=== PATIENT | male | born 1985 | race Caucasian/White ===

== ENCOUNTER 2021-12-02 07:12 | Emergency (ER) | payer OTHER, SELFPAY ==
[2021-12-02 07:13] VITALS: BP 140/97; PULSE 79; RESP 16; TEMP 37.1; O2SAT 98; BMI 28.8
[2021-12-02 07:33] LABS: MANUAL DIFF FLAG NO
[2021-12-02 07:36] LABS: Basophils Absolute Auto 0.1 X10*3/uL (0.0-0.2); Basophils Percent Auto 0.5 % (0-2); Eosinophils Absolute Auto 0.2 X10*3/uL (0.0-0.4); Eosinophils Percent Auto 1.5 % (0-4); Hematocrit 53.8 % (42.0-52.0); Hemoglobin 18.4 g/dl (14.0-18.0); Imm Gran Abs Auto 0.05 X10*3/uL (0.00-0.03); Imm Gran Pct Auto 0.4 % (0.0-0.4); Lymphocytes Absolute Auto 1.4 X10*3/uL (1.2-4.9); Lymphocytes Percent Auto 11.2 % (20-40); Mean Corpuscular HGB Conc 34.2 g/dl (31.0-36.0); Mean Corpuscular Hemoglobin 31.5 pg (27.0-33.0); Mean Corpuscular Volume 92.1 fL (80.0-98.0); Mean Platelet Volume 8.4 fL (9.4-12.4); Monocytes Absolute Auto 0.9 X10*3/uL (0.1-1.2); Monocytes Percent Auto 7.1 % (2-11); Neutrophils Absolute Auto 9.7 x10*3/uL (2.0-8.3); Neutrophils Percent Auto 79.3 % (45-73); Platelet Count 359 X10*3/uL (160-400); Red Blood Count 5.84 X10*6/uL (4.60-5.80); Red Cell Distribution Width 12.5 % (11.0-16.0); White Blood Count 12.3 X10*3/uL (4.8-10.8)
[2021-12-02 07:50] LABS: Appearance Urine CLOUDY; Color Urine DK YELLOW; Glucose Urine UA NEG (NEG); Leukocyte Esterase Urine NEG (NEG); Nitrite Urine NEG (NEG); PH 7.5 (5.0-8.0); Specific Gravity - Urine 1.015 (1.005-1.025); Urine Blood NEG (NEG); Urine Ketones NEG (NEG); Urine Protein TRACE MG/DL (NEG-TRACE)
[2021-12-02 08:02] LABS: Anion Gap 15 (12-20); Blood Urea Nitrogen 7 mg/dL (9-16); Carbon Dioxide 26 mmol/L (22-29); Chloride 99 mmol/L (96-108); Creatinine Clr Calc Pharmacy 170.1; Estimated Glomerular Filt Rate > 60; Glucose Random 115 mg/dL (60-115); Potassium 3.9 mmol/L (3.3-5.1); Sodium 136 mmol/L (135-145)
--- NOTE | 2021-12-02 08:37 | ED.NAVMDI ---
HPI - Nausea/Vomiting/Diarrhea General Chief complaint: Nausea/Vomiting/Diarrhea Stated complaint: abd pain Time Seen by Provider: 12/02/21 08:37 Source: patient Mode of arrival: ambulatory Limitations: no limitations History of Present Illness HPI Narrative: patient had abdominal pain starting yesterday, he had been drinking. Patient with right upper quadrant and epigastric pain. patient with N/V/D. patient states that he had hiatal hernia surgery with jonel procedure. MD elicited complaint: nausea, vomiting, diarrhea and abdominal pain Pertinent past history: pacreatitis Onset (ago): day(s) Associated nausea: Yes Associated abdominal pain: Yes Location of pain: epigastric and RUQ Pain consistency: intermittent Severity: moderate Quality: stabbing Exacerbating factors: alcohol intake Relieving factors: none Related Data Previous Rx's Medication Instructions Recorded naproxen 500 mg tablet (Naprosyn) 500 mg PO BID #20 tab 12/02/21 ondansetron 4 mg disintegrating 4 mg PO Q8H 4 Days #12 tab 12/02/21 tablet pantoprazole 40 mg tablet,delayed 40 mg PO DAILY #20 tab 12/02/21 release (Protonix) Allergies Allergy/AdvReac Type Severity Reaction Status Date / Time No Known Allergies Allergy Unverified 03/20/20 19:21 [No Known Allergies*] Review of Systems Constitutional: Constitutional: Reports no additional constitutional complaints Eyes: Eyes: Reports no additional eye complaints ENT: Denies dizziness Cardiovascular: Cardiovascular: Reports no additional cardiovascular complaints Respiratory: Respiratory: Reports as per HPI Gastrointestinal: Gastrointestinal: Reports nausea Musculoskeletal: Musculoskeletal: Reports no additional musculoskeletal complaints Integumentary/Breasts: Skin/Breast: Denies rash Neurologic: Reports system reviewed and no additional complaints, except as documented, Denies dizziness and Denies Sensory deficit (Neuro) Psychiatric: Psychiatric: Denies anxiety PMFSH Social History Social History Alcohol intake: current Alcohol intake frequency: 0-2 drinks per day Patient Tobacco Use Status: Current everyday Tobacco user Smoked in Last 30 Days: Yes Use of substances other than those prescribed or required for medical reasons: Yes Substance Use Type: Marijuana Advance Directives: No Advance Directives Information Provided: No Physical Exam Vital Signs: Vital Signs: Last Vital Signs Temp 97.8 F 12/02/21 08:53 Pulse 73 12/02/21 08:53 Resp 16 12/02/21 08:53 BP 139/98 H 12/02/21 08:53 Pulse Ox 99 12/02/21 08:53 BMI result Body Mass Index 28.8 Const: Other: in some discomfort General: healthy appearing Nutritional Appearance: average body habitus Orientation/consciousness: oriented to person and patient oriented x3 Limitations: no limitations HEENT: Head: Yes normal to inspection Ears: external ears normal General nose exam: Normal external nose present Mouth: Normal oral and palatal mucosa present and oropharynx normal Throat: Yes posterior oropharynx normal Eyes: General: appearance normal, both eyes and all related structures Neck: Other: supple Neck: Yes normal visual inspection Chest: Chest palpation & inspection: normal inspection of the chest Resp: Auscultation: clear to auscultation bilaterally Cardio: Jugular venous distension: no JVD Rate: regular rate Rhythm: regular rhythm Heart sounds: S1 normal heart sound present and S2 normal heart sound present GI: Other: mild epigastric and right upper quadrant pain Inspection: Yes normal to inspection Palpation (GI): Soft to palpation and No hepatosplenomegaly present Auscultation: normal bowel sounds : General: Yes no CVA tenderness Back/Spine/Pelvis: Back: no CVA tenderness Skin: General skin exam: no rashes or lesions noted Neuro: General: oriented to person and patient oriented x3 Cranial nerves: Yes CN's II-XII intact bilaterally Motor exam (neuro): 5/5 motor strength present throughout Sensory Exam: No Sensory deficit (Neuro) Extrem: General: Yes normal to inspection Psych: Appearance: grossly normal Course Reevaluation(s) Reevaluation #1: patient with mild pancreatitis, very dry will hydrate and dc home Time: 10:08 MDM - Nausea/Vomiting/Diarrhea Lab Data Result diagrams: 12/02/21 07:25 12/02/21 07:25 Labs: Lab Results 12/02/21 12/02/21 12/02/21 Range/Units 07:25 07:25 07:27 WBC 12.3 H (4.8-10.8) X10*3/uL RBC 5.84 H (4.60-5.80) X10*6/uL Hgb 18.4 H (14.0-18.0) g/dl Hct 53.8 H (42.0-52.0) % MCV 92.1 (80.0-98.0) fL MCH 31.5 (27.0-33.0) pg MCHC 34.2 (31.0-36.0) g/dl RDW 12.5 (11.0-16.0) % Plt Count 359 (160-400) X10*3/uL MPV 8.4 L (9.4-12.4) fL Immature Gran % (Auto) 0.4 (0.0-0.4) % Neut % (Auto) 79.3 H (45-73) % Lymph % (Auto) 11.2 L (20-40) % [place] % (Auto) 7.1 (2-11) % Eos % (Auto) 1.5 (0-4) % Baso % (Auto) 0.5 (0-2) % Lymph # (Auto) 1.4 (1.2-4.9) X10*3/uL [place] # (Auto) 0.9 (0.1-1.2) X10*3/uL Eos # (Auto) 0.2 (0.0-0.4) X10*3/uL Baso # (Auto) 0.1 (0.0-0.2) X10*3/uL Abs Immat Gran (auto) 0.05 H (0.00-0.03) X10*3/uL Absolute Neuts (auto) 9.7 H (2.0-8.3) x10*3/uL Absolute Nucleated RBC 0.000 (0.0-0.012) X10*3/uL Nucleated RBC % (auto) 0.0 (0.0-0.2) /100WBC Sodium 136 (135-145) mmol/L Potassium 3.9 (3.3-5.1) mmol/L Chloride 99 (96-108) mmol/L Carbon Dioxide 26 (22-29) mmol/L Anion Gap 15 (12-20) BUN 7 L (9-16) mg/dL Creatinine 0.78 (0.5-1.4) mg/dL Estim Creat Clear Calc 170.1 Estimated GFR > 60 Random Glucose 115 (60-115) mg/dL Calcium 11.0 H (8.4-10.2) mg/dL Total Bilirubin 1.5 H (0.0-1.0) mg/dL Direct Bilirubin 0.6 H (0.0-0.5) mg/dL AST 36 (5-37) U/L ALT 30 (0-40) U/L Alkaline Phosphatase 98 (39-117) U/L Total Protein 7.5 (6.5-8.0) g/dL Albumin 4.2 (3.5-5.0) g/dL Lipase 417 H (8-78) U/L Urine Color DK YELLOW Urine Appearance CLOUDY Urine pH 7.5 (5.0-8.0) Ur Specific [place] 1.015 (1.005-1.025) Urine Protein TRACE (NEG-TRACE) MG/DL Urine Glucose (UA) NEG (NEG) MG/DL Urine Ketones NEG (NEG) MG/DL Urine Blood NEG (NEG) Urine Nitrite NEG (NEG) Ur Leukocyte Esterase NEG (NEG) Discharge Plan Discharge Clinical Impression: Pancreatitis Patient Disposition: Home, Self-Care Instructions: Pancreatitis (ED) Prescriptions: New pantoprazole [Protonix] 40 mg tablet,delayed release (DR/EC) 40 mg PO DAILY Qty: 20 0RF ondansetron 4 mg tablet,disintegrating 4 mg PO Q8H 4 Days Qty: 12 0RF naproxen [Naprosyn] 500 mg tablet 500 mg PO BID Qty: 20 0RF Referrals: Physician,Unknown J [Primary Care Provider] - 1 week
[2021-12-02 08:53] VITALS: BP 139/98; PULSE 73; RESP 16; TEMP 36.6; O2SAT 99
[2021-12-02] MEDS: 0.9 % Sodium Chloride 1,000 ML 999 ML IVCONT ×2 (09:02→09:04)
[2021-12-02] MEDS: ondansetron HCL 4 MG/2 ML VIAL IVPUSH (09:03)
[2021-12-02] MEDS: Pantoprazole Sodium 40 MG/10 ML VIAL IVPUSH (09:03)
[2021-12-02 09:23] LABS: Alanine Aminotransferase 30 U/L (0-40); Albumin Level 4.2 g/dL (3.5-5.0); Alkaline Phosphatase 98 U/L (39-117); Aspartate Amino Transferase 36 U/L (5-37); Bilirubin Direct 0.6 mg/dL (0.0-0.5); Bilirubin Total 1.5 mg/dL (0.0-1.0); Lipase 417 U/L (8-78); Total Protein 7.5 g/dL (6.5-8.0)
[2021-12-02] MEDS: Ketorolac Tromethamine 30 MG/ML VIAL IVPUSH (10:10)
[2021-12-02] MEDS: 0.9 % Sodium Chloride 3,061.74 ML 3061.74 ML IV (10:29)
[2021-12-02 12:38] VITALS: BP 126/80; PULSE 68; RESP 17; TEMP 37.1; O2SAT 98
== END 2021-12-02 12:46 | disposition home or self-care (01) ==
PROVIDERS: Emergency Provider Emergency Medicine
DX: K85.90 Acute pancreatitis without necrosis or infection, unspecified (principal)
CPT/HCPCS: 36415; 80048; 80076; 81003; 83690; 85025; 96361; 96374; 96375; 99284; J1885; J2405

== ENCOUNTER 2022-04-28 00:15 | Emergency (ER) | payer OTHER, SELFPAY ==
[2022-04-28 00:49] VITALS: BP 136/98; PULSE 81; RESP 20; TEMP 36.8; O2SAT 97; BMI 28.8
[2022-04-28 01:06] LABS: MANUAL DIFF FLAG NO
[2022-04-28 01:07] LABS: Appearance Urine Turbid; Color Urine Dark Yellow; Glucose Urine UA Negative (Negative); Leukocyte Esterase Urine Trace (Negative); Nitrite Urine Negative (Negative); PH >= 9.0 (5.0-9.0); UMIC TRIGGER UACC YES; Urine Blood Negative (Negative); Urine Ketones Trace mg/dL (Negative); Urine Protein 100 (2+) mg/dL (Neg-Trace)
[2022-04-28 01:07] LABS: Basophils Absolute Auto 0.1 X10*3/uL (0.0-0.2); Basophils Percent Auto 0.6 % (0-2); Eosinophils Absolute Auto 0.1 X10*3/uL (0.0-0.4); Eosinophils Percent Auto 1.2 % (0-4); Hematocrit 54.7 % (42.0-52.0); Hemoglobin 19.6 g/dl (14.0-18.0); Imm Gran Abs Auto 0.03 X10*3/uL (0.00-0.03); Imm Gran Pct Auto 0.3 % (0.0-0.4); Lymphocytes Absolute Auto 1.8 X10*3/uL (1.2-4.9); Lymphocytes Percent Auto 18.8 % (20-40); Mean Corpuscular HGB Conc 35.8 g/dl (31.0-36.0); Mean Corpuscular Hemoglobin 33.2 pg (27.0-33.0); Mean Corpuscular Volume 92.7 fL (80.0-98.0); Mean Platelet Volume 8.7 fL (9.4-12.4); Monocytes Absolute Auto 0.9 X10*3/uL (0.1-1.2); Monocytes Percent Auto 9.4 % (2-11); Neutrophils Absolute Auto 6.5 x10*3/uL (2.0-8.3); Neutrophils Percent Auto 69.7 % (45-73); Platelet Count 363 X10*3/uL (160-400); Red Cell Distribution Width 11.6 % (11.0-16.0); White Blood Count 9.4 X10*3/uL (4.8-10.8)
[2022-04-28 01:10] LABS: Bacteria Urine None Seen (None Seen); Hyaline Casts Urine 0-2 /LPF (0-2); RBC Urine 0-2 /HPF (0-2); Squamous Epithelial Cell Urine 0-2 /HPF (0-2); WBC Urine 0-5 /HPF (0-5)
[2022-04-28 01:31] LABS: Alanine Aminotransferase 42 U/L (0-40); Albumin Level 4.5 g/dL (3.5-5.0); Alkaline Phosphatase 119 U/L (39-117); Anion Gap 19 (12-20); Aspartate Amino Transferase 38 U/L (5-37); Bilirubin Direct 0.7 mg/dL (0.0-0.5); Blood Urea Nitrogen 5 mg/dL (9-16); Calcium 11.8 mg/dL (8.4-10.2); Carbon Dioxide 29 mmol/L (22-29); Chloride 95 mmol/L (96-108); Creatinine Clr Calc Pharmacy 161.8; Estimated Glomerular Filt Rate > 60; Ethanol < 10 mg/dL; Glucose Random 131 mg/dL (60-115); Lipase 64 U/L (8-78); Potassium 3.1 mmol/L (3.3-5.1); Sodium 140 mmol/L (135-145); Total Protein 8.3 g/dL (6.5-8.0)
[2022-04-28 01:42] LABS: Influenza A PCR NEGATIVE (Negative); Influenza B PCR NEGATIVE (Negative); Resp Syncy Virus RNA Qual PCR NEGATIVE (Negative); SARS COV2 PCR INHOUSE NEGATIVE (Negative)
--- NOTE | 2022-04-28 01:58 | ED_ITS ---
HPI - Abdominal Pain General Chief Complaint: Abdominal Pain Stated Complaint: Vomiting Time Seen by Provider: 04/28/22 01:49 Source: patient Mode of arrival: ambulatory Limitations: no limitations History of Present Illness HPI narrative: Patient came here for vomiting for last 2 days but unable to hold anything down worse today also noticed diffuse abdominal pain no fever no chills no diarrhea Related Data Previous Rx's Medication Instructions Recorded naproxen 500 mg tablet (Naprosyn) 500 mg PO BID #20 tabs 12/02/21 ondansetron 4 mg disintegrating 4 mg PO Q8H 4 days #12 tabs 12/02/21 tablet pantoprazole 40 mg tablet,delayed 40 mg PO DAILY #20 tabs 12/02/21 release (Protonix) ondansetron 4 mg disintegrating 4 mg PO Q6-8H PRN nausea and 04/28/22 tablet vomiting #14 tabs pantoprazole 40 mg tablet,delayed 40 mg PO DAILY #20 tabs 04/28/22 release (Protonix) Allergies Allergy/AdvReac Type Severity Reaction Status Date / Time No Known Allergies Allergy Unverified 03/20/20 19:21 [No Known Allergies*] Review of Systems Review of Systems Yes all other systems are reviewed and are negative PMFSH Social History Social History Alcohol intake: current Alcohol intake frequency: 0-2 drinks per day Patient Tobacco Use Status: Current everyday Tobacco user Substance Use Type: Marijuana Advance Directives: No Advance Directives Information Provided: No Physical Exam ED Vital Signs: Vital Signs - 24 hr 04/28/22 00:49 04/28/22 04:00 Temperature 98.2 F 98.4 F Pulse Rate 81 56 Respiratory Rate 20 19 Blood Pressure 136/98 H 127/89 Pulse Oximetry 97 96 Oxygen Delivery Method Room Air Room Air BMI result Body Mass Index 28.8 Appearance: Alert. Oriented X3. No acute distress. Eyes: PERRLA, No Nystagmus ENT: Pharynx normal. Oral Mucosa moist Neck: Normal inspection. Neck supple. CVS: Normal heart rate and rhythm. Pulses normal. Respiratory: No respiratory distress. Equal air entry bilateral, no wheezing/ rales/rhonchi Abdomen: Soft mild upper abdominal tenderness no rebound/ guarding. Bowel sounds are present, no mass palpable, no CVA tenderness Skin: Skin warm and dry. Normal skin color. Normal skin turgor. Extremities: No lower extremity edema. No calf tenderness Neuro: Oriented X 3. No motor deficit. MDM - Abdominal Pain MDM Narrative Medical decision making narrative: Patient with acute gastritis with vomiting labs are stable normal lipase discharge patient home on Zofran patient had slight low potassium and magnesium which was replaced patient also smokes marijuana could be cannabis induced vomiting Differential Diagnosis Differential diagnosis: Likely abdominal pain, gastroenteritis and gastritis Lab Data Attestation: I reviewed the patient's lab results. Result diagrams: 04/28/22 01:01 04/28/22 01:01 Labs: Lab Results 04/28/22 04/28/22 04/28/22 Range/Units 00:58 00:59 01:01 WBC 9.4 (4.8-10.8) X10*3/uL RBC 5.90 H (4.60-5.80) X10*6/uL Hgb 19.6 H (14.0-18.0) g/dl Hct 54.7 H (42.0-52.0) % MCV 92.7 (80.0-98.0) fL MCH 33.2 H (27.0-33.0) pg MCHC 35.8 (31.0-36.0) g/dl RDW 11.6 (11.0-16.0) % Plt Count 363 (160-400) X10*3/uL MPV 8.7 L (9.4-12.4) fL Immature Gran % (Auto) 0.3 (0.0-0.4) % Neut % (Auto) 69.7 (45-73) % Lymph % (Auto) 18.8 L (20-40) % [place] % (Auto) 9.4 (2-11) % Eos % (Auto) 1.2 (0-4) % Baso % (Auto) 0.6 (0-2) % Lymph # (Auto) 1.8 (1.2-4.9) X10*3/uL [place] # (Auto) 0.9 (0.1-1.2) X10*3/uL Eos # (Auto) 0.1 (0.0-0.4) X10*3/uL Baso # (Auto) 0.1 (0.0-0.2) X10*3/uL Abs Immat Gran (auto) 0.03 (0.00-0.03) X10*3/uL Absolute Neuts (auto) 6.5 (2.0-8.3) x10*3/uL Absolute Nucleated RBC 0.000 (0.0-0.012) X10*3/uL Nucleated RBC % (auto) 0.0 (0.0-0.2) /100WBC Sodium (135-145) mmol/L Potassium (3.3-5.1) mmol/L Chloride (96-108) mmol/L Carbon Dioxide (22-29) mmol/L Anion Gap (12-20) BUN (9-16) mg/dL Creatinine (0.5-1.4) mg/dL Estim Creat Clear Calc Estimated GFR Random Glucose (60-115) mg/dL Calcium (8.4-10.2) mg/dL Magnesium (1.6-2.6) mg/dL Total Bilirubin (0.0-1.0) mg/dL Direct Bilirubin (0.0-0.5) mg/dL AST (5-37) U/L ALT (0-40) U/L Alkaline Phosphatase (39-117) U/L Total Protein (6.5-8.0) g/dL Albumin (3.5-5.0) g/dL Lipase (8-78) U/L Urine Color Dark Yellow Urine Appearance Turbid Urine pH >= 9.0 (5.0-9.0) Ur Specific [place] 1.020 (1.005-1.025) Urine Protein 100 (2+) H (Neg-Trace) mg/dL Urine Glucose (UA) Negative (Negative) mg/dL Urine Ketones Trace (Negative) mg/dL Urine Blood Negative (Negative) Urine Nitrite Negative (Negative) Ur Leukocyte Esterase Trace H (Negative) Urine RBC 0-2 (0-2) /HPF Urine WBC 0-5 (0-5) /HPF Ur Squamous Epith Cells 0-2 (0-2) /HPF Urine Bacteria None Seen (None Seen) Hyaline Casts 0-2 (0-2) /LPF Ethyl Alcohol mg/dL Influenza Type A (PCR) NEGATIVE (Negative) Influenza Type B (PCR) NEGATIVE (Negative) RSV RNA Qual (PCR) NEGATIVE (Negative) SARS-CoV-2 RNA (RT-PCR) NEGATIVE (Negative) 04/28/22 Range/Units 01:01 WBC (4.8-10.8) X10*3/uL RBC (4.60-5.80) X10*6/uL Hgb (14.0-18.0) g/dl Hct (42.0-52.0) % MCV (80.0-98.0) fL MCH (27.0-33.0) pg MCHC (31.0-36.0) g/dl RDW (11.0-16.0) % Plt Count (160-400) X10*3/uL MPV (9.4-12.4) fL Immature Gran % (Auto) (0.0-0.4) % Neut % (Auto) (45-73) % Lymph % (Auto) (20-40) % [place] % (Auto) (2-11) % Eos % (Auto) (0-4) % Baso % (Auto) (0-2) % Lymph # (Auto) (1.2-4.9) X10*3/uL [place] # (Auto) (0.1-1.2) X10*3/uL Eos # (Auto) (0.0-0.4) X10*3/uL Baso # (Auto) (0.0-0.2) X10*3/uL Abs Immat Gran (auto) (0.00-0.03) X10*3/uL Absolute Neuts (auto) (2.0-8.3) x10*3/uL Absolute Nucleated RBC (0.0-0.012) X10*3/uL Nucleated RBC % (auto) (0.0-0.2) /100WBC Sodium 140 (135-145) mmol/L Potassium 3.1 L D (3.3-5.1) mmol/L Chloride 95 L (96-108) mmol/L Carbon Dioxide 29 (22-29) mmol/L Anion Gap 19 (12-20) BUN 5 L (9-16) mg/dL Creatinine 0.82 (0.5-1.4) mg/dL Estim Creat Clear Calc 161.8 Estimated GFR > 60 Random Glucose 131 H (60-115) mg/dL Calcium 11.8 H D (8.4-10.2) mg/dL Magnesium 1.2 L* (1.6-2.6) mg/dL Total Bilirubin 2.0 H (0.0-1.0) mg/dL Direct Bilirubin 0.7 H (0.0-0.5) mg/dL AST 38 H (5-37) U/L ALT 42 H (0-40) U/L Alkaline Phosphatase 119 H D (39-117) U/L Total Protein 8.3 H (6.5-8.0) g/dL Albumin 4.5 (3.5-5.0) g/dL Lipase 64 (8-78) U/L Urine Color Urine Appearance Urine pH (5.0-9.0) Ur Specific [place] (1.005-1.025) Urine Protein (Neg-Trace) mg/dL Urine Glucose (UA) (Negative) mg/dL Urine Ketones (Negative) mg/dL Urine Blood (Negative) Urine Nitrite (Negative) Ur Leukocyte Esterase (Negative) Urine RBC (0-2) /HPF Urine WBC (0-5) /HPF Ur Squamous Epith Cells (0-2) /HPF Urine Bacteria (None Seen) Hyaline Casts (0-2) /LPF Ethyl Alcohol < 10 mg/dL Influenza Type A (PCR) (Negative) Influenza Type B (PCR) (Negative) RSV RNA Qual (PCR) (Negative) SARS-CoV-2 RNA (RT-PCR) (Negative) Discharge Plan Discharge Clinical Impression: Gastroenteritis Patient Disposition: Home, Self-Care Instructions: Acute Nausea and Vomiting (ED) Additional Instructions: Drink plenty of fluids Meds for nausea as advised take medication for acid Prescriptions: New pantoprazole [Protonix] 40 mg tablet,delayed release (DR/EC) 40 mg PO DAILY Qty: 20 0RF ondansetron 4 mg tablet,disintegrating 4 mg PO Q6-8H PRN (Reason: nausea and vomiting) Qty: 14 0RF No Action pantoprazole [Protonix] 40 mg tablet,delayed release (DR/EC) 40 mg PO DAILY Qty: 20 0RF ondansetron 4 mg tablet,disintegrating 4 mg PO Q8H 4 Days Qty: 12 0RF naproxen [Naprosyn] 500 mg tablet 500 mg PO BID Qty: 20 0RF Interventions: ED Discharge Assessment Last Done: 04/28/22 06:13 Discharge Date/Time: 04/28/22 06:14
[2022-04-28] MEDS: 0.9 % Sodium Chloride 1,000 ML 999 ML IV ×2 (02:26→05:19)
[2022-04-28] MEDS: Potassium Chloride/H20 10 MEQ/100 ML PIGGYBACK 100 MEQ IV (02:27)
[2022-04-28] MEDS: ondansetron HCL 4 MG/2 ML VIAL IVPUSH (02:27)
[2022-04-28] MEDS: Morphine Sulfate 4 MG/ML CARTRIDGE IVPUSH (02:27)
[2022-04-28 02:30] LABS: Magnesium 1.2 mg/dL (1.6-2.6)
[2022-04-28] MEDS: Magnesium Sulfate/H2O 2 GM/50 ML PIGGYBACK IV (03:43)
[2022-04-28 04:00] VITALS: BP 127/89; PULSE 56; RESP 19; TEMP 36.9; O2SAT 96
[2022-04-28] MEDS: Famotidine/PF 20 MG/2 ML VIAL IVPUSH (05:18)
[2022-04-28] MEDS: Ketorolac Tromethamine 30 MG/ML VIAL IVPUSH (05:18)
== END 2022-04-28 06:14 | disposition home or self-care (01) ==
PROVIDERS: Emergency Provider Internal Medicine
DX: K52.9 Noninfective gastroenteritis and colitis, unspecified (principal); R10.9 Unspecified abdominal pain; Z20.822 Contact with and (suspected) exposure to COVID-19; Z79.899 Other long term (current) drug therapy
CPT/HCPCS: 0241U; 80053; 81001; 82077; 82248; 83690; 83735; 85025; 96361; 96365; 96375; 99284; J1885; J2270; J2405; J3475

== ENCOUNTER 2022-06-22 16:56 | Inpatient (IN) | payer OTHER, SELFPAY ==
--- NOTE | ~2022-06-22 | CT_ITS ---
EXAMINATION: CT ABDOMEN AND PELVIS WITH CONTRAST CLINICAL INFORMATION: Epigastric abdominal pain. History of hiatal hernia COMPARISON: None TECHNIQUE: Multidetector volumetric images were obtained from the superior aspect of the liver through the pubic symphysis following administration 85 mL of Omnipaque 350 intravenous contrast. Sagittal and coronal reformatted images were obtained on the technologist's workstation. Oral contrast: No This CT examination was performed using dose optimization techniques as appropriate, variously including the following: *Automated exposure control *Adjustment of mA and/or kV according to patient size (this includes techniques or standardized protocols for targeted exams where dose is matched to indication/reason for exam; i.e. extremities or head) *Use of iterative reconstruction technique DLP: 809 mGy-cm FINDINGS: LUNG BASES: The visualized lung bases are unremarkable. LIVER, GALLBLADDER, AND BILIARY TREE: The liver is normal in size, shape, and attenuation. No focal hepatic lesion or biliary ductal dilatation is present. Status post cholecystectomy. No biliary ductal dilatation seen PANCREAS: Multilobulated/septated cystic lesion is seen within the head/uncinate process of the pancreas measuring 2.9 x 2.4 x 2.5 cm. Simple fluid density cyst seen within the cyst with thin septations. No enhancing masses seen. No acute inflammatory changes is seen surrounding the pancreas. SPLEEN: Unremarkable. ADRENAL GLANDS: Unremarkable. KIDNEYS AND URETERS: The kidneys are normal in size, shape, and attenuation. No hydronephrosis, hydroureter, or calculi seen. No perinephric stranding. Multiple hypodensities are seen scattered throughout the bilateral kidneys. Largest lesion is seen in the upper pole the right kidney measuring about 1.8 x 1.4 cm measuring simple fluid density without septations or abnormal enhancement consistent with a Bosniak 1 cyst. Largest lesion in the left kidney is seen in the posterior upper pole measuring a 1.3 x 1.2 cm which also measures simple fluid density without abnormal enhancement or septations consistent with a Bosniak 1 cyst. Follow-up is not recommended. Other lesions are subcentimeter in size and too small to reliably characterize but also likely represent simple cysts. BLADDER: Unremarkable. GASTROINTESTINAL TRACT: Large hiatal hernia is seen within nearly the entire stomach extending into the chest The small and large bowel are unremarkable. The appendix is unremarkable. ABDOMINAL WALL: No significant hernia is appreciated. LYMPH NODES: Numerous small lymph nodes are seen in the hepatic hilum and peripancreatic region which are not significantly enlarged by numerous and could be reactive in nature. VASCULAR: Unremarkable. PELVIC VISCERA: Unremarkable. OSSEOUS STRUCTURES: Unremarkable. CT/CT abdomen pelvis w IV con IMPRESSION: 1. Multilobulated/septated cystic lesion within the head/uncinate process of the pancreas measuring 2.9 cm. No acute inflammatory changes are seen surrounding the pancreas. Recommend follow-up with MRI/MRCP 2. Multiple bilateral renal cysts. Largest lesions are consistent with Bosniak 1 cysts. 3. Large hiatal hernia. 4. Numerous small lymph nodes in the hepatic hilum and peripancreatic region which are not significantly enlarged by size criteria and could be reactive in nature.
[2022-06-22 17:19] VITALS: BP 159/92; PULSE 120; RESP 20; TEMP 36.5; O2SAT 96; BMI 29.5
--- NOTE | 2022-06-22 17:20 | ED.ABDPAIN ---
HPI - Abdominal Pain General Chief Complaint: Abdominal Pain <Amada Hunter CNP - Last Filed: 06/22/22 17:25> Stated Complaint: pancreatitis <Amada Hunter CNP - Last Filed: 06/22/22 17:25> Time Seen by Provider: 06/22/22 17:42 <Amada Hunter CNP - Last Filed: 06/22/22 17:25> Source: patient <NAHOMY Fernandez - Last Filed: 06/22/22 20:34> Mode of arrival: ambulatory <NAHOMY Fernandez - Last Filed: 06/22/22 20:34> Limitations: no limitations <NAHOMY Fernandez - Last Filed: 06/22/22 20:34> History of Present Illness HPI narrative: 36-year-old male history of alcohol abuse, pancreatitis presents to the emergency department with nausea, vomiting, epigastric pain, tremors, fatigue, malaise times a few days worsening. Patient reports that he is a current daily drinker drinks 10-12 nips of whiskey a day. Last drink was 2 days ago. Patient tells me he feels awful and he feels like the time at pancreatitis. Decreased p.o. intake since pain began. Pain is nonradiating, constant, severe. Patient denies chest pain, shortness of breath, fevers, chills, visual, tactile hallucinations, SI, HI, headache, vision changes, dizziness. Denies other drug use. No history of alcohol withdrawal seizures. CIWA 24 <NAHOMY Fernandez - Last Filed: 06/22/22 20:34> Related Data Home Medications: Home Medications Medication Instructions Recorded Confirmed acetaminophen 325 mg tablet 650 mg PO Q6H PRN Pain 06/22/22 06/22/22 (Tylenol) <Amada Hunter CNP - Last Filed: 06/22/22 17:25> Allergies/Adverse Reactions: Allergies Allergy/AdvReac Type Severity Reaction Status Date / Time No Known Allergies Allergy Unverified 03/20/20 19:21 [No Known Allergies*] <Amada Hunter CNP - Last Filed: 06/22/22 17:25> Review of Systems Review of Systems Constitutional : No Weight loss, No Fever, No Chills, No Fatigue, No Malaise ENT/Mouth : No sore throat, No Rhinorrhea Eyes: No Eye Pain, No Swelling, No Redness Cardiovascular : No Chest Pain, No SOB, No Dyspnea on Exertion, No Orthopnea, No Edema, No Palpitations Respiratory : No Cough, No Sputum, No Wheezing Gastrointestinal : + Nausea, + Vomiting, No Diarrhea, No Constipation, + abdominal Pain, No Hematochezia, No Melena Genitourinary : No Dysuria, No Urinary Frequency, No Hematuria, Musculoskeletal : No joint pain, No Myalgias, No Joint Swelling Skin : No Skin Lesions, No rash Neuro : No Weakness, No Numbness, No Dizziness, No Headache Psych : No Anxiety/Panic, No Depression All other systems reviewed and are negative <NAHOMY Fernandez - Last Filed: 06/22/22 20:34> Yes all other systems are reviewed and are negative <NAHOMY Fernandez - Last Filed: 06/22/22 20:34> [facility] Past Medical History Attestation statement: The following information was validated with the patient. <NAHOMY Fernandez - Last Filed: 06/22/22 20:34> Source: old records reviewed and nursing notes reviewed <NAHOMY Fernandez - Last Filed: 06/22/22 20:34> Social History Social History: Social History Alcohol intake: current Alcohol intake frequency: 3 or more drinks per day Alcohol type: hard liquor Patient Tobacco Use Status: Current everyday Tobacco user Use of substances other than those prescribed or required for medical reasons: Yes Substance Use Type: Marijuana Advance Directives: No Advance Directives Information Provided: No <Amada Hunter CNP - Last Filed: 06/22/22 17:25> Physical Exam ED Vital Signs: Vital Signs - 24 hr 06/22/22 17:19 06/22/22 19:49 06/22/22 19:49 Temperature 97.7 F 98.5 F Pulse Rate 120 H 101 H Pulse Rate [Monitor] 97 Respiratory Rate 20 15 Blood Pressure 159/92 H 135/94 H Pulse Oximetry 96 96 Oxygen Delivery Method Room Air Room Air BMI result Body Mass Index 29.5 <Amadaedward AnthonyKI allen - Last Filed: 06/22/22 17:25> Vital Signs - 24 hr 06/22/22 17:19 06/22/22 19:49 06/22/22 19:49 Temperature 97.7 F 98.5 F Pulse Rate 120 H 101 H Pulse Rate [Monitor] 97 Respiratory Rate 20 15 Blood Pressure 159/92 H 135/94 H Pulse Oximetry 96 96 Oxygen Delivery Method Room Air Room Air BMI result Body Mass Index 29.5 Patient noted to be tachycardic <NAHOMY Fernandez - Last Filed: 06/22/22 20:34> Appearance: Alert.? Oriented X3.? No acute distress.? Patient appears diaphoretic and uncomfortable. Head: Normocephalic, atraumatic, no step-offs or deformities Eyes: Pupils equal, round and reactive to light.? ENT: Pharynx normal.? Neck: Normal inspection.? Neck supple.? CVS: Normal heart rate and rhythm.? Pulses normal.? Respiratory: No respiratory distress.? Breath sounds normal.? Abdomen: Soft and epigastric tenderness on palpation.? Skin: Skin warm and dry.? Normal skin color.? Normal skin turgor.? Extremities: No lower extremity edema.? No calf ttp. 5/5 strength to bilateral upper and lower extremities Back: No midline tenderness, no C-spine tenderness, full range of motion, no CVA tenderness bilaterally Neuro: Oriented X 3.? No motor deficit.? No sensory deficit. CN 2-12 intact <NAHOMY Fernandez - Last Filed: 06/22/22 20:34> Course Course Course Narrative: RME: Patient presents emergency department for evaluation of upper abdominal pain with nausea, vomiting. Reports a history of pancreatitis, last episode was a few months ago.. He does consume alcohol regularly, 10-12 nips of whiskey daily, last drink was 2 days ago. Reports tactile fevers and chills. Denies dysuria, urinary frequency, diarrhea. Denies history of alcohol withdrawal seizures. Tachycardic 120's, afebrile, diffuse upper abdominal tenderness upon examination. CIWA 24. Plan: CBC, CMP, lipase, urinalysis, EKG. Spoke with insulation cupola charger, made aware of patient <Amada Hunter CNP - Last Filed: 06/22/22 17:25> Reevaluation(s) Reevaluation #1: CBC with slight leukocytosis, hemoglobin and hematocrit elevated likely secondary to poor p.o. intake/dehydration/nausea/vomiting. Patient's chemistry with a critically low magnesium, will replete with IV Mag. BUN also noted to be elevated likley secondary to dehydration. Lipase wnl. Ethanol less than 10. COVID/influenza negative. <NAHOMY Fernandez - Last Filed: 06/22/22 20:34> Time: 18:51 <NAHOMY Fernandez - Last Filed: 06/22/22 20:34> Reevaluation #2: Patient's influenza, COVID negative. Still experiencing pain. Will give morphine. Plan is to admit patient for nausea, vomiting, abdominal pain and alcohol withdrawal. Patient agreeable to plan. Discussed case with hospitals. <NAHOMY Fernandez - Last Filed: 06/22/22 20:34> Time: 20:33 <NAHOMY Fernandez - Last Filed: 06/22/22 20:34> Medical Decision Making Medical Decision Making [facility] Narrative: 1744 36-year-old presents nausea vomiting, epigastric pain times a few days worsening. Current daily drinker last drink Tuesday. Physical examination epigastric tenderness to palpation. Noted to be tachycardic on exam with a rate in the 120s. Patient appears uncomfortable and diaphoretic. Concerns for possible pancreatitis and/or alcohol withdrawal based off patient's presentation. Unlikely to abdomen. Unlikely small bowel, large bowel obstruction, appendicitis, cholecystitis, diverticulitis. Plan at this time labs, imaging, patient's see what 24 upon arrival, concerns for acute alcohol withdrawal will start on phenobarbital. <NAHOMY Fernandez Last Filed: 06/22/22 20:34> Differential Diagnosis Differential Diagnoses: The differential diagnosis associated with the presentation includes <NAHOMY Fernandez - Last Filed: 06/22/22 20:34> Admission/Observation Consideration of admission/observation: Escalation of care including admission/observation considered <NAHOMY Fernandez Last Filed: 06/22/22 20:34> Lab Data Result Diagrams: : 06/22/22 18:10 06/22/22 18:10 <Amada Hunter, [employer] - Last Filed: 06/22/22 17:25> Labs: Lab Results 06/22/22 06/22/22 06/22/22 Range/Units 18:10 18:10 18:10 WBC 11.9 H (4.8-10.8) X10*3/uL RBC 6.22 H (4.60-5.80) X10*6/uL Hgb 19.4 H (14.0-18.0) g/dl Hct 56.8 H (42.0-52.0) % MCV 91.3 (80.0-98.0) fL MCH 31.2 (27.0-33.0) pg MCHC 34.2 (31.0-36.0) g/dl RDW 13.4 (11.0-16.0) % Plt Count 315 (160-400) X10*3/uL MPV 8.9 L (9.4-12.4) fL Immature Gran % (Auto) 0.3 (0.0-0.4) % Neut % (Auto) 79.1 H (45-73) % Lymph % (Auto) 11.3 L (20-40) % Duval % (Auto) 8.4 (2-11) % Eos % (Auto) 0.2 (0-4) % Baso % (Auto) 0.7 (0-2) % Lymph # (Auto) 1.3 (1.2-4.9) X10*3/uL Duval # (Auto) 1.0 (0.1-1.2) X10*3/uL Eos # (Auto) 0.0 (0.0-0.4) X10*3/uL Baso # (Auto) 0.1 (0.0-0.2) X10*3/uL Abs Immat Gran (auto) 0.03 (0.00-0.03) X10*3/uL Absolute Neuts (auto) 9.4 H (2.0-8.3) x10*3/uL Absolute Nucleated RBC 0.000 (0.0-0.012) X10*3/uL Nucleated RBC % (auto) 0.0 (0.0-0.2) /100WBC Sodium 143 (135-145) mmol/L Potassium 3.3 (3.3-5.1) mmol/L Chloride 100 (96-108) mmol/L Carbon Dioxide 30 H (22-29) mmol/L Anion Gap 16 (12-20) BUN 10 (9-16) mg/dL Creatinine 0.81 (0.5-1.4) mg/dL Estim Creat Clear Calc 165.4 Estimated GFR > 60 Random Glucose 141 H (60-115) mg/dL Calcium 10.8 H D (8.4-10.2) mg/dL Magnesium 1.4 L* (1.6-2.6) mg/dL Total Bilirubin 1.9 H (0.0-1.0) mg/dL AST 39 H (5-37) U/L ALT 35 (0-40) U/L Alkaline Phosphatase 108 (39-117) U/L Troponin I High Sens < 3.5 (<3.5-35.0) ng/L Total Protein 7.9 (6.5-8.0) g/dL Albumin 4.5 (3.5-5.0) g/dL Lipase 36 (8-78) U/L Ethyl Alcohol mg/dL COVID-19 (CELESTINE) (Negative) COVID-19 Clin Com Influenza Type A (BRADY) (Negative) Influenza Type B (BRADY) (Negative) Influenza A & B Note 06/22/22 06/22/22 06/22/22 Range/Units 18:10 18:10 18:10 WBC (4.8-10.8) X10*3/uL RBC (4.60-5.80) X10*6/uL Hgb (14.0-18.0) g/dl Hct (42.0-52.0) % MCV (80.0-98.0) fL MCH (27.0-33.0) pg MCHC (31.0-36.0) g/dl RDW (11.0-16.0) % Plt Count (160-400) X10*3/uL MPV (9.4-12.4) fL Immature Gran % (Auto) (0.0-0.4) % Neut % (Auto) (45-73) % Lymph % (Auto) (20-40) % Duval % (Auto) (2-11) % Eos % (Auto) (0-4) % Baso % (Auto) (0-2) % Lymph # (Auto) (1.2-4.9) X10*3/uL Duval # (Auto) (0.1-1.2) X10*3/uL Eos # (Auto) (0.0-0.4) X10*3/uL Baso # (Auto) (0.0-0.2) X10*3/uL Abs Immat Gran (auto) (0.00-0.03) X10*3/uL Absolute Neuts (auto) (2.0-8.3) x10*3/uL Absolute Nucleated RBC (0.0-0.012) X10*3/uL Nucleated RBC % (auto) (0.0-0.2) /100WBC Sodium (135-145) mmol/L Potassium (3.3-5.1) mmol/L Chloride (96-108) mmol/L Carbon Dioxide (22-29) mmol/L Anion Gap (12-20) BUN (9-16) mg/dL Creatinine (0.5-1.4) mg/dL Estim Creat Clear Calc Estimated GFR Random Glucose (60-115) mg/dL Calcium (8.4-10.2) mg/dL Magnesium (1.6-2.6) mg/dL Total Bilirubin (0.0-1.0) mg/dL AST (5-37) U/L ALT (0-40) U/L Alkaline Phosphatase (39-117) U/L Troponin I High Sens (<3.5-35.0) ng/L Total Protein (6.5-8.0) g/dL Albumin (3.5-5.0) g/dL Lipase (8-78) U/L Ethyl Alcohol < 10 mg/dL COVID-19 (CELESTINE) Negative (Negative) COVID-19 Clin Com See Note Influenza Type A (BRADY) Negative (Negative) Influenza Type B (BRADY) Negative (Negative) Influenza A & B Note See Note <Amada Hunter CNP - Last Filed: 06/22/22 17:25> Lab Results 06/22/22 06/22/22 06/22/22 Range/Units 18:10 18:10 18:10 WBC 11.9 H (4.8-10.8) X10*3/uL RBC 6.22 H (4.60-5.80) X10*6/uL Hgb 19.4 H (14.0-18.0) g/dl Hct 56.8 H (42.0-52.0) % MCV 91.3 (80.0-98.0) fL MCH 31.2 (27.0-33.0) pg MCHC 34.2 (31.0-36.0) g/dl RDW 13.4 (11.0-16.0) % Plt Count 315 (160-400) X10*3/uL MPV 8.9 L (9.4-12.4) fL Immature Gran % (Auto) 0.3 (0.0-0.4) % Neut % (Auto) 79.1 H (45-73) % Lymph % (Auto) 11.3 L (20-40) % Duval % (Auto) 8.4 (2-11) % Eos % (Auto) 0.2 (0-4) % Baso % (Auto) 0.7 (0-2) % Lymph # (Auto) 1.3 (1.2-4.9) X10*3/uL Duval # (Auto) 1.0 (0.1-1.2) X10*3/uL Eos # (Auto) 0.0 (0.0-0.4) X10*3/uL Baso # (Auto) 0.1 (0.0-0.2) X10*3/uL Abs Immat Gran (auto) 0.03 (0.00-0.03) X10*3/uL Absolute Neuts (auto) 9.4 H (2.0-8.3) x10*3/uL Absolute Nucleated RBC 0.000 (0.0-0.012) X10*3/uL Nucleated RBC % (auto) 0.0 (0.0-0.2) /100WBC Sodium 143 (135-145) mmol/L Potassium 3.3 (3.3-5.1) mmol/L Chloride 100 (96-108) mmol/L Carbon Dioxide 30 H (22-29) mmol/L Anion Gap 16 (12-20) BUN 10 (9-16) mg/dL Creatinine 0.81 (0.5-1.4) mg/dL Estim Creat Clear Calc 165.4 Estimated GFR > 60 Random Glucose 141 H (60-115) mg/dL Calcium 10.8 H D (8.4-10.2) mg/dL Magnesium 1.4 L* (1.6-2.6) mg/dL Total Bilirubin 1.9 H (0.0-1.0) mg/dL AST 39 H (5-37) U/L ALT 35 (0-40) U/L Alkaline Phosphatase 108 (39-117) U/L Troponin I High Sens < 3.5 (<3.5-35.0) ng/L Total Protein 7.9 (6.5-8.0) g/dL Albumin 4.5 (3.5-5.0) g/dL Lipase 36 (8-78) U/L Ethyl Alcohol mg/dL COVID-19 (CELESTINE) (Negative) COVID-19 Clin Com Influenza Type A (BRADY) (Negative) Influenza Type B (BRADY) (Negative) Influenza A & B Note 06/22/22 06/22/22 06/22/22 Range/Units 18:10 18:10 18:10 WBC (4.8-10.8) X10*3/uL RBC (4.60-5.80) X10*6/uL Hgb (14.0-18.0) g/dl Hct (42.0-52.0) % MCV (80.0-98.0) fL MCH (27.0-33.0) pg MCHC (31.0-36.0) g/dl RDW (11.0-16.0) % Plt Count (160-400) X10*3/uL MPV (9.4-12.4) fL Immature Gran % (Auto) (0.0-0.4) % Neut % (Auto) (45-73) % Lymph % (Auto) (20-40) % Duval % (Auto) (2-11) % Eos % (Auto) (0-4) % Baso % (Auto) (0-2) % Lymph # (Auto) (1.2-4.9) X10*3/uL Duval # (Auto) (0.1-1.2) X10*3/uL Eos # (Auto) (0.0-0.4) X10*3/uL Baso # (Auto) (0.0-0.2) X10*3/uL Abs Immat Gran (auto) (0.00-0.03) X10*3/uL Absolute Neuts (auto) (2.0-8.3) x10*3/uL Absolute Nucleated RBC (0.0-0.012) X10*3/uL Nucleated RBC % (auto) (0.0-0.2) /100WBC Sodium (135-145) mmol/L Potassium (3.3-5.1) mmol/L Chloride (96-108) mmol/L Carbon Dioxide (22-29) mmol/L Anion Gap (12-20) BUN (9-16) mg/dL Creatinine (0.5-1.4) mg/dL Estim Creat Clear Calc Estimated GFR Random Glucose (60-115) mg/dL Calcium (8.4-10.2) mg/dL Magnesium (1.6-2.6) mg/dL Total Bilirubin (0.0-1.0) mg/dL AST (5-37) U/L ALT (0-40) U/L Alkaline Phosphatase (39-117) U/L Troponin I High Sens (<3.5-35.0) ng/L Total Protein (6.5-8.0) g/dL Albumin (3.5-5.0) g/dL Lipase (8-78) U/L Ethyl Alcohol < 10 mg/dL COVID-19 (CELESTINE) Negative (Negative) COVID-19 Clin Com See Note Influenza Type A (BRADY) Negative (Negative) Influenza Type B (BRADY) Negative (Negative) Influenza A & B Note See Note <NAHOMY Fernandez - Last Filed: 06/22/22 20:34> Medications Administered Generic Name Dose Route Start Last Admin Trade Name Freq PRN Reason Stop Dose Admin Magnesium Sulfate 2 gm in 50 mls @ 25 mls/hr 06/22/22 18:52 06/22/22 19:48 Magnesium Sulfate/H2o IV 06/22/22 20:51 25 mls/hr ONCE ONE Administration Discontinued Medications Generic Name Dose Route Start Last Admin Trade Name Freq PRN Reason Stop Dose Admin Al Hydroxide/Mg Hydroxide 30 ml 06/22/22 18:18 06/22/22 19:48 Magnesium Hydrox/Alum Hydrox 30 Ml Oral.Susp PO 06/22/22 18:19 30 ml ONCE ONE Administration Belladonna Alkaloids/Phenobarbital 10 ml 06/22/22 18:18 06/22/22 19:48 Phenobarb/Hyoscy/Atropine/Scop 10 Ml Elixir PO 06/22/22 18:19 10 ml ONCE ONE Administration Sodium Chloride 1,000 mls @ 999 mls/hr 06/22/22 18:30 06/22/22 18:22 Ns IV 06/22/22 19:30 999 mls/hr .Q1H1M GRIFFIN Administration Iohexol 100 ml 06/22/22 19:25 06/22/22 19:26 Iohexol 350 Mg/Ml 100 Ml Infus..Btl IV 06/22/22 19:26 85 ml ONCE ONE Administration Lorazepam 2 mg 06/22/22 17:50 06/22/22 18:10 Lorazepam 1 Mg Tablet PO 06/22/22 17:51 2 mg ONCE ONE Administration Ondansetron HCl 4 mg 06/22/22 18:18 06/22/22 18:22 Ondansetron Hcl 4 Mg/2 Ml Vial IVPUSH 06/22/22 18:19 4 mg ONCE ONE Administration Phenobarbital Sodium 390 mg 06/22/22 18:00 06/22/22 18:11 Phenobarbital Sodium 130 Mg/Ml Im Once IM 06/22/22 18:01 390 mg ONCE ONE Administration Protocol <Amada Hunter, KI - Last Filed: 06/22/22 17:25> Medications Administered Generic Name Dose Route Start Last Admin Trade Name Freq PRN Reason Stop Dose Admin Magnesium Sulfate 2 gm in 50 mls @ 25 mls/hr 06/22/22 18:52 06/22/22 19:48 Magnesium Sulfate/H2o IV 06/22/22 20:51 25 mls/hr ONCE ONE Administration Discontinued Medications Generic Name Dose Route Start Last Admin Trade Name Freq PRN Reason Stop Dose Admin Al Hydroxide/Mg Hydroxide 30 ml 06/22/22 18:18 06/22/22 19:48 Magnesium Hydrox/Alum Hydrox 30 Ml Oral.Susp PO 06/22/22 18:19 30 ml ONCE ONE Administration Belladonna Alkaloids/Phenobarbital 10 ml 06/22/22 18:18 06/22/22 19:48 Phenobarb/Hyoscy/Atropine/Scop 10 Ml Elixir PO 06/22/22 18:19 10 ml ONCE ONE Administration Sodium Chloride 1,000 mls @ 999 mls/hr 06/22/22 18:30 06/22/22 18:22 Ns IV 06/22/22 19:30 999 mls/hr .Q1H1M GRIFFIN Administration Iohexol 100 ml 06/22/22 19:25 06/22/22 19:26 Iohexol 350 Mg/Ml 100 Ml Infus..Btl IV 06/22/22 19:26 85 ml ONCE ONE Administration Lorazepam 2 mg 06/22/22 17:50 06/22/22 18:10 Lorazepam 1 Mg Tablet PO 06/22/22 17:51 2 mg ONCE ONE Administration Ondansetron HCl 4 mg 06/22/22 18:18 06/22/22 18:22 Ondansetron Hcl 4 Mg/2 Ml Vial IVPUSH 06/22/22 18:19 4 mg ONCE ONE Administration Phenobarbital Sodium 390 mg 06/22/22 18:00 06/22/22 18:11 Phenobarbital Sodium 130 Mg/Ml Im Once IM 06/22/22 18:01 390 mg ONCE ONE Administration Protocol <NAHOMY Fernandez - Last Filed: 06/22/22 20:34> Critical Care Time Critical Care Time Critical Care Time: Yes <NAHOMY Fernandez - Last Filed: 06/22/22 20:34> Total Critical Care Time: 35 <NAHOMY Fernandez - Last Filed: 06/22/22 20:34> Attestation: I attest to this time spent taking care of the patient, obtaining history, physical, reviewing labs, imaging, speaking to my attending, <NAHOMY Fernandez - Last Filed: 06/22/22 20:34> Discharge Plan Discharge Clinical Impression: Alcohol dependence with withdrawal, Abdominal pain, epigastric, Nausea & vomiting <Amada Hunter CNP - Last Filed: 06/22/22 17:25> Patient Disposition: Admitted As Inpatient <Amada Hunter CNP - Last Filed: 06/22/22 17:25> Prescriptions: No Action acetaminophen [Tylenol] 325 mg Tablet 650 mg PO Q6H PRN (Reason: Pain) <Amada Hunter CNP - Last Filed: 06/22/22 17:25>
--- NOTE | 2022-06-22 17:25 | ECG_ITS ---
Test Reason : ABDOMINAL PAIN Blood Pressure : / mmHG Vent. Rate : 083 BPM Atrial Rate : 083 BPM P-R Int : 164 ms QRS Dur : 080 ms QT Int : 350 ms P-R-T Axes : 026 021 005 degrees QTc Int : 411 ms Normal sinus rhythm Possible Left atrial enlargement Septal infarct , age undetermined Abnormal ECG No previous ECGs available Referred By: Amada Hunter Electronically Signed By:Axel Cerda
[2022-06-22] MEDS: LORazepam 1 MG TABLET 2 MG PO (18:10)
[2022-06-22] MEDS: PHENobarbitaL sodium 130 MG/ML IM ONCE 390 MG IM (18:11)
[2022-06-22 18:18] LABS: MANUAL DIFF FLAG NO
[2022-06-22 18:22] LABS: Basophils Absolute Auto 0.1 X10*3/uL (0.0-0.2); Basophils Percent Auto 0.7 % (0-2); Eosinophils Percent Auto 0.2 % (0-4); Hemoglobin 19.4 g/dl (14.0-18.0); Imm Gran Abs Auto 0.03 X10*3/uL (0.00-0.03); Imm Gran Pct Auto 0.3 % (0.0-0.4); Lymphocytes Absolute Auto 1.3 X10*3/uL (1.2-4.9); Lymphocytes Percent Auto 11.3 % (20-40); Mean Corpuscular HGB Conc 34.2 g/dl (31.0-36.0); Mean Corpuscular Hemoglobin 31.2 pg (27.0-33.0); Mean Corpuscular Volume 91.3 fL (80.0-98.0); Mean Platelet Volume 8.9 fL (9.4-12.4); Monocytes Percent Auto 8.4 % (2-11); Neutrophils Absolute Auto 9.4 x10*3/uL (2.0-8.3); Neutrophils Percent Auto 79.1 % (45-73); Platelet Count 315 X10*3/uL (160-400); Red Blood Count 6.22 X10*6/uL (4.60-5.80); Red Cell Distribution Width 13.4 % (11.0-16.0); White Blood Count 11.9 X10*3/uL (4.8-10.8)
[2022-06-22] MEDS: ondansetron HCL 4 MG/2 ML VIAL IVPUSH (18:22)
[2022-06-22] MEDS: 0.9 % Sodium Chloride 1,000 ML 999 ML IV ×2 (18:22→21:41)
[2022-06-22 18:40] LABS: COVID-19 Test Negative (Negative); IDNOW Serial# 16C4AD1C
[2022-06-22 18:41] LABS: Ethanol < 10 mg/dL
[2022-06-22 18:43] LABS: IDNOW Serial# BCCEAD1C; Influenza A Negative (Negative); Influenza B2 Negative (Negative)
[2022-06-22 18:45] LABS: Hematocrit 56.8 % (42.0-52.0)
[2022-06-22 18:50] LABS: Troponin-I High Sensitivity < 3.5 ng/L (<3.5-35.0)
[2022-06-22 18:53] LABS: Alanine Aminotransferase 35 U/L (0-40); Albumin Level 4.5 g/dL (3.5-5.0); Alkaline Phosphatase 108 U/L (39-117); Anion Gap 16 (12-20); Aspartate Amino Transferase 39 U/L (5-37); Bilirubin Total 1.9 mg/dL (0.0-1.0); Blood Urea Nitrogen 10 mg/dL (9-16); Calcium 10.8 mg/dL (8.4-10.2); Carbon Dioxide 30 mmol/L (22-29); Chloride 100 mmol/L (96-108); Creatinine Clr Calc Pharmacy 165.4; Estimated Glomerular Filt Rate > 60; Glucose Random 141 mg/dL (60-115); Lipase 36 U/L (8-78); Magnesium 1.4 mg/dL (1.6-2.6); Potassium 3.3 mmol/L (3.3-5.1); Sodium 143 mmol/L (135-145); Total Protein 7.9 g/dL (6.5-8.0)
--- NOTE | 2022-06-22 19:14 | PHA.MEDREC ---
Pharmacy Consult ? Medication Reconciliation Pharmacy has completed the medication reconciliation.
[2022-06-22] MEDS: iohexoL 350 MG/ML 100 ML INFUS..BTL IV (19:26)
[2022-06-22] MEDS: Magnesium Sulfate/H2O 2 GM/50 ML PIGGYBACK IV (19:48)
[2022-06-22] MEDS: Magnesium Hydrox/Alum Hydrox 30 ML ORAL.SUSP PO (19:48)
[2022-06-22] MEDS: PHENobarb/Hyoscy/Atropine/Scop 10 ML ELIXIR PO (19:48)
[2022-06-22 19:49] VITALS: BP 135/94; PULSE 101; PULSE 97; RESP 15; TEMP 36.9; O2SAT 96
--- NOTE | 2022-06-22 20:00 | PC.NURSE ---
Taking over pt: Pt's BP is stable, pt is on the monitor and it shows sin us tachy, pt meds has been given. IVF are running and Mag.
--- NOTE | 2022-06-22 21:07 | PC.NURSE ---
Pt's V/S are stable, Pt's IVF are running.
--- NOTE | 2022-06-22 21:38 | P.HPHOSP_ITS ---
History of Present Illness Date of Service: 06/22/22 Chief Complaint: abd pain, withdrawal 36M pmh etoh dependence, hiatal hernia s/p jonel, presented with abd pain and withdrawal symptoms. patient drinks several nips per day. states he was trying to cut back and has not had a drink in 2 days. started to have epigastric abdominal pain 8/10, non radiating, similar to previous episodes. also complaining of shaking, unable to tolerate po and feeling dehydrated. in ED cT significant for cystic lesion on pancreas, mri recommended, labs significant for hypomagnesemia. Review of Systems Review of Systems: Constitutional: Denies fever, denies Chills Eyes: denies blurry vision ENT: denies sore throat CVS: denies chest pain Respiratory: Denies dyspnea GI: abdominal pain : denies dysuria MSK: denies neck pain Skin: denies rash Neuro: denies specific motor weakness Psych: denies suicidal ideation Endocrine: denies heat/cold intolerance Hematologic: denies easy bleeding Allergy: denies hives [facility] Social History Alcohol intake: current Alcohol intake frequency: 3 or more drinks per day Alcohol type: hard liquor Patient Tobacco Use Status: Current everyday Tobacco user Use of substances other than those prescribed or required for medical reasons: Yes Substance Use Type: Marijuana Advance Directives: No Advance Directives Information Provided: No Meds Allergies Allergy/AdvReac Type Severity Reaction Status Date / Time No Known Allergies Allergy Unverified 03/20/20 19:21 [No Known Allergies*] Active Medications: Current Medications Sodium Chloride (Ns) 1,000 mls @ 100 mls/hr IVCONT .Q10H [facility] Pharmacy Consult (Consult Rx Etoh Phenob Im/Po) 1 each MISCELLANE ONCE PRN; Protocol PRN Reason: Consult order Pharmacy Consult (Consult Rx Perform Med Rec) 1 each MISCELLANE ONCE PRN PRN Reason: Consult order Phenobarbital (Phenobarbital 30 Mg Tablet) 60 mg PO BID [facility]; Protocol Stop: 06/24/22 21:01 Phenobarbital (Phenobarbital 30 Mg Tablet) 30 mg PO BID [facility]; Protocol Stop: 06/26/22 21:01 Phenobarbital (Phenobarbital 30 Mg Tablet) 30 mg PO DAILY [facility]; Protocol Stop: 06/28/22 09:01 Phenobarbital Sodium (Phenobarbital Sodium 130 Mg/Ml Vial Im Q3hx2) 295 mg IM Q3H [facility]; Protocol Stop: 06/23/22 00:01 Potassium Chloride (Potassium Chloride Er 20 Meq Tab.Er.Prt) 40 meq PO ONCE ONE Stop: 06/22/22 21:36 Home Medications Medication Instructions Recorded Confirmed Last Taken Type acetaminophen 325 mg tablet 650 mg PO Q6H PRN Pain 06/22/22 06/22/22 2 Days Ago History (Tylenol) ~06/20/22 Physical Exam Vital Signs and Narrative: Vital Signs: Last Vital Signs Temp 98.5 F 06/22/22 19:49 Pulse 97 06/22/22 19:49 Resp 15 06/22/22 19:49 BP 135/94 H 06/22/22 19:49 Pulse Ox 96 06/22/22 19:49 O2 Del Method 06/22/22 19:49 BMI result Body Mass Index 29.5 Results Labs CBC and Chem 7: 06/22/22 18:10 06/22/22 18:10 Labs: Laboratory Results - last 24 hr 06/22/22 06/22/22 06/22/22 18:10 18:10 18:10 MCV 91.3 MCH 31.2 MCHC 34.2 RDW 13.4 Plt Count 315 MPV 8.9 L Immature Gran % (Auto) 0.3 Neut % (Auto) 79.1 H Lymph % (Auto) 11.3 L [place] % (Auto) 8.4 Eos % (Auto) 0.2 Baso % (Auto) 0.7 Lymph # (Auto) 1.3 [place] # (Auto) 1.0 Eos # (Auto) 0.0 Baso # (Auto) 0.1 Abs Immat Gran (auto) 0.03 Absolute Neuts (auto) 9.4 H Absolute Nucleated RBC 0.000 Nucleated RBC % (auto) 0.0 Anion Gap 16 Estim Creat Clear Calc 165.4 Estimated GFR > 60 Random Glucose 141 H Calcium 10.8 H D Magnesium 1.4 L* Total Bilirubin 1.9 H AST 39 H ALT 35 Alkaline Phosphatase 108 Troponin I High Sens < 3.5 Total Protein 7.9 Albumin 4.5 Lipase 36 Ethyl Alcohol COVID-19 ([facility]INE) COVID-19 Clin Com Influenza Type A (BRADY) Influenza Type B ([facility]ADY) Influenza A & B Note 06/22/22 06/22/22 06/22/22 18:10 18:10 18:10 MCV MCH MCHC RDW Plt Count MPV Immature Gran % (Auto) Neut % (Auto) Lymph % (Auto) [place] % (Auto) Eos % (Auto) Baso % (Auto) Lymph # (Auto) [place] # (Auto) Eos # (Auto) Baso # (Auto) Abs Immat Gran (auto) Absolute Neuts (auto) Absolute Nucleated RBC Nucleated RBC % (auto) Anion Gap Estim Creat Clear Calc Estimated GFR Random Glucose Calcium Magnesium Total Bilirubin AST ALT Alkaline Phosphatase Troponin I High Sens Total Protein Albumin Lipase Ethyl Alcohol < 10 COVID-19 (CELE[facility]INE) Negative COVID-19 Clin Com See Note Influenza Type A (BRADY) Negative Influenza Type B (BRADY) Negative Influenza A & B Note See Note Imaging Radiologist's Impressions: Impressions Abdomen/Pelvis CT 06/22/22 19:41 IMPRESSION: 1. Multilobulated/septated cystic lesion within the head/uncinate process of the pancreas measuring 2.9 cm. No acute inflammatory changes are seen surrounding the pancreas. Recommend follow-up with MRI/MRCP 2. Multiple bilateral renal cysts. Largest lesions are consistent with Bosniak 1 cysts. 3. Large hiatal hernia. 4. Numerous small lymph nodes in the hepatic hilum and peripancreatic region which are not significantly enlarged by size criteria and could be reactive in nature. Assessment and Plan (1) Alcohol dependence with withdrawal: Status: Acute Plan 36M pmh etoh dependence, hiatal hernia s/p jonel, presented with abd pain and withdrawal symptoms etoh dependence with withdrawal phenobarb, ciwa abd pain possible gastritis ppi dehydration ivf, monitor cycstic lesion on pancreas outpatient MRI hypomagnesemia, hypokalemia replace and monitor dvt prophylaxis - lovenox full code patient with etoh withdrwal and singificant dehydration likely to require atleast 2 midnights inpatient for ivf and phenobarbital to prevent DTs. Time Spent With Patient Time: Total time managing care of this patient today ____ minutes. Quality Stroke Does the patient have a stroke diagnosis?: No VTE Prior VTE?: No VTE Risk Level:: Medical - moderate - high VTE Device Contraindication: Treatment Not Indicated VTE Drug Contraindication: N/A - Med Ordered
[2022-06-22 21:40] VITALS: BP 120/82; PULSE 81; RESP 17
[2022-06-22 21:42] VITALS: RESP 17
[2022-06-22] MEDS: Morphine Sulfate 2 MG/ML CARTRIDGE IVPUSH (21:42)
[2022-06-22 22:35] VITALS: BP 116/72; PULSE 65; RESP 15; O2SAT 98
[2022-06-22 22:49] LABS: Appearance Urine Clear; Color Urine Yellow; Glucose Urine UA Negative (Negative); Leukocyte Esterase Urine Negative (Negative); Nitrite Urine Negative (Negative); PH >= 9.0 (5.0-9.0); Specific Gravity - Urine >= 1.030 (1.005-1.025); UMIC TRIGGER UACC YES; Urine Blood Negative (Negative); Urine Ketones Trace mg/dL (Negative); Urine Protein 100 (2+) mg/dL (Neg-Trace)
[2022-06-22 22:54] LABS: Bacteria Urine None Seen (None Seen); Hyaline Casts Urine 0-2 /LPF (0-2); RBC Urine 0-2 /HPF (0-2); Squamous Epithelial Cell Urine 0-2 /HPF (0-2); WBC Urine 0-5 /HPF (0-5)
[2022-06-22 23:13] LABS: Amphetamine Screen Urine Not Detected (Not Detect); Barbiturates, Urine POSITIVE (Not Detect); Benzodiazepines Screen Urine Not Detected (Not Detect); Cannabinoid Screen Urine POSITIVE (Not Detect); Cocaine Screen Urine Not Detected (Not Detect); Fentanyl, urine Not Detected (Not Detect); Opiate Screen Urine POSITIVE (Not Detect); Phencyclidine Screen Urine Not Detected (Not Detect)
[2022-06-22] MEDS: Potassium Chloride ER 20 MEQ TAB.ER.PRT 40 MEQ PO (23:22)
[2022-06-22] MEDS: Omeprazole 40 MG CAPSULE.DR PO (23:26)
[2022-06-22] MEDS: 0.9 % Sodium Chloride 1,000 ML 100 ML IVCONT (23:27)
[2022-06-22] MEDS: PHENobarbitaL sodium 130 MG/ML VIAL IM Q3Hx2 295 MG IM (23:58)
[2022-06-23 04:53] LABS: Hematocrit 51.6 % (42.0-52.0); Mean Corpuscular HGB Conc 32.9 g/dl (31.0-36.0); Mean Corpuscular Hemoglobin 31.3 pg (27.0-33.0); Mean Platelet Volume 9.1 fL (9.4-12.4); Platelet Count 242 X10*3/uL (160-400); Red Blood Count 5.43 X10*6/uL (4.60-5.80); Red Cell Distribution Width 13.4 % (11.0-16.0); White Blood Count 9.1 X10*3/uL (4.8-10.8)
[2022-06-23 05:01] LABS: INTERNATIONAL NORM RATIO 1.2 (0.9-1.1); Prothrombin Time 14.1 SEC (10.0-13.1)
[2022-06-23 05:25] LABS: Alanine Aminotransferase 28 U/L (0-40); Albumin Level 3.6 g/dL (3.5-5.0); Alkaline Phosphatase 87 U/L (39-117); Anion Gap 14 (12-20); Aspartate Amino Transferase 41 U/L (5-37); Bilirubin Direct 0.5 mg/dL (0.0-0.5); Bilirubin Total 1.6 mg/dL (0.0-1.0); Blood Urea Nitrogen 8 mg/dL (9-16); Calcium 9.3 mg/dL (8.4-10.2); Carbon Dioxide 26 mmol/L (22-29); Chloride 103 mmol/L (96-108); Creatinine Clr Calc Pharmacy 183.6; Estimated Glomerular Filt Rate > 60; Glucose Fasting 90 mg/dL (60-99); Potassium 3.3 mmol/L (3.3-5.1); Sodium 140 mmol/L (135-145); Total Protein 6.3 g/dL (6.5-8.0)
[2022-06-23 05:33] VITALS: BP 122/74; PULSE 72; RESP 16; TEMP 37.1; O2SAT 98
[2022-06-23] MEDS: Omeprazole 40 MG CAPSULE.DR PO (06:08)
[2022-06-23 06:37] VITALS: RESP 17
[2022-06-23] MEDS: Morphine Sulfate 2 MG/ML CARTRIDGE IVPUSH (06:37)
[2022-06-23] MEDS: Enoxaparin Sodium 40 MG/0.4 ML SYRINGE SUBCUT (09:07)
[2022-06-23] MEDS: 0.9 % Sodium Chloride Flush 3 ML SYRINGE IVFLUSH (09:08)
[2022-06-23] MEDS: PHENobarbitaL 30 MG TABLET 60 MG PO (09:08)
[2022-06-23] MEDS: Multivitamin TABLET 1 TAB PO (09:09)
[2022-06-23] MEDS: Folic Acid 1 MG TABLET PO (09:09)
[2022-06-23] MEDS: Magnesium Oxide 400 MG TABLET PO (09:09)
[2022-06-23] MEDS: Thiamine HCL 100 MG TABLET PO (09:09)
[2022-06-23] MEDS: 0.9 % Sodium Chloride 1,000 ML 100 ML IVCONT (09:09)
--- NOTE | 2022-06-23 11:14 | MHC.CM.PN ---
Patient left AMA before being seen by gail zapata.
--- NOTE | 2022-10-11 13:06 | PM.DS ---
DS: Providers Provider Date of Service: 06/23/22 Date of admission: 06/22/22 21:36 Date of discharge: 06/23/22 Primary care physician: Nonstaff Physician Attending physician on admission: Delfino Rincon Discharging clinician: Hannah Light DS: Diagnosis Discharge Diagnosis (1) Alcohol dependence with withdrawal: Status: Acute DS: Summary Hospital Course Hospital Course: HPI on admission by Dr. Rincon: Chief Complaint: abd pain, withdrawal 36M pmh etoh dependence, hiatal hernia s/p jonel, presented with abd pain and withdrawal symptoms. patient drinks several nips per day. states he was trying to cut back and has not had a drink in 2 days. started to have epigastric abdominal pain 8/10, non radiating, similar to previous episodes. also complaining of shaking, unable to tolerate po and feeling dehydrated. in ED cT significant for cystic lesion on pancreas, mri recommended, labs significant for hypomagnesemia. Hospital course: Hospital course uneventful. Pt admitted for acute alcohol withdrawal on phenobarbitol per protocol. Magnesium repleted in ED, improved to 2.0. Initially with hemoconcentration due to dehydration, resolved with IVF. Unfortunately, this patient desired to leave against medical advice to complete treatment for acute alcohol withdrawal. Declined addiction medicine consult. He was counseled on the risks of acute alcohol withdrawal including seizures and . He was advised to return the hospital for any persistent or worsening symptoms. [facility] is [facility]. He was alert and oriented x 3 at time of discharge and expressed understanding. Status at Discharge Functional status at discharge: independent ambulation Time Spent with Patient Time attestation: Total time managing care of this patient today ____ minutes. Discharge coordination time: Greater than 30 minutes Quality: Safe Use of Opioids Does Pt have an Active Cancer Diagnosis on the Problem List?: No Quality: Stroke Does the patient have a stroke diagnosis?: No Physical Exam Vital Signs: Vital Signs: Last Vital Signs Temp 98.7 F 06/23/22 05:33 Pulse 72 06/23/22 05:33 Resp 17 06/23/22 06:37 BP 122/74 06/23/22 05:33 Pulse Ox 98 06/23/22 05:33 O2 Del Method Room Air 06/23/22 05:33 BMI result Body Mass Index 29.5 DS: Data Data Completed and Pending Completed studies during hospitalization [Text1]: Procedures Detoxification Services for Substance Abuse Treatment (06/22/22) Inspection of Upper Intestinal Tract, Via Natural or Artificial Opening Endoscopic (08/09/22) Discharge Plan Discharge Anticipated Discharge Date/Time: 06/23/22 10:24 Patient Disposition: Left Against Medical Advice Discharge Diagnosis: alcohol dependence in acute alcohol withdrawal Referrals: Physician,Nonstaff [Primary Care Provider] - 1 Week Discharge Medications: No Action sertraline 100 mg Tablet 100 mg PO DAILY quetiapine 50 mg Tablet 150 mg PO BEDTIME PRN (Reason: insomnia/mood) Discharge Orders: Discharge Order (Routine); Ordered 06/23/22 Ordered By: Hannah Light Diet: Regular diet Activity on Discharge: As tolerated Care Plan Goals: Stop drinking alcohol Return for worsening withdrawal symptoms Treat alcohol induced gastritis (epigastric pain, nausea, vomiting) [facility] Health Concerns: Alcohol dependence with acute alcohol withdrawal Alcohol induced gastritis Plan of Treatment: Alcohol dependence with acute alcohol withdrawal -You are leaving against medical advice. I recommend staying for observation of withdrawal symptoms for another 24-48 hours. You declined consult with Addiction Medicine Staff -Alcohol withdrawal can result in seizures or even up to 5 days after alcool cessation -Return for any worsening withdrawal symptoms- intractable vomiting/dry heaves, severe anxiety/tremors, confusion, seizures -[facility] Alcohol induced gastritis -The lining of the stomach is inflamed causing pain, nausea, vomiting -Take omeprazole 40mg daily x 3-4 week on an empty stomach -Can use ondansetron as needed for nausea and vomiting Follow up soon with pcp Assessment: See above Patient Instructions: Gastritis (DC), Alcohol Withdrawal (DC) Discharge Date/Time: 06/23/22 11:26
== END 2022-06-23 11:26 | disposition left against medical advice (07) | DRG 641 ==
LOC: HO.ED 20:34 → HO.EDOVER 21:49
PROVIDERS: Nurse Practitioner Family; Physician Assistant; Admitting Provider Internal Medicine; Emergency Provider Emergency Medicine; Visit Provider Physician Assistant
DX: E87.6 Hypokalemia (principal); F10.239 Alcohol dependence with withdrawal, unspecified; K86.2 Cyst of pancreas; F17.210 Nicotine dependence, cigarettes, uncomplicated; Z71.6 Tobacco abuse counseling; E86.0 Dehydration; E83.42 Hypomagnesemia; Z20.822 Contact with and (suspected) exposure to COVID-19; Z79.899 Other long term (current) drug therapy
CPT/HCPCS: 36415; 74177; 80048; 80053; 80076; 80307; 81001; 82077; 83690; 83735; 84484; 85025; 85027; 85610; 87502; 87635; 93005; 96361; 96365; 96372; 96375; 99285; J1650; J2270; J2405; J2560; J3475; Q9967

== ENCOUNTER 2022-08-05 19:02 | Inpatient (IN) | payer OTHER, SELFPAY ==
--- NOTE | ~2022-08-05 | CT_ITS ---
EXAMINATION: CT ABDOMEN AND PELVIS WITH CONTRAST CLINICAL INFORMATION: Epigastric pain COMPARISON: 06/22/2022 TECHNIQUE: Multidetector volumetric images were obtained from the superior aspect of the liver through the pubic symphysis following administration 85 mL of Omnipaque 350 intravenous contrast. Sagittal and coronal reformatted images were obtained on the technologist's workstation. Oral contrast: No This CT examination was performed using dose optimization techniques as appropriate, variously including the following: *Automated exposure control *Adjustment of mA and/or kV according to patient size (this includes techniques or standardized protocols for targeted exams where dose is matched to indication/reason for exam; i.e. extremities or head) *Use of iterative reconstruction technique DLP: 699 mGy-cm FINDINGS: LUNG BASES: The visualized lung bases are unremarkable. LIVER, GALLBLADDER, AND BILIARY TREE: The liver is normal in size, shape, and attenuation. No focal hepatic lesion or biliary ductal dilatation is present. Status post cholecystectomy. PANCREAS: Redemonstration of abnormal multilobulated septated the head/uncinate process of the pancreas measuring 1.9 x 1.5 cm (3:7). Mild increased soft tissue stranding and thickening within the pancreatic groove adjacent to the second part of the duodenum (3:27). A second hypoattenuating pancreatic head measuring 0.7 cm is noted (3: 27) was not as conspicuous from prior study SPLEEN: Unremarkable. ADRENAL GLANDS: Unremarkable. KIDNEYS AND URETERS: The kidneys are normal in size, shape, and attenuation. No hydronephrosis, hydroureter, or calculi seen. No perinephric stranding. Bilateral benign-appearing renal cysts. Followup imaging is not routinely recommended for benign appearing cysts. BLADDER: Unremarkable. GASTROINTESTINAL TRACT: Demonstration of large hiatal hernia with a large portion of the stomach extending into the chest. Stranding adjacent ot the second part of the duodenum. ABDOMINAL WALL: No significant hernia is appreciated. LYMPH NODES: Normal. VASCULAR: Unremarkable. PELVIC VISCERA: Unremarkable. OSSEOUS STRUCTURES: Unremarkable. CT/CT abdomen pelvis w IV con IMPRESSION: 1. Mild increased soft tissue stranding and thickening within the pancreatic groove adjacent to the second part of the duodenum. Differential considerations include pancreatitis (including groove pancreatitis), duodenitis, or duodenal ulcer. 2. Redemonstration of abnormal multilobulated septated cystic lesion in the head/uncinate process of the pancreas measuring up to 1.9 cm. Further evaluation with MRI/MRCP is recommended. 3. A second hypoattenuating pancreatic head measuring 0.7 cm was not as conspicuous from prior study. Attention on follow-up imaging is recommended. 4. Large hiatal hernia with a large portion of the stomach extending into the chest.
--- NOTE | ~2022-08-05 | MR_ITS ---
EXAMINATION: MR ABDOMEN WITHOUT AND WITH CONTRAST CLINICAL INFORMATION: Pancreatic cyst COMPARISON: CT abdomen pelvis 08/06/2022 and 06/22/2022 TECHNIQUE: MRI of the abdomen before and after the IV administration of 10 mL of Gadavist was obtained using routine sequences. FINDINGS: LUNG BASES: The visualized lung bases are unremarkable. KIDNEYS AND URETERS: Bosniak 1 bilateral and Bosniak 2 right renal cysts, no follow-up imaging recommended. GALLBLADDER: Status post cholecystectomy. LIVER AND BILIARY TREE: The liver is normal in signal and morphology. No suspicious liver lesion. No intra or extrahepatic biliary duct dilatation. Common bile duct measures 6 mm which is within normal limits. No intraluminal filling defect to suggest choledocholithiasis. PANCREAS: A 2.2 cm mildly complex fluid collection in the pancreatic head, decreased from 06/22/2022 where it measured 3.1 cm and a 1.2 cm more simple appearing cyst in the pancreatic head more superiorly Again seen is peripancreatic inflammatory fat stranding involving the pancreatic head abutting the duodenum. No variant pancreatic ductal anatomy.] SPLEEN: Unremarkable ADRENAL GLANDS: Unremarkable GASTROINTESTINAL TRACT: Large hiatal hernia. LYMPH NODES: No lymphadenopathy. VASCULAR: Unremarkable ABDOMINAL WALL: Unremarkable. OSSEOUS STRUCTURES: Unremarkable. MR/MR abdomen wo/w con IMPRESSION: A 2.2 cm mildly complex fluid collection in the pancreatic head which appears decreased from more remote priors. A 1.2 cm simple appearing cyst in the pancreatic head, new from remote priors. Given the background of inflammatory changes surrounding the pancreatic head, techniques could potentially reflect pseudocysts in the setting of pancreatitis however given size and degree of complexity, recommend GI referral for management considerations and continued imaging surveillance as cystic pancreatic neoplasm such as IMPN would be difficult to exclude. No intra or extrahepatic biliary duct dilatation or intraluminal filling defect suggest choledocholithiasis. Large hiatal hernia.
[2022-08-05 19:19] VITALS: BP 127/92; PULSE 101; RESP 16; TEMP 36.3; O2SAT 97; BMI 28.2
[2022-08-05 20:25] LABS: MANUAL DIFF FLAG NO
[2022-08-05 20:26] LABS: Basophils Absolute Auto 0.1 X10*3/uL (0.0-0.2); Basophils Percent Auto 0.6 % (0-2); Eosinophils Absolute Auto 0.2 X10*3/uL (0.0-0.4); Eosinophils Percent Auto 2.1 % (0-4); Hematocrit 53.9 % (42.0-52.0); Hemoglobin 18.5 g/dl (14.0-18.0); Imm Gran Abs Auto 0.03 X10*3/uL (0.00-0.03); Imm Gran Pct Auto 0.3 % (0.0-0.4); Lymphocytes Absolute Auto 2.2 X10*3/uL (1.2-4.9); Lymphocytes Percent Auto 20.9 % (20-40); Mean Corpuscular HGB Conc 34.3 g/dl (31.0-36.0); Mean Corpuscular Hemoglobin 30.7 pg (27.0-33.0); Mean Corpuscular Volume 89.4 fL (80.0-98.0); Mean Platelet Volume 8.8 fL (9.4-12.4); Monocytes Absolute Auto 0.9 X10*3/uL (0.1-1.2); Monocytes Percent Auto 8.9 % (2-11); Neutrophils Percent Auto 67.2 % (45-73); Platelet Count 302 X10*3/uL (160-400); Red Blood Count 6.03 X10*6/uL (4.60-5.80); White Blood Count 10.5 X10*3/uL (4.8-10.8)
[2022-08-05 20:59] LABS: Alanine Aminotransferase 28 U/L (0-40); Albumin Level 4.8 g/dL (3.5-5.0); Alkaline Phosphatase 83 U/L (39-117); Anion Gap 15 (12-20); Aspartate Amino Transferase 27 U/L (5-37); Bilirubin Direct 0.4 mg/dL (0.0-0.5); Bilirubin Total 1.5 mg/dL (0.0-1.0); Blood Urea Nitrogen 7 mg/dL (9-16); Calcium 10.5 mg/dL (8.4-10.2); Carbon Dioxide 30 mmol/L (22-29); Chloride 99 mmol/L (96-108); Cholesterol 239 mg/dL; Creatinine Clr Calc Pharmacy 156.3; Estimated Glomerular Filt Rate > 60; Glucose Random 105 mg/dL (60-115); HDL Cholesterol 33 mg/dL; LDL Cholesterol Calculated 173 mg/dl; Potassium 3.8 mmol/L (3.3-5.1); Sodium 140 mmol/L (135-145); Triglycerides 165 mg/dL
[2022-08-05 22:22] VITALS: BP 133/94; PULSE 79; RESP 18; TEMP 36.6; O2SAT 96
--- NOTE | 2022-08-05 22:28 | ED.ABDPAIN ---
HPI - Abdominal Pain General Chief Complaint: Abdominal Pain Stated Complaint: pancreatitis Time Seen by Provider: 08/05/22 22:13 Source: patient Mode of arrival: ambulatory Limitations: no limitations History of Present Illness HPI narrative: Patient come to the emergency room complaining of epigastric pain. Patient states that he stop drinking towards the end of June. Patient has not had any alcohol. Patient has had episodes of pancreatitis in the past and it feels about the same. Patient states that he has had ongoing pain in the epigastric area for 3 weeks, nausea and vomiting, the pain is gradually getting worse. Related Data Home Medications Medication Instructions Recorded Confirmed acetaminophen 325 mg tablet 650 mg PO Q6H PRN Pain 06/22/22 06/22/22 (Tylenol) Previous Rx's Medication Instructions Recorded folic acid 1 mg tablet 1 mg PO DAILY #30 tabs 06/23/22 omeprazole 40 mg capsule,delayed 40 mg PO BID@0630,1630 #30 caps 06/23/22 release ondansetron 4 mg disintegrating 4 mg PO Q8H PRN nausea and 06/23/22 tablet vomiting #14 tabs thiamine mononitrate (vit B1) 100 100 mg PO DAILY #30 tabs 06/23/22 mg tablet Allergies Allergy/AdvReac Type Severity Reaction Status Date / Time No Known Allergies Allergy Verified 08/05/22 19:22 [No Known Allergies*] Review of Systems Review of Systems Constitutional : No Weight loss, No Fever, No Chills, No Night Sweats, No Fatigue, No Malaise ENT/Mouth : No Hearing loss, No Ear Pain, No Nasal Congestion, No Sinus Pain, No Hoarseness, No sore throat, No Rhinorrhea, No Swallowing Difficulty Eyes: No Eye Pain, No Swelling, No Redness, No Foreign Body, No Discharge, No Vision Changes Cardiovascular : No Chest Pain, No SOB, No Dyspnea on Exertion, No Orthopnea, No Edema, No Palpitations Respiratory : No Cough, No Sputum, No Wheezing, No Smoke Exposure, No Dyspnea Gastrointestinal complaining of nausea and vomiting, no diarrhea constipation, complaining of epigastric pain radiating towards the back Genitourinary : no irregular bleeding, No Dysuria, No Urinary Frequency, No Hematuria, No Urinary Incontinence, No Urgency, No Flank Pain, No Urinary Flow Changes, No Hesitancy Musculoskeletal : No joint pain, No Myalgias, No Joint Swelling Skin : No Skin Lesions, No rash Neuro : No Weakness, No Numbness, No Paresthesias, No Loss of Consciousness, No Dizziness, No Headache Psych : No Anxiety/Panic, No Depression, No SI/HI/AH/VH, No Social Issues, Heme/Lymph: No Bruising, No Bleeding,No Lymphadenopathy Endocrine : No Polyuria, No Polydipsia, No Temperature Intolerance [facility] Past Medical History Medical History (Updated 08/06/22 @ 01:02 by Rosalinda Martinez MD) Alcohol dependence with withdrawal Pancreatitis Social History Social History Alcohol intake: current Alcohol intake frequency: 3 or more drinks per day Alcohol type: hard liquor Patient Tobacco Use Status: Current everyday Tobacco user Substance Use Type: Marijuana Advance Directives: No Advance Directives Information Provided: No Physical Exam ED Vital Signs: Vital Signs - 24 hr 08/05/22 19:19 08/05/22 22:22 Temperature 97.4 F 97.9 F Pulse Rate 101 H 79 Respiratory Rate 16 18 Blood Pressure 127/92 H 133/94 H Pulse Oximetry 97 96 Oxygen Delivery Method Room Air Room Air BMI result Body Mass Index 28.2 Const Other: Appearance: Alert. Oriented X3. No acute distress. Eyes: Pupils equal, round and reactive to light. ENT: Pharynx normal. Neck: Normal inspection. Neck supple. No lymph nodes noted. No crepitus CVS: Normal heart rate and rhythm. Pulses normal. Normal S1 and S2 Respiratory: No respiratory distress. Breath sounds normal. No Wheezing. No rales Abdomen: Soft , tenderness to palpation in epigastric area Skin: Skin warm and dry. Normal skin color. Normal skin turgor. Extremities: No lower extremity edema. No Lacerations. No Rash Neuro: Oriented X 3. No motor deficit. No sensory deficit. Moving all extremities. No slurred speech. CN 2 through 12 grossly intact Psych: calm, cooperative, normal affect Course Course Course Narrative: -patient has history of pancreatitis. -white blood cell count within normal limits. CT scan shows multiple cysts in the head the pancreas. No acute inflammatory changes. Patient will likely need an MRI or MRCP. Medical Decision Making Medical Decision Making MDM Narrative: -patient being admitted. Patient will likely need an MRCP or MRI. -patient is unable to tolerate p.o., has still significant abdominal pain. -I discussed the patient with Dr. Guillaume, patient being admitted Differential Diagnosis Differential Diagnoses: The differential diagnosis associated with the presentation includes (Alcoholic gastritis, peptic ulcer disease, pancreatitis) Admission/Observation Consideration of admission/observation: Escalation of care including admission/observation considered Consult Healthcare Provider Management of the patient was discussed with: Hospitalist Lab Data MDM Lab Attestation statement: I reviewed the patient's lab results. 08/05/22 20:21 08/05/22 20:21 Labs: Lab Results 08/05/22 08/05/22 Range/Units 20:21 20:21 WBC 10.5 (4.8-10.8) X10*3/uL RBC 6.03 H (4.60-5.80) X10*6/uL Hgb 18.5 H (14.0-18.0) g/dl Hct 53.9 H (42.0-52.0) % MCV 89.4 (80.0-98.0) fL MCH 30.7 (27.0-33.0) pg MCHC 34.3 (31.0-36.0) g/dl RDW 13.0 (11.0-16.0) % Plt Count 302 (160-400) X10*3/uL MPV 8.8 L (9.4-12.4) fL Immature Gran % (Auto) 0.3 (0.0-0.4) % Neut % (Auto) 67.2 (45-73) % Lymph % (Auto) 20.9 (20-40) % [place] % (Auto) 8.9 (2-11) % Eos % (Auto) 2.1 (0-4) % Baso % (Auto) 0.6 (0-2) % Lymph # (Auto) 2.2 (1.2-4.9) X10*3/uL [place] # (Auto) 0.9 (0.1-1.2) X10*3/uL Eos # (Auto) 0.2 (0.0-0.4) X10*3/uL Baso # (Auto) 0.1 (0.0-0.2) X10*3/uL Abs Immat Gran (auto) 0.03 (0.00-0.03) X10*3/uL Absolute Neuts (auto) 7.0 (2.0-8.3) x10*3/uL Absolute Nucleated RBC 0.000 (0.0-0.012) X10*3/uL Nucleated RBC % (auto) 0.0 (0.0-0.2) /100WBC Sodium 140 (135-145) mmol/L Potassium 3.8 (3.3-5.1) mmol/L Chloride 99 (96-108) mmol/L Carbon Dioxide 30 H (22-29) mmol/L Anion Gap 15 (12-20) BUN 7 L (9-16) mg/dL Creatinine 0.84 (0.5-1.4) mg/dL Estim Creat Clear Calc 156.3 Estimated GFR > 60 Random Glucose 105 (60-115) mg/dL Calcium 10.5 H D (8.4-10.2) mg/dL Total Bilirubin 1.5 H (0.0-1.0) mg/dL Direct Bilirubin 0.4 (0.0-0.5) mg/dL AST 27 (5-37) U/L ALT 28 (0-40) U/L Alkaline Phosphatase 83 (39-117) U/L Total Protein 8.0 (6.5-8.0) g/dL Albumin 4.8 (3.5-5.0) g/dL Triglycerides 165 mg/dL Cholesterol 239 mg/dL LDL Cholesterol, Calc 173 mg/dl HDL Cholesterol 33 mg/dL Lipase 38 (8-78) U/L Radiology Impression Discussion of test interpretation with radiology: I have reviewed the radiologist's reading. Radiologist Impression: IMPRESSION: 1.? Multilobulated/septated cystic lesion within the head/uncinate process of the pancreas measuring 2.9 cm. No acute inflammatory changes are seen surrounding the pancreas. Recommend follow-up with MRI/MRCP 2.? Multiple bilateral renal cysts. Largest lesions are consistent with Bosniak 1 cysts. 3.? Large hiatal hernia. 4.? Numerous small lymph nodes in the hepatic hilum and peripancreatic region which are not significantly enlarged by size criteria and could be reactive in nature. Medications Administered Discontinued Medications Generic Name Dose Route Start Last Admin Trade Name Freq PRN Reason Stop Dose Admin Sodium Chloride 1,000 mls @ 999 mls/hr 08/05/22 22:42 08/06/22 00:38 Ns IVCONT 08/05/22 23:42 Infused .Q1H1M ONE Infusion Iohexol 85 ml 08/06/22 00:28 08/06/22 00:28 Iohexol 350 Mg/Ml 100 Ml Infus..Btl IV 08/06/22 00:29 85 ml ONCE ONE Administration Morphine Sulfate 4 mg 08/05/22 22:42 08/05/22 23:28 Morphine Sulfate 4 Mg/Ml Cartridge IVPUSH 08/05/22 22:43 4 mg ONCE ONE Administration Protocol Ondansetron HCl 4 mg 08/05/22 22:42 08/05/22 23:28 Ondansetron Hcl 4 Mg/2 Ml Vial IVPUSH 08/05/22 22:43 4 mg ONCE ONE Administration Critical Care Time Critical Care Time Critical Care Time: Yes Total Critical Care Time: 45 Attestation: I have personally provided critical care time. Time includes review of lab data, radiology results, discussion with consultants, and monitoring for potential decompensation. Intervention performed as documented. Discharge Plan Discharge Clinical Impression: Pancreatitis, Nausea & vomiting Patient Disposition: Admitted As Inpatient
[2022-08-05 22:45] LABS: Lipase 38 U/L (8-78)
[2022-08-05] MEDS: ondansetron HCL 4 MG/2 ML VIAL IVPUSH (23:28)
[2022-08-05] MEDS: Morphine Sulfate 4 MG/ML CARTRIDGE IVPUSH (23:28)
[2022-08-05] MEDS: 0.9 % Sodium Chloride 1,000 ML 999 ML IVCONT (23:33)
[2022-08-06] MEDS: iohexoL 350 MG/ML 100 ML INFUS..BTL 85 ML IV (00:28)
--- NOTE | 2022-08-06 00:49 | PC.NURSE ---
pt resting on stretcher, continued pain at this time, md aware.
--- NOTE | 2022-08-06 00:53 | P.HPHOSP_ITS ---
History of Present Illness Date of Service: 08/06/22 Chief Complaint: Abdominal Pain This is a 36-year-old male with pertinent history of alcohol use disorder, mood disorder who presents to the emergency department for evaluation of epigastric pain. Patient states he has been having epigastric pain that 1st started 3 weeks ago. It has been progressive over the last 2 weeks. Initially it was intermittent and now the pain is constant, radiating to the back. Also has associated nausea and nonbloody emesis. Patient is unable to keep anything down. Denies fever and chills. States his last alcoholic drink was on 29 June. Feels dehydrated as he is unable to tolerate p.o. intake. He denies chest discomfort, palpitations, shortness of breath, changes in urinary or bowel habits In the emergency department, imaging with increased soft tissue stranding and thickening within the pancreatic groove and multilobulated septated cystic lesion in the head of pancreas. Review of Systems Constitutional: Constitutional: Reports chills Cardiovascular: Cardiovascular: Reports no additional cardiovascular complaints Respiratory: Respiratory: Reports no additional respiratory complaints Gastrointestinal: Gastrointestinal: Reports abdominal pain, Reports nausea and Reports vomiting Genitourinary: Genitourinary: Reports no additional male genitourinary complaints [facility] Medical History Alcohol dependence with withdrawal Pancreatitis Pertinent family history: Does not know of family history in first-degree relatives Social History Alcohol intake: current Alcohol intake frequency: 3 or more drinks per day Alcohol type: hard liquor Patient Tobacco Use Status: Current everyday Tobacco user Substance Use Type: Marijuana Advance Directives: No Advance Directives Information Provided: No Meds Allergies Allergy/AdvReac Type Severity Reaction Status Date / Time No Known Allergies Allergy Verified 08/05/22 19:22 [No Known Allergies*] Home Medications Medication Instructions Recorded Confirmed Last Taken Type acetaminophen 325 mg tablet 650 mg PO Q6H PRN Pain 06/22/22 06/22/22 2 Days Ago History (Tylenol) ~06/20/22 Physical Exam Vital Signs and Narrative: Vital Signs: Last Vital Signs Temp 97.9 F 08/05/22 22:22 Pulse 79 08/05/22 22:22 Resp 18 08/05/22 22:22 BP 133/94 H 08/05/22 22:22 Pulse Ox 96 08/05/22 22:22 O2 Del Method 08/05/22 22:22 BMI result Body Mass Index 28.2 Middle-aged male lying in bed in mild distress Neck supple, no JVD Regular rate and rhythm, S1-S2 heard Regular breath sounds bilaterally, no wheezing or crackles appreciated Abdomen with epigastric tenderness to mild palpation, no guarding, no rebound tenderness, no rigidity Patient is awake, alert and oriented to self, place, time and person ; no focal motor deficit Psych: Normal mood No pedal edema Results Labs 08/05/22 20:21 08/05/22 20:21 Labs: Laboratory Results - last 24 hr 08/05/22 08/05/22 20:21 20:21 MCV 89.4 MCH 30.7 MCHC 34.3 RDW 13.0 Plt Count 302 MPV 8.8 L Immature Gran % (Auto) 0.3 Neut % (Auto) 67.2 Lymph % (Auto) 20.9 [place] % (Auto) 8.9 Eos % (Auto) 2.1 Baso % (Auto) 0.6 Lymph # (Auto) 2.2 [place] # (Auto) 0.9 Eos # (Auto) 0.2 Baso # (Auto) 0.1 Abs Immat Gran (auto) 0.03 Absolute Neuts (auto) 7.0 Absolute Nucleated RBC 0.000 Nucleated RBC % (auto) 0.0 Anion Gap 15 Estim Creat Clear Calc 156.3 Estimated GFR > 60 Random Glucose 105 Calcium 10.5 H D Total Bilirubin 1.5 H Direct Bilirubin 0.4 AST 27 ALT 28 Alkaline Phosphatase 83 Total Protein 8.0 Albumin 4.8 Triglycerides 165 Cholesterol 239 LDL Cholesterol, Calc 173 HDL Cholesterol 33 Lipase 38 Imaging Radiologist's Impressions: Impressions Abdomen/Pelvis CT 08/06/22 00:22 IMPRESSION: 1. Mild increased soft tissue stranding and thickening within the pancreatic groove adjacent to the second part of the duodenum. Differential considerations include pancreatitis (including groove pancreatitis), duodenitis, or duodenal ulcer. 2. Redemonstration of abnormal multilobulated septated cystic lesion in the head/uncinate process of the pancreas measuring up to 1.9 cm. Further evaluation with MRI/MRCP is recommended. 3. A second hypoattenuating pancreatic head measuring 0.7 cm was not as conspicuous from prior study. Attention on follow-up imaging is recommended. 4. Large hiatal hernia with a large portion of the stomach extending into the chest. Assessment and Plan (1) Abdominal pain, epigastric: Status: Acute Plan This is a 36-year-old male with pertinent history of alcohol use disorder, mood disorder who presents to the emergency department for evaluation of epigastric pain. #. Epigastric abdominal pain, with concerns for pancreatitis. Although lipase is normal, patient does meet 2/3 criteria. Will obtain MRI to delineate m ultilobulated cystic lesion in the head/uncinate of pancreas. Resuscitating with IV crystalloids. Will keep NPO for bowel rest. IV opioids p.r.n. for pain control #. Relative polycythemia: Hydrating with crystalloids #. Mood disorder: On sertraline DVT prophylaxis: Lovenox 40 mg daily Full code NPO. Advance as tolerated Time Spent With Patient Time: Total time managing care of this patient today ____ minutes. Quality Stroke Does the patient have a stroke diagnosis?: No VTE Prior VTE?: No VTE Risk Level:: Medical - moderate - high VTE Device Contraindication: Treatment Not Indicated VTE Drug Contraindication: N/A - Med Ordered
[2022-08-06] MEDS: HYDROmorphone HCl 1 MG/ML SYRINGE IVPUSH ×6 (01:12→22:00)
[2022-08-06] MEDS: Enoxaparin Sodium 40 MG/0.4 ML SYRINGE SUBCUT (01:12)
[2022-08-06] MEDS: 0.9 % Sodium Chloride 1,000 ML 100 ML IVCONT ×4 (01:12→19:23)
[2022-08-06 01:39] LABS: COVID-19 Test Negative (Negative); IDNOW Serial# 6674DD1D
[2022-08-06] MEDS: Morphine Sulfate 4 MG/ML CARTRIDGE IVPUSH (03:10)
[2022-08-06 04:10] VITALS: PULSE 60; RESP 11; O2SAT 98
[2022-08-06 04:41] LABS: MANUAL DIFF FLAG NO
[2022-08-06 04:42] LABS: Basophils Absolute Auto 0.1 X10*3/uL (0.0-0.2); Basophils Percent Auto 0.7 % (0-2); Eosinophils Absolute Auto 0.2 X10*3/uL (0.0-0.4); Eosinophils Percent Auto 2.6 % (0-4); Hematocrit 47.7 % (42.0-52.0); Hemoglobin 16.1 g/dl (14.0-18.0); Imm Gran Abs Auto 0.02 X10*3/uL (0.00-0.03); Imm Gran Pct Auto 0.2 % (0.0-0.4); Lymphocytes Absolute Auto 1.9 X10*3/uL (1.2-4.9); Lymphocytes Percent Auto 21.1 % (20-40); Mean Corpuscular HGB Conc 33.8 g/dl (31.0-36.0); Mean Corpuscular Hemoglobin 30.6 pg (27.0-33.0); Mean Corpuscular Volume 90.5 fL (80.0-98.0); Mean Platelet Volume 8.9 fL (9.4-12.4); Monocytes Absolute Auto 0.9 X10*3/uL (0.1-1.2); Monocytes Percent Auto 9.9 % (2-11); Neutrophils Absolute Auto 5.9 x10*3/uL (2.0-8.3); Neutrophils Percent Auto 65.5 % (45-73); Platelet Count 249 X10*3/uL (160-400); Red Blood Count 5.27 X10*6/uL (4.60-5.80); Red Cell Distribution Width 13.2 % (11.0-16.0)
[2022-08-06 05:01] LABS: Anion Gap 16 (12-20); Blood Urea Nitrogen 7 mg/dL (9-16); Calcium 9.2 mg/dL (8.4-10.2); Carbon Dioxide 25 mmol/L (22-29); Chloride 103 mmol/L (96-108); Creatinine Clr Calc Pharmacy 177.5; Estimated Glomerular Filt Rate > 60; Glucose Random 102 mg/dL (60-115); Potassium 3.7 mmol/L (3.3-5.1); Sodium 140 mmol/L (135-145)
[2022-08-06] MEDS: Pantoprazole Sodium 40 MG/10 ML VIAL IVPUSH (05:44)
--- NOTE | 2022-08-06 08:18 | PC.NURSE ---
Pain primarily epigastric in nature patient sleeping easily aroused MRI screen complete will CTM
--- NOTE | 2022-08-06 09:48 | PHA.MEDREC ---
Pharmacy Consult ? Medication Reconciliation Pharmacy has completed the medication reconciliation. Spoke with patient in the ED who knew all home meds. [facility]. Pt reports last taking medications a few weeks ago because he has not been feeling well.
[2022-08-06] MEDS: Famotidine 20 MG TABLET PO ×2 (11:18→20:58)
[2022-08-06 11:30] VITALS: BP 118/71; PULSE 57; RESP 16; TEMP 36.2; O2SAT 95
--- NOTE | 2022-08-06 12:11 | PM.EVENT ---
Event Note Date of Service: 08/06/22 Event Note: Seen and examined, a/p per h and P Time Spent With Patient Time: Total time managing care of this patient today ____ minutes.
[2022-08-06 14:05] VITALS: BP 119/77; PULSE 65; RESP 16; TEMP 36.3; O2SAT 96
[2022-08-06 14:57] VITALS: BP 121/83; PULSE 70; RESP 18; O2SAT 95
--- NOTE | 2022-08-06 15:06 | PC.NURSE ---
pt arrived from ED in wheelchair. settled into hospital bed. VSS. started IVF per MAR. call gomez within reach
[2022-08-06 19:42] VITALS: BP 115/67; PULSE 63; RESP 17; TEMP 36.4; O2SAT 98
[2022-08-06] MEDS: QUEtiapine Fumarate 50 MG TABLET 150 MG PO (22:01)
[2022-08-07] MEDS: Enoxaparin Sodium 40 MG/0.4 ML SYRINGE SUBCUT (00:06)
[2022-08-07] MEDS: Melatonin 3 MG TABLET 6 MG PO (00:09)
[2022-08-07 01:51] VITALS: BP 109/62; PULSE 67; RESP 18; TEMP 36.4; O2SAT 95
[2022-08-07] MEDS: HYDROmorphone HCl 1 MG/ML SYRINGE IVPUSH ×6 (01:57→23:11)
[2022-08-07] MEDS: 0.9 % Sodium Chloride 1,000 ML 100 ML IVCONT ×3 (04:28→23:15)
[2022-08-07] MEDS: Pantoprazole Sodium 40 MG/10 ML VIAL IVPUSH ×2 (06:05→20:18)
[2022-08-07 08:00] VITALS: BP 101/55; PULSE 61; RESP 17; TEMP 36.5; O2SAT 96
--- NOTE | 2022-08-07 08:49 | P.PNIM_ITS ---
Subjective Subjective Date of Service: 08/07/22 Interval History: Follow-up on acute pancreatitis. Pain is better this morning. No nausea vomiting. MRI showed possible pseudocyst although better than prior imaging Physical Exam Vital Signs: Vital Signs: Last Vital Signs Temp 97.7 F 08/07/22 08:00 Pulse 61 08/07/22 08:00 Resp 17 08/07/22 08:00 BP 101/55 L 08/07/22 08:00 Pulse Ox 96 08/07/22 08:00 O2 Del Method 08/07/22 08:00 BMI result Body Mass Index 28.2 Const: Other: General: AO X 3, no acute distress Resp: CTA bilateral CVS: S1,S2,RRR GI: +BS, negligible epigastric tenderness. Skin: No rash Neuro: motor grossly intact Psych: appropriate affect Objective Data Active Medications Acetaminophen (Acetaminophen 325 Mg Tablet) 650 mg PO Q6H PRN PRN Reason: Pain, Mild (Pain Scale 1-3) Enoxaparin Sodium (Enoxaparin Sodium 40 Mg/0.4 Ml Syringe) 40 mg SUBCUT Q24H [facility] Last Admin: 08/07/22 00:06 Dose: 40 mg Documented By: SHEMAR Famotidine (Famotidine 20 Mg Tablet) 20 mg PO BID [facility] Last Admin: 08/06/22 20:58 Dose: 20 mg Documented By: SHEMAR Hydromorphone HCl (Hydromorphone Hcl 1 Mg/Ml Syringe) 1 mg IVPUSH Q4H PRN; Protocol PRN Reason: Pain, Severe (Pain Scale 7-10) Last Admin: 08/07/22 06:11 Dose: 1 mg Documented By: SHEMAR Hydroxyzine HCl (Hydroxyzine Hcl 50 Mg Tablet) 50 mg PO TID PRN PRN Reason: Anxiety Sodium Chloride (Ns) 1,000 mls @ 100 mls/hr IVCONT .Q10H [facility] Last Admin: 08/07/22 04:28 Dose: 100 mls/hr Documented By: SHEMAR Melatonin (Melatonin 3 Mg Tablet) 6 mg PO BEDTIME PRN PRN Reason: Insomnia Last Admin: 08/07/22 00:09 Dose: 6 mg Documented By: SHEMAR Naltrexone HCl (Naltrexone Hcl 50 Mg Tablet) 50 mg PO DAILY [facility] Nicotine Polacrilex (Nicotine Polacrilex 2 Mg Gum) 2 mg BUCCAL Q2H PRN PRN Reason: Nicotine Cravings Ondansetron HCl (Ondansetron Hcl 4 Mg/2 Ml Vial) 4 mg IVPUSH Q8H PRN PRN Reason: Nausea and Vomiting Pantoprazole Sodium (Pantoprazole Sodium 40 Mg/10 Ml Vial) 40 mg IVPUSH DAILY@0630 [facility] Last Admin: 08/07/22 06:05 Dose: 40 mg Documented By: SHEMAR Pharmacy Consult (Consult Rx Perform Med Rec) 1 each MISCELLANE ONCE PRN PRN Reason: Consult order Quetiapine Fumarate (Quetiapine Fumarate 50 Mg Tablet) 150 mg PO BEDTIME PRN PRN Reason: insomnia/mood Last Admin: 08/06/22 22:01 Dose: 150 mg Documented By: SHEMAR Sertraline HCl (Sertraline Hcl 100 Mg Tablet) 100 mg PO DAILY [facility] Sodium Chloride (0.9 % Sodium Chloride Flush 3 Ml Syringe) 3 ml IVFLUSH QSHIFT [facility] Last Admin: 08/07/22 07:32 Dose: Not Given Documented By: JEFF Non-Admin Reason: IV Running Labs 08/06/22 04:24 08/06/22 04:24 Assessment and Plan (1) Pancreatitis: Status: Acute (2) Alcohol dependence with withdrawal: Status: Acute (3) Abdominal pain, epigastric: Status: Acute (4) Nausea & vomiting: Status: Acute Plan This is a 36-year-old male with pertinent history of alcohol use disorder, mood disorder who presents to the emergency department for evaluation of epigastric pain. #. Epigastric abdominal pain due to acute on chronic pancreatitis, MRI show 2.2 cm mildly complex fluid collection in the pancreatic head which appears decreased from more remote priors. Since pain is much better now. Will slowly advance diet.. GI consultation in regard to the pseudocyst management. Alcohol cessation discussed. Pain management. #. Relative polycythemia: Hydrating with crystalloids #. Mood disorder: On sertraline DVT prophylaxis: Lovenox 40 mg daily Full code Need for inpatient: Acute pancreatitis needing IV hydration IV pain medication while NPO. Time Spent With Patient Time: Total time managing care of this patient today ____ minutes. Quality Stroke Does the patient have a stroke diagnosis?: No VTE Prior VTE?: No VTE Risk Level:: Medical - moderate - high VTE Device Contraindication: Treatment Not Indicated VTE Drug Contraindication: N/A - Med Ordered
[2022-08-07] MEDS: Sertraline HCL 100 MG TABLET PO (10:13)
[2022-08-07] MEDS: Naltrexone HCl 50 MG TABLET PO (10:14)
[2022-08-07] MEDS: Famotidine 20 MG TABLET PO (10:14)
[2022-08-07 16:00] VITALS: BP 127/70; PULSE 63; RESP 16; TEMP 36.4; O2SAT 95
--- NOTE | 2022-08-07 16:08 | MHC.CM.PN ---
P REPORTS HE LIVES ALONE AND IS INDEPENDENT WITH CARE PT HAS NO SERVICES AND NO DME HE IS NOT [facility], HAS NO HCP, AND NO PCP HE DECLINES TO COMPLETE HCP TODAY OBS NOTICE DELIVERED DCP: HOME NO SERVICES ?SH[facility]TLE
--- NOTE | 2022-08-07 19:42 | P.EN_ITS ---
Event Note Date of Service: 08/07/22 Event Note: GI Consult-Full note dictated Imp: Abdominal pain and GERD in patient with hx of EtOH(reports sobriety since 06/24/2022), EtOH-induced pancreatitis and associated pancreatic cysts, large hiatal hernia despite reported hiatal hernia surgery in approx. 2011, and in flammatory changes in area of duodenum. He does have pain but his abdomen is NT. His lipase and LFT's are WNL. Diff dx: PUD, esophagitis, and/or pancreatitis, as well as UGI complaints from the hiatal hernia Rec: IV PPI BID, F/U labs, and an upper endoscopy on Tuesday to make a more definitive assessment of the situation. Full consent obtained for the EGD, including risks of bleeding and perforation. D/W him in detail and he is comfortable with this plan. Thanks Time Spent With Patient Time: Total time managing care of this patient today ____ minutes.
[2022-08-07 20:00] VITALS: BP 121/76; PULSE 61; RESP 16; TEMP 36.3; O2SAT 93
[2022-08-07] MEDS: ondansetron HCL 4 MG/2 ML VIAL IVPUSH (20:18)
[2022-08-08] MEDS: Enoxaparin Sodium 40 MG/0.4 ML SYRINGE SUBCUT (01:16)
[2022-08-08 03:26] VITALS: BP 117/72; PULSE 61; RESP 20; TEMP 36.5; O2SAT 96
--- NOTE | 2022-08-08 04:27 | CONS_ITS ---
DATE OF SERVICE: 08/07/2022 REASON FOR CONSULTATION: Abdominal pain, pancreatic cyst, history of pancreatitis, and abnormal CT scan of GI tract. HISTORY OF PRESENT ILLNESS: This has been obtained from the patient and the medical record. Patient is a 36-year-old male with a history of chronic alcohol abuse, but with reported sobriety since the latter part of June of 2022. He does have a history of pancreatitis in the past with a severe episode in 2014 at a hospital in [place]. He describes a several weeks hospitalization, but did not require surgery. His other past history is notable for a hiatal hernia surgery done laparoscopically in 2011, while in the [employer]. He described refractory reflux at that time. He has had cholecystectomy in 2018. The patient has had a hospitalization here in June 2022, for abdominal pain, although his lipase was normal at that time. CT scan was consistent with pancreatitis as well as pancreatitis cyst. Since discharge, he described sobriety. He was at inpatient rehab at [place]. He has been using famotidine twice a day. He described since his hospitalization in June has been having intermittent abdominal pain, which has been more severe in the past few days with associated anorexia. He has had some vomiting, but no bleeding. He has jaundice. He did have ER visits before his hospitalization in June, at which time his pancreatic enzymes were normal as well, although he did have an elevated lipase back in December 2021. He denies any known history of ulcer disease. He denies having had an endoscopy since his hiatal hernia surgery back in 2011. He does describe increasing episodes of heartburn and reports that the hiatal hernia surgery really did not help him that much. He describes trouble belching. He denies any definitive dysphagia. He denies any signs of melena, nor hematochezia. MEDICATIONS: His medications at home include famotidine, acetaminophen, hydroxyzine, naltrexone, Seroquel, and sertraline. PAST MEDICAL and SURGICAL HISTORY: Hiatal hernia surgery and cholecystectomy as above. Alcohol-induced pancreatitis. Pancreatic cyst. He denies any history of heart disease, diabetes, stroke, or lung disease. 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 He is . Alcohol as above. FAMILY HISTORY: Noncontributory. REVIEW OF SYSTEMS: CONSTITUTIONAL: He has been feeling poorly at home in relation to his pain and anorexia. CARDIAC: No chest pain. PULMONARY: No cough or hemoptysis. GI: As above. PHYSICAL EXAMINATION: GENERAL: The patient is a pleasant, alert, cooperative male. SKIN: Warm and dry. Nonjaundiced. HEENT: Anicteric sclerae. NECK: Supple without lymphadenopathy. CARDIAC: Normal S1 and S2. ABDOMEN: Soft. Nondistended. Normal bowel sounds. Nontender. LABORATORY DATA: Abdominal CT scan from yesterday describes normal appearing liver and biliary tree, status post cholecystectomy. Pancreatic cyst in the head of the pancreas measuring about 2 cm with some mild soft tissue stranding and the reason of the pancreatic groove near the second part of the duodenum. There is demonstration of a large hiatal hernia with a large portion of the stomach extending into the chest. There is some stranding of fat in the second part of the duodenum. He had a MRI of the pancreas yesterday as well describing the complex fluid collection in the pancreatic head, although appearing to be decreased from June 2022. There is still some inflammatory changes in the region of the duodenum. The liver and biliary tree appeared normal without choledocholithiasis. There is no splenomegaly nor any intra-abdominal fluid. Labs from admission showed normal CBC, normal electrolytes, BUN and creatinine and normal liver profile and lipase is only 38. IMPRESSION: Given the patient's clinical history, the cause of his ongoing abdominal pain is unclear. He does have pain, but his abdominal exam is nontender and his lipase is normal, both of which would tend to go against pancreatitis. The CT and MRI do show some changes of inflammation in the region of pancreas and pancreatic cyst, but it is not clear if those are contributing to his symptoms either. He may very well have peptic ulcer disease contributing to his ongoing abdominal pain. The large hiatal hernia could be contributing to some discomfort as well. At this point, I would recommend an upper endoscopy for better assessment of the situation to try to make a definitive distinction between peptic ulcer disease and other acid related problems causing pain as opposed to pancreatitis. Full consent has been obtained for the upper endoscopy including risks of bleeding and perforation. In the meantime, I have ordered followup labs for tomorrow and would continue his IV PPI twice a day and stop the H2 prmiitivo. I did review with him that depending upon the upper endoscopy finding and his clinical course, we may need to have him meet with a surgeon to reevaluate the large hernia to see if that needs to be corrected surgically again to give him any further relief. At this point, the pancreatic cyst does not appear worrisome and I would recommend this simply be followed by followup imaging. I do not think they need an endoscopic ultrasound at this point. I did have a detailed discussion with him today regarding the need to remain abstainent from alcohol to hopefully prevent further damage to the pancreas and GI tract in general. The patient was comfortable with this plan. Thank you for the consultation. MD STONE Lopes/EDYTA / [id number] [email or web address]
[2022-08-08] MEDS: Pantoprazole Sodium 40 MG/10 ML VIAL IVPUSH ×2 (05:53→17:34)
[2022-08-08] MEDS: HYDROmorphone HCl 1 MG/ML SYRINGE IVPUSH ×3 (05:58→17:34)
[2022-08-08 07:28] LABS: MANUAL DIFF FLAG NO
[2022-08-08 07:44] LABS: Basophils Percent Auto 0.5 % (0-2); Eosinophils Absolute Auto 0.3 X10*3/uL (0.0-0.4); Eosinophils Percent Auto 4.7 % (0-4); Hematocrit 47.9 % (42.0-52.0); Hemoglobin 15.9 g/dl (14.0-18.0); Imm Gran Abs Auto 0.01 X10*3/uL (0.00-0.03); Imm Gran Pct Auto 0.2 % (0.0-0.4); Lymphocytes Absolute Auto 1.3 X10*3/uL (1.2-4.9); Lymphocytes Percent Auto 21.6 % (20-40); Mean Corpuscular HGB Conc 33.2 g/dl (31.0-36.0); Mean Corpuscular Hemoglobin 30.5 pg (27.0-33.0); Mean Corpuscular Volume 91.8 fL (80.0-98.0); Monocytes Absolute Auto 0.5 X10*3/uL (0.1-1.2); Monocytes Percent Auto 7.9 % (2-11); Neutrophils Percent Auto 65.1 % (45-73); Platelet Count 246 X10*3/uL (160-400); Red Blood Count 5.22 X10*6/uL (4.60-5.80); Red Cell Distribution Width 12.9 % (11.0-16.0); White Blood Count 6.2 X10*3/uL (4.8-10.8)
[2022-08-08 07:54] VITALS: BP 126/69; PULSE 68; RESP 18; TEMP 35.9; O2SAT 96
--- NOTE | 2022-08-08 08:13 | P.PNIM_ITS ---
Subjective Subjective Date of Service: 08/08/22 Interval History: f/u on abdominal pain still has some pain Physical Exam Vital Signs: Vital Signs: Last Vital Signs Temp 96.7 F L 08/08/22 07:54 Pulse 68 08/08/22 07:54 Resp 18 08/08/22 07:54 BP 126/69 08/08/22 07:54 Pulse Ox 96 08/08/22 07:54 O2 Del Method 08/08/22 07:54 BMI result Body Mass Index 28.2 Const: Other: General: AO X 3, no acute distress Resp: CTA bilateral CVS: S1,S2,RRR GI: +BS, negligible epigastric tenderness. Skin: No rash Neuro: motor grossly intact Psych: appropriate affect Objective Data Active Medications Acetaminophen (Acetaminophen 325 Mg Tablet) 650 mg PO Q6H PRN PRN Reason: Pain, Mild (Pain Scale 1-3) Enoxaparin Sodium (Enoxaparin Sodium 40 Mg/0.4 Ml Syringe) 40 mg SUBCUT Q24H [facility] Last Admin: 08/08/22 01:16 Dose: 40 mg Documented By: SHEMAR Hydromorphone HCl (Hydromorphone Hcl 1 Mg/Ml Syringe) 1 mg IVPUSH Q4H PRN; Protocol PRN Reason: Pain, Severe (Pain Scale 7-10) Last Admin: 08/08/22 05:58 Dose: 1 mg Documented By: SHEMAR Hydroxyzine HCl (Hydroxyzine Hcl 50 Mg Tablet) 50 mg PO TID PRN PRN Reason: Anxiety Melatonin (Melatonin 3 Mg Tablet) 6 mg PO BEDTIME PRN PRN Reason: Insomnia Last Admin: 08/07/22 00:09 Dose: 6 mg Documented By: SHEMAR Naltrexone HCl (Naltrexone Hcl 50 Mg Tablet) 50 mg PO DAILY [facility] Last Admin: 08/07/22 10:14 Dose: 50 mg Documented By: JEFF Nicotine Polacrilex (Nicotine Polacrilex 2 Mg Gum) 2 mg BUCCAL Q2H PRN PRN Reason: Nicotine Cravings Ondansetron HCl (Ondansetron Hcl 4 Mg/2 Ml Vial) 4 mg IVPUSH Q8H PRN PRN Reason: Nausea and Vomiting Last Admin: 08/07/22 20:18 Dose: 4 mg Documented By: SHEMAR Pantoprazole Sodium (Pantoprazole Sodium 40 Mg/10 Ml Vial) 40 mg IVPUSH BID@0630,1630 [facility] Last Admin: 08/08/22 05:53 Dose: 40 mg Documented By: SHEMAR Pharmacy Consult (Consult Rx Perform Med Rec) 1 each MISCELLANE ONCE PRN PRN Reason: Consult order Quetiapine Fumarate (Quetiapine Fumarate 50 Mg Tablet) 150 mg PO BEDTIME PRN PRN Reason: insomnia/mood Last Admin: 08/06/22 22:01 Dose: 150 mg Documented By: SHEMAR Sertraline HCl (Sertraline Hcl 100 Mg Tablet) 100 mg PO DAILY [facility] Last Admin: 08/07/22 10:13 Dose: 100 mg Documented By: JEFF Sodium Chloride (0.9 % Sodium Chloride Flush 3 Ml Syringe) 3 ml IVFLUSH QSHIFT [facility] Last Admin: 08/08/22 07:37 Dose: Not Given Documented By: JEFF Non-Admin Reason: IV Running Labs 08/08/22 05:53 08/06/22 04:24 Labs: Laboratory Results - last 24 hr 08/08/22 05:53 MCV 91.8 MCH 30.5 MCHC 33.2 RDW 12.9 Plt Count 246 MPV 10.0 Immature Gran % (Auto) 0.2 Neut % (Auto) 65.1 Lymph % (Auto) 21.6 [place] % (Auto) 7.9 Eos % (Auto) 4.7 H Baso % (Auto) 0.5 Lymph # (Auto) 1.3 [place] # (Auto) 0.5 Eos # (Auto) 0.3 Baso # (Auto) 0.0 Abs Immat Gran (auto) 0.01 Absolute Neuts (auto) 4.0 Absolute Nucleated RBC 0.000 Nucleated RBC % (auto) 0.0 Assessment and Plan (1) Pancreatitis: Status: Acute (2) Alcohol dependence with withdrawal: Status: Acute (3) Abdominal pain, epigastric: Status: Acute (4) Nausea & vomiting: Status: Acute Plan This is a 36-year-old male with pertinent history of alcohol use disorder, mood disorder who presents to the emergency department for evaluation of epigastric pain. #. Epigastric abdominal pain due to ? acute on chronic pancreatitis, MRI show 2.2 cm mildly complex fluid collection in the pancreatic head which appears decreased from more remote priors -continue pain contrtol, liquid diet -additional work up with EGD tomorrow #. Relative polycythemia d/t hemoconcentration, resolved withHydration #. Mood disorder: On sertraline DVT prophylaxis: Lovenox 40 mg daily Full code Need for inpatient: Acute pancreatitis needing IV hydration IV pain medication while NPO. Time Spent With Patient Time: Total time managing care of this patient today ____ minutes. Quality Stroke Does the patient have a stroke diagnosis?: No VTE Prior VTE?: No VTE Risk Level:: Medical - moderate - high VTE Device Contraindication: Treatment Not Indicated VTE Drug Contraindication: N/A - Med Ordered
[2022-08-08] MEDS: Sertraline HCL 100 MG TABLET PO (08:42)
[2022-08-08] MEDS: Naltrexone HCl 50 MG TABLET PO (08:42)
[2022-08-08 08:47] LABS: Anion Gap 15 (12-20); Blood Urea Nitrogen 4 mg/dL (9-16); Calcium 9.1 mg/dL (8.4-10.2); Carbon Dioxide 20 mmol/L (22-29); Chloride 110 mmol/L (96-108); Estimated Glomerular Filt Rate > 60; Glucose Fasting 82 mg/dL (60-99); Lipase 34 U/L (8-78); Potassium 3.9 mmol/L (3.3-5.1); Sodium 141 mmol/L (135-145)
[2022-08-08] MEDS: 0.9 % Sodium Chloride 1,000 ML 100 ML IVCONT ×2 (10:52→18:36)
[2022-08-08 15:59] VITALS: BP 126/75; PULSE 54; RESP 16; TEMP 36.7; O2SAT 96
[2022-08-08] MEDS: QUEtiapine Fumarate 50 MG TABLET 150 MG PO (19:18)
[2022-08-08 19:24] VITALS: BP 134/83; PULSE 52; RESP 16; TEMP 36.1; O2SAT 97
[2022-08-09] VITALS (8 sets, daily range): BP systolic 90–143; BP diastolic 49–96; PULSE 58–93; RESP 16–18; TEMP 36–36.9; O2SAT 93–98
[2022-08-09] MEDS: 0.9 % Sodium Chloride 1,000 ML 100 ML IVCONT (03:42)
[2022-08-09] MEDS: Pantoprazole Sodium 40 MG/10 ML VIAL IVPUSH (06:05)
--- NOTE | 2022-08-09 12:01 | HO.PM.IMPN ---
Subjective Subjective Date of Service: 08/09/22 Interval History: f/u on abdominal pain pain is still there, no n/'v Physical Exam Vital Signs: Vital Signs: Last Vital Signs Temp 96.8 F 08/09/22 06:49 Pulse 69 08/09/22 06:49 Resp 18 08/09/22 06:49 BP 106/60 08/09/22 06:49 Pulse Ox 96 08/09/22 06:49 O2 Del Method 08/09/22 06:49 BMI result Body Mass Index 28.2 Const: Other: General: AO X 3, no acute distress Resp: CTA bilateral CVS: S1,S2,RRR GI: +BS, negligible epigastric tenderness. Skin: No rash Neuro: motor grossly intact Psych: appropriate affect Objective Data Active Medications Acetaminophen (Acetaminophen 325 Mg Tablet) 650 mg PO Q6H PRN PRN Reason: Pain, Mild (Pain Scale 1-3) Enoxaparin Sodium (Enoxaparin Sodium 40 Mg/0.4 Ml Syringe) 40 mg SUBCUT Q24H [facility] Last Admin: 08/09/22 00:41 Dose: Not Given Documented By: SHEMAR Non-Admin Reason: preop Hydromorphone HCl (Hydromorphone Hcl 1 Mg/Ml Syringe) 1 mg IVPUSH Q4H PRN; Protocol PRN Reason: Pain, Severe (Pain Scale 7-10) Last Admin: 08/08/22 17:34 Dose: 1 mg Documented By: JEFF Hydroxyzine HCl (Hydroxyzine Hcl 50 Mg Tablet) 50 mg PO TID PRN PRN Reason: Anxiety Sodium Chloride (Ns) 1,000 mls @ 100 mls/hr IVCONT .Q10H [facility] Last Admin: 08/09/22 03:42 Dose: 100 mls/hr Documented By: SHEMAR Melatonin (Melatonin 3 Mg Tablet) 6 mg PO BEDTIME PRN PRN Reason: Insomnia Last Admin: 08/07/22 00:09 Dose: 6 mg Documented By: SHEMAR Naltrexone HCl (Naltrexone Hcl 50 Mg Tablet) 50 mg PO DAILY [facility] Last Admin: 08/09/22 08:51 Dose: Not Given Documented By: VALERI Non-Admin Reason: Patient Refused Nicotine Polacrilex (Nicotine Polacrilex 2 Mg Gum) 2 mg BUCCAL Q2H PRN PRN Reason: Nicotine Cravings Ondansetron HCl (Ondansetron Hcl 4 Mg/2 Ml Vial) 4 mg IVPUSH Q8H PRN PRN Reason: Nausea and Vomiting Last Admin: 08/07/22 20:18 Dose: 4 mg Documented By: SHEMAR Pantoprazole Sodium (Pantoprazole Sodium 40 Mg/10 Ml Vial) 40 mg IVPUSH BID@0630,1630 [facility] Last Admin: 08/09/22 06:05 Dose: 40 mg Documented By: SHEMAR Pharmacy Consult (Consult Rx Perform Med Rec) 1 each MISCELLANE ONCE PRN PRN Reason: Consult order Quetiapine Fumarate (Quetiapine Fumarate 50 Mg Tablet) 150 mg PO BEDTIME PRN PRN Reason: insomnia/mood Last Admin: 08/08/22 19:18 Dose: 150 mg Documented By: SHEMAR Sertraline HCl (Sertraline Hcl 100 Mg Tablet) 100 mg PO DAILY [facility] Last Admin: 08/09/22 08:51 Dose: Not Given Documented By: VALERI Non-Admin Reason: Patient Refused Sodium Chloride (0.9 % Sodium Chloride Flush 3 Ml Syringe) 3 ml IVFLUSH QSHIFT [facility] Last Admin: 08/09/22 08:51 Dose: Not Given Documented By: VALERI Non-Admin Reason: IV Running Labs 08/08/22 05:53 08/08/22 05:53 Assessment and Plan (1) Pancreatitis: Status: Acute (2) Alcohol dependence with withdrawal: Status: Acute (3) Abdominal pain, epigastric: Status: Acute (4) Nausea & vomiting: Status: Acute Plan This is a 36-year-old male with pertinent history of alcohol use disorder, mood disorder who presents to the emergency department for evaluation of epigastric pain. #. Epigastric abdominal pain due to ? acute on chronic pancreatitis, MRI show 2.2 cm mildly complex fluid collection in the pancreatic head which appears decreased from more remote priors -continue pain contrtol, liquid diet -additional work up with EGD today, IV PPI recommended by Gi #. Relative polycythemia d/t hemoconcentration, resolved after withHydration #. Mood disorder: On sertraline DVT prophylaxis: Lovenox 40 mg daily Full code Need for inpatient: abdominal pain ? pancreatitis, ongoing work for EGD today Time Spent With Patient Time: Total time managing care of this patient today ____ minutes. Quality Stroke Does the patient have a stroke diagnosis?: No VTE Prior VTE?: No VTE Risk Level:: Medical - moderate - high VTE Device Contraindication: Treatment Not Indicated VTE Drug Contraindication: N/A - Med Ordered
--- NOTE | 2022-08-09 13:25 | MHC.SHP ---
Pre-Procedural Eval Section A Date of Service: 08/09/22 The patient is an INPATIENT: Yes The History & Physical has been completed within 30 days and I have reviewed it.: Yes Section B Chief Complaint: Abdominal Pain Allergies: Allergies Allergy/AdvReac Type Severity Reaction Status Date / Time No Known Allergies Allergy Verified 08/05/22 19:22 [No Known Allergies*] Plan I have reviewed the history and physical and performed a pertinent physical examination on my patient. No changes have occurred unless specified. Time Spent With Patient Time: Total time managing care of this patient today ____ minutes.
--- NOTE | 2022-08-09 13:32 | P.CONAN_ITS ---
HPI - Anesthesia Eval Consult details Narrative: 36 M for EGD PMFSH Active Problems Active Problems: All Active Problems (Updated 08/06/22 @ 01:02 by Rosalinda Martinez MD) Pancreatitis (Acute) Alcohol dependence with withdrawal (Acute) Abdominal pain, epigastric (Acute) Nausea & vomiting (Acute) Past Medical History Medical History Alcohol dependence with withdrawal Pancreatitis Functional capacity: independent ambulation Family History Family history of problems with anesthesia: No Surgical History History of Problems with Anesthesia: No Social History Social History Household Members: None Housing: House Do you presently have visiting nurse or other home services: No Alcohol intake: former Patient Tobacco Use Status: Current everyday Tobacco user Tobacco use type: Cigarette Cigarette Packs Per Day: 1 Cigarettes Per Day: 20.0 Years Smoked: 20 Smoked in Last 30 Days: No Patient Interested in Nicotine Replacement: Yes (pt is asking for a nicotine gum) Use of substances other than those prescribed or required for medical reasons: No Substance Use Type: Marijuana Substance Use Frequency: Weekly Last Used Substance: Days (ago) Currently Displaying Signs/Symptoms of Drug Intoxication Withdrawal: No Any prior treatment program specific to substance use: No Have you been hit, kicked, punched, or otherwise hurt by someone within the past year? If so, by whom?: No Do you feel safe in your current relationship?: Yes Is there a partner from a previous relationship who is making you feel unsafe n ow?: No Are you made to feel afraid or neglected: No [employer] Healthcare Practices: no caodaism Are you DNR?: No Advance Directives: No Advance Directives Information Provided: No Advance Directives on File: No Do you have thoughts of harming others: None Do you have a plan to hurt others: No Plan Recently lost weight without trying: Yes How much weight loss: 2-13 pounds Eating poorly because of decreased appetite: Yes Nutrition screen score: 4 Nutrition Risks: Poor intake 0-25% >4 days Poor oral hygiene: No service: No Current occupational status: employed Meds Allergies Allergy/AdvReac Type Severity Reaction Status Date / Time No Known Allergies Allergy Verified 08/05/22 19:22 [No Known Allergies*] Active Medications: Current Medications Acetaminophen (Acetaminophen 325 Mg Tablet) 650 mg PO Q6H PRN PRN Reason: Pain, Mild (Pain Scale 1-3) Enoxaparin Sodium (Enoxaparin Sodium 40 Mg/0.4 Ml Syringe) 40 mg SUBCUT Q24H [facility] Last Admin: 08/09/22 00:41 Dose: Not Given Hydromorphone HCl (Hydromorphone Hcl 1 Mg/Ml Syringe) 1 mg IVPUSH Q4H PRN; Protocol PRN Reason: Pain, Severe (Pain Scale 7-10) Last Admin: 08/08/22 17:34 Dose: 1 mg Hydroxyzine HCl (Hydroxyzine Hcl 50 Mg Tablet) 50 mg PO TID PRN PRN Reason: Anxiety Sodium Chloride (Ns) 1,000 mls @ 100 mls/hr IVCONT .Q10H [facility] Last Admin: 08/09/22 03:42 Dose: 100 mls/hr Melatonin (Melatonin 3 Mg Tablet) 6 mg PO BEDTIME PRN PRN Reason: Insomnia Last Admin: 08/07/22 00:09 Dose: 6 mg Naltrexone HCl (Naltrexone Hcl 50 Mg Tablet) 50 mg PO DAILY [facility] Last Admin: 08/09/22 08:51 Dose: Not Given Nicotine Polacrilex (Nicotine Polacrilex 2 Mg Gum) 2 mg BUCCAL Q2H PRN PRN Reason: Nicotine Cravings Ondansetron HCl (Ondansetron Hcl 4 Mg/2 Ml Vial) 4 mg IVPUSH Q8H PRN PRN Reason: Nausea and Vomiting Last Admin: 08/07/22 20:18 Dose: 4 mg Pantoprazole Sodium (Pantoprazole Sodium 40 Mg/10 Ml Vial) 40 mg IVPUSH BID@0630,1630 [facility] Last Admin: 08/09/22 06:05 Dose: 40 mg Pharmacy Consult (Consult Rx Perform Med Rec) 1 each MISCELLANE ONCE PRN PRN Reason: Consult order Quetiapine Fumarate (Quetiapine Fumarate 50 Mg Tablet) 150 mg PO BEDTIME PRN PRN Reason: insomnia/mood Last Admin: 08/08/22 19:18 Dose: 150 mg Sertraline HCl (Sertraline Hcl 100 Mg Tablet) 100 mg PO DAILY [facility] Last Admin: 08/09/22 08:51 Dose: Not Given Sodium Chloride (0.9 % Sodium Chloride Flush 3 Ml Syringe) 3 ml IVFLUSH QSHIFT [facility] Last Admin: 08/09/22 08:51 Dose: Not Given Home Medications Medication Instructions Recorded Confirmed Last Taken Type acetaminophen 325 mg tablet 650 mg PO Q6H PRN Pain 06/22/22 08/06/22 07/23/22 History (Tylenol) famotidine 20 mg tablet 20 mg PO BID 08/06/22 08/06/22 07/23/22 History hydroxyzine pamoate 50 mg capsule 50 mg PO TID PRN Anxiety 08/06/22 08/06/22 07/23/22 History naltrexone 50 mg tablet 50 mg PO DAILY 08/06/22 08/06/22 07/23/22 History quetiapine 50 mg tablet 150 mg PO BEDTIME PRN insomnia/mood 08/06/22 08/06/22 07/23/22 History sertraline 100 mg tablet 100 mg PO DAILY 08/06/22 08/06/22 07/23/22 History Exam Exam Date and Time: August 09, 2022 1332 Height,Weight and Vital Signs: Height 6 ft 2 in Weight 99.79 kg Last Vital Signs Temp 97.8 F 08/09/22 12:35 Pulse 74 08/09/22 12:35 Resp 18 08/09/22 12:35 BP 143/96 H 08/09/22 12:35 Pulse Ox 96 08/09/22 12:35 O2 Del Method 08/09/22 12:35 Pertinent Lab Results Pertinent Lab Results: Laboratory Tests 08/05/22 08/05/22 08/06/22 20:21 20:21 01:24 WBC 10.5 RBC 6.03 H Hgb 18.5 H Hct 53.9 H MCV 89.4 MCH 30.7 MCHC 34.3 RDW 13.0 Plt Count 302 MPV 8.8 L Immature Gran % (Auto) 0.3 Neut % (Auto) 67.2 Lymph % (Auto) 20.9 Cooke % (Auto) 8.9 Eos % (Auto) 2.1 Baso % (Auto) 0.6 Lymph # (Auto) 2.2 Cooke # (Auto) 0.9 Eos # (Auto) 0.2 Baso # (Auto) 0.1 Abs Immat Gran (auto) 0.03 Absolute Neuts (auto) 7.0 Absolute Nucleated RBC 0.000 Nucleated RBC % (auto) 0.0 Sodium 140 Potassium 3.8 Chloride 99 Carbon Dioxide 30 H Anion Gap 15 BUN 7 L Creatinine 0.84 Estim Creat Clear Calc 156.3 Estimated GFR > 60 Random Glucose 105 Fasting Glucose Calcium 10.5 H D Total Bilirubin 1.5 H Direct Bilirubin 0.4 AST 27 ALT 28 Alkaline Phosphatase 83 Total Protein 8.0 Albumin 4.8 Triglycerides 165 Cholesterol 239 LDL Cholesterol, Calc 173 HDL Cholesterol 33 Lipase 38 COVID-19 ([facility]) Negative COVID-19 Clin Com See Note 08/06/22 08/06/22 08/08/22 04:24 04:24 05:53 WBC 9.0 6.2 RBC 5.27 5.22 Hgb 16.1 15.9 Hct 47.7 47.9 MCV 90.5 91.8 MCH 30.6 30.5 MCHC 33.8 33.2 RDW 13.2 12.9 Plt Count 249 246 MPV 8.9 L 10.0 Immature Gran % (Auto) 0.2 0.2 Neut % (Auto) 65.5 65.1 Lymph % (Auto) 21.1 21.6 Cooke % (Auto) 9.9 7.9 Eos % (Auto) 2.6 4.7 H Baso % (Auto) 0.7 0.5 Lymph # (Auto) 1.9 1.3 Cooke # (Auto) 0.9 0.5 Eos # (Auto) 0.2 0.3 Baso # (Auto) 0.1 0.0 Abs Immat Gran (auto) 0.02 0.01 Absolute Neuts (auto) 5.9 4.0 Absolute Nucleated RBC 0.000 0.000 Nucleated RBC % (auto) 0.0 0.0 Sodium 140 Potassium 3.7 Chloride 103 Carbon Dioxide 25 Anion Gap 16 BUN 7 L Creatinine 0.74 Estim Creat Clear Calc 177.5 Estimated GFR > 60 Random Glucose 102 Fasting Glucose Calcium 9.2 D Total Bilirubin Direct Bilirubin AST ALT Alkaline Phosphatase Total Protein Albumin Triglycerides Cholesterol LDL Cholesterol, Calc HDL Cholesterol Lipase COVID-19 ([facility]) COVID-19 Clin Com 08/08/22 05:53 WBC RBC Hgb Hct MCV MCH MCHC RDW Plt Count MPV Immature Gran % (Auto) Neut % (Auto) Lymph % (Auto) Cooke % (Auto) Eos % (Auto) Baso % (Auto) Lymph # (Auto) Cooke # (Auto) Eos # (Auto) Baso # (Auto) Abs Immat Gran (auto) Absolute Neuts (auto) Absolute Nucleated RBC Nucleated RBC % (auto) Sodium 141 Potassium 3.9 Chloride 110 H Carbon Dioxide 20 L Anion Gap 15 BUN 4 L Creatinine 0.66 Estim Creat Clear Calc 199.0 Estimated GFR > 60 Random Glucose Fasting Glucose 82 Calcium 9.1 Total Bilirubin Direct Bilirubin AST ALT Alkaline Phosphatase Total Protein Albumin Triglycerides Cholesterol LDL Cholesterol, Calc HDL Cholesterol Lipase 34 COVID-19 ([facility]) COVID-19 Clin Com Airway Mallampati Class: III TM Dist: >3cm Neck ROM: Full Loose/Missing/Broken Teeth: Yes (Poor dentition ) Heart: S1,S2 Lungs: diminished breath sounds b/l Assessment and Plan Assessment Anesthesia Assessment: Anesthesia Plan Discussed and Chart Reviewed Final Anesthetic Review Family History of Problems with Anesthesia: No History of Problems with Anesthesia: No NPO: Yes ASA Class: III Final Preanesthetic Review: Meds/Allgs Chart Reviewed, Consent Obtained/Reviewed and Anes Risks/Benef Reviewed Patient Risk: High Procedure Risk: Intermediate Anesthetic Plan Anesthetic Plan: MAC: Disposition: Inp. Admit - Standard Bed
--- NOTE | 2022-08-09 14:19 | PM.EVENT ---
Event Note Date of Service: 08/09/22 Event Note: GI-EGD-Full note dictated Findings: 1. Thoracic stomach with inability to reach the pylorus due to looping of the scope in the herniated portion of the stomach 2. Mild changes of reflux, but no esophagitis 3. Mucosa of stomach and esophagus appeared WNL--no ischemia. 4. I feel that I saw a puckering of folds in the stomach where it was presumably going past the diaphragm, but I could not get past it without looping of the scope and retroflexing. I suspect these findings would account for his ongoing pain and the CT findings of the thoracic stomach Rec: Thoracic surgery consult placed, Barium swallow/UGI for the AM, clear liquids for now, IV PPi. Thanks Time Spent With Patient Time: Total time managing care of this patient today ____ minutes.
--- NOTE | 2022-08-09 14:27 | PM.OP ---
Brief Operative Note Date of Service: 08/09/22 Pre-op diagnosis: Abdominal pain Post-op diagnosis: other (Thoracic stomach) Procedure: Upper endoscopy Surgeon: Washington Brito Anesthesia: MAC Was an Sales Representative [employer] used for this Procedure?: No Estimated blood loss (mL): 0 Pathology: none sent Condition: stable Disposition: PACU
[2022-08-09] MEDS: Acetaminophen 325 MG TABLET 650 MG PO (15:08)
--- NOTE | 2022-08-09 18:43 | PM.DS ---
DS: Providers Provider Date of Service: 08/09/22 Date of admission: 08/09/22 13:51 Primary care physician: Unknown Physician Consults: 08/07/22 07:47 Consult to Gastroenterology Routine Consulting Provider: Washington Brito Reason for consultation: Acute pancreatitis with cyst Has provider been notified: No 08/09/22 15:55 Consult to Thoracic Surgery Routine Consulting Provider: Bruno Terrell Reason for consultation: Thoracic stomach, Epigastric pain Has provider been notified: No 08/09/22 16:46 Consult to Thoracic Surgery Routine Consulting Provider: Thao Avilez Reason for consultation: Thoracic stomach Has provider been notified: Yes DS: Diagnosis Discharge Diagnosis (1) Pancreatitis: Status: Acute (2) Alcohol dependence with withdrawal: Status: Acute (3) Abdominal pain, epigastric: Status: Acute (4) Nausea & vomiting: Status: Acute DS: Summary Hospital Course Hospital Course: A 36-year-old male with a history of previous [place] fundoplication at a [facility] about ten years ago(no records available). He came in here with upper abdominal pain and vomiting. He has a history of EtOH but is sober x 2 months. He has small pancreatic cysts but normal lipase. His CT showed a large portion of the stomach in his chest. Dr. Brito did an EGD on 08/09 to confirm the thoracic stomach but was unable to advance the scope past the diaphragm with the thoracic stomach, but failed to advance past what was felt to be the diaphragm with some puckering of the mucosa. They could not get to the distal stomach....the scope kept looping up and just retroflection. There was no sign of ischemia or inflammation. A Barium swallow and UGI were recommended for the next day, along with a thoracic surgery consult. NPO and NGT recommended thoracic surgery; they would see the patient later. However, the patient was adamant that he wanted to leave against medical advice, understanding that he could jeopardize his health and face serious complications, including . He understood his risks and decided to leave AMA anyway and stated he was going to follow up with [facility]; I tried to convince him to stay to have further work up and could not; Dr. Brito also tried to persuade him unsuccessfully, as did the RN. Final diagnosis Abdominal pain pancreatitis thoracic history of alcohol use Time Spent with Patient Time attestation: Total time managing care of this patient today ____ minutes. Discharge coordination time: Greater than 30 minutes Quality: Safe Use of Opioids Does Pt have an Active Cancer Diagnosis on the Problem List?: No Quality: Stroke Does the patient have a stroke diagnosis?: No Physical Exam Vital Signs: Vital Signs: Last Vital Signs Temp 98.4 F 08/09/22 15:17 Pulse 58 08/09/22 15:17 Resp 18 08/09/22 15:17 BP 110/61 08/09/22 15:17 Pulse Ox 98 08/09/22 15:17 O2 Del Method 08/09/22 15:17 O2 Flow Rate 2 08/09/22 15:04 BMI result Body Mass Index 28.2 DS: Data Data Completed and Pending Completed studies during hospitalization [Text1]: Procedures Detoxification Services for Substance Abuse Treatment (06/22/22) Inspection of Upper Intestinal Tract, Via Natural or Artificial Opening Endoscopic (08/09/22) Discharge Plan Discharge Patient Disposition: Left Against Medical Advice Discharge Diagnosis: abdominal pain Referrals: Physician,Unknown J [Primary Care Provider] - 1 Week Discharge Medications: No Action acetaminophen [Tylenol] 325 mg Tablet 650 mg PO Q6H PRN (Reason: Pain) naltrexone 50 mg Tablet 50 mg PO DAILY sertraline 100 mg Tablet 100 mg PO DAILY hydroxyzine pamoate 50 mg Capsule 50 mg PO TID PRN (Reason: Anxiety) famotidine 20 mg Tablet 20 mg PO BID quetiapine 50 mg Tablet 150 mg PO BEDTIME PRN (Reason: insomnia/mood) Discharge Orders: Discharge Order (Routine); Ordered 08/13/22 Ordered By: Christiano Smith Diet: N/A Activity on Discharge: As tolerated Care Plan Goals: left AMA Health Concerns: left AMA Plan of Treatment: that tear Assessment: the left AMA advise to follow up with PCP BIJU to return to Emergency or call 911 with any difficulty swallowing, eating or breathing understood that he left againt medical advise and too full responsibility for his health Discharge Date/Time: 08/09/22 17:44
--- NOTE | 2022-08-10 03:48 | OP_ITS ---
SURGEON: Washington Brito MD INDICATIONS: The patient presents for evaluation of abdominal pain and abnormal CT scan of upper GI tract. Full consent has been obtained from him for this, including risks of bleeding and perforation. PREOPERATIVE DIAGNOSIS: POSTOPERATIVE DIAGNOSIS: PROCEDURE PERFORMED: Upper endoscopy. ESTIMATED BLOOD LOSS: COMPLICATIONS: ANESTHESIA: ASSISTANTS: SPECIMENS: PREOPERATIVE DIAGNOSES: Abdominal pain and abnormal CT scan of upper gastrointestinal tract. POSTOPERATIVE DIAGNOSES: Abdominal pain and abnormal CT scan of upper gastrointestinal tract, thoracic stomach with inability to reach the pylorus. DESCRIPTION OF PROCEDURE: The patient was placed in the left lateral decubitus position. The Olympus video gastroscope was passed in the posterior oropharynx and upper esophagus under direct vision. The scope was passed slowly to the distal esophagus. The gastroesophageal junction appeared at 35 cm. There was some slight irregularity consistent with reflux but no evidence of any esophagitis, varices, nor any mucosal abnormalities to suggest ischemia. The scope entered the stomach. The gastric mucosa appeared normal, without inflammation, ulceration, varices, mass, nor any signs of ischemia. As the stomach was inspected, it became evident that we were dealing with a large hernia, i.e., thoracic stomach. I was unable to advance to the pylorus, although I did feel I could see the puckering where the stomach would be passing through the diaphragm. The large portion of the stomach above the diaphragm was inspected both in the forward viewing and retroflexed positions and appeared normal otherwise. Each time, I tried advancing into the more distal stomach past the puckered folds I kept looping and the scope kept retroflexing. At that point, the scope was withdrawn back into the esophagus. Proximal to the EG junction, the esophageal mucosa appeared normal. The scope was withdrawn from the patient. He tolerated the procedure well and was returned to the recovery area in stable condition. IMPRESSION: Thoracic stomach with inability to reach the pylorus due to looping of the scope in the herniated portion of the stomach. Mild changes of reflux. PLAN: The patient will have a consultation with thoracic surgery. I have also ordered a barium swallow and upper GI for the morning to further assess the situation. I would keep him on clear liquids for now. He will be kept on his IV PPI for now as well. I do think it would be important to fully assess this before he is discharged and see what Dr. Tony from Thoracic Surgery recommends. He may very well need surgery before he is discharged. This has been discussed with the patient. MD STONE Lopes/EDYTA / [id number] MTDD
== END 2022-08-09 17:44 | disposition left against medical advice (07) | DRG 439 ==
LOC: HO.ED 08-06 01:02 → HO.EDOVER 08-06 01:12 → HO.S3 08-06 18:04
PROVIDERS: Internal Medicine; Admitting Provider Student in an Organized Health Care Education/Training Program; Emergency Provider Emergency Medicine; Visit Provider Internal Medicine
PROC: 0DJ08ZZ Inspection of Upper Intestinal Tract, Via Natural or Artificial Opening Endoscopic (ICD-10-PCS; CPT 43235; principal; 2022-08-09 15:30)
DX: K85.90 Acute pancreatitis without necrosis or infection, unspecified (principal); K45.0 Other specified abdominal hernia with obstruction, without gangrene; K86.2 Cyst of pancreas; F17.210 Nicotine dependence, cigarettes, uncomplicated; F39 Unspecified mood [affective] disorder; K21.9 Gastro-esophageal reflux disease without esophagitis; D75.1 Secondary polycythemia; F10.21 Alcohol dependence, in remission; Z20.822 Contact with and (suspected) exposure to COVID-19; Z71.6 Tobacco abuse counseling; Z79.899 Other long term (current) drug therapy
CPT/HCPCS: 36415; 74177; 74183; 80048; 80061; 80076; 83690; 85025; 87635; 99285; A9585; J1170; J1650; J2270; J2405; Q9967

== ENCOUNTER 2022-08-13 21:36 | Emergency (ER) | payer OTHER, SELFPAY ==
--- NOTE | ~2022-08-13 | CT_ITS ---
EXAMINATION: CT ABDOMEN AND PELVIS WITH CONTRAST CLINICAL INFORMATION: Epigastric pain COMPARISON: CT abdomen pelvis 08/06/2022 and 06/22/2022, MR abdomen 08/06/2022 TECHNIQUE: Multidetector volumetric images were obtained from the superior aspect of the liver through the pubic symphysis following administration 85 mL of Omnipaque 350 intravenous contrast. Sagittal and coronal reformatted images were obtained on the technologist's workstation. Oral contrast: No This CT examination was performed using dose optimization techniques as appropriate, variously including the following: *Automated exposure control *Adjustment of mA and/or kV according to patient size (this includes techniques or standardized protocols for targeted exams where dose is matched to indication/reason for exam; i.e. extremities or head) *Use of iterative reconstruction technique DLP: 750 mGy-cm FINDINGS: LUNG BASES: Unremarkable. ABDOMINAL AND PELVIC WALL: Tiny fat-containing umbilical hernia. LIVER AND BILIARY TREE: Unremarkable. GALLBLADDER: Unremarkable. PANCREAS: A 2.5 cm cystic lesion in the pancreatic head, similar to possibly minimally increased from recent prior previously 2.3 cm, however overall slightly decreased from more remote priors where it measured 3.2 cm, and a 1.2 cm cystic lesion in the pancreatic head, similar to recent prior, 1.1 cm, new from remote prior. There is some fullness of the pancreatic head with some improving surrounding inflammatory change. SPLEEN: Unremarkable. ADRENAL GLANDS: Unremarkable. KIDNEYS AND URETERS: Bosniak 1 benign-appearing right renal cyst and bilateral renal hypodensities too small to characterize. GASTROINTESTINAL TRACT: Large paraesophageal hernia. Inflammatory change involving the pancreaticoduodenal groove, improved from prior. Large and small bowel are nondilated. Normal appendix. VASCULAR: Unremarkable. LYMPH NODES/PERITONEUM: No lymphadenopathy. FREE FLUID: None. BLADDER: Unremarkable. PELVIC VISCERA: Unremarkable. OSSEOUS STRUCTURES: Unremarkable. CT/CT abdomen pelvis w IV con IMPRESSION: Some fullness of the pancreatic head with some improving surrounding inflammatory change involving the pancreatic head and pancreaticoduodenal groove, which may reflect improving acute interstitial pancreatitis, however recommend correlation with lipase. Differential considerations would include duodenitis. A 2.5 cm cystic lesion in the pancreatic head, possibly minimally increased from recent prior however decreased from remote priors and a 1.2 cm cystic lesion similar to recent prior. Differential considerations could include pseudocysts in the setting of pancreatitis with cystic neoplasm difficult to exclude. Given the size of the dominant cystic lesion, recommend GI referral for consideration of endoscopic ultrasound and fine-needle aspiration, and if deferred continued short interval follow-up imaging. Large paraesophageal hernia.
[2022-08-13 22:41] VITALS: BP 125/91; PULSE 92; RESP 18; TEMP 36.8; O2SAT 97; BMI 28.8
[2022-08-13 23:10] LABS: Basophils Absolute Auto 0.1 X10*3/uL (0.0-0.2); Basophils Percent Auto 0.7 % (0-2); Eosinophils Absolute Auto 0.1 X10*3/uL (0.0-0.4); Eosinophils Percent Auto 0.7 % (0-4); Hematocrit 54.6 % (42.0-52.0); Hemoglobin 18.8 g/dl (14.0-18.0); Imm Gran Abs Auto 0.03 X10*3/uL (0.00-0.03); Imm Gran Pct Auto 0.3 % (0.0-0.4); Lymphocytes Absolute Auto 1.9 X10*3/uL (1.2-4.9); Mean Corpuscular HGB Conc 34.4 g/dl (31.0-36.0); Mean Corpuscular Volume 90.1 fL (80.0-98.0); Mean Platelet Volume 8.7 fL (9.4-12.4); Monocytes Absolute Auto 0.9 X10*3/uL (0.1-1.2); Monocytes Percent Auto 8.1 % (2-11); Neutrophils Absolute Auto 7.6 x10*3/uL (2.0-8.3); Neutrophils Percent Auto 72.2 % (45-73); Platelet Count 354 X10*3/uL (160-400); Red Blood Count 6.06 X10*6/uL (4.60-5.80); Red Cell Distribution Width 13.8 % (11.0-16.0); White Blood Count 10.6 X10*3/uL (4.8-10.8)
[2022-08-13 23:11] LABS: MANUAL DIFF FLAG NO
[2022-08-13 23:58] LABS: Alanine Aminotransferase 40 U/L (0-40); Albumin Level 4.7 g/dL (3.5-5.0); Alkaline Phosphatase 95 U/L (39-117); Anion Gap 16 (12-20); Aspartate Amino Transferase 33 U/L (5-37); Bilirubin Total 1.6 mg/dL (0.0-1.0); Blood Urea Nitrogen 7 mg/dL (9-16); Carbon Dioxide 30 mmol/L (22-29); Chloride 100 mmol/L (96-108); Creatinine Clr Calc Pharmacy 149.1; Estimated Glomerular Filt Rate > 60; Glucose Random 109 mg/dL (60-115); Potassium 3.6 mmol/L (3.3-5.1); Sodium 142 mmol/L (135-145); Total Protein 7.8 g/dL (6.5-8.0)
[2022-08-14 06:05] VITALS: BP 129/88; PULSE 69; RESP 16; TEMP 36.7; O2SAT 98
--- NOTE | 2022-08-14 07:27 | ED_ITS ---
HPI - Abdominal Pain General Chief Complaint: Abdominal Pain Stated Complaint: abdominal pain Time Seen by Provider: 08/14/22 06:36 Source: patient Mode of arrival: ambulatory History of Present Illness HPI narrative: 36-year-old male with presentation for abdominal discomfort and multiple episodes of nausea and vomiting without fever or chills and he denies any recent use of alcohol for approximately 1 month. Related Data Home Medications Medication Instructions Recorded Confirmed acetaminophen 325 mg tablet 650 mg PO Q6H PRN Pain 06/22/22 08/06/22 (Tylenol) famotidine 20 mg tablet 20 mg PO BID 08/06/22 08/06/22 hydroxyzine pamoate 50 mg capsule 50 mg PO TID PRN Anxiety 08/06/22 08/06/22 naltrexone 50 mg tablet 50 mg PO DAILY 08/06/22 08/06/22 quetiapine 50 mg tablet 150 mg PO BEDTIME PRN insomnia/mood 08/06/22 08/06/22 sertraline 100 mg tablet 100 mg PO DAILY 08/06/22 08/06/22 Previous Rx's Medication Instructions Recorded ondansetron HCl 4 mg tablet 4 mg PO Q8H PRN nausea and 08/14/22 vomiting 4 days #14 tabs Allergies Allergy/AdvReac Type Severity Reaction Status Date / Time No Known Allergies Allergy Verified 08/05/22 19:22 [No Known Allergies*] Review of Systems Review of Systems Pertinent positives and negatives as stated in HPI PMFSH Past Medical History Source: nursing notes reviewed Medical History Alcohol dependence with withdrawal Pancreatitis Social History Social History Household Members: None Housing: House Do you presently have visiting nurse or other home services: No Alcohol intake: never Patient Tobacco Use Status: Current everyday Tobacco user Tobacco use type: Cigarette Cigarette Packs Per Day: 1 Cigarettes Per Day: 20.0 Years Smoked: 20 Smoked in Last 30 Days: Yes Use of substances other than those prescribed or required for medical reasons: Yes Substance Use Type: Marijuana Substance Use Frequency: Weekly Last Used Substance: Days (ago) Any prior treatment program specific to substance use: No Advance Directives: No Advance Directives Information Provided: Yes service: No Current occupational status: employed Physical Exam ED Vital Signs: Vital Signs - 24 hr 08/13/22:41 08/14/22 06:05 Temperature 98.2 F 98.0 F Pulse Rate 92 69 Respiratory Rate 18 16 Blood Pressure 125/91 H 129/88 Pulse Oximetry 97 98 Oxygen Delivery Method Room Air Room Air BMI result Body Mass Index 28.8 VITAL SIGNS: Reviewed. GENERAL: Well developed, well nourished, in no acute distress. HEAD: Normocephalic/atraumatic EYES: PERRLA, EOMI EARS: Ext canals without abnormality OROPHARYNX: no oral lesions noted, posterior pharynx clear LUNGS: Normal breath sounds. No adventitious sounds or accessory muscle use. SpO2<98> CARDIOVASCULAR: Regular rate and rhythm without noted murmurs ABDOMEN: Soft, mild epigastric tenderness, non-distended with bowel sounds. EXTREMITIES: No cyanosis, clubbing or edema. SKIN: Inspection of the skin reveals no rashes NEUROLOGIC: Alert and oriented x 4. Strength and sensation to light touch were grossly intact x 4. Medical Decision Making Medical Decision Making MDM Narrative: This is a 36-year-old male with known large hiatal hernia, I reviewed Dr. Briot is note which suggests that primarily the pain is coming from the stomach which is within the thoracic cavity. Will obtain a lactic acid at this time with the purpose assessing for any evidence vascular compromise of the stomach. Although, in Dr. Brito is note there is no mention of ischemic changes within the stomach but he did note a ?puckering? that he attributes to the stomach entering into the thoracic cavity and this feature prevented him from being able to fully visualize the pylorus. Patient will receive IV fluids, antiemetics. I reviewed all investigations and my interpretation is that patient had acute nausea and vomiting has been controlled, he also had dehydration and was rehydrated. There are no acute findings on CT scan with IV contrast to suggest vascular compromise of the stomach and he is currently tolerating oral intake. Will be discharged home with recommendations on the diet that he should follow as provided by thoracic surgery and will follow-up with them next week. Differential Diagnosis Differential Diagnoses: The differential diagnosis associated with the presentation includes Please see the discussion above Consult Healthcare Provider Management of the patient was discussed with: Assessment Services Manager Thoracic Surgery@[id number]: Tia Dandre will recommend imaging study to best evaluate thoracic hiatal hernia Lab Data 08/13/22 23:03 08/13/22 23:03 Labs: Lab Results 08/13/22 08/13/22 08/14/22 Range/Units 23:03 23:03 08:01 WBC 10.6 (4.8-10.8) X10*3/uL RBC 6.06 H (4.60-5.80) X10*6/uL Hgb 18.8 H (14.0-18.0) g/dl Hct 54.6 H (42.0-52.0) % MCV 90.1 (80.0-98.0) fL MCH 31.0 (27.0-33.0) pg MCHC 34.4 (31.0-36.0) g/dl RDW 13.8 (11.0-16.0) % Plt Count 354 D (160-400) X10*3/uL MPV 8.7 L (9.4-12.4) fL Immature Gran % (Auto) 0.3 (0.0-0.4) % Neut % (Auto) 72.2 (45-73) % Lymph % (Auto) 18.0 L (20-40) % [place] % (Auto) 8.1 (2-11) % Eos % (Auto) 0.7 (0-4) % Baso % (Auto) 0.7 (0-2) % Lymph # (Auto) 1.9 (1.2-4.9) X10*3/uL [place] # (Auto) 0.9 (0.1-1.2) X10*3/uL Eos # (Auto) 0.1 (0.0-0.4) X10*3/uL Baso # (Auto) 0.1 (0.0-0.2) X10*3/uL Abs Immat Gran (auto) 0.03 (0.00-0.03) X10*3/uL Absolute Neuts (auto) 7.6 (2.0-8.3) x10*3/uL Absolute Nucleated RBC 0.000 (0.0-0.012) X10*3/uL Nucleated RBC % (auto) 0.0 (0.0-0.2) /100WBC Sodium 142 (135-145) mmol/L Potassium 3.6 (3.3-5.1) mmol/L Chloride 100 (96-108) mmol/L Carbon Dioxide 30 H (22-29) mmol/L Anion Gap 16 (12-20) BUN 7 L (9-16) mg/dL Creatinine 0.89 (0.5-1.4) mg/dL Estim Creat Clear Calc 149.1 Estimated GFR > 60 Random Glucose 109 (60-115) mg/dL Lactic Acid 1.4 (0.5-2.0) mmol/L Calcium 11.0 H D (8.4-10.2) mg/dL Total Bilirubin 1.6 H (0.0-1.0) mg/dL AST 33 (5-37) U/L ALT 40 (0-40) U/L Alkaline Phosphatase 95 (39-117) U/L Total Protein 7.8 (6.5-8.0) g/dL Albumin 4.7 (3.5-5.0) g/dL Lipase 30 (8-78) U/L Medications Administered Discontinued Medications Generic Name Dose Route Start Last Admin Trade Name Freq PRN Reason Stop Dose Admin Sodium Chloride 1,000 mls @ 999 mls/hr 08/14/22 07:30 08/14/22 09:06 Ns IV 08/14/22 08:30 Infused .Q1H1M GRIFFIN Infusion Iohexol 85 ml 08/14/22 11:56 08/14/22 11:57 Iohexol 350 Mg/Ml 100 Ml Infus..Btl IV 08/14/22 11:57 85 ml ONCE ONE Administration Ondansetron HCl 4 mg 08/14/22 07:26 08/14/22 08:03 Ondansetron Hcl 4 Mg/2 Ml Vial IVPUSH 08/14/22 07:27 4 mg ONCE ONE Administration Discharge Plan Discharge Clinical Impression: Paraesophageal hiatal hernia Patient Disposition: Home, Self-Care Instructions: Hiatal Hernia (ED), Full Liquid Diet (DC) Additional Instructions: 1. Resume all home medications as prescribed. 2. Your being given the contact information below, you will need to call the office of Thoracic Surgery next week: [phone]. Thoracic surgery recommendations are as follows: Full liquid diet. No carbonated beverages, no straws. Return to the ER for any worsening symptoms. Prescriptions: New ondansetron HCl 4 mg tablet 4 mg PO Q8H PRN (Reason: nausea and vomiting) 4 Days Qty: 14 0RF No Action acetaminophen [Tylenol] 325 mg Tablet 650 mg PO Q6H PRN (Reason: Pain) naltrexone 50 mg Tablet 50 mg PO DAILY sertraline 100 mg Tablet 100 mg PO DAILY hydroxyzine pamoate 50 mg Capsule 50 mg PO TID PRN (Reason: Anxiety) famotidine 20 mg Tablet 20 mg PO BID quetiapine 50 mg Tablet 150 mg PO BEDTIME PRN (Reason: insomnia/mood) Referrals: Bruno Terrell MD [Physician] -
[2022-08-14 07:39] LABS: Lipase 30 U/L (8-78)
[2022-08-14] MEDS: ondansetron HCL 4 MG/2 ML VIAL IVPUSH (08:03)
[2022-08-14] MEDS: 0.9 % Sodium Chloride 1,000 ML 999 ML IV (08:03)
--- NOTE | 2022-08-14 08:11 | PC.NURSE ---
Patient resting comfortably patient complaint of pain MD aware tolerating IVF and anti emetic IV patent flushes with ease no s/s of infiltration noted. No complaint of SOB or chest pain no distress noted will CTM
[2022-08-14 08:17] LABS: Lactic Acid 1.4 mmol/L (0.5-2.0)
[2022-08-14] MEDS: iohexoL 350 MG/ML 100 ML INFUS..BTL 85 ML IV (11:57)
--- NOTE | 2022-08-14 13:04 | PC.NURSE ---
Patient able to tolerate PO fluids (water) MD aware will CTM
[2022-08-14 13:17] VITALS: BP 119/87; PULSE 54; RESP 18; O2SAT 98
== END 2022-08-14 13:17 | disposition home or self-care (01) ==
PROVIDERS: Emergency Provider Student in an Organized Health Care Education/Training Program
DX: K44.9 Diaphragmatic hernia without obstruction or gangrene (principal); R11.2 Nausea with vomiting, unspecified; E86.0 Dehydration; F17.210 Nicotine dependence, cigarettes, uncomplicated; F12.90 Cannabis use, unspecified, uncomplicated; Z79.899 Other long term (current) drug therapy
CPT/HCPCS: 36415; 74177; 80053; 83605; 83690; 85025; 96361; 96374; 99284; J2405; Q9967

== ENCOUNTER 2022-10-10 08:59 | Inpatient (IN) | payer OTHER, SELFPAY ==
--- NOTE | ~2022-10-10 | MR_ITS ---
EXAMINATION: MR ABDOMEN WITHOUT AND WITH CONTRAST CLINICAL INFORMATION: Acute pancreatitis. COMPARISON: Previous MRI August [address] scans of the abdomen and pelvis October 2022. TECHNIQUE: MR abdomen was performed without and with use of 10 mL intravenous Gadavist gadolinium contrast. Postcontrast images are performed in multiphase dynamic sequences. Imaging was performed in 3 planes. MRCP sequences were also performed. FINDINGS: LUNG BASES: The visualized lung bases are unremarkable. LIVER, GALLBLADDER, AND BILIARY TREE: The liver is normal in size, smooth in contour, and normal in signal. No focal hepatic lesion or biliary ductal dilatation is present. The gallbladder has been removed. Common bile duct measures 5 mm. No common bile duct stone seen. PANCREAS: The pancreas is enlarged. There is a small amount of fluid seen around the pancreas and increased signal in the peripancreatic fat. The pancreas enhances normally. Small amount of fluid in adjacent to the pancreas, liver and spleen, the bilateral anterior pararenal spaces, small bowel mesentery, lesser sac and bilateral paracolic gutters. Findings are suggestive of acute interstitial pancreatitis. There is a 1 cm simple-appearing cyst in the head of the pancreas that is stable. There is a bilobed cyst or 2 adjacent minimally complex cysts in the uncinate process of the head of the pancreas. This measures maximum 1.7 x 2.8 cm and does not appear appreciably changed in size from most recent MRI August 2022. Given history of pancreatitis, these again probably represent pseudocysts. The main pancreatic duct is not well visualized, probably due to edematous changes in the pancreas. No pancreatic duct dilatation is seen. Splenic vein and portal vein are patent. SPLEEN: Upper normal in size measuring 13 cm. ADRENAL GLANDS: Normal. KIDNEYS AND URETERS: Bilateral renal cysts. The kidneys are normal in size, shape, and enhance symmetrically. No hydronephrosis. No perinephric stranding. GASTROINTESTINAL TRACT: No bowel obstruction. Stool throughout the colon suggestive of constipation. Prominent soft tissue at the GE junction, probable postsurgical change. ABDOMINAL WALL: Small umbilical hernia containing fat. LYMPH NODES: No lymphadenopathy. VASCULAR: Unremarkable. OSSEOUS STRUCTURES: Marrow signal normal. MR/MR abdomen wo/w con IMPRESSION: Acute interstitial pancreatitis. Stable cysts or fluid collections in the pancreatic head compared to most recent exam August 2022. Given history of pancreatitis, these most likely represent pseudocysts.
--- NOTE | ~2022-10-10 | CT_ITS ---
EXAMINATION: CT abdomen pelvis wo IV con CLINICAL INFORMATION: Reason for Exam Abdominal pain, pancreatitis COMPARISON: Multiple prior CTs most recent 08/14/2022 TECHNIQUE: Multidetector volumetric imaging was performed from the superior aspect of the liver through the pubic symphysis , noncontrasted study. Sagittal and coronal reformatted images were obtained on the technologist's workstation. This CT examination was performed using dose optimization techniques as appropriate, variously including the following: *Automated exposure control *Adjustment of mA and/or kV according to patient size (this includes techniques or standardized protocols for targeted exams where dose is matched to indication/reason for exam; i.e. extremities or head) *Use of iterative reconstruction technique DLP: 573 mGy-cm FINDINGS: LOWER THORAX: Included lung bases are clear. HEPATOBILIARY: No focal hepatic lesions. No biliary ductal dilatation. GALLBLADDER: Gallbladder has been removed. SPLEEN: Spleen is normal in size. PANCREAS: There is peripancreatic fluid and fat stranding, compatible with acute pancreatitis. Redemonstration of a fluid-filled cystic mass in the head of the pancreas measure about 2.5 cm unchanged. Cannot assess for possible pancreatic necrosis or other complication due to lack of contrast. STOMACH AND GASTROINTESTINAL TRACT: Stomach is grossly unremarkable. There is no bowel distention or thickening. No CT evidence of appendicitis. ADRENALS: No adrenal nodules. KIDNEYS/URETERS: No hydronephrosis, stones or solid mass lesions. URINARY BLADDER: Partially decompressed. PELVIC VISCERA: Unremarkable PERITONEUM: No free air or fluid. LYMPH NODES: No lymphadenopathy. VASCULAR:Abdominal aorta normal in size, no aneurysm found. BONES, ABDOMINAL WALL AND SOFT TISSUES: Age-appropriate changes of the spine and skeletal system, no destructive osteolytic or osteosclerotic bone lesion found CT/CT abdomen pelvis wo IV con IMPRESSION: * Peripancreatic fluid and fat stranding compatible with acute pancreatitis.Cannot assess for possible pancreatic necrosis or other complication due to lack of contrast. * Redemonstration of fluid-filled cystic mass in the head of the pancreas 2.5 cm unchanged. * Status post cholecystectomy. * Follow-up recommended.
[2022-10-10 09:07] VITALS: BP 122/84; BP 141/99; PULSE 75; PULSE 86; RESP 26; TEMP 36.8; O2SAT 100; O2SAT 96; BMI 33.2
[2022-10-10 09:22] LABS: MANUAL DIFF FLAG NO
[2022-10-10 09:23] LABS: Basophils Percent Auto 0.4 % (0-2); Eosinophils Absolute Auto 0.4 X10*3/uL (0.0-0.4); Eosinophils Percent Auto 3.2 % (0-4); Hematocrit 49.4 % (42.0-52.0); Hemoglobin 16.6 g/dl (14.0-18.0); Imm Gran Abs Auto 0.04 X10*3/uL (0.00-0.03); Imm Gran Pct Auto 0.4 % (0.0-0.4); Lymphocytes Percent Auto 18.3 % (20-40); Mean Corpuscular HGB Conc 33.6 g/dl (31.0-36.0); Mean Corpuscular Hemoglobin 30.9 pg (27.0-33.0); Monocytes Absolute Auto 0.9 X10*3/uL (0.1-1.2); Monocytes Percent Auto 8.1 % (2-11); Neutrophils Absolute Auto 7.6 x10*3/uL (2.0-8.3); Neutrophils Percent Auto 69.6 % (45-73); Platelet Count 280 X10*3/uL (160-400); Red Blood Count 5.37 X10*6/uL (4.60-5.80); Red Cell Distribution Width 12.8 % (11.0-16.0); White Blood Count 10.9 X10*3/uL (4.8-10.8)
--- NOTE | 2022-10-10 09:23 | PC.NURSE ---
Pt arrived via EMS, 02/10 LLQ pain. Pt noted to be on hands and knees on stretcher, screaming out in pain, dry heaving as well. Ivplaced, labs obtained, MD Monson made aware of patient. will await further orders
--- NOTE | 2022-10-10 09:34 | ED_ITS ---
HPI - General Adult General Chief complaint: General Medical Stated complaint: ABD PAIN SINCE LAST NIGHT PER EMS Time Seen by Provider: 10/10/22 09:29 Source: patient Mode of arrival: ambulatory Limitations: no limitations History of Present Illness HPI narrative: 36-year-old male with history of previous knee seen in fundoplication 10 years ago, came in with epigastric pain and dry heaving, patient with history of alcoholic pancreatitis in the past patient stated that he did not drink for 4 months, however patient reported smoking marijuana on a daily basis. Patient confirmed that he did not drink lately. Related Data Home Medications Medication Instructions Recorded Confirmed acetaminophen 325 mg tablet 650 mg PO Q6H PRN Pain 06/22/22 08/06/22 (Tylenol) famotidine 20 mg tablet 20 mg PO BID 08/06/22 08/06/22 hydroxyzine pamoate 50 mg capsule 50 mg PO TID PRN Anxiety 08/06/22 08/06/22 naltrexone 50 mg tablet 50 mg PO DAILY 08/06/22 08/06/22 quetiapine 50 mg tablet 150 mg PO BEDTIME PRN insomnia/mood 08/06/22 08/06/22 sertraline 100 mg tablet 100 mg PO DAILY 08/06/22 08/06/22 Previous Rx's Medication Instructions Recorded ondansetron HCl 4 mg tablet 4 mg PO Q8H PRN nausea and 08/14/22 vomiting 4 days #14 tabs Allergies Allergy/AdvReac Type Severity Reaction Status Date / Time No Known Allergies Allergy Verified 10/10/22 09:10 [No Known Allergies*] Review of Systems Review of Systems: All other systems are reviewed and are negative Constitutional: Reports as per HPI and Reports no additional constitutional complaints Eyes: Reports as per HPI and Reports no additional eye complaints Reports system reviewed and no additional complaints, except as documented Cardiovascular: Reports as per HPI and Reports no additional cardiovascular complaints Respiratory: Reports as per HPI and Reports no additional respiratory complaints Gastrointestinal: Reports as per HPI and Reports no additional gastrointestinal complaints Genitourinary: Reports no additional female genitourinary complaints Musculoskeletal: Reports no additional musculoskeletal complaints Skin/Breast: Reports system reviewed and no additional complaints, except as docu Psychiatric: Reports no additional psychiatric complaints Endocrine: Reports no additional endocrine complaints Hematologic/Lymphatic: Reports no additional hematologic/lymphatic complaints Allergic/Immunologic: Reports no additional allergic/immunologic complaints Reports system reviewed and no additional complaints, except as documented and Reports Abnormal speech present [facility] Past Medical History Medical History Alcohol dependence with withdrawal Pancreatitis Social History Social History Household Members: None Housing: House Do you presently have visiting nurse or other home services: No Alcohol intake: never Patient Tobacco Use Status: Current everyday Tobacco user Tobacco use type: Cigarette Cigarette Packs Per Day: 1 Cigarettes Per Day: 20.0 Years Smoked: 20 Smoked in Last 30 Days: Yes Substance Use Type: Marijuana Substance Use Frequency: Chronic Longstanding Advance Directives: No Advance Directives Information Provided: No service: No Current occupational status: employed Physical Exam ED Vital Signs: Vital Signs - 24 hr 10/10/22 09:07 Temperature 98.2 F Pulse Rate 75 Respiratory Rate 26 H Blood Pressure 141/99 H Pulse Oximetry 100 Oxygen Delivery Method Room Air BMI result Body Mass Index 33.2 Vital signs have been reviewed as appeared to be correct. Blood pressure normal. Heart rate normal. Respiration rate normal. Temperature normal. Oxygen saturation normal. Appearance: Alert. Oriented X3. In acute distress due to abdominal pain. Head: Normal external exam. Normocephalic. Atraumatic. No Burns signs noted. No raccoon eyes noted Eyes: PERRLA. EOMI. Conjunctiva and sclera normal. Eyelids normal. ENT: TM's Normal. Pharynx normal. Uvula midline. Moist mucous membranes. No trismus noted. No drooling noted. No muffled voice noted. Neck: Normal inspection. Neck supple. FROM. No adenopathy. Thyroid Normal. No meningeal signs. No neck mass noted. CVS: Normal heart rate and rhythm. Heart sound normal. No murmurs noted. Pulses normal throughout. Respiratory: No respiratory distress. Painless inspiration. Breath sounds normal. No wheezes/rales/rhonchi noted. Chest nontender. No accessory muscle usage noted or decreased air movement noted. Abdomen: Soft and nontender. Bowel sounds normal in all 4 quadrants. No distention noted. No organomegaly noted. No visible injury noted. Back: No CVA tenderness. Full range of motion noted. Skin: Skin warm and dry. Normal skin color. Normal skin turgor. No rashes/lesions/lacerations noted. Extremities: No lower extremity edema. Extremities exhibit normal range of motion. Extremities nontender. Neuro: Oriented X 3. Cranial nerve exam: II-XII are grossly intact No motor deficit. No sensory deficit. Reflexes normal. Course Course Course Narrative: 36-year-old male with history of alcoholic pancreatitis patient stated that he did not drink for the past 4 months, presented with epigastric pain found to have high lipase of 3000 and finding of acute pancreatitis on the CT with chronic cystic lesion on the head of the pancreas. Medications Administered Discontinued Medications Generic Name Dose Route Start Last Admin Trade Name Freq PRN Reason Stop Dose Admin Al Hydroxide/Mg Hydroxide 30 ml 10/10/22 09:42 10/10/22 10:04 Magnesium Hydrox/Alum Hydrox 30 Ml Oral.Susp PO 10/10/22 09:43 30 ml ONCE ONE Administration Hydromorphone HCl 2 mg 10/10/22 09:30 10/10/22 09:39 Hydromorphone Hcl 2 Mg/Ml Vial IVPUSH 10/10/22 09:31 2 mg ONCE ONE Administration Protocol Sodium Chloride 1,000 mls @ 999 mls/hr 10/10/22 09:32 10/10/22 10:34 Ns IV 10/10/22 10:32 Infused .Q1H1M ONE Infusion Ketorolac Tromethamine 30 mg 10/10/22 09:30 10/10/22 09:38 Ketorolac Tromethamine 30 Mg/Ml Vial IVPUSH 10/10/22 09:31 30 mg ONCE ONE Administration Ondansetron HCl 4 mg 10/10/22 09:42 10/10/22 10:04 Ondansetron Hcl 4 Mg/2 Ml Vial IVPUSH 10/10/22 09:43 4 mg ONCE ONE Administration Pantoprazole Sodium 40 mg 10/10/22 09:42 10/10/22 10:04 Pantoprazole Sodium 40 Mg/10 Ml Vial IVPUSH 10/10/22 09:43 40 mg ONCE ONE Administration Medical Decision Making Differential Diagnosis Differential Diagnoses: The differential diagnosis associated with the presentation includes (Acute gastritis, acute pancreatitis, perforated viscus, acute pancreatitis.) Admission/Observation Consideration of admission/observation: Escalation of care including admission/observation considered Consult Healthcare Provider Management of the patient was discussed with: Hospitalist Lab Data MDM Lab Attestation statement: I reviewed the patient's lab results. 10/10/22 09:19 10/10/22 09:19 Labs: Lab Results 10/10/22 10/10/22 Range/Units 09:19 09:19 WBC 10.9 H (4.8-10.8) X10*3/uL RBC 5.37 (4.60-5.80) X10*6/uL Hgb 16.6 (14.0-18.0) g/dl Hct 49.4 (42.0-52.0) % MCV 92.0 (80.0-98.0) fL MCH 30.9 (27.0-33.0) pg MCHC 33.6 (31.0-36.0) g/dl RDW 12.8 (11.0-16.0) % Plt Count 280 (160-400) X10*3/uL MPV 9.0 L (9.4-12.4) fL Immature Gran % (Auto) 0.4 (0.0-0.4) % Neut % (Auto) 69.6 (45-73) % Lymph % (Auto) 18.3 L (20-40) % [place] % (Auto) 8.1 (2-11) % Eos % (Auto) 3.2 (0-4) % Baso % (Auto) 0.4 (0-2) % Lymph # (Auto) 2.0 (1.2-4.9) X10*3/uL [place] # (Auto) 0.9 (0.1-1.2) X10*3/uL Eos # (Auto) 0.4 (0.0-0.4) X10*3/uL Baso # (Auto) 0.0 (0.0-0.2) X10*3/uL Abs Immat Gran (auto) 0.04 H (0.00-0.03) X10*3/uL Absolute Neuts (auto) 7.6 (2.0-8.3) x10*3/uL Absolute Nucleated RBC 0.000 (0.0-0.012) X10*3/uL Nucleated RBC % (auto) 0.0 (0.0-0.2) /100WBC Sodium 140 (135-145) mmol/L Potassium 4.0 (3.3-5.1) mmol/L Chloride 107 (96-108) mmol/L Carbon Dioxide 24 (22-29) mmol/L Anion Gap 13 (12-20) BUN 8 L (9-16) mg/dL Creatinine 0.83 (0.5-1.4) mg/dL Estim Creat Clear Calc 147.6 Estimated GFR > 60 Random Glucose 118 H (60-115) mg/dL Calcium 9.8 D (8.4-10.2) mg/dL Lipase > 3000 H (8-78) U/L Independent Interpretation I performed an independent interpretation of an: CT Scan (Abdomen and pelvis: Acute pancreatitis) Radiology Impression Discussion of test interpretation with radiology: I have reviewed the radiologist's reading. Discharge Plan Discharge Clinical Impression: Pancreatitis Patient Disposition: Admitted As Inpatient
[2022-10-10] MEDS: Ketorolac Tromethamine 30 MG/ML VIAL IVPUSH (09:38)
[2022-10-10] MEDS: HYDROmorphone HCl 2 MG/ML VIAL IVPUSH (09:39)
[2022-10-10] MEDS: 0.9 % Sodium Chloride 1,000 ML 999 ML IV ×2 (09:42→13:34)
[2022-10-10 09:47] LABS: Anion Gap 13 (12-20); Blood Urea Nitrogen 8 mg/dL (9-16); Calcium 9.8 mg/dL (8.4-10.2); Carbon Dioxide 24 mmol/L (22-29); Chloride 107 mmol/L (96-108); Creatinine Clr Calc Pharmacy 147.6; Estimated Glomerular Filt Rate > 60; Glucose Random 118 mg/dL (60-115); Sodium 140 mmol/L (135-145)
[2022-10-10 09:56] LABS: Lipase > 3000 U/L (8-78)
[2022-10-10] MEDS: ondansetron HCL 4 MG/2 ML VIAL IVPUSH ×2 (10:04→22:25)
[2022-10-10] MEDS: Pantoprazole Sodium 40 MG/10 ML VIAL IVPUSH ×2 (10:04→16:12)
[2022-10-10] MEDS: Magnesium Hydrox/Alum Hydrox 30 ML ORAL.SUSP PO (10:04)
--- NOTE | 2022-10-10 11:33 | P.HPHOSP_ITS ---
History of Present Illness Date of Service: 10/10/22 Attending physician on admission: Azul Clark Chief Complaint: Abdominal pain Pt is a 36-year-old male with a PMH significant for alcohol pancreatitis in the past, alcohol use disorder, Suma fundoplication in 2011, and?cholecystectomy who presents to the ED with?epigastric pain and dry heaving since this morning. Pt describes pain as sharp, stabbing, rates it 10/10, and is centered in the epigastric region with radiation to back and right upper quadrant. Pt was admitted two weeks ago to [facility] for similar pain and treated for pancreatitis. Pt states he quit drinking on 06/24/2022 without any relapse. Pt was admitted here to the hospital on 08/06/22 for epigastric pain and N/V but with normal lipase. CT showed large portion stomach was his thoracic cavity. Patient had an EGD on 08/09 to confirm thoracic stomach, but scope was unable to be advanced past the diaphragm. A barium swallow, UGI, and thoracic surgery consult was recommended but pt left AMA before these could be completed. Pt states he had hernia repair surgery with mesh at [facility] a short time after this visit. Pt denies fever, chills, diarrhea. No chest pain/pressure, palpitations. No SOB. In the ED labs were significant for lipase > 3000. LFTs WNL, triglycerides 144. Tox screen pending, ethyl alcohol negative. CT?of abdomen and pelvis showed peripancreatic fluid and fat stranding compatible with acute pancreatitis, but could not assess for possible pancreatic necrosis or other complication due to lack of contrast. CT also with redemonstration of fluid filled cystic mass in the head of the pancreas unchanged 2.5 cm. Pt was treated with ketorolac, hydromorphone, IVF, pantoprazole, ondansetron, Pt will be admitted to the hospital for treatment and further workup for acute pancreatitis. Review of Systems Review of Systems: Severe epigastric pain, radiating to back and right upper quadrant Nausea, dry heaving No fever, chills, diarrhea Denies chest pain/pressure, palpitations No shortness of breath Yes all other systems are reviewed and are negative [facility] Medical History Alcohol dependence with withdrawal Pancreatitis Social History Household Members: None Housing: Apartment Do you presently have visiting nurse or other home services: No Alcohol intake: never Patient Tobacco Use Status: Former Tobacco user Tobacco use type: Cigarette Cigarette Packs Per Day: 1 Cigarettes Per Day: 20.0 Years Smoked: 20 Smoked in Last 30 Days: Yes Patient Interested in Nicotine Replacement: No Patient Given Instructions on How to Stop Smoking: No Second Hand Smoke Exposure: No Use of substances other than those prescribed or required for medical reasons: No Substance Use Type: Marijuana Substance Use Frequency: Chronic Longstanding Currently Displaying Signs/Symptoms of Drug Intoxication Withdrawal: No Have you been hit, kicked, punched, or otherwise hurt by someone within the past year? If so, by whom?: No Do you feel safe in your current relationship?: Yes Is there a partner from a previous relationship who is making you feel unsafe now?: No Are you made to feel afraid or neglected: No Advance Directives: No Advance Directives Information Provided: No Advance Directives on File: No Do you have thoughts of harming others: None Recently lost weight without trying: No How much weight loss: Not applicable Eating poorly because of decreased appetite: No Nutrition screen score: 0 Nutrition Risks: No Nutritional Risk Poor oral hygiene: No service: No Current occupational status: employed Meds Allergies Allergy/AdvReac Type Severity Reaction Status Date / Time No Known Allergies Allergy Verified 10/10/22 09:10 [No Known Allergies*] Home Medications Medication Instructions Recorded Confirmed Last Taken Type quetiapine 50 mg tablet 150 mg PO BEDTIME PRN insomnia/mood 08/06/22 10/10/22 07/23/22 History sertraline 100 mg tablet 100 mg PO DAILY 08/06/22 10/10/22 10/09/22 History Physical Exam Vital Signs and Narrative: Vital Signs: Last Vital Signs Temp 98.2 F 10/10/22 09:07 Pulse 75 10/10/22 09:07 Resp 26 H 10/10/22 09:07 BP 141/99 H 10/10/22 09:07 Pulse Ox 100 10/10/22 09:07 O2 Del Method Room Air 10/10/22 09:07 BMI result Body Mass Index 33.2 Constitutional: Alert, looking uncomfortable, at first out of bed bent over with head resting on chair. In no acute distress. Mental Status: Oriented to person, place and time. Eyes: Pupils are equal, round, and reactive to light. Ear, Nose, and Throat: Oropharynx clear, mucous membranes moist. Ears and nose without deformities. Trachea midline. Respiratory: Clear to auscultation bilaterally. No wheezing, rales, or rhonchi. Cardiovascular: S1, S2 regular. No murmurs, rubs, or gallops. Gastrointestinal: Abdomen soft, non-distended, tender in epigastric region. +Bowel sounds. Neurologic: Cranial nerves II-XII are grossly intact bilaterally. No focal neurological deficits. Moves all extremities spontaneously. Skin: Warm, dry. Extremities: No edema. Psychiatric: Normal mood and affect. Results Labs 10/10/22 09:19 10/10/22 09:19 Labs: Laboratory Results - last 24 hr 10/10/22 10/10/22 09:19 09:19 MCV 92.0 MCH 30.9 MCHC 33.6 RDW 12.8 Plt Count 280 MPV 9.0 L Immature Gran % (Auto) 0.4 Neut % (Auto) 69.6 Lymph % (Auto) 18.3 L [place] % (Auto) 8.1 Eos % (Auto) 3.2 Baso % (Auto) 0.4 Lymph # (Auto) 2.0 [place] # (Auto) 0.9 Eos # (Auto) 0.4 Baso # (Auto) 0.0 Abs Immat Gran (auto) 0.04 H Absolute Neuts (auto) 7.6 Absolute Nucleated RBC 0.000 Nucleated RBC % (auto) 0.0 Anion Gap 13 Estim Creat Clear Calc 147.6 Estimated GFR > 60 Random Glucose 118 H Calcium 9.8 D Lipase > 3000 H Imaging Radiologist's Impressions: Impressions Abdomen/Pelvis CT 10/10/22 09:58 IMPRESSION: * Peripancreatic fluid and fat stranding compatible with acute pancreatitis.Cannot assess for possible pancreatic necrosis or other complication due to lack of contrast. * Redemonstration of fluid-filled cystic mass in the head of the pancreas 2.5 cm unchanged. * Status post cholecystectomy. * Follow-up recommended. Assessment and Plan (1) Pancreatitis: Status: Acute Plan Pt is a 36-year-old male with a PMH significant for alcohol pancreatitis in the past, alcohol use disorder, Smua fundoplication in 2011, and?cholecystectomy who presents to the ED with?epigastric pain and dry heaving since this morning. Labs showed elevated lipase and CT positive for acute pancreatitis. Pt will be admitted to the hospital for management and further workup of acute pancreatitis. Acute pancreatits Elevated lipase, CT wo contrast with positive findings for pancreatitis Unclear etiology, CT negative for biliary obstruction, patient s/p cholecystectomy, last alcoholic drink in June of 2022 Analgesics for pain management IVF: Lactated Ringer's NPO, advance diet as tolerated MRI of abdomen wo/w contrast tomorrow Will check IgG subclasses GI consult Follow lipase Mood disorder Continue sertraline, quetiapine Alcohol use disorder Pt states he has not drank since June 2022 Ethyl alcohol less than 10 Does not appear to be in acute withdrawal Full Code Attending:?Dr. Clark DVT Prophylaxis: Lovenox Pt will require a hospitalization of at least two nights for treatment of?acute pancreatitis with IV analgesics and IVF. Time Spent With Patient Time: Total time managing care of this patient today ____ minutes. Quality Stroke Does the patient have a stroke diagnosis?: No VTE Prior VTE?: No VTE Risk Level:: Medical - moderate - high VTE Device Contraindication: Treatment Not Indicated VTE Drug Contraindication: N/A - Med Ordered
[2022-10-10 11:46] LABS: Cholesterol 211 mg/dL; HDL Cholesterol 32 mg/dL; LDL Cholesterol Calculated 151 mg/dl; Triglycerides 144 mg/dL
[2022-10-10 12:01] LABS: Ethanol < 10 mg/dL
[2022-10-10 12:07] LABS: Alanine Aminotransferase 13 U/L (0-40); Albumin Level 4.4 g/dL (3.5-5.0); Alkaline Phosphatase 91 U/L (39-117); Aspartate Amino Transferase 16 U/L (5-37); Bilirubin Direct 0.2 mg/dL (0.0-0.5); Bilirubin Total 0.8 mg/dL (0.0-1.0); Total Protein 7.1 g/dL (6.5-8.0)
[2022-10-10 12:08] LABS: COVID-19 Test Negative (Negative); IDNOW Serial# 08D9AD1C
[2022-10-10 13:33] VITALS: RESP 22
[2022-10-10] MEDS: HYDROmorphone HCl 1 MG/ML SYRINGE IVPUSH ×4 (13:33→22:15)
--- NOTE | 2022-10-10 13:54 | PM.GICN ---
History of Present Illness Data of Consult Service Date: 10/10/22 Requesting physician: Modesto Banegas [facility] Reason for consult: acute pancreatitis 36 YM with hx of recurrent alcohol pancreatitis, ETOH abuse, and?[place]ole[place] [facility] [place] with?8/10 epigastric pain and dry heaving since this morning Pt is status post Suma fundoplication in 2012 years ago. He had repeat Laparoscopic fundoplication at the [facility] in Aug, 2022. Pt reports a hx of recurrent pancreatitis for the past several months. He was discharged from [facility] 2 weeks ago after being admitted there for the same problem Pt has baseline chronic abdominal pain with intermittent worsening. Pt reports his abd pain is 6/10 in intensity and radiates to the back and is associated with nausea, and chills. He admits to loosing weight. He was hospitalized in Aug, 2022 with acute alcoholic pancreatitis complicated by a pseudocyst in the head of pancreas Patient stated that he did not drink for 4 months, and admitted to smoking marijuana and cigarettes 91 PPD) on a daily basis. Pt is an [employer] and has not been working for the past several months due to continuing medical problems Labs showed lipase > 3000.? LFTs WNL, triglycerides 144.? Tox screen pending, ethyl alcohol negative. Pt was treated with ketorolac, hydromorphone, IVF, pantoprazole, ondansetron and admitted for further management 10/10/[address] SCAN SHOWED: Peripancreatic fluid and fat stranding compatible with acute pancreatitis.Cannot assess for possible pancreatic necrosis or other complication due to lack of contrast. Redemonstration of fluid-filled cystic mass in the head of the pancreas 2.5 cm unchanged. Status post cholecystectomy. ? 08/09/[address] BROWNING SHOWED: 1. Thoracic stomach with inability to reach the pylorus due to looping of the scope in the herniated portion of the stomach 2. Mild changes of reflux, but no esophagitis 3. Mucosa of stomach and esophagus appeared WNL--no ischemia. 4. I feel that I saw a puckering of folds in the stomach where it was presumably going past the diaphragm, but I could not get past it without looping of the scope and retroflexing. I suspect these findings would account for his ongoing pain and the CT findings of the thoracic stomach Rec: Thoracic surgery consult placed, Barium swallow/UGI for the AM, clear liquids for now, IV PPi. Review of Systems Review of Systems: All other systems are reviewed and are negative Constitutional: Reports as per HPI and Reports no additional constitutional complaints Eyes: Reports as per HPI and Reports no additional eye complaints Reports system reviewed and no additional complaints, except as documented Cardiovascular: Reports as per HPI and Reports no additional cardiovascular complaints Respiratory: Reports as per HPI and Reports no additional respiratory complaints Gastrointestinal: Reports as per HPI and Reports no additional gastrointestinal complaints Genitourinary: Reports no additional female genitourinary complaints Musculoskeletal: Reports no additional musculoskeletal complaints Skin/Breast: Reports system reviewed and no additional complaints, except as docu Psychiatric: Reports no additional psychiatric complaints Endocrine: Reports no additional endocrine complaints Hematologic/Lymphatic: Reports no additional hematologic/lymphatic complaints Allergic/Immunologic: Reports no additional allergic/immunologic complaints Reports system reviewed and no additional complaints, except as documented and Reports Abnormal speech present [facility] Past Medical History Medical History Alcohol dependence with withdrawal Pancreatitis Social History Social History Household Members: None Housing: Apartment Do you presently have visiting nurse or other home services: No Alcohol intake: never Patient Tobacco Use Status: Former Tobacco user Tobacco use type: Cigarette Cigarette Packs Per Day: 1 Cigarettes Per Day: 20.0 Years Smoked: 20 Second Hand Smoke Exposure: No Substance Use Type: Marijuana service: No Current occupational status: employed Meds Allergies Allergy/AdvReac Type Severity Reaction Status Date / Time No Known Allergies Allergy Verified 10/10/22 09:10 [No Known Allergies*] Active Medications: Current Medications Acetaminophen (Acetaminophen 325 Mg Tablet) 650 mg PO Q6H PRN PRN Reason: Pain, Mild (Pain Scale 1-3) Enoxaparin Sodium (Enoxaparin Sodium 40 Mg/0.4 Ml Syringe) 40 mg SUBCUT Q24H GRIFFIN Hydromorphone HCl (Hydromorphone Hcl 1 Mg/Ml Syringe) 1 mg IVPUSH Q4H PRN; Protocol PRN Reason: Pain, Severe (Pain Scale 7-10) Sodium Chloride (Ns) 1,000 mls @ 999 mls/hr IV .Q1H1M ONE Stop: 10/10/22 13:57 Last Admin: 10/10/22 13:34 Dose: 999 mls/hr Lactated Ringer's (Lr) 1,000 mls @ 100 mls/hr IVCONT .Q10H GRIFFIN Ondansetron HCl (Ondansetron Hcl 4 Mg/2 Ml Vial) 4 mg IVPUSH Q4H PRN PRN Reason: Nausea and Vomiting Pharmacy Consult (Consult Rx Perform Med Rec) 1 each MISCELLANE ONCE PRN PRN Reason: Consult order Sodium Chloride (0.9 % Sodium Chloride Flush 3 Ml Syringe) 3 ml IVFLUSH QSHIFT [facility] Home Medications Medication Instructions Recorded Confirmed Last Taken Type quetiapine 50 mg tablet 150 mg PO BEDTIME PRN insomnia/mood 08/06/22 10/10/22 07/23/22 History sertraline 100 mg tablet 100 mg PO DAILY 08/06/22 10/10/22 10/09/22 History Physical Exam Vital Signs: Vital Signs: Last Vital Signs Temp 98.2 F 10/10/22 09:07 Pulse 75 10/10/22 09:07 Resp 22 H 10/10/22 13:33 BP 141/99 H 10/10/22 09:07 Pulse Ox 100 10/10/22 09:07 O2 Del Method Room Air 10/10/22 09:07 BMI result Body Mass Index 33.2 Const: General: no acute distress and in distress (Due to abdominal pain) Nutritional Appearance: obese Orientation/consciousness: patient oriented x3 Limitations: no limitations HEENT: Head: Yes normal to inspection Ears: hearing grossly normal bilaterally Eyes: Sclerae: sclerae normal Pupils: Equal, round and reactive pupils present Neck: Neck: Yes normal visual inspection Chest: Chest palpation & inspection: normal inspection of the chest Resp: Effort & Inspection: normal respiratory effort Auscultation: clear to auscultation bilaterally Cardio: Palpation: normal PMI Rate: regular rate Rhythm: regular rhythm Heart sounds: S1 normal heart sound present, S2 normal heart sound present and no murmurs GI: Palpation (GI): Soft to palpation, Tenderness to palpation present (GI) (Diffuse moderate upper abdominal tenderness) and No hepatosplenomegaly present Auscultation: normal bowel sounds Rectal Exam - Male: Yes deferred Skin: General skin exam: no rashes or lesions noted Neuro: General: patient oriented x3, gait normal and moves all extremities Cranial nerves: Yes Equal, round and reactive pupils present Psych: Appearance: grossly normal Mental Status: mental status grossly normal Results Labs 10/10/22 09:19 10/10/22 09:19 Labs: Short CBC 10/10/22 Range/Units 09:19 WBC 10.9 H (4.8-10.8) X10*3/uL Hgb 16.6 (14.0-18.0) g/dl Hct 49.4 (42.0-52.0) % Plt Count 280 (160-400) X10*3/uL BMP 10/10/22 09:19 Sodium 140 Potassium 4.0 Chloride 107 Carbon Dioxide 24 BUN 8 L Creatinine 0.83 Calcium 9.8 D Liver Function 10/10/22 Range/Units 09:19 Total Bilirubin 0.8 (0.0-1.0) mg/dL Direct Bilirubin 0.2 (0.0-0.5) mg/dL AST 16 (5-37) U/L ALT 13 (0-40) U/L Alkaline Phosphatase 91 (39-117) U/L Albumin 4.4 (3.5-5.0) g/dL Assessment and Plan (1) Pancreatitis: Status: Resolved Plan 36 YM with hx of recurrent alcohol pancreatitis, ETOH abuse, and?[place]ole[place] [facility] [place] with?8/10 epigastric pain and dry heaving since this morning Pt reports a hx of recurrent pancreatitis for the past several months. Pt has baseline chronic abdominal pain with intermittent worsening suggesting patient has underlying chronic pancreatitis complicated by a pseudocyst with recurrent episodes of acute pancreatitis Other possiblities include cystic neoplasm or cystic degenration in a solid pancreatic tumor would be less likely Labs showed lipase > 3000.? LFTs WNL, triglycerides 144.? Abdominal CT scan showed peripancreatic fluid and fat stranding compatible with acute pancreatitis and a fluid-filled cystic mass in the head of the pancreas 2.5 cm unchanged (decreased from 3 cms in Jun, 2022). RECOMMENDATIONS: 1. Agree with bowel rest, IVF, IV PPI, pain medications and anti-emetics 2. MRI with MRCP in the am 3. CEA and CA 19-9 - added to am labs 4. Fecal pancreatic elastase to check for pancreatic insufficiency Time Spent With Patient Time: Total time managing care of this patient today ____ minutes. Procedures Date of Service Date of Service: 10/10/22
--- NOTE | 2022-10-10 14:30 | PHA.MEDREC ---
Pharmacy Consult ? Medication Reconciliation Pharmacy has completed the medication reconciliation. Spoke to patient to confirm meds. [facility]. States they only take sertraline 100mg and quetiapine 150mg bedtime PRN.
--- NOTE | 2022-10-10 14:44 | PC.NURSE ---
report given to Ritika SPENCER in [facility]. Pt to be transported via transport.
--- NOTE | 2022-10-10 15:07 | PM.EVENT ---
Event Note Date of Service: 10/11/22 Event Note: This patient is seen and examined with [facility]. Patient came to the hospital because of nausea and abdominal pain, epigastric and left side pain patient is poor historian says persistent pain and nausea that is why he came to the hospital . Denies any fever chills or cough or phlegm or vomiting. Lab imaging: CBC, BMP reviewed: Found to have mild leukocytosis and BMP seems fine except elevated lipase level in [address]/CT abdomen pelvis wo IV con IMPRESSION: ? *? Peripancreatic fluid and fat stranding compatible with acute pancreatitis.Cannot assess for possible pancreatic necrosis or other complication due to lack of contrast. ? *? Redemonstration of fluid-filled cystic mass in the head of the pancreas 2.5 cm unchanged. ? *? Status post cholecystectomy. ? *? Follow-up recommended. Physical exam and assessment and plan coordinated in APCs note, Agree with the plan in addition: acute pancreatitis: Patient denies alcohol use from couple of months. Lipase elevated Continue hydration, pain control, ppi, monitor LFTs and GI evaluation Patient says that he had paraesophageal hernia last time which is already operated [facility] - need to get records. Time Spent With Patient Time: Total time managing care of this patient today ____ minutes.
[2022-10-10 15:32] VITALS: BMI 32.2
[2022-10-10] MEDS: Lactated Ringers 1,000 ML 100 ML IVCONT (15:32)
[2022-10-10 15:49] VITALS: BP 140/98; PULSE 52; RESP 14; TEMP 36.3; O2SAT 100
[2022-10-10] MEDS: Enoxaparin Sodium 40 MG/0.4 ML SYRINGE SUBCUT (16:04)
--- NOTE | 2022-10-10 18:43 | PC.NURSE ---
Pt alert and oriented x4. Pt admityted to rm 446 with a diagnosis of acute pancreatitis. On arrival pt C/O 04/12 abd pain. Diluadid 1 mg given with some effect. Pt is inde. OOB. New #20 IV inserted to LFA. LR runnint at 100cc/hr. Pt is NPO except meds and ice chips.
[2022-10-10] MEDS: Acetaminophen 325 MG TABLET 650 MG PO (22:25)
[2022-10-10] MEDS: QUEtiapine Fumarate 50 MG TABLET 150 MG PO (22:25)
[2022-10-11] VITALS: BP 118/55; PULSE 70; RESP 16; TEMP 36.1; O2SAT 96
[2022-10-11] MEDS: Ketorolac Tromethamine 15 MG/ML VIAL IVPUSH ×2 (00:30→05:50)
[2022-10-11] MEDS: 0.9 % Sodium Chloride Flush 3 ML SYRINGE IVFLUSH ×3 (00:30→16:58)
[2022-10-11] MEDS: HYDROmorphone HCl 1 MG/ML SYRINGE IVPUSH ×5 (02:48→21:34)
[2022-10-11] MEDS: Lactated Ringers 1,000 ML 100 ML IVCONT ×3 (02:53→16:59)
[2022-10-11] MEDS: Pantoprazole Sodium 40 MG/10 ML VIAL IVPUSH ×2 (05:50→16:57)
--- NOTE | 2022-10-11 06:44 | PC.NURSE ---
Pt alert and oriented*4. PT was complaining of breakthrough pain and says he cannot wait the 4 hrs between his Dilaudid doses. This RN let Dr. Bishop know who put in two separate orders of toradol @ 00:30 and 5:50am. Will continue to monitor.
[2022-10-11 07:19] LABS: Anion Gap 14 (12-20); Blood Urea Nitrogen 12 mg/dL (9-16); Calcium 9.1 mg/dL (8.4-10.2); Carbon Dioxide 25 mmol/L (22-29); Chloride 104 mmol/L (96-108); Creatinine Clr Calc Pharmacy 165.4; Estimated Glomerular Filt Rate > 60; Glucose Random 107 mg/dL (60-115); Sodium 139 mmol/L (135-145)
[2022-10-11 07:35] LABS: Lipase 1320 U/L (8-78)
[2022-10-11 07:43] VITALS: BP 128/76; PULSE 72; RESP 18; TEMP 36.6; O2SAT 95
[2022-10-11] MEDS: Sertraline HCL 100 MG TABLET PO (07:50)
[2022-10-11] MEDS: ondansetron HCL 4 MG/2 ML VIAL IVPUSH ×2 (08:01→21:38)
--- NOTE | 2022-10-11 12:09 | HO.PM.IMPN ---
Subjective Subjective Date of Service: 10/11/22 Interval History: abdominal pain/acute pancreatitis Review of Systems Abdominal plain somewhat improving than yesterday but still has significant pain, No fever or nausea or vomiting,feels consitpated Agreeing for trying clear liquids Physical Exam Vital Signs: Vital Signs: Last Vital Signs Temp 97.9 F 10/11/22 07:43 Pulse 72 10/11/22 07:43 Resp 18 10/11/22 07:43 BP 128/76 10/11/22 07:43 Pulse Ox 95 10/11/22 07:43 O2 Del Method Room Air 10/11/22 07:43 BMI result Body Mass Index 32.2 Appearance: Alert.? Oriented X3.? Eyes: Pupils equal, round and reactive to light.? Sclera nonicteric.? ENT: Pharynx normal.? Moist mucous membranes. cvs: rrr, [id number] . res: clear to auscultation ,no rhonchii or wheezing abd: no rebound or guarding , has abd pain suprapubic/left side , bs present. ext pulses present , no cyanosis. neuro: axo3 , nonfocal. Objective Data Active Medications Acetaminophen (Acetaminophen 325 Mg Tablet) 650 mg PO Q6H PRN PRN Reason: Pain, Mild (Pain Scale 1-3) Last Admin: 10/10/22 22:25 Dose: 650 mg Documented By: RASHAD Docusate Sodium (Docusate Sodium 100 Mg Capsule) 100 mg PO BEDTIME [facility] Enoxaparin Sodium (Enoxaparin Sodium 40 Mg/0.4 Ml Syringe) 40 mg SUBCUT Q24H [facility] Last Admin: 10/10/22 16:04 Dose: 40 mg Documented By: TAMY Hydromorphone HCl (Hydromorphone Hcl 1 Mg/Ml Syringe) 1 mg IVPUSH Q4H PRN; Protocol PRN Reason: Pain, Severe (Pain Scale 7-10) Last Admin: 10/11/22 07:51 Dose: 1 mg Documented By: ANABEL Lactated Ringer's (Lr) 1,000 mls @ 100 mls/hr IVCONT .Q10H [facility] Last Admin: 10/11/22 07:52 Dose: 100 mls/hr Documented By: ANABEL Ondansetron HCl (Ondansetron Hcl 4 Mg/2 Ml Vial) 4 mg IVPUSH Q4H PRN PRN Reason: Nausea and Vomiting Last Admin: 10/11/22 08:01 Dose: 4 mg Documented By: ANABEL Pantoprazole Sodium (Pantoprazole Sodium 40 Mg/10 Ml Vial) 40 mg IVPUSH BID@0630,1630 [facility] Last Admin: 10/11/22 05:50 Dose: 40 mg Documented By: RASHAD Pharmacy Consult (Consult Rx Perform Med Rec) 1 each MISCELLANE ONCE PRN PRN Reason: Consult order Polyethylene Glycol (Polyethylene Glycol 3350 17 Gm Powd.Pack) 17 gm PO DAILY [facility] Quetiapine Fumarate (Quetiapine Fumarate 50 Mg Tablet) 150 mg PO BEDTIME PRN PRN Reason: insomnia/mood Last Admin: 10/10/22 22:25 Dose: 150 mg Documented By: RASHAD Sertraline HCl (Sertraline Hcl 100 Mg Tablet) 100 mg PO DAILY [facility] Last Admin: 10/11/22 07:50 Dose: 100 mg Documented By: ANABEL Sodium Chloride (0.9 % Sodium Chloride Flush 3 Ml Syringe) 3 ml IVFLUSH QSHIFT [facility] Last Admin: 10/11/22 07:51 Dose: 3 ml Documented By: ANABEL Labs 10/10/22 09:19 10/11/22 05:40 Labs: Laboratory Results - last 24 hr 10/11/22 05:40 Anion Gap 14 Estim Creat Clear Calc 165.4 Estimated GFR > 60 Random Glucose 107 Calcium 9.1 D Lipase 1320 H Carcinoembryonic Ag 2.20 Assessment and Plan (1) Pancreatitis: Status: Acute (2) Obesity: Status: Acute Plan 36-year-old male with a PMH significant for alcohol pancreatitis in the past, alcohol use disorder, Suma fundoplication in 2011, and?cholecystectomy who presents to the ED with?epigastric pain and dry heaving since this morning. Labs showed elevated lipase and CT positive for acute pancreatitis. Pt will be admitted to the hospital for management and further workup of acute pancreatitis. Acute pancreatits Elevated lipase, CT wo contrast with positive findings for pancreatitis Unclear etiology, CT negative for biliary obstruction, patient s/p cholecystectomy, last alcoholic drink in June of 2022 lipase improving to 1300 mri abd for ? pacreatic cyst , Ig subtypes, also cea and ca19-9 pending plan: continue iv hydration, iv diludid , antiemetics , clear liquid diet Mood disorder Continue sertraline, quetiapine Alcohol use disorder Pt states he has not drank since June 2022 Ethyl alcohol less than 10 Does not appear to be in acute withdrawal thiamine /folic acid. obesity : encouraged to lose weight. DVT Prophylaxis: Lovenox inpatient need :treatment of?acute pancreatitis with IV analgesics and IVF, workup for pancreatitis pending Time Spent With Patient Time: Total time managing care of this patient today ____ minutes. Quality Stroke Does the patient have a stroke diagnosis?: No VTE Prior VTE?: No VTE Risk Level:: Medical - moderate - high VTE Device Contraindication: Treatment Not Indicated VTE Drug Contraindication: N/A - Med Ordered
[2022-10-11] MEDS: polyethylene glycoL 3350 17 GM POWD.PACK PO (13:06)
[2022-10-11] MEDS: Enoxaparin Sodium 40 MG/0.4 ML SYRINGE SUBCUT (13:06)
[2022-10-11 15:24] VITALS: BP 142/92; PULSE 74; RESP 13; TEMP 36; O2SAT 96
--- NOTE | 2022-10-11 15:44 | MHC.CM.PN ---
EMR REVIEWED, PT ADMITTED W/ACUTE PANCREATITIS, CM MET W/PT WHO IS A&O AND GUARDED W/CM HOWEVER PT DID ANSWER ALL QUESTIONS, PT REPORTS HE LIVES ALONE, IS INDEP W/ALL CARE, DENIES USE OF DME/SERVICES AND DOES NOT ANTIC NEED FOR SERVICES. PT REPORTS HE DOES HAVE A P[facility]OUGH [facility], DENIES BEING COVID VACCINATED AND HAS BEEN EDUCATED ON AND DECLINES TO COMPLETE A HCP THIS ADMIT, PT AWARE HE CAN ASK FOR CM IF HE CHANGES HIS MIND. DC PLAN: HOME NO SERVICES, PT REPORTS HE CAN ARRANGE TRANSPORT.
[2022-10-11 19:10] VITALS: BP 137/85; PULSE 75; RESP 14; TEMP 36.6; O2SAT 97
[2022-10-11] MEDS: Docusate Sodium 100 MG CAPSULE PO (19:41)
[2022-10-11 21:09] LABS: Appearance Urine Clear; Color Urine Yellow; Glucose Urine UA Negative (Negative); Leukocyte Esterase Urine Negative (Negative); Nitrite Urine Negative (Negative); Urine Blood Negative (Negative); Urine Ketones Negative (Negative); Urine Protein Trace mg/dL (Neg-Trace)
[2022-10-11 21:12] LABS: Amphetamine Screen Urine Not Detected (Not Detect); Barbiturates, Urine Not Detected (Not Detect); Benzodiazepines Screen Urine Not Detected (Not Detect); Cannabinoid Screen Urine POSITIVE (Not Detect); Cocaine Screen Urine Not Detected (Not Detect); Fentanyl, urine Not Detected (Not Detect); Opiate Screen Urine POSITIVE (Not Detect); Phencyclidine Screen Urine Not Detected (Not Detect)
[2022-10-11] MEDS: QUEtiapine Fumarate 50 MG TABLET 150 MG PO (21:34)
[2022-10-12] VITALS: BP 132/74; PULSE 108; RESP 15; TEMP 37; O2SAT 94
[2022-10-12] MEDS: HYDROmorphone HCl 1 MG/ML SYRINGE IVPUSH ×6 (01:17→21:59)
[2022-10-12] MEDS: Lactated Ringers 1,000 ML 100 ML IVCONT ×2 (01:19→11:49)
[2022-10-12 03:58] VITALS: BP 135/75; PULSE 86; RESP 15; TEMP 36.9; O2SAT 94
[2022-10-12] MEDS: Pantoprazole Sodium 40 MG/10 ML VIAL IVPUSH ×2 (05:24→16:58)
[2022-10-12 06:22] LABS: Alanine Aminotransferase 83 U/L (0-40); Albumin Level 3.5 g/dL (3.5-5.0); Alkaline Phosphatase 139 U/L (39-117); Anion Gap 11 (12-20); Aspartate Amino Transferase 85 U/L (5-37); Bilirubin Total 1.6 mg/dL (0.0-1.0); Blood Urea Nitrogen 4 mg/dL (9-16); Calcium 8.8 mg/dL (8.4-10.2); Carbon Dioxide 27 mmol/L (22-29); Chloride 103 mmol/L (96-108); Creatinine Clr Calc Pharmacy 194.7; Estimated Glomerular Filt Rate > 60; Glucose Random 94 mg/dL (60-115); Potassium 3.7 mmol/L (3.3-5.1); Sodium 137 mmol/L (135-145); Total Protein 5.7 g/dL (6.5-8.0)
[2022-10-12] MEDS: ondansetron HCL 4 MG/2 ML VIAL IVPUSH ×4 (06:41→21:59)
[2022-10-12 07:08] VITALS: BP 120/68; PULSE 76; RESP 19; TEMP 36.6; O2SAT 95
[2022-10-12 07:56] LABS: Lipase 448 U/L (8-78)
[2022-10-12] MEDS: Sertraline HCL 100 MG TABLET PO (09:30)
[2022-10-12] MEDS: polyethylene glycoL 3350 17 GM POWD.PACK PO (09:30)
[2022-10-12] MEDS: 0.9 % Sodium Chloride Flush 3 ML SYRINGE IVFLUSH ×3 (09:30→22:01)
[2022-10-12] MEDS: Nicotine Polacrilex 2 MG GUM BUCCAL ×3 (11:59→22:00)
[2022-10-12 12:34] LABS: Immunoglobulin G Subclass 1 277 mg/dL (382-929); Immunoglobulin G Subclass 2 516 mg/dL (241-700); Immunoglobulin G Subclass 3 98 mg/dL (22-178); Immunoglobulin G Total 1023 mg/dL (600-1640)
[2022-10-12] MEDS: Enoxaparin Sodium 40 MG/0.4 ML SYRINGE SUBCUT (13:34)
--- NOTE | 2022-10-12 13:35 | P.PNIM_ITS ---
Subjective Subjective Date of Service: 10/12/22 Interval History: abdominal pain/acute pancreatitis Review of Systems Abdominal plain somewhat improving than yesterday but still has significant pain,some nausea abd pain today is more soarness when takes clear liquids no fevers askin for nicotein gum Physical Exam Vital Signs: Vital Signs: Last Vital Signs Temp 98 F 10/12/22 07:08 Pulse 76 10/12/22 07:08 Resp 19 10/12/22 07:08 BP 120/68 10/12/22 07:08 Pulse Ox 95 10/12/22 07:08 O2 Del Method Room Air 10/12/22 07:08 BMI result Body Mass Index 32.2 Appearance: Alert.? Oriented X3.? cvs: rrr, [id number] . res: clear to auscultation ,no rhonchii or wheezing abd: no rebound or guarding , has abd pain suprapubic/left side-more soarness ? , bs present. ext pulses present , no cyanosis. neuro: axo3 , nonfocal. Objective Data Active Medications Acetaminophen (Acetaminophen 325 Mg Tablet) 650 mg PO Q6H PRN PRN Reason: Pain, Mild (Pain Scale 1-3) Last Admin: 10/10/22 22:25 Dose: 650 mg Documented By: RASHAD Docusate Sodium (Docusate Sodium 100 Mg Capsule) 100 mg PO BEDTIME [facility] Last Admin: 10/11/22 19:41 Dose: 100 mg Documented By: ANNELISE Enoxaparin Sodium (Enoxaparin Sodium 40 Mg/0.4 Ml Syringe) 40 mg SUBCUT Q24H [facility] Last Admin: 10/11/22 13:06 Dose: 40 mg Documented By: ANABEL Hydromorphone HCl (Hydromorphone Hcl 1 Mg/Ml Syringe) 1 mg IVPUSH Q4H PRN; Protocol PRN Reason: Pain, Severe (Pain Scale 7-10) Last Admin: 10/12/22 09:30 Dose: 1 mg Documented By: YANNA Lactated Ringer's (Lr) 1,000 mls @ 100 mls/hr IVCONT .Q10H [facility] Last Admin: 10/12/22 11:49 Dose: 100 mls/hr Documented By: YANNA Nicotine Polacrilex (Nicotine Polacrilex 2 Mg Gum) 2 mg BUCCAL Q2H PRN PRN Reason: NICOTINE CRAVINGS Last Admin: 10/12/22 11:59 Dose: 2 mg Documented By: YANNA Ondansetron HCl (Ondansetron Hcl 4 Mg/2 Ml Vial) 4 mg IVPUSH Q4H PRN PRN Reason: Nausea and Vomiting Last Admin: 10/12/22 06:41 Dose: 4 mg Documented By: ANNELISE Pantoprazole Sodium (Pantoprazole Sodium 40 Mg/10 Ml Vial) 40 mg IVPUSH BID@0630,1630 [facility] Last Admin: 10/12/22 05:24 Dose: 40 mg Documented By: ANNELISE Pharmacy Consult (Consult Rx Perform Med Rec) 1 each MISCELLANE ONCE PRN PRN Reason: Consult order Polyethylene Glycol (Polyethylene Glycol 3350 17 Gm Powd.Pack) 17 gm PO DAILY [facility] Last Admin: 10/12/22 09:30 Dose: 17 gm Documented By: YANNA Quetiapine Fumarate (Quetiapine Fumarate 50 Mg Tablet) 150 mg PO BEDTIME PRN PRN Reason: insomnia/mood Last Admin: 10/11/22 21:34 Dose: 150 mg Documented By: ANNELISE Sertraline HCl (Sertraline Hcl 100 Mg Tablet) 100 mg PO DAILY [facility] Last Admin: 10/12/22 09:30 Dose: 100 mg Documented By: YANNA Sodium Chloride (0.9 % Sodium Chloride Flush 3 Ml Syringe) 3 ml IVFLUSH QSHIFT [facility] Last Admin: 10/12/22 09:30 Dose: 3 ml Documented By: YANNA Labs 10/10/22 09:19 10/12/22 05:32 Labs: Laboratory Results - last 24 hr 10/10/22 10/11/22 10/11/22 14:34 19:15 19:15 Anion Gap Estim Creat Clear Calc Estimated GFR Random Glucose Calcium Total Bilirubin AST ALT Alkaline Phosphatase Total Protein Albumin Lipase Urine Color Yellow Urine Appearance Clear Urine pH 6.0 Ur Specific [place] 1.010 Urine Protein Trace Urine Glucose (UA) Negative Urine Ketones Negative Urine Blood Negative Urine Nitrite Negative Ur Leukocyte Esterase Negative Urine Opiates Screen POSITIVE H Urine Fentanyl Screen Not Detected Ur Barbiturates Screen Not Detected Ur Phencyclidine Scrn Not Detected Ur Amphetamines Screen Not Detected U Benzodiazepines Scrn Not Detected Urine Cocaine Screen Not Detected U Marijuana (THC) Screen POSITIVE H IgG Total 1023 IgG Subclass 1 277 L IgG Subclass 2 516 IgG Subclass 3 98 IgG Subclass 4 51.0 10/12/22 05:32 Anion Gap 11 L Estim Creat Clear Calc 194.7 Estimated GFR > 60 Random Glucose 94 Calcium 8.8 Total Bilirubin 1.6 H AST 85 H ALT 83 H Alkaline Phosphatase 139 H Total Protein 5.7 L Albumin 3.5 Lipase 448 H Urine Color Urine Appearance Urine pH Ur Specific [place] Urine Protein Urine Glucose (UA) Urine Ketones Urine Blood Urine Nitrite Ur Leukocyte Esterase Urine Opiates Screen Urine Fentanyl Screen Ur Barbiturates Screen Ur Phencyclidine Scrn Ur Amphetamines Screen U Benzodiazepines Scrn Urine Cocaine Screen U Marijuana (THC) Screen IgG Total IgG Subclass 1 IgG Subclass 2 IgG Subclass 3 IgG Subclass 4 Assessment and Plan (1) Obesity: Status: Acute (2) Pancreatitis: Status: Acute (3) Alcohol dependence with withdrawal: Status: Acute (4) Elevated liver enzymes: Status: Acute Plan 36-year-old male with a PMH significant for alcohol pancreatitis in the past, alcohol use disorder, Suma fundoplication in 2011, and?cholecystectomy who presents to the ED with?epigastric pain and dry heaving since this morning. Labs showed elevated lipase and CT positive for acute pancreatitis. Pt will be ad mitted to the hospital for management and further workup of acute pancreatitis. Acute pancreatits Elevated lipase, CT wo contrast with positive findings for pancreatitis Unclear etiology, CT negative for biliary obstruction, patient s/p cholecystectomy, last alcoholic drink in June of 2022 lipase improving to 1300 mri abd for ? pacreatic cyst :MR/MR abdomen wo/w con IMPRESSION: Acute interstitial pancreatitis. Stable cysts or fluid collections in the pancreatic head compared to most recent exam August 2022. Given history of pancreatitis, these most likely represent pseudocysts. lft's trending up as well as alkaline phos ,lipase improving Ig subtypes, also cea and ca19-9 pending plan:moniter lft's ,added hepatiitis profile continue iv hydration, iv diludid , antiemetics , clear liquid diet d/w Gi for follow up(pending) Mood disorder Continue sertraline, quetiapine Alcohol use disorder Pt states he has not drank since June 2022 Ethyl alcohol less than 10 Does not appear to be in acute withdrawal thiamine /folic acid. obesity : encouraged to lose weight. DVT Prophylaxis: Lovenox inpatient need :treatment of?acute pancreatitis with IV analgesics and IVF, workup for pancreatitis and elevated lft's pending Time Spent With Patient Time: Total time managing care of this patient today ____ minutes. Quality Stroke Does the patient have a stroke diagnosis?: No VTE Prior VTE?: No VTE Risk Level:: Medical - moderate - high VTE Device Contraindication: Treatment Not Indicated VTE Drug Contraindication: N/A - Med Ordered
--- NOTE | 2022-10-12 14:19 | P.PNGI_ITS ---
Subjective Subjective Date of Service: 10/12/22 Interval History: Initial consultation: 10/[address] Thorne for AIP. Pt seen at bedside today for elevated LFT. Reports abd distention and cons tipation. Has been tolerating CLD without triggering abd pain, N,V. Critical Care Time (minutes): 0 Physical Exam Vital Signs: Vital Signs: Last Vital Signs Temp 98 F 10/12/22 07:08 Pulse 76 10/12/22 07:08 Resp 19 10/12/22 07:08 BP 120/68 10/12/22 07:08 Pulse Ox 95 10/12/22 07:08 O2 Del Method Room Air 10/12/22 07:08 BMI result Body Mass Index 32.2 Gen appear: young male, NAD Abd: soft, mildly distended, soft, bowel sounds + Objective Data Labs 10/10/22 09:19 10/12/22 05:32 Labs: Laboratory Results - last 24 hr 10/10/22 10/11/22 10/11/22 14:34 19:15 19:15 Sodium Potassium Chloride Carbon Dioxide Anion Gap BUN Creatinine Estim Creat Clear Calc Estimated GFR Random Glucose Calcium Total Bilirubin AST ALT Alkaline Phosphatase Total Protein Albumin Lipase Urine Color Yellow Urine Appearance Clear Urine pH 6.0 Ur Specific [place] 1.010 Urine Protein Trace Urine Glucose (UA) Negative Urine Ketones Negative Urine Blood Negative Urine Nitrite Negative Ur Leukocyte Esterase Negative Urine Opiates Screen POSITIVE H Urine Fentanyl Screen Not Detected Ur Barbiturates Screen Not Detected Ur Phencyclidine Scrn Not Detected Ur Amphetamines Screen Not Detected U Benzodiazepines Scrn Not Detected Urine Cocaine Screen Not Detected U Marijuana (THC) Screen POSITIVE H IgG Total 1023 IgG Subclass 1 277 L IgG Subclass 2 516 IgG Subclass 3 98 IgG Subclass 4 51.0 10/12/22 05:32 Sodium 137 Potassium 3.7 Chloride 103 Carbon Dioxide 27 Anion Gap 11 L BUN 4 L Creatinine 0.62 Estim Creat Clear Calc 194.7 Estimated GFR > 60 Random Glucose 94 Calcium 8.8 Total Bilirubin 1.6 H AST 85 H ALT 83 H Alkaline Phosphatase 139 H Total Protein 5.7 L Albumin 3.5 Lipase 448 H Urine Color Urine Appearance Urine pH Ur Specific [place] Urine Protein Urine Glucose (UA) Urine Ketones Urine Blood Urine Nitrite Ur Leukocyte Esterase Urine Opiates Screen Urine Fentanyl Screen Ur Barbiturates Screen Ur Phencyclidine Scrn Ur Amphetamines Screen U Benzodiazepines Scrn Urine Cocaine Screen U Marijuana (THC) Screen IgG Total IgG Subclass 1 IgG Subclass 2 IgG Subclass 3 IgG Subclass 4 Imaging MRI - abdomen: Radiologist's impression: MRI Abd: LIVER, GALLBLADDER, AND BILIARY TREE: The liver is normal in size, smooth in contour, and normal in signal. No focal hepatic lesion or biliary ductal dilatation is present. The gallbladder has been removed. Common bile duct measures 5 mm. No common bile duct stone seen. PANCREAS: The pancreas is enlarged. There is a small amount of fluid seen around the pancreas and increased signal in the peripancreatic fat. The pancreas enhances normally. Small amount of fluid in adjacent to the pancreas, liver and spleen, the bilateral anterior pararenal spaces, small bowel mesentery, lesser sac and bilateral paracolic gutters. Findings are suggestive of acute interstitial pancreatitis. There is a 1 cm simple-appearing cyst in the head of the pancreas that is stable. There is a bilobed cyst or 2 adjacent minimally complex cysts in the uncinate process of the head of the pancreas. This measures maximum 1.7 x 2.8 cm and does not appear appreciably changed in size from most recent MRI August 2022. Given history of pancreatitis, these again probably represent pseudocysts. The main pancreatic duct is not well visualized, probably due to edematous changes in the pancreas. No pancreatic duct dilatation is seen. Splenic vein and portal vein are patent. Procedures Date of Service Date of Service: 10/12/22 Progress Note: A&P Assessment and plan (1) Pancreatitis: Status: Acute (2) Elevated liver enzymes: Status: Acute Plan Elevated LFTs likely a sequela of pancreatic and peripancreatic inflammation. No CBD dil or stone noted on MRCP to suspect obstruction. Agree with checking hep serologies If LFTs cont to uptrend significantly can check US abd to r/o provoked splenic/portal thrombosis. Cont CLD/low fat diet Bowel regimen Encourage ambulation Time Spent With Patient Time: Total time managing care of this patient today ____ minutes. Quality Stroke Does the patient have a stroke diagnosis?: No VTE Prior VTE?: No VTE Risk Level:: Medical - moderate - high VTE Device Contraindication: Treatment Not Indicated VTE Drug Contraindication: N/A - Med Ordered
[2022-10-12 15:12] VITALS: BP 116/55; PULSE 72; RESP 13; TEMP 36.9; O2SAT 95
[2022-10-12 19:23] VITALS: BP 126/80; PULSE 83; RESP 14; TEMP 36.2; O2SAT 96
[2022-10-12] MEDS: Acetaminophen 325 MG TABLET 650 MG PO (20:02)
[2022-10-12] MEDS: Docusate Sodium 100 MG CAPSULE PO (20:02)
[2022-10-12] MEDS: QUEtiapine Fumarate 50 MG TABLET 150 MG PO (22:04)
[2022-10-12 23:51] VITALS: PULSE 16
[2022-10-13] VITALS (7 sets, daily range): BP systolic 116–132; BP diastolic 63–77; PULSE 65–80; RESP 13–18; TEMP 36.6–37.4; O2SAT 94–97
[2022-10-13] MEDS: ondansetron HCL 4 MG/2 ML VIAL IVPUSH ×4 (03:54→16:33)
[2022-10-13] MEDS: HYDROmorphone HCl 1 MG/ML SYRINGE IVPUSH ×5 (03:55→20:29)
[2022-10-13] MEDS: Pantoprazole Sodium 40 MG/10 ML VIAL IVPUSH ×2 (06:06→16:05)
[2022-10-13] MEDS: Acetaminophen 325 MG TABLET 650 MG PO ×3 (06:07→20:29)
[2022-10-13 06:40] LABS: Alanine Aminotransferase 54 U/L (0-40); Albumin Level 3.5 g/dL (3.5-5.0); Alkaline Phosphatase 169 U/L (39-117); Anion Gap 12 (12-20); Aspartate Amino Transferase 38 U/L (5-37); Bilirubin Total 2.3 mg/dL (0.0-1.0); Blood Urea Nitrogen 4 mg/dL (9-16); Calcium 8.8 mg/dL (8.4-10.2); Carbon Dioxide 26 mmol/L (22-29); Chloride 103 mmol/L (96-108); Creatinine Clr Calc Pharmacy 191.6; Estimated Glomerular Filt Rate > 60; Glucose Random 126 mg/dL (60-115); Potassium 3.4 mmol/L (3.3-5.1); Sodium 138 mmol/L (135-145); Total Protein 5.9 g/dL (6.5-8.0)
[2022-10-13 06:56] LABS: HBS Num1 5.57 mIU/mL (0-7.99); HBsAGNum1 0.29 S/CO (0.00-0.99); Hepatitis A Antibody IgM 0.18 Index (0-0.79); Hepatitis B Core Antibody Nonreactive (Nonreactive); Hepatitis B Surface Antigen Negative (Negative); ~HepC Num1 0.13 S/CO (0.00-0.79); ~Hepatitis A Antibody IgM Nonreactive (Nonreactive); ~Hepatitis B Surface Antibody NONREACTIVE (Nonreactive); ~Hepatitis C Antibody Nonreactive (Nonreactive)
[2022-10-13] MEDS: Sertraline HCL 100 MG TABLET PO (08:08)
[2022-10-13] MEDS: polyethylene glycoL 3350 17 GM POWD.PACK PO (08:08)
[2022-10-13] MEDS: 0.9 % Sodium Chloride Flush 3 ML SYRINGE IVFLUSH ×2 (08:08→16:05)
[2022-10-13] MEDS: Nicotine Polacrilex 2 MG GUM BUCCAL ×4 (08:44→20:29)
[2022-10-13 09:53] LABS: Carbohydrate Antigen 19-9 20 U/mL (<34)
--- NOTE | 2022-10-13 10:21 | MHC.CM.PN ---
Per ROUNDS discussion, MD plans to advance diet today with goal of dc to home tomorrow. CM will follow.
--- NOTE | 2022-10-13 12:48 | P.PNIM_ITS ---
Subjective Subjective Date of Service: 10/13/22 Interval History: Tolerating clear liquid diet without provocation of pain Review of Systems Denies chest pain Denies shortness of breath Denies nausea vomiting diarrhea Denies fever chills Physical Exam Vital Signs: Vital Signs: Last Vital Signs Temp 99.3 F 10/13/22 07:38 Pulse 78 10/13/22 07:38 Resp 16 10/13/22 12:21 BP 116/67 10/13/22 07:38 Pulse Ox 96 10/13/22 07:38 O2 Del Method Room Air 10/13/22 07:38 BMI result Body Mass Index 32.2 Const: Other: No acute distress Resp: Other: Clear to auscultation bilaterally no rales rhonchi wheezes Cardio: Other: No S4; positive S1-S2; no S3 murmurs rubs or gallops GI: Other: Soft nontender nondistended normoactive bowel sounds. No peritoneal signs Extrem: Other: No edema bilaterally Objective Data Active Medications Acetaminophen (Acetaminophen 325 Mg Tablet) 650 mg PO Q6H PRN PRN Reason: Pain, Mild (Pain Scale 1-3) Last Admin: 10/13/22 06:07 Dose: 650 mg Documented By: ANNE-MARIE Docusate Sodium (Docusate Sodium 100 Mg Capsule) 100 mg PO BEDTIME [facility] Last Admin: 10/12/22 20:02 Dose: 100 mg Documented By: ANNE-MARIE Enoxaparin Sodium (Enoxaparin Sodium 40 Mg/0.4 Ml Syringe) 40 mg SUBCUT Q24H [facility] Last Admin: 10/12/22 13:34 Dose: 40 mg Documented By: YANNA Hydromorphone HCl (Hydromorphone Hcl 1 Mg/Ml Syringe) 1 mg IVPUSH Q4H PRN; Protocol PRN Reason: Pain, Severe (Pain Scale 7-10) Last Admin: 10/13/22 12:21 Dose: 1 mg Documented By: CYNTHIA Nicotine Polacrilex (Nicotine Polacrilex 2 Mg Gum) 2 mg BUCCAL Q2H PRN PRN Reason: NICOTINE CRAVINGS Last Admin: 10/13/22 12:23 Dose: 2 mg Documented By: CYNTHIA Ondansetron HCl (Ondansetron Hcl 4 Mg/2 Ml Vial) 4 mg IVPUSH Q4H PRN PRN Reason: Nausea and Vomiting Last Admin: 10/13/22 12:20 Dose: 4 mg Documented By: CYNTHIA Pantoprazole Sodium (Pantoprazole Sodium 40 Mg/10 Ml Vial) 40 mg IVPUSH BID@0630,1630 [facility] Last Admin: 10/13/22 06:06 Dose: 40 mg Documented By: ANNE-MARIE Pharmacy Consult (Consult Rx Perform Med Rec) 1 each MISCELLANE ONCE PRN PRN Reason: Consult order Polyethylene Glycol (Polyethylene Glycol 3350 17 Gm Powd.Pack) 17 gm PO DAILY [facility] Last Admin: 10/13/22 08:08 Dose: 17 gm Documented By: CYNTHIA Quetiapine Fumarate (Quetiapine Fumarate 50 Mg Tablet) 150 mg PO BEDTIME PRN PRN Reason: insomnia/mood Last Admin: 10/12/22 22:04 Dose: 150 mg Documented By: ANNE-MARIE Sertraline HCl (Sertraline Hcl 100 Mg Tablet) 100 mg PO DAILY [facility] Last Admin: 10/13/22 08:08 Dose: 100 mg Documented By: CYNTHIA Sodium Chloride (0.9 % Sodium Chloride Flush 3 Ml Syringe) 3 ml IVFLUSH QSHIFT [facility] Last Admin: 10/13/22 08:08 Dose: 3 ml Documented By: CYNTHIA Labs 10/10/22 09:19 10/13/22 05:36 Labs: Laboratory Results - last 24 hr 10/11/22 10/13/22 10/13/22 05:40 05:36 05:36 Anion Gap 12 Estim Creat Clear Calc 191.6 Estimated GFR > 60 Random Glucose 126 H Calcium 8.8 Total Bilirubin 2.3 H AST 38 H ALT 54 H Alkaline Phosphatase 169 H Total Protein 5.9 L Albumin 3.5 CA 19-9 Antigen 20 Hepatitis A IgM Ab Nonreactive Hep Bs Antigen Negative Hep Bs Antibody NONREACTIVE Hep B Core Total Ab Nonreactive Hepatitis C Ab (EIA) Nonreactive Assessment and Plan (1) Pancreatitis: Status: Acute (2) Elevated liver enzymes: Status: Acute (3) Alcohol use disorder: Status: Acute Plan 36-year-old male with a PMH significant for alcohol pancreatitis in the past, alcohol use disorder, Suma fundoplication in 2011, and?cholecystectomy who presents to the ED with?epigastric pain and dry heaving since this morning. Labs showed elevated lipase and CT positive for acute pancreatitis. Pt will be adm itted to the hospital for management and further workup of acute pancreatitis. 1.Acute pancreatits (slowly resolving) -tolerating advancement of diet . .. Will continue to advance as tolerated -pain medicines as ordered -follow LFTs 2.Alcohol use disorder -CIWA negative -observe clinically. . . No signs of withdrawal thus far Lovenox Full code Patient will require ongoing hospitalization for IV supportive pancreatitis Time Spent With Patient Time: Total time managing care of this patient today ____ minutes. Quality Stroke Does the patient have a stroke diagnosis?: No VTE Prior VTE?: No VTE Risk Level:: Medical - moderate - high VTE Device Contraindication: Treatment Not Indicated VTE Drug Contraindication: N/A - Med Ordered
[2022-10-13] MEDS: Enoxaparin Sodium 40 MG/0.4 ML SYRINGE SUBCUT (14:17)
[2022-10-13] MEDS: QUEtiapine Fumarate 50 MG TABLET 150 MG PO (20:29)
[2022-10-13] MEDS: Docusate Sodium 100 MG CAPSULE PO (20:29)
[2022-10-14] MEDS: HYDROmorphone HCl 1 MG/ML SYRINGE IVPUSH ×3 (00:13→08:14)
[2022-10-14] MEDS: 0.9 % Sodium Chloride Flush 3 ML SYRINGE IVFLUSH ×2 (00:16→08:15)
[2022-10-14] MEDS: Nicotine Polacrilex 2 MG GUM BUCCAL ×2 (04:35→08:15)
[2022-10-14 07:12] VITALS: BP 125/76; PULSE 66; RESP 18; TEMP 36.6; O2SAT 96
[2022-10-14] MEDS: Sertraline HCL 100 MG TABLET PO (08:15)
[2022-10-14] MEDS: polyethylene glycoL 3350 17 GM POWD.PACK PO (08:15)
--- NOTE | 2022-10-14 11:45 | PM.DS ---
DS: Providers Provider Date of Service: 10/14/22 Date of admission: 10/10/22 13:39 Date of discharge: 10/14/22 Primary care physician: Unknown Physician Consults: 10/10/22 13:49 Consult to Gastroenterology Routine Consulting Provider: Pati Thorne Reason for consultation: Acute pancreatitis DS: Diagnosis Discharge Diagnosis (1) Pancreatitis: Status: Acute (2) Elevated liver enzymes: Status: Acute (3) Alcohol use disorder: Status: Acute DS: Summary Hospital Course Hospital Course: 36-year-old male with a PMH significant for alcohol pancreatitis in the past, alcohol use disorder, Suma fundoplication in 2011, and?cholecystectomy who presents to the ED with?epigastric pain and dry heaving since this morning. Pt describes pain as sharp, stabbing, rates it 10/10, and is centered in the epigastric region with radiation to back and right upper quadrant. Pt was admitted two weeks ago to [facility] for similar pain and treated for pancreatitis. Pt states he quit drinking on 06/24/2022 without any relapse. Pt was admitted here to the hospital on 08/06/22 for epigastric pain and N/V but with normal lipase. CT showed large portion stomach was his thoracic cavity.? Patient had an EGD on 08/09 to confirm thoracic stomach, but scope was unable to be advanced past the diaphragm.? A barium swallow, UGI, and thoracic surgery consult was recommended but pt left AMA before these could be completed. Pt states he had hernia repair surgery with mesh at [facility] a short time after this visit. Pt denies fever, chills, diarrhea. No chest pain/pressure, palpitations. No SOB. In the ED labs were significant for lipase > 3000.? LFTs WNL, triglycerides 144.? Tox screen pending, ethyl alcohol negative. CT?of abdomen and pelvis showed peripancreatic fluid and fat stranding compatible with acute pancreatitis, but could not assess for possible pancreatic necrosis or other complication due to lack of contrast.? CT also with redemonstration of fluid filled cystic mass in the head of the pancreas unchanged 2.5 cm. Pt was treated with ketorolac, hydromorphone, IVF, pantoprazole, ondansetron, Hospital course Patient admitted to general medical floor kept NPO. MRI done of abdomen failed to his demonstrate CBD dilation or other findings to suggest obstruction. Patient was seen in consultation by GI who agreed with workup and felt that the cause of this episode was likely a sequela of pancreatic and peripancreatic inflammation. The patient's diet was advanced to the time of discharge she is tolerating regular diet without issue. He will be followed up as an outpatient by GI and as well as PCP Time Spent with Patient Time attestation: Total time managing care of this patient today ____ minutes. Discharge coordination time: Greater than 30 minutes Quality: Safe Use of Opioids Does Pt have an Active Cancer Diagnosis on the Problem List?: No Quality: Stroke Does the patient have a stroke diagnosis?: No Physical Exam Vital Signs: Vital Signs: Last Vital Signs Temp 97.8 F 10/14/22 07:12 Pulse 66 10/14/22 07:12 Resp 18 10/14/22 07:12 BP 125/76 10/14/22 07:12 Pulse Ox 96 10/14/22 07:12 O2 Del Method Room Air 10/13/22 23:53 BMI result Body Mass Index 32.2 Const: Other: No acute distress Resp: Other: Clear to auscultation bilaterally no rales rhonchi wheezes Cardio: Other: No S4; positive S1-S2; no S3 murmurs rubs or gallops GI: Other: Soft nontender nondistended normoactive bowel sounds. No peritoneal signs Extrem: Other: No edema bilaterally DS: Data Data Completed and Pending Completed studies during hospitalization [Text1]: Procedures Detoxification Services for Substance Abuse Treatment (06/22/22) Inspection of Upper Intestinal Tract, Via Natural or Artificial Opening Endoscopic (08/09/22) Discharge Plan Discharge Anticipated Discharge Date/Time: 10/14/22 11:40 Patient Disposition: Home, Self-Care Discharge Diagnosis: Acute pancreatitis Referrals: Physician,Unknown J [Primary Care Provider] - 1 Week Discharge Medications: Continued sertraline 100 mg Tablet 100 mg PO DAILY quetiapine 50 mg Tablet 150 mg PO BEDTIME PRN (Reason: insomnia/mood) Discharge Orders: Discharge Order (Routine); Ordered 10/14/22 Ordered By: Beto Shi Diet: Advance to usual diet Activity on Discharge: As tolerated Stand Alone Forms: Patient Portal Discharge page Care Plan Goals: Avoid alcohol Health Concerns: Follow-up with PCP in 2 weeks Plan of Treatment: Resume all pre-hospital medicine Assessment: See discharge summary
--- NOTE | 2022-10-14 11:54 | MHC.CM.PN ---
Patient has been medically cleared for dc to home today, self care.
[2022-10-21 13:48] LABS: Phosphatidylethanol 16:0-18:1 None Detected
== END 2022-10-14 11:46 | disposition home or self-care (01) | DRG 439 ==
LOC: HO.ED 11:30 → HO.EDOVER 13:53 → HO.IMC 13:56
PROVIDERS: Internal Medicine; Internal Medicine Gastroenterology; Admitting Provider Student in an Organized Health Care Education/Training Program; Emergency Provider Emergency Medicine; Visit Provider Hospitalist
DX: K85.20 Alcohol induced acute pancreatitis without necrosis or infection (principal); K86.3 Pseudocyst of pancreas; K86.89 Other specified diseases of pancreas; F10.21 Alcohol dependence, in remission; E66.9 Obesity, unspecified; K86.0 Alcohol-induced chronic pancreatitis; K29.20 Alcoholic gastritis without bleeding; Z68.32 Body mass index [BMI] 32.0-32.9, adult; Z87.891 Personal history of nicotine dependence; Z20.822 Contact with and (suspected) exposure to COVID-19; Z79.899 Other long term (current) drug therapy
CPT/HCPCS: 36415; 74176; 74183; 80048; 80053; 80061; 80076; 80307; 80321; 81003; 82077; 82378; 82784; 83690; 85025; 86301; 86704; 86706; 86709; 86803; 87340; 87635; 99285; A9585; J1170; J1650; J1885; J2405

== ENCOUNTER 2022-11-24 21:52 | Inpatient (IN) | payer OTHER, SELFPAY ==
--- NOTE | ~2022-11-24 | MR_ITS ---
EXAMINATION: MR ABDOMEN WITHOUT CONTRAST CLINICAL INFORMATION: Abnormal liver function tests. Cholestasis. Post cholecystectomy. COMPARISON: Previous CT of the abdomen and pelvis from yesterday and MR of the abdomen October 2022 TECHNIQUE: MR abdomen is performed without gadolinium contrast. MRCP sequences were also performed. FINDINGS: LUNG BASES: The visualized lung bases are unremarkable. LIVER, GALLBLADDER, AND BILIARY TREE: The liver is normal in size, smooth in contour, and normal in signal. No focal hepatic lesion or biliary ductal dilatation is present. Has been removed. Intrahepatic extrahepatic bile ducts are normal in caliber. The common bile duct measures 7 mm. No common bile duct stone seen. PANCREAS: Fat stranding a small amount of fluid surrounding the pancreas. Pancreas is slightly prominent. The small cyst in the head of the pancreas measuring 0.7 x 1.6 cm. This is similar to yesterday's CT scan in decreased in size slightly from older exams October 2022. The pancreas is otherwise normal in signal. The main pancreatic duct is normal. There is a small amount of fluid seen in the bilateral anterior pararenal fascia. There is trace ascites. SPLEEN: Unremarkable. ADRENAL GLANDS: Unremarkable. KIDNEYS AND URETERS: The kidneys are normal in size and shape. No hydronephrosis. Bilateral renal cysts. No imaging follow-up recommended. No perinephric stranding. GASTROINTESTINAL TRACT: No bowel obstruction. No ascites or fluid collection. ABDOMINAL WALL: No significant hernia is appreciated. LYMPH NODES: No lymphadenopathy. VASCULAR: Unremarkable. OSSEOUS STRUCTURES: Marrow signal normal. MR/MR MRCP IMPRESSION: Prominent pancreas, peripancreatic fat stranding and small amount of fluid. Appearance is again suggestive of acute pancreatitis. Interval decrease in size in the cyst in the head of the pancreas now measuring 0.7 x 1.6 cm. No biliary duct dilatation. No common bile duct stone.
--- NOTE | ~2022-11-24 | CT_ITS ---
EXAMINATION: CT ABDOMEN AND PELVIS WITH CONTRAST CLINICAL INFORMATION: Left upper quadrant pain COMPARISON: 10/10/2022 and 08/14/2022 TECHNIQUE: Multidetector volumetric images were obtained from the superior aspect of the liver through the pubic symphysis following administration 85 mL of Omnipaque 350 intravenous contrast. Sagittal and coronal reformatted images were obtained on the technologist's workstation. Oral contrast: No This CT examination was performed using dose optimization techniques as appropriate, variously including the following: *Automated exposure control *Adjustment of mA and/or kV according to patient size (this includes techniques or standardized protocols for targeted exams where dose is matched to indication/reason for exam; i.e. extremities or head) *Use of iterative reconstruction technique DLP: 624 mGy-cm FINDINGS: LUNG BASES: The visualized lung bases are unremarkable. LIVER, GALLBLADDER, AND BILIARY TREE: The liver is normal in size, shape, and attenuation. No focal hepatic lesion or biliary ductal dilatation is present. Cholecystectomy. PANCREAS: Peripancreatic fat stranding and nondescript fluid, slightly different distribution than previous suggesting recrudescent pancreatitis. No acute peripancreatic fluid collection or acute necrotic collection at this time. A prior cyst in the inferior pancreatic head has decreased in size now measuring 2.0 cm and bilobate in appearance, previously 2.4 cm. The pancreatic parenchyma otherwise enhances normally. SPLEEN: Unremarkable. ADRENAL GLANDS: Unremarkable. KIDNEYS AND URETERS: The kidneys are normal in size, shape, and attenuation. Bilateral simple renal cysts. No follow-up imaging recommended. No hydronephrosis, hydroureter, or calculi seen. No perinephric stranding. BLADDER: Unremarkable. GASTROINTESTINAL TRACT: Small hiatal hernia on the current examination, significantly decreased in size from August 2022. This may represent a transiently reduced hiatal hernia. Question previous Suma fundoplication. Submucosal edema in the distal esophagus suggestive of esophagitis. The small and large bowel are unremarkable. The appendix is unremarkable. ABDOMINAL WALL: Small foci of gas in the ventral subcutaneous fat likely related to sites of medication injection. LYMPH NODES: Normal. VASCULAR: Unremarkable. PELVIC VISCERA: Unremarkable. OSSEOUS STRUCTURES: Unremarkable. CT/CT abdomen pelvis w IV con IMPRESSION: * Acute interstitial edematous pancreatitis. No acute peripancreatic fluid collection or acute necrotic collection at this time. * Interval decrease in size of a cyst in the inferior pancreatic head now measuring 2.0 cm, previously 2.4 cm, indicating benign etiology (intrapancreatic pseudocyst/walled off necrosis). . * Small hiatal hernia, significantly decreased in size from August 2022. Question previous Suma fundoplication. * Submucosal edema in the distal esophagus suggestive of esophagitis.
[2022-11-24 21:57] VITALS: BP 122/64; BP 129/74; PULSE 80; RESP 18; TEMP 36.8; O2SAT 97; O2SAT 99; BMI 27.0
[2022-11-24 22:39] LABS: MANUAL DIFF FLAG NO
[2022-11-24 22:40] LABS: Basophils Percent Auto 0.4 % (0-2); Eosinophils Absolute Auto 0.3 X10*3/uL (0.0-0.4); Eosinophils Percent Auto 2.8 % (0-4); Hematocrit 46.3 % (42.0-52.0); Hemoglobin 15.9 g/dl (14.0-18.0); Imm Gran Abs Auto 0.03 X10*3/uL (0.00-0.03); Imm Gran Pct Auto 0.3 % (0.0-0.4); Lymphocytes Absolute Auto 2.3 X10*3/uL (1.2-4.9); Lymphocytes Percent Auto 20.2 % (20-40); Mean Corpuscular HGB Conc 34.3 g/dl (31.0-36.0); Mean Corpuscular Hemoglobin 31.8 pg (27.0-33.0); Mean Corpuscular Volume 92.6 fL (80.0-98.0); Mean Platelet Volume 9.5 fL (9.4-12.4); Monocytes Absolute Auto 0.9 X10*3/uL (0.1-1.2); Monocytes Percent Auto 7.7 % (2-11); Neutrophils Absolute Auto 7.8 x10*3/uL (2.0-8.3); Neutrophils Percent Auto 68.6 % (45-73); Platelet Count 294 X10*3/uL (160-400); Red Cell Distribution Width 12.5 % (11.0-16.0); White Blood Count 11.4 X10*3/uL (4.8-10.8)
[2022-11-24 23:08] LABS: Alanine Aminotransferase 27 U/L (0-40); Albumin Level 4.5 g/dL (3.5-5.0); Alkaline Phosphatase 89 U/L (39-117); Anion Gap 16 (12-20); Aspartate Amino Transferase 19 U/L (5-37); Bilirubin Direct 0.3 mg/dL (0.0-0.5); Bilirubin Total 0.6 mg/dL (0.0-1.0); Blood Urea Nitrogen 11 mg/dL (9-16); Calcium 10.2 mg/dL (8.4-10.2); Carbon Dioxide 24 mmol/L (22-29); Chloride 106 mmol/L (96-108); Creatinine Clr Calc Pharmacy 134.6; Estimated Glomerular Filt Rate > 60; Glucose Random 96 mg/dL (60-115); Potassium 3.8 mmol/L (3.3-5.1); Sodium 142 mmol/L (135-145); Total Protein 7.6 g/dL (6.5-8.0)
[2022-11-24 23:17] LABS: Lipase > 3000 U/L (8-78)
--- NOTE | 2022-11-24 23:41 | ED_ITS ---
HPI - Abdominal Pain General Chief Complaint: Abdominal Pain Stated Complaint: PANCREATITIS Time Seen by Provider: 11/24/22 23:40 Source: patient Mode of arrival: ambulatory Limitations: no limitations History of Present Illness HPI narrative: This is a 37-year-old male history of obesity, alcohol use disorder in remission last drink in 2021 presenting to the emergency department with sudden onset nausea, abdominal pain that started about for 5 hours ago. Patient reports abdominal pain is primarily in the left upper quadrant and does not radiate anywhere described as constant severe pain. Patient reports he has had a history of pancreatitis in the past and this feels similar. Patient reports that he smokes marijuana daily last smoked earlier today. Patient denies fevers, chills, headache, vision changes, dizziness, hematemesis, vomiting, diarrhea, urinary changes, chest pain shortness of breath. Related Data Home Medications Medication Instructions Recorded Confirmed quetiapine 50 mg tablet 150 mg PO BEDTIME PRN insomnia/mood 08/06/22 10/10/22 sertraline 100 mg tablet 100 mg PO DAILY 08/06/22 10/10/22 Allergies Allergy/AdvReac Type Severity Reaction Status Date / Time No Known Allergies Allergy Verified 10/10/22 09:10 [No Known Allergies*] Review of Systems Review of Systems Constitutional : No Weight loss, No Fever, No Chills, + Fatigue, + Malaise ENT/Mouth : No sore throat, No Rhinorrhea Eyes: No Eye Pain, No Swelling, No Redness Cardiovascular : No Chest Pain, No SOB, No Dyspnea on Exertion, No Orthopnea, No Edema, No Palpitations Respiratory : No Cough, No Sputum, No Wheezing Gastrointestinal : + Nausea, No Vomiting, No Diarrhea, No Constipation, + abdominal Pain, No Hematochezia, No Melena Genitourinary : No Dysuria, No Urinary Frequency, No Hematuria, Musculoskeletal : No joint pain, No Myalgias, No Joint Swelling Skin : No Skin Lesions, No rash Neuro : No Weakness, No Numbness, No Dizziness, No Headache Psych : No Anxiety/Panic, No Depression All other systems reviewed and are negative Yes all other systems are reviewed and are negative [facility] Past Medical History Attestation statement: The following information was validated with the patient. Source: old records reviewed and nursing notes reviewed Medical History Alcohol dependence with withdrawal Pancreatitis Social History Social History Household Members: None Housing: Apartment Do you presently have visiting nurse or other home services: No Alcohol intake: never Patient Tobacco Use Status: Former Tobacco user Tobacco use type: Cigarette Cigarette Packs Per Day: 1 Cigarettes Per Day: 20.0 Years Smoked: 20 Second Hand Smoke Exposure: No Substance Use Type: Marijuana Advance Directives: No Advance Directives Information Provided: Yes service: No Current occupational status: employed Physical Exam ED Vital Signs: Vital Signs - 24 hr 11/24/22 21:57 11/25/22 00:08 Temperature 98.2 F 97.6 F Pulse Rate 80 65 Respiratory Rate 18 20 Blood Pressure 122/64 124/85 Pulse Oximetry 99 98 Oxygen Delivery Method Room Air Room Air BMI result Body Mass Index 27.0 vss Appearance: Alert.? Oriented X3.? No acute distress.? Head: Normocephalic, atraumatic, no step-offs or deformities Eyes: Pupils equal, round and reactive to light.? ENT: Pharynx normal.? Neck: Normal inspection.? Neck supple.? CVS: Normal heart rate and rhythm.? Pulses normal.? Respiratory: No respiratory distress.? Breath sounds normal.? Abdomen: Soft and tenderness to palpation in epigastric and left upper quadrant. Normoactive bowel sounds throughout.? Skin: Skin warm and dry.? Normal skin color.? Normal skin turgor.? Extremities: No lower extremity edema.? No calf ttp. 5/5 strength to bilateral upper and lower extremities Back: No midline tenderness, no C-spine tenderness, full range of motion, no CVA tenderness bilaterally Neuro: Oriented X 3.? No motor deficit.? No sensory deficit. CN 2-12 intact Course Reevaluation(s) Reevaluation #1: CBC with slight leukocytosis, appears to be around patient's baseline. Chemistry with no acute electrolyte abnormalities requiring intervention. Patient's lipase greater than 3000 concerning for acute pancreatitis. Urine CT of the abdomen and pelvis pending. Will order fluids, morphine, Zofran. Time: 23:44 Reevaluation #2: CT of abdomen and pelvis with contrast pending will rule out abscess although unlikely due to patient's high white blood cell count, and vital signs. Time: 23:45 Reevaluation #3: Plan is for admission. CT abd pelvis pending hospitalist aware Time: 00:59 Medical Decision Making Medical Decision Making [facility] Narrative: 2340 37-year-old male presents with sudden-onset epigastric and left upper quadrant pain with associated nausea. History of alcohol use disorder in remission. Soft and tenderness to palpation in epigastric and left upper quadrant. Normoactive bowel sounds throughout.? Concerns for gastritis versus pancreatitis versus viral illness. Unlikely abdominal aortic aneurysm, dissection, acute cholecystitis, appendicitis, acute abdomen. Plan labs, urine, imaging. Differential Diagnosis Differential Diagnoses: The differential diagnosis associated with the p resentation includes Concerns for gastritis versus pancreatitis versus viral illness. Unlikely abdominal aortic aneurysm, dissection, acute cholecystitis, appendicitis, acute abdomen. Admission/Observation Consideration of admission/observation: Escalation of care including admission/observation considered Likely Consult Healthcare Provider Management of the patient was discussed with: Hospitalist Lab Data [facility] Lab Attestation statement: I reviewed the patient's lab results. 11/24/22 22:35 11/24/22 22:35 Labs: Lab Results 11/24/22 11/24/22 11/25/22 Range/Units 22:35 22:35 00:26 WBC 11.4 H (4.8-10.8) X10*3/uL RBC 5.00 (4.60-5.80) X10*6/uL Hgb 15.9 (14.0-18.0) g/dl Hct 46.3 (42.0-52.0) % MCV 92.6 (80.0-98.0) fL MCH 31.8 (27.0-33.0) pg MCHC 34.3 (31.0-36.0) g/dl RDW 12.5 (11.0-16.0) % Plt Count 294 (160-400) X10*3/uL MPV 9.5 (9.4-12.4) fL Immature Gran % (Auto) 0.3 (0.0-0.4) % Neut % (Auto) 68.6 (45-73) % Lymph % (Auto) 20.2 (20-40) % Doddridge % (Auto) 7.7 (2-11) % Eos % (Auto) 2.8 (0-4) % Baso % (Auto) 0.4 (0-2) % Lymph # (Auto) 2.3 (1.2-4.9) X10*3/uL Doddridge # (Auto) 0.9 (0.1-1.2) X10*3/uL Eos # (Auto) 0.3 (0.0-0.4) X10*3/uL Baso # (Auto) 0.0 (0.0-0.2) X10*3/uL Abs Immat Gran (auto) 0.03 (0.00-0.03) X10*3/uL Absolute Neuts (auto) 7.8 (2.0-8.3) x10*3/uL Absolute Nucleated RBC 0.000 (0.0-0.012) X10*3/uL Nucleated RBC % (auto) 0.0 (0.0-0.2) /100WBC Sodium 142 (135-145) mmol/L Potassium 3.8 (3.3-5.1) mmol/L Chloride 106 (96-108) mmol/L Carbon Dioxide 24 (22-29) mmol/L Anion Gap 16 (12-20) BUN 11 (9-16) mg/dL Creatinine 0.89 (0.5-1.4) mg/dL Estim Creat Clear Calc 134.6 Estimated GFR > 60 Random Glucose 96 (60-115) mg/dL Lactic Acid 1.3 (0.5-2.0) mmol/L Calcium 10.2 D (8.4-10.2) mg/dL Total Bilirubin 0.6 (0.0-1.0) mg/dL Direct Bilirubin 0.3 (0.0-0.5) mg/dL AST 19 (5-37) U/L ALT 27 (0-40) U/L Alkaline Phosphatase 89 (39-117) U/L Total Protein 7.6 (6.5-8.0) g/dL Albumin 4.5 (3.5-5.0) g/dL Triglycerides 206 mg/dL Lipase > 3000 H (8-78) U/L Ethyl Alcohol < 10 mg/dL Independent Interpretation I performed an independent interpretation of an: CT Scan Radiology Impression Discussion of test interpretation with radiology: I have reviewed the rad iologist's reading. Core Measures AMI core measures followed: Yes Measure exclusions: not indicated Medications Administered Generic Name Dose Route Start Last Admin Trade Name Freq PRN Reason Stop Dose Admin Enoxaparin Sodium 40 mg 11/25/22 00:30 11/25/22 00:47 Enoxaparin Sodium 40 Mg/0.4 Ml Syringe SUBCUT 40 mg 2200 GRIFFIN Administration Sodium Chloride 1,000 mls @ 200 mls/hr 11/25/22 00:45 11/25/22 00:48 Ns IVCONT 11/25/22 05:44 200 mls/hr .Q5H GRIFFIN Administration Discontinued Medications Generic Name Dose Route Start Last Admin Trade Name Arnoldq PRN Reason Stop Dose Admin Hydromorphone HCl 1 mg 11/25/22 00:36 11/25/22 00:46 Hydromorphone Hcl 1 Mg/Ml Syringe IVPUSH 11/25/22 00:37 1 mg ONCE ONE Administration Protocol Sodium Chloride 1,000 mls @ 999 mls/hr 11/24/22 23:45 11/25/22 00:13 Ns IV 11/25/22 00:45 999 mls/hr .Q1H1M GRIFFIN Administration Metoclopramide HCl 10 mg 11/25/22 00:36 11/25/22 00:46 Metoclopramide Hcl 10 Mg/2 Ml Vial IVPUSH 11/25/22 00:37 10 mg ONCE ONE Administration Morphine Sulfate 4 mg 11/24/22 23:44 11/25/22 00:13 Morphine Sulfate 4 Mg/Ml Cartridge IVPUSH 11/24/22 23:45 4 mg ONCE ONE Administration Protocol Ondansetron HCl 4 mg 11/24/22 23:44 11/25/22 00:13 Ondansetron Hcl 4 Mg/2 Ml Vial IVPUSH 11/24/22 23:45 4 mg ONCE ONE Administration Critical Care Time Critical Care Time Critical Care Time: No Discharge Plan Discharge Clinical Impression: Acute pancreatitis, Nausea Patient Disposition: Admitted As Inpatient Prescriptions: No Action sertraline 100 mg Tablet 100 mg PO DAILY quetiapine 50 mg Tablet 150 mg PO BEDTIME PRN (Reason: insomnia/mood)
[2022-11-24 23:51] LABS: Triglycerides 206 mg/dL
[2022-11-25] VITALS (10 sets, daily range): BP systolic 96–124; BP diastolic 53–85; PULSE 46–68; RESP 11–20; TEMP 36.3–36.6; O2SAT 94–98
[2022-11-25] MEDS: ondansetron HCL 4 MG/2 ML VIAL IVPUSH ×3 (00:13→20:32)
[2022-11-25] MEDS: Morphine Sulfate 4 MG/ML CARTRIDGE IVPUSH ×2 (00:13→07:52)
[2022-11-25] MEDS: 0.9 % Sodium Chloride 1,000 ML 999 ML IV (00:13)
--- NOTE | 2022-11-25 00:21 | P.HPHOSP_ITS ---
History of Present Illness Date of Service: 11/25/22 Chief Complaint: Abdominal Pain This is a 37-year-old male with pertinent history of alcohol use disorder, mood disorder tobacco use disorder, marijuana use disorder who presents to the emergency department for evaluation of epigastric pain.? Patient states that the epigastric pain was sudden in onset and started around afternoon.? It has been progressive, constant and radiating to the back.? Has been having dry heaving and nausea. Unable to tolerate p.o. intake. Denies fever and chills.?States his last alcoholic drink was in June,. He denies chest discomfort, palpitations, shortness of breath, changes in urinary or bowel habits. Of note, patient was admitted on 10/10/22 and discharged on 10/14 with acute interstitial pancreatitis In the emergency department, lipase greater than 3000 Review of Systems Constitutional: Constitutional: Reports no additional constitutional complaints Cardiovascular: Cardiovascular: Reports no additional cardiovascular complaints Respiratory: Respiratory: Reports no additional respiratory complaints Gastrointestinal: Gastrointestinal: Reports abdominal pain and Reports nausea [facility] Medical History Alcohol dependence with withdrawal Pancreatitis Pertinent family history: No family history of early CAD Social History Household Members: None Housing: Apartment Do you presently have visiting nurse or other home services: No Alcohol intake: former Patient Tobacco Use Status: Former Tobacco user Tobacco use type: Cigarette Cigarette Packs Per Day: 1 Cigarettes Per Day: 20.0 Years Smoked: 20 Smoked in Last 30 Days: Yes Second Hand Smoke Exposure: No Use of substances other than those prescribed or required for medical reasons: Yes Substance Use Type: Marijuana Advance Directives: No Advance Directives Information Provided: Yes service: No Current occupational status: employed Meds Allergies Allergy/AdvReac Type Severity Reaction Status Date / Time No Known Allergies Allergy Verified 10/10/22 09:10 [No Known Allergies*] Active Medications: Current Medications Sodium Chloride (Ns) 1,000 mls @ 999 mls/hr IV .Q1H1M GRIFFIN Stop: 11/25/22 00:45 Last Admin: 11/25/22 00:13 Dose: 999 mls/hr Pharmacy Consult (Consult Rx Perform Med Rec) 1 each MISCELLANE ONCE PRN PRN Reason: Consult order Home Medications Medication Instructions Recorded Confirmed Last Taken Type quetiapine 50 mg tablet 150 mg PO BEDTIME PRN insomnia/mood 08/06/22 10/10/22 07/23/22 History sertraline 100 mg tablet 100 mg PO DAILY 08/06/22 10/10/22 10/09/22 History Physical Exam Vital Signs and Narrative: Vital Signs: Last Vital Signs Temp 97.6 F 11/25/22 00:08 Pulse 65 11/25/22 00:08 Resp 20 11/25/22 00:08 BP 124/85 11/25/22 00:08 Pulse Ox 98 11/25/22 00:08 O2 Del Method Room Air 11/25/22 00:08 BMI result Body Mass Index 27.0 Middle-aged male lying in bed in mild distress Neck supple, no JVD Regular rate and rhythm, S1-S2 heard Regular breath sounds bilaterally, no wheezing or crackles appreciated Abdomen with epigastric tenderness to mild palpation, no guarding, no rebound tenderness, no rigidity Patient is awake, alert and oriented to self, place, time and person ; no focal motor deficit Psych: Normal mood No pedal edema Results Labs 11/24/22 22:35 11/24/22 22:35 Labs: Laboratory Results - last 24 hr 11/24/22 11/24/22 22:35 22:35 MCV 92.6 MCH 31.8 MCHC 34.3 RDW 12.5 Plt Count 294 MPV 9.5 Immature Gran % (Auto) 0.3 Neut % (Auto) 68.6 Lymph % (Auto) 20.2 [place] % (Auto) 7.7 Eos % (Auto) 2.8 Baso % (Auto) 0.4 Lymph # (Auto) 2.3 [place] # (Auto) 0.9 Eos # (Auto) 0.3 Baso # (Auto) 0.0 Abs Immat Gran (auto) 0.03 Absolute Neuts (auto) 7.8 Absolute Nucleated RBC 0.000 Nucleated RBC % (auto) 0.0 Anion Gap 16 Estim Creat Clear Calc 134.6 Estimated GFR > 60 Random Glucose 96 Calcium 10.2 D Total Bilirubin 0.6 Direct Bilirubin 0.3 AST 19 ALT 27 Alkaline Phosphatase 89 Total Protein 7.6 Albumin 4.5 Triglycerides 206 Lipase > 3000 H Assessment and Plan (1) Acute pancreatitis: Status: Acute Plan This is a 37-year-old male with pertinent history of alcohol use disorder, mood disorder tobacco use disorder, marijuana use disorder who presents to the emergency department for evaluation of epigastric pain.? #.? Acute interstitial pancreatitis. No biliary ductal dilatation noted. Triglyceride level normal. Patient states his last alcoholic drink was in June,. Will keep NPO for bowel rest, advance diet as tolerated. IV opioid p.r.n. Continue IV fluid resuscitation. #.? Tobacco use disorder: Counseled regarding cessation. Patient refused nicotine patch #. Marijuana use disorder #.? Mood disorder: ?On sertraline Med rec pending DVT prophylaxis: Lovenox 40 mg daily Full code NPO.? Advance as tolerated Admit as inpatient and will require two night minimum hospital stay for treatment of acute pancreatitis Time Spent With Patient Time: Total time managing care of this patient today ____ minutes. Quality Stroke Does the patient have a stroke diagnosis?: No VTE Prior VTE?: No VTE Risk Level:: Medical - moderate - high VTE Device Contraindication: Treatment Not Indicated VTE Drug Contraindication: N/A - Med Ordered
--- NOTE | 2022-11-25 00:34 | PC.NURSE ---
this rn assumed care of pt @ 0008 from waiting room. provider to bedside. vss. iv 20 g placed in R AC. pt medicated according to sep. pt placed on traffic monitor specialist. changed into hospital gown. blood cultures and lactic acid obtained and sent down to lab
[2022-11-25 00:41] LABS: Lactic Acid 1.3 mmol/L (0.5-2.0)
[2022-11-25] MEDS: Metoclopramide HCl 10 MG/2 ML VIAL IVPUSH (00:46)
[2022-11-25] MEDS: HYDROmorphone HCl 1 MG/ML SYRINGE IVPUSH ×7 (00:46→21:55)
[2022-11-25] MEDS: Enoxaparin Sodium 40 MG/0.4 ML SYRINGE SUBCUT ×2 (00:47→21:55)
[2022-11-25] MEDS: 0.9 % Sodium Chloride 1,000 ML 200 ML IVCONT (00:48)
[2022-11-25 00:53] LABS: Ethanol < 10 mg/dL
--- NOTE | 2022-11-25 00:54 | PC.NURSE ---
pt had episode of N/V pt medicated according to xavier pt awaiting CT scan at this time
[2022-11-25] MEDS: iohexoL 350 MG/ML 100 ML INFUS..BTL 85 ML IV (04:31)
--- NOTE | 2022-11-25 05:42 | PC.NURSE ---
pt HR in 40s- this rn made dr rice aware of bradycardia. per dr rice no new orders
[2022-11-25 06:40] LABS: MANUAL DIFF FLAG NO
[2022-11-25 06:42] LABS: Basophils Percent Auto 0.2 % (0-2); Eosinophils Absolute Auto 0.1 X10*3/uL (0.0-0.4); Eosinophils Percent Auto 0.6 % (0-4); Hematocrit 42.8 % (42.0-52.0); Hemoglobin 14.6 g/dl (14.0-18.0); Imm Gran Abs Auto 0.03 X10*3/uL (0.00-0.03); Imm Gran Pct Auto 0.3 % (0.0-0.4); Lymphocytes Absolute Auto 1.2 X10*3/uL (1.2-4.9); Lymphocytes Percent Auto 11.8 % (20-40); Mean Corpuscular HGB Conc 34.1 g/dl (31.0-36.0); Mean Corpuscular Hemoglobin 31.7 pg (27.0-33.0); Mean Platelet Volume 9.9 fL (9.4-12.4); Monocytes Absolute Auto 0.5 X10*3/uL (0.1-1.2); Monocytes Percent Auto 5.2 % (2-11); Neutrophils Absolute Auto 8.1 x10*3/uL (2.0-8.3); Neutrophils Percent Auto 81.9 % (45-73); Platelet Count 265 X10*3/uL (160-400); Red Cell Distribution Width 12.5 % (11.0-16.0); White Blood Count 9.9 X10*3/uL (4.8-10.8)
[2022-11-25 07:06] LABS: Anion Gap 13 (12-20); Blood Urea Nitrogen 11 mg/dL (9-16); Calcium 8.7 mg/dL (8.4-10.2); Carbon Dioxide 22 mmol/L (22-29); Chloride 110 mmol/L (96-108); Creatinine Clr Calc Pharmacy 178.9; Estimated Glomerular Filt Rate > 60; Glucose Random 110 mg/dL (60-115); Sodium 141 mmol/L (135-145)
[2022-11-25] MEDS: 0.9 % Sodium Chloride Flush 3 ML SYRINGE IVFLUSH (07:19)
[2022-11-25] MEDS: Lactated Ringers 1,000 ML 150 ML IVCONT ×3 (08:31→21:58)
--- NOTE | 2022-11-25 08:37 | PHA.MEDREC ---
Pharmacy Consult ? Medication Reconciliation Pharmacy has completed the medication reconciliation. Spoke to patient to confirm meds. Per patient, they have stopped taking quetiapine 50mg and sertraline 100mg a long time ago and have stopped the medications themselves.
--- NOTE | 2022-11-25 09:42 | PC.NURSE ---
obtained report from ED nurse, assumed care on overflow at 0940, patient a&ox3, pt ambulated from stretcher to bed independently, ivf running at 150 per order, pt c/o mid abd pain 12/11 was recently medicated in ed, call gomez within reach, will continue to monitor
--- NOTE | 2022-11-25 11:17 | PC.NURSE ---
pt continues to request nicotine gum, additional pain meds and requesting a clear liquid diet. dr herrera notified of pt requests- he responded stating he will come see the patient- pt was notified that the provider will come see him.
--- NOTE | 2022-11-25 11:32 | PC.NURSE ---
pt being cantankerous, upset and swearing at us over not having pain medications to take and not having the nicotine gum. Dr. herrera is aware of pt behavior at this time and will be coming to assess.
[2022-11-25] MEDS: Nicotine Polacrilex 2 MG GUM BUCCAL ×3 (12:07→21:20)
--- NOTE | 2022-11-25 12:10 | PC.NURSE ---
pt medicated per order for 10 abd pain
--- NOTE | 2022-11-25 12:15 | PC.NURSE ---
called floor to give report, nurse doing an admit and will call back to get report
[2022-11-25] MEDS: oxyCODONE HCl Immed Release 5 MG TABLET 10 MG PO ×3 (12:56→21:02)
--- NOTE | 2022-11-25 13:40 | PM.EVENT ---
Event Note Date of Service: 11/25/22 Event Note: Chart reviewed patient examined. Agree with assessment and plan as outlined. Exam fairly benign although patient states intense pain with any orals. Pain management adjusted will follow-up clinically Time Spent With Patient Time: Total time managing care of this patient today ____ minutes.
[2022-11-25 14:12] LABS: Lipase 1118 U/L (8-78)
[2022-11-25] MEDS: Acetaminophen 325 MG TABLET 650 MG PO (16:58)
[2022-11-25] MEDS: Melatonin 3 MG TABLET 6 MG PO (21:55)
[2022-11-26] MEDS: HYDROmorphone HCl 1 MG/ML SYRINGE IVPUSH ×8 (01:02→23:55)
[2022-11-26 03:28] VITALS: BP 104/67; PULSE 50; RESP 18; TEMP 36.4; O2SAT 98
[2022-11-26] MEDS: oxyCODONE HCl Immed Release 5 MG TABLET 10 MG PO ×5 (03:31→21:51)
[2022-11-26] MEDS: Nicotine Polacrilex 2 MG GUM BUCCAL ×6 (03:40→23:55)
[2022-11-26] MEDS: Lactated Ringers 1,000 ML 150 ML IVCONT ×4 (03:42→23:56)
[2022-11-26 05:52] LABS: MANUAL DIFF FLAG NO
[2022-11-26 05:58] LABS: Basophils Percent Auto 0.2 % (0-2); Eosinophils Absolute Auto 0.2 X10*3/uL (0.0-0.4); Eosinophils Percent Auto 3.4 % (0-4); Hematocrit 42.2 % (42.0-52.0); Hemoglobin 14.1 g/dl (14.0-18.0); Imm Gran Abs Auto 0.03 X10*3/uL (0.00-0.03); Imm Gran Pct Auto 0.5 % (0.0-0.4); Lymphocytes Absolute Auto 1.2 X10*3/uL (1.2-4.9); Lymphocytes Percent Auto 18.9 % (20-40); Mean Corpuscular HGB Conc 33.4 g/dl (31.0-36.0); Mean Corpuscular Hemoglobin 31.3 pg (27.0-33.0); Mean Corpuscular Volume 93.6 fL (80.0-98.0); Monocytes Absolute Auto 0.6 X10*3/uL (0.1-1.2); Monocytes Percent Auto 9.1 % (2-11); Neutrophils Absolute Auto 4.4 x10*3/uL (2.0-8.3); Neutrophils Percent Auto 67.9 % (45-73); Platelet Count 199 X10*3/uL (160-400); Red Blood Count 4.51 X10*6/uL (4.60-5.80); Red Cell Distribution Width 12.6 % (11.0-16.0); White Blood Count 6.4 X10*3/uL (4.8-10.8)
[2022-11-26 06:23] LABS: Alanine Aminotransferase 80 U/L (0-40); Albumin Level 3.3 g/dL (3.5-5.0); Alkaline Phosphatase 138 U/L (39-117); Anion Gap 10 (12-20); Aspartate Amino Transferase 80 U/L (5-37); Bilirubin Total 2.3 mg/dL (0.0-1.0); Blood Urea Nitrogen 5 mg/dL (9-16); Calcium 8.5 mg/dL (8.4-10.2); Carbon Dioxide 25 mmol/L (22-29); Chloride 107 mmol/L (96-108); Creatinine Clr Calc Pharmacy 206.6; Estimated Glomerular Filt Rate > 60; Glucose Fasting 98 mg/dL (60-99); Potassium 3.4 mmol/L (3.3-5.1); Sodium 139 mmol/L (135-145); Total Protein 5.5 g/dL (6.5-8.0)
[2022-11-26] MEDS: Acetaminophen 325 MG TABLET 650 MG PO (07:24)
[2022-11-26 07:31] VITALS: BP 137/84; PULSE 74; RESP 18; TEMP 36.6; O2SAT 96
[2022-11-26] MEDS: ondansetron HCL 4 MG/2 ML VIAL IVPUSH (07:52)
[2022-11-26 08:02] LABS: Lipase 331 U/L (8-78)
--- NOTE | 2022-11-26 11:17 | P.PNIM_ITS ---
Subjective Subjective Date of Service: 11/26/22 Interval History: A states essentially does not feel any different. Pain control adequate. Review of Systems Denies nausea of vomiting Denies shortness of breath Denies chest pain Admits to abdominal pain mid epigastric in nature Physical Exam Vital Signs: Vital Signs: Last Vital Signs Temp 97.8 F 11/26/22 07:31 Pulse 74 11/26/22 07:31 Resp 18 11/26/22 07:31 BP 137/84 11/26/22 07:31 Pulse Ox 96 11/26/22 07:31 O2 Del Method Room Air 11/26/22 07:31 BMI result Body Mass Index 27.0 Const: Other: Lying quietly in bed no acute distress Resp: Other: Clear to auscultation bilaterally no rales rhonchi wheezes Cardio: Other: No S4; positive S1-S2; no S3 murmurs or gallops GI: Other: Soft minimally tender over epigastrium. No overt peritoneal signs. Bowel sounds quiet Extrem: Other: No edema Objective Data Active Medications Acetaminophen (Acetaminophen 325 Mg Tablet) 650 mg PO Q6H PRN PRN Reason: Pain, Mild (Pain Scale 1-3) Last Admin: 11/26/22 07:24 Dose: 650 mg Documented By: BULL Enoxaparin Sodium (Enoxaparin Sodium 40 Mg/0.4 Ml Syringe) 40 mg SUBCUT 2200 [facility] Last Admin: 11/25/22 21:55 Dose: 40 mg Documented By: PIYUSH Hydromorphone HCl (Hydromorphone Hcl 1 Mg/Ml Syringe) 1 mg IVPUSH Q3H PRN; Protocol PRN Reason: Pain, Severe (Pain Scale 7-10) Last Admin: 11/26/22 08:36 Dose: 1 mg Documented By: FEDE Lactated Ringer's (Lr) 1,000 mls @ 150 mls/hr IVCONT .Q6H40M [facility] Last Admin: 11/26/22 10:12 Dose: 150 mls/hr Documented By: FEDE Melatonin (Melatonin 3 Mg Tablet) 6 mg PO BEDTIME PRN PRN Reason: Insomnia Last Admin: 11/25/22 21:55 Dose: 6 mg Documented By: PIYUSH Nicotine Polacrilex (Nicotine Polacrilex 2 Mg Gum) 2 mg BUCCAL Q1H PRN PRN Reason: Nicotine Cravings Last Admin: 11/26/22 03:40 Dose: 2 mg Documented By: JEANE Ondansetron HCl (Ondansetron Hcl 4 Mg/2 Ml Vial) 4 mg IVPUSH Q8H PRN PRN Reason: Nausea and Vomiting Last Admin: 11/26/22 07:52 Dose: 4 mg Documented By: FEDE Oxycodone HCl (Oxycodone Hcl Immed Release 5 Mg Tablet) 10 mg PO Q4H PRN PRN Reason: Pain, Moderate(Pain Scale 4-6) Last Admin: 11/26/22 07:24 Dose: 10 mg Documented By: BULL Pharmacy Consult (Consult Rx Perform Med Rec) 1 each MISCELLANE ONCE PRN PRN Reason: Consult order Sodium Chloride (0.9 % Sodium Chloride Flush 3 Ml Syringe) 3 ml IVFLUSH QSHIFT [facility] Last Admin: 11/26/22 07:25 Dose: Not Given Documented By: BULL Non-Admin Reason: IV Running Labs 11/26/22 05:06 11/26/22 05:06 Labs: Laboratory Results - last 24 hr 11/25/22 11/26/22 11/26/22 05:50 05:06 05:06 MCV 93.6 MCH 31.3 MCHC 33.4 RDW 12.6 Plt Count 199 MPV 10.0 Immature Gran % (Auto) 0.5 H Neut % (Auto) 67.9 Lymph % (Auto) 18.9 L [place] % (Auto) 9.1 Eos % (Auto) 3.4 Baso % (Auto) 0.2 Lymph # (Auto) 1.2 [place] # (Auto) 0.6 Eos # (Auto) 0.2 Baso # (Auto) 0.0 Abs Immat Gran (auto) 0.03 Absolute Neuts (auto) 4.4 Absolute Nucleated RBC 0.000 Nucleated RBC % (auto) 0.0 Anion Gap 10 L Estim Creat Clear Calc 206.6 Estimated GFR > 60 Fasting Glucose 98 Calcium 8.5 Total Bilirubin 2.3 H AST 80 H ALT 80 H Alkaline Phosphatase 138 H Total Protein 5.5 L Albumin 3.3 L Lipase 1118 H 331 H Microbiology Microbiology Results: Microbiology 11/25/22 00:26 Blood Culture - Preliminary Blood - Venous No growth after 24 hours. 05/25/23 00:26 Blood Culture - Preliminary Blood - Venous No growth after 24 hours. Assessment and Plan (1) Acute pancreatitis: Status: Acute (2) Alcohol use disorder: Status: Acute Plan This is a 37-year-old male with pertinent history of alcohol use disorder, mood disorder tobacco use disorder, marijuana use disorder who presents to the emergency department for evaluation of epigastric pain.? CT suggestive of pancreatitis; lipase greater than 3000. 1.Acute interstitial pancreatitis. -continue NPO.. LR 150/hr -cholestatic LFTs; check MRCP (no gall bag ) -GI consult 2.Tobacco use disorder -nicotine gum Lovenox 40 mg daily Full code Requires ongoing hospitalization for IV volume repletion in backdrop of NPO treating interstitial pancreatitis Time Spent With Patient Time: Total time managing care of this patient today ____ minutes. Quality Stroke Does the patient have a stroke diagnosis?: No VTE Prior VTE?: No VTE Risk Level:: Medical - moderate - high VTE Device Contraindication: Treatment Not Indicated VTE Drug Contraindication: N/A - Med Ordered
--- NOTE | 2022-11-26 11:17 | MHC.CM.PN ---
PT REPORTS HE LIVES ALONE AND IS INDEPENDENT WITH CARE HE DENIES USE OF DME OR SERVICES PT REPORTS HE DOES NOT HAVE A PCP HE IS NOT COVID VAX HE WILL CONSIDER COMPLETING A HCP NAMING HIS MOTHER HIS AGENT HE IS AWARE CM CAN ASSIST WITH HCP ANYTIME DURING ADMISSION CURRENT DC PLAN IS HOME VIA PRIVATE TRANSPORT
[2022-11-26] MEDS: LORazepam 2 MG/ML VIAL 1 MG IVPUSH (12:53)
[2022-11-26 16:00] VITALS: BP 119/69; PULSE 80; RESP 16; TEMP 35.9; O2SAT 96
[2022-11-26 19:19] VITALS: BP 115/67; PULSE 79; RESP 17; TEMP 36.4; O2SAT 93
--- NOTE | 2022-11-26 20:19 | P.EN_ITS ---
Event Note Date of Service: 11/26/22 Event Note: GI Consult-Full note dictated Imp: Recurrent pancreatitis despite what seems like a reliable history of sobriety since 06/2022. His w/u has been negative including TG levels, IgG subtyping, and MRCP's negative for any obvious biliary and pancreatic ductal disease processes. There is no pertinent family history and he has not been on any meds that would cause pancreatitis. He reports that he is feeling somewhat better since admission and his lipase is dropping. Rec: Supportive care, F/U labs, advance to a low fat diet as his pain and labs improve. I advised him that the next step in his w/u, if these episodes continue to occur, would be that of a possible Endoscopic U/S of the pancreas and ERCP. These would need to be done at a tertiary facility, such as one of the [facility] that he tends to use for medical care. D/W patient in detail and he is comfortable with this plan. Thanks Time Spent With Patient Time: Total time managing care of this patient today ____ minutes.
[2022-11-26] MEDS: Enoxaparin Sodium 40 MG/0.4 ML SYRINGE SUBCUT (21:02)
[2022-11-26] MEDS: Melatonin 3 MG TABLET 6 MG PO (21:53)
[2022-11-27] MEDS: oxyCODONE HCl Immed Release 5 MG TABLET 10 MG PO ×2 (01:51→06:28)
--- NOTE | 2022-11-27 01:51 | CONS_ITS ---
DATE OF SERVICE: 11/26/2022 REASON FOR CONSULTATION: Pancreatitis. HISTORY OF PRESENT ILLNESS: This has been obtained from the patient and the medical record. The patient is a 37-year-old male with a longstanding history of alcohol abuse, who presents with recurrent pancreatitis. I actually met the patient in August when he came in with abdominal pain. At that time his workup included an upper endoscopy and imaging studies which revealed a large paraesophageal hiatal hernia/thoracic stomach. At that time, he was unable to eat due to the large hernia, but he opted to leave the hospital. He did go to the [facility] in [place] where he had corrective surgery for that laparoscopically. He reports that since that surgery was done he has been able to the eat normally and comfortably. Unfortunately, he has continued to have episodes of pancreatitis despite what appears to be reliable description of sobriety from alcohol since June 2022. He describes a hospitalization in September at the [facility] for pancreatitis, and then was here in October for pancreatitis as well. He reports in between the episodes of pancreatitis, he tends to feel well and was doing well again up until the past few days when he began having abdominal pain prompting his ER visit. He was found to have an elevated lipase and imaging studies consistent with pancreatitis and was subsequently admitted. Since admission here he does report feeling better, although is still having some discomfort. He has been tolerating a clear liquid diet. He denies any further problems with nausea. He did have some small stools and passage of gas earlier today. He denies any urinary symptoms. He denies any known family history of pancreatitis nor pancreatic malignancy. He has not been using any medication other than occasional acetaminophen. In October, when he was here, he had normal triglycerides and IgG subtyping with a normal IgG4 level. CURRENT MEDICATIONS: At home include only acetaminophen and/or ibuprofen p.r.n. His medications here include acetaminophen p.r.n., Lovenox, hydromorphone p.r.n. melatonin p.r.n. Zofran p.r.n. oxycodone p.r.n. PAST MEDICAL HISTORY: Alcohol abuse with reported sobriety since June 2022. Pancreatitis. Hiatal hernia surgery done laparoscopically in [place] [employer] in [place]. Laparoscopic cholecystectomy. Laparoscopic repair of thoracic stomach this past August. He denies history of heart disease, diabetes, stroke, nor lung disease. 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 Sobriety from alcohol since June 2022. He does smoke. He uses occasional marijuana but denies any other drug use. FAMILY HISTORY: Noncontributory. REVIEW OF SYSTEMS: CONSTITUTIONAL: Up until the past few days, he had been feeling fairly well with good appetite. SKIN: No rash, no pruritus. HEENT: Negative. CARDIAC: No chest pain. PULMONARY: No cough, no hemoptysis. GI: As above. URINARY: No dysuria, no hematuria. NEUROLOGIC: No headache or seizures. PSYCHIATRIC: Negative. PHYSICAL EXAMINATION: GENERAL: The patient is a pleasant alert comfortable appearing male, in no distress. SKIN: Warm and dry. Nonjaundiced. Anicteric sclerae. Moist mucous membranes. NECK: Supple without lymphadenopathy. CHEST: Clear. CARDIAC: Normal S1, S2. ABDOMEN: Soft, nondistended. Normal bowel sounds. There is some mild epigastric tenderness to palpation without mass, rebound, or guarding. EXTREMITIES: Without edema. NEUROLOGIC: He is alert and oriented. LABORATORY DATA: White blood cell count 6.4, hemoglobin 14.1, platelets 199,000. Admission labs revealed a lipase of over 3000, triglyceride 206. Completely normal LFTs. Normal chemistries and renal function. Laboratories today revealed normal chemistries and renal function. His total bilirubin was 2.3, AST 80, ALT 80, and alkaline phosphatase 138 with an albumin 3.3. Lipase was down to 331. He did have an MRCP today describing a common bile duct of 7 mm without any sign of choledocholithiasis. There is no intrahepatic bile duct dilatation. There are some mild changes of pancreatitis with a small approximately 1 cm cyst in the head of the pancreas. This cyst appears smaller than a previous CT scan done earlier in the October. The pancreatic duct appeared normal. There is no splenomegaly nor other significant intraabdominal pathology. IMPRESSION: The patient presents with recurrent pancreatitis. His sobriety from alcohol does seem reliable. Given his clinical history, he may have some component of chronic pancreatitis with some pancreatic duct injury that is not visible on the MRCP. Other etiologies have been ruled out with triglyceride levels being normal and normal IgG4 levels. He does not appear to be on any medication that would cause pancreatitis, and there is no family history of pancreatic disease. At this point, I advised him that the best plan would be to continue supportive care, follow his laboratories, and advance him to a low-fat diet as tolerated. I did review with him in detail that if these episodes continue to occur while sober from alcohol, I think the next step would be that of an endoscopic ultrasound of the pancreas and possible ERCP to further evaluate for any changes of pancreatitis due to chronic pancreatitis and pancreatic duct injury from his alcohol use, pancreatic duct disease such as strictures or stones, and to rule out the very unlikely possibility of a pancreatic neoplasm. I do not think these studies need to be done urgently, but certainly if his problems persist in this regard, then I would recommend they be done at a tertiary facility such as one of the [facility] that he tends to use for his medical care or we could arrange that for him at either [facility] or another facility. He does have followup laboratories ordered for the morning and again if he continues to improve here in regard to his pain and laboratories then his diet can be advanced to low fat. This has all been reviewed in detail with the patient, and he is comfortable with this plan. Thank you for the consultation. MD STONE Lopes/EDYTA / [id number]
[2022-11-27 03:16] VITALS: BP 113/70; PULSE 67; RESP 16; TEMP 36.5; O2SAT 92
[2022-11-27] MEDS: HYDROmorphone HCl 1 MG/ML SYRINGE IVPUSH ×2 (04:02→07:29)
[2022-11-27 06:22] LABS: MANUAL DIFF FLAG NO
[2022-11-27] MEDS: Nicotine Polacrilex 2 MG GUM BUCCAL (06:28)
[2022-11-27 06:29] LABS: Basophils Percent Auto 0.5 % (0-2); Eosinophils Absolute Auto 0.4 X10*3/uL (0.0-0.4); Eosinophils Percent Auto 6.7 % (0-4); Hematocrit 43.4 % (42.0-52.0); Hemoglobin 14.4 g/dl (14.0-18.0); Imm Gran Abs Auto 0.01 X10*3/uL (0.00-0.03); Imm Gran Pct Auto 0.2 % (0.0-0.4); Lymphocytes Absolute Auto 1.8 X10*3/uL (1.2-4.9); Lymphocytes Percent Auto 29.4 % (20-40); Mean Corpuscular HGB Conc 33.2 g/dl (31.0-36.0); Mean Corpuscular Hemoglobin 31.3 pg (27.0-33.0); Mean Corpuscular Volume 94.3 fL (80.0-98.0); Mean Platelet Volume 9.9 fL (9.4-12.4); Monocytes Absolute Auto 0.7 X10*3/uL (0.1-1.2); Monocytes Percent Auto 10.4 % (2-11); Neutrophils Absolute Auto 3.3 x10*3/uL (2.0-8.3); Neutrophils Percent Auto 52.8 % (45-73); Platelet Count 202 X10*3/uL (160-400); Red Cell Distribution Width 12.7 % (11.0-16.0); White Blood Count 6.3 X10*3/uL (4.8-10.8)
[2022-11-27 06:42] LABS: Lipase 56 U/L (8-78)
[2022-11-27 06:48] LABS: Alanine Aminotransferase 72 U/L (0-40); Albumin Level 3.7 g/dL (3.5-5.0); Alkaline Phosphatase 201 U/L (39-117); Anion Gap 10 (12-20); Aspartate Amino Transferase 55 U/L (5-37); Bilirubin Total 2.1 mg/dL (0.0-1.0); Blood Urea Nitrogen 3 mg/dL (9-16); Calcium 9.1 mg/dL (8.4-10.2); Carbon Dioxide 30 mmol/L (22-29); Chloride 105 mmol/L (96-108); Creatinine Clr Calc Pharmacy 173.7; Estimated Glomerular Filt Rate > 60; Glucose Fasting 81 mg/dL (60-99); Potassium 3.8 mmol/L (3.3-5.1); Sodium 141 mmol/L (135-145); Total Protein 6.1 g/dL (6.5-8.0)
[2022-11-27 07:19] VITALS: BP 98/59; PULSE 60; RESP 17; TEMP 36.3; O2SAT 95
[2022-11-27] MEDS: Lactated Ringers 1,000 ML 150 ML IVCONT (07:35)
--- NOTE | 2022-11-27 10:51 | P.DS_ITS ---
DS: Providers Provider Date of Service: 11/27/22 Date of admission: 11/25/22 00:21 Date of discharge: 11/27/22 Primary care physician: None Physician Consults: 11/26/22 08:17 Consult to Gastroenterology Routine Consulting Provider: [place] Brito Reason for consultation: Recurrent pancreatitis Has provider been notified: No DS: Diagnosis Discharge Diagnosis (1) Acute pancreatitis: Status: Acute (2) Alcohol use disorder: Status: Acute DS: Summary Hospital Course Hospital Course: 37-year-old male with pertinent history of alcohol use disorder, mood disorder tobacco use disorder, marijuana use disorder who presents to the emergency department for evaluation of epigastric pain.? Patient states that the epigastric pain was sudden in onset and started around afternoon.? It has been progressive, constant and radiating to the back.? Has been having dry heaving and nausea.? Unable to tolerate p.o. intake.? Denies fever and chills.?States his last alcoholic drink was in June,.? He denies chest discomfort, palpitations, shortness of breath, changes in urinary or bowel habits.? Of note, patient was admitted on 10/10/22 and discharged on 10/14 with acute interstitial pancreatitis Hospital Course Patient admitted to general medical floor and kept NPO. He was optimized with pain management and over the 1st 24 hours developed a cholestatic pattern to his LFTs in the absence of the gallbladder. MRCP demonstrated a prominent pancreas with peripancreatic fat stranding and small amount of fluid. This was suggestive acute pancreatitis. There was no biliary ductal dilatation noted and no common bile duct stone noted. Consult was placed to GI who recommended advancing to low-fat diet and follow-up as outpatient. If this is a recurrent phenomenon, GI suggested tertiary care evaluation with endoscopic ultrasound. Patient is aware of these recommendations and will work to obtain a PCP Time Spent with Patient Time attestation: Total time managing care of this patient today ____ minutes. Discharge coordination time: Greater than 30 minutes Quality: Safe Use of Opioids Does Pt have an Active Cancer Diagnosis on the Problem List?: No Quality: Stroke Does the patient have a stroke diagnosis?: No Physical Exam Vital Signs: Vital Signs: Last Vital Signs Temp 97.3 F 11/27/22 07:19 Pulse 60 11/27/22 07:19 Resp 17 11/27/22 07:19 BP 98/59 L 11/27/22 07:19 Pulse Ox 95 11/27/22 07:19 O2 Del Method Room Air 11/27/22 07:19 BMI result Body Mass Index 27.0 Const: Other: Lying quietly in bed no acute distress Resp: Other: Clear to auscultation bilaterally no rales rhonchi wheezes Cardio: Other: No S4; positive S1-S2; no S3 murmurs or gallops GI: Other: Soft minimally tender over epigastrium. No overt peritoneal signs. Bowel sounds quiet Extrem: Other: No edema DS: Data Data Completed and Pending Completed studies during hospitalization [Text1]: Procedures Detoxification Services for Substance Abuse Treatment (06/22/22) Inspection of Upper Intestinal Tract, Via Natural or Artificial Opening Endoscopic (08/09/22) Labs on day of discharge: Laboratory Results - last 24 hr 11/27/22 11/27/22 11/27/22 06:18 06:18 06:18 WBC 6.3 RBC 4.60 Hgb 14.4 Hct 43.4 MCV 94.3 MCH 31.3 MCHC 33.2 RDW 12.7 Plt Count 202 MPV 9.9 Immature Gran % (Auto) 0.2 Neut % (Auto) 52.8 Lymph % (Auto) 29.4 [place] % (Auto) 10.4 Eos % (Auto) 6.7 H Baso % (Auto) 0.5 Lymph # (Auto) 1.8 [place] # (Auto) 0.7 Eos # (Auto) 0.4 Baso # (Auto) 0.0 Abs Immat Gran (auto) 0.01 Absolute Neuts (auto) 3.3 Absolute Nucleated RBC 0.000 Nucleated RBC % (auto) 0.0 Sodium 141 Potassium 3.8 Chloride 105 Carbon Dioxide 30 H Anion Gap 10 L BUN 3 L Creatinine 0.69 Estim Creat Clear Calc 173.7 Estimated GFR > 60 Fasting Glucose 81 Calcium 9.1 D Total Bilirubin 2.1 H Direct Bilirubin 1.0 H AST 55 H ALT 72 H Alkaline Phosphatase 201 H Total Protein 6.1 L Albumin 3.7 Lipase 56 Preliminary micro results at discharge 11/25/22 00:26 Blood Culture - Preliminary Blood - Venous No growth after 48 hours. 11/25/22 00:26 Blood Culture - Preliminary Blood - Venous No growth after 48 hours. Discharge Plan Discharge Anticipated Discharge Date/Time: 11/27/22 10:47 Patient Disposition: Home, Self-Care Discharge Diagnosis: Acute pancreatitis Referrals: Physician,None [Primary Care Provider] - 1 Week Discharge Medications: New oxycodone 5 mg Tablet 10 mg PO Q4H PRN (Reason: Pain, Moderate(Pain Scale 4-6)) Qty: 20 0RF Rx Instructions: Partial Fill upon patient request. Continued acetaminophen 500 mg Tablet 1,000 mg PO Q6H PRN (Reason: Pain) ibuprofen 200 mg Tablet 400 mg PO Q8H PRN (Reason: Pain) Discharge Orders: Discharge Order (Routine); Ordered 11/27/22 Ordered By: Beto Shi Diet: Advance to usual diet Activity on Discharge: As tolerated Stand Alone Forms: Patient Portal Discharge page Care Plan Goals: Continue low-fat diet as best you can. Oxycodone sparingly for pain Health Concerns: Need to find a primary care to follow up with Plan of Treatment: Wound ultimately need GI workup after he find a primary care Assessment: See discharge summary
--- NOTE | 2022-11-27 12:22 | MHC.CM.PN ---
PT WILL DC HOME TODAY WITH NO SERVICES VIA FAMILY TRANSPORT
== END 2022-11-27 11:31 | disposition home or self-care (01) | DRG 440 ==
LOC: HO.ED 11-25 01:00 → HO.EDOVER 11-25 04:45 → HO.S3 11-25 12:11
PROVIDERS: Physician Assistant; Admitting Provider Student in an Organized Health Care Education/Training Program; Emergency Provider Internal Medicine; Visit Provider Hospitalist
DX: K85.80 Other acute pancreatitis without necrosis or infection (principal); F17.210 Nicotine dependence, cigarettes, uncomplicated; F12.10 Cannabis abuse, uncomplicated; F10.21 Alcohol dependence, in remission; Z71.6 Tobacco abuse counseling
CPT/HCPCS: 36415; 74177; 74181; 80048; 80053; 80076; 80307; 83605; 83690; 84478; 85025; 87040; 99285; J1170; J1650; J2060; J2270; J2405; J2765; Q9967

== ENCOUNTER 2023-02-10 21:33 | Inpatient (IN) | payer OTHER, SELFPAY ==
--- NOTE | ~2023-02-10 | CT_ITS ---
EXAMINATION: CT ABDOMEN AND PELVIS WITH CONTRAST CLINICAL INFORMATION: Pancreatitis. COMPARISON: 11/25/2022. TECHNIQUE: Multidetector volumetric images were obtained from the superior aspect of the liver through the pubic symphysis following administration 85 mL of Omnipaque 350 intravenous contrast. Sagittal and coronal reformatted images were obtained on the technologist's workstation. Oral contrast: No This CT examination was performed using dose optimization techniques as appropriate, variously including the following: *Automated exposure control *Adjustment of mA and/or kV according to patient size (this includes techniques or standardized protocols for targeted exams where dose is matched to indication/reason for exam; i.e. extremities or head) *Use of iterative reconstruction technique DLP: 548 mGy-cm FINDINGS: LUNG BASES: The visualized lung bases are unremarkable. LIVER, GALLBLADDER, AND BILIARY TREE: The liver is normal in size, shape, and attenuation. No focal hepatic lesion or biliary ductal dilatation is present. There has been a prior cholecystectomy. PANCREAS: There is a 3 cm low-density structure within the pancreatic head with [id number]-nrtrhpeelzkw Hounsfield values up to 16. SPLEEN: Unremarkable. ADRENAL GLANDS: Unremarkable. KIDNEYS AND URETERS: The kidneys are normal in size, shape, and attenuation. No hydronephrosis, hydroureter, or calculi seen. No perinephric stranding. Scattered small bilateral renal cysts are again seen the largest measuring 1.5 cm upper pole right kidney. BLADDER: Unremarkable. GASTROINTESTINAL TRACT: The small and large bowel are unremarkable. The appendix is unremarkable. There are apparent surgical clips at the gastroesophageal junction with apparent edema at the gastroesophageal junction similar to previous. ABDOMINAL WALL: No significant hernia is appreciated. LYMPH NODES: Normal. VASCULAR: Unremarkable. PELVIC VISCERA: Unremarkable. OSSEOUS STRUCTURES: Unremarkable. CT/CT abdomen pelvis w IV con IMPRESSION: There is a 3 cm low-density structure within the pancreatic head with [id number] Hounsfield unit values likely a pancreatic /pseudocyst. A 1.6 cm similar structure was seen at the pancreatic head on prior. Significant interval improvement of the peripancreatic infiltration seen on prior. Apparent postprocedural change of the gastroesophageal junction similar to previous No other significant abnormality seen. Fleischner guidelines were followed.
[2023-02-10 21:58] VITALS: BP 120/88; BP 132/84; PULSE 108; PULSE 98; RESP 20; TEMP 36.7; O2SAT 97; O2SAT 99; BMI 27.6
[2023-02-10 22:22] LABS: MANUAL DIFF FLAG NO
[2023-02-10 22:24] LABS: Basophils Percent Auto 0.3 % (0-2); Eosinophils Absolute Auto 0.6 X10*3/uL (0.0-0.4); Eosinophils Percent Auto 4.3 % (0-4); Imm Gran Abs Auto 0.06 X10*3/uL (0.00-0.03); Imm Gran Pct Auto 0.5 % (0.0-0.4); Lymphocytes Absolute Auto 2.1 X10*3/uL (1.2-4.9); Lymphocytes Percent Auto 16.2 % (20-40); Mean Corpuscular HGB Conc 34.5 g/dl (31.0-36.0); Mean Corpuscular Hemoglobin 31.8 pg (27.0-33.0); Mean Platelet Volume 8.7 fL (9.4-12.4); Monocytes Absolute Auto 0.9 X10*3/uL (0.1-1.2); Monocytes Percent Auto 7.3 % (2-11); Neutrophils Absolute Auto 9.1 x10*3/uL (2.0-8.3); Neutrophils Percent Auto 71.4 % (45-73); Platelet Count 421 X10*3/uL (160-400); Red Blood Count 5.98 X10*6/uL (4.60-5.80); Red Cell Distribution Width 12.3 % (11.0-16.0); White Blood Count 12.8 X10*3/uL (4.8-10.8)
[2023-02-10 22:40] LABS: Alanine Aminotransferase 189 U/L (0-40); Albumin Level 5.2 g/dL (3.5-5.0); Alkaline Phosphatase 244 U/L (39-117); Anion Gap 17 (12-20); Aspartate Amino Transferase 85 U/L (5-37); Bilirubin Direct 0.4 mg/dL (0.0-0.5); Bilirubin Total 1.1 mg/dL (0.0-1.0); Blood Urea Nitrogen 9 mg/dL (9-16); Calcium 11.7 mg/dL (8.4-10.2); Carbon Dioxide 24 mmol/L (22-29); Chloride 100 mmol/L (96-108); Estimated Glomerular Filt Rate > 60; Glucose Random 98 mg/dL (60-115); Potassium 3.5 mmol/L (3.3-5.1); Sodium 137 mmol/L (135-145); Total Protein 9.5 g/dL (6.5-8.0)
[2023-02-10 23:48] VITALS: BP 111/85; PULSE 92; RESP 16; TEMP 36.9; O2SAT 98
[2023-02-11] VITALS (7 sets, daily range): BP systolic 105–126; BP diastolic 72–82; PULSE 47–65; RESP 16–18; TEMP 36.3–36.9; O2SAT 94–99; BMI 25.8
--- NOTE | 2023-02-11 00:33 | ED.ABDPAIN ---
HPI - Abdominal Pain General Chief Complaint: Abdominal Pain Stated Complaint: abd pain, per ems Time Seen by Provider: 02/11/23 00:18 Source: patient Mode of arrival: ambulatory Limitations: no limitations History of Present Illness HPI narrative: Patient with history of pancreatitis since 2014 due to alcohol use which he stopped drinking in 06/24 but is still having pancreatitis. In 2022 had 7 episodes of pancreatitis patient was seen at [facility] 2 days ago and discharge as the labs were normal comes back as pain continuing in epigastric area radiating to the back with nausea and vomiting. No fever no chills no abdominal distention Related Data Allergies Allergy/AdvReac Type Severity Reaction Status Date / Time No Known Allergies Allergy Verified 10/10/22 09:10 [No Known Allergies*] Review of Systems Review of Systems Yes all other systems are reviewed and are negative [facility] Past Medical History Medical History Alcohol dependence with withdrawal Pancreatitis Social History Social History Household Members: None Housing: House Do you presently have visiting nurse or other home services: No Alcohol intake: former Patient Tobacco Use Status: Current everyday Tobacco user Tobacco use type: Cigarette Cigarette Packs Per Day: 1 Cigarettes Per Day: 20.0 Years Smoked: 20 Second Hand Smoke Exposure: No Substance Use Type: Marijuana Advance Directives: No Advance Directives Information Provided: No service: Yes Current occupational status: employed Physical Exam ED Vital Signs: Vital Signs - 24 hr 02/10/23 21:58 02/10/23 23:48 02/11/23 01:23 Temperature 98.0 F 98.5 F Pulse Rate 98 92 Respiratory Rate 20 16 18 Blood Pressure 120/88 111/85 Pulse Oximetry 99 98 Oxygen Delivery Method Room Air Room Air 02/11/23 02:35 02/11/23 02:48 02/11/23 02:48 Temperature 97.5 F 98.5 F Pulse Rate 51 65 Respiratory Rate 18 18 18 Blood Pressure 119/80 105/78 Pulse Oximetry 98 Oxygen Delivery Method Room Air BMI result Body Mass Index 27.6 Appearance: Alert. Oriented X3. No acute distress. Eyes: PERRLA, No Nystagmus ENT: Pharynx normal. Oral Mucosa moist Neck: Normal inspection. Neck supple. CVS: Normal heart rate and rhythm. Pulses normal. Respiratory: No respiratory distress. Equal air entry bilateral, no wheezing/rales/rhonchi Abdomen: Soft , tender in epigastric area no rebound tenderness or guarding. Bowel sounds are present, no mass palpable, no CVA tenderness Skin: Skin warm and dry. Normal skin color. Normal skin turgor. Extremities: No lower extremity edema. No calf tenderness Neuro: Oriented X 3. No motor deficit. No sensory deficit.No cerebellar signs , cranial nerves II-XII intact Medical Decision Making Medical Decision Making [facility] Narrative: Patient with recurrent pancreatitis /chronic pancreatitis had a small cyst in the pancreatic head which was 1.6 cm in 11/23 now is increased to 3 cm with no surrounding inflammation lipase is normal left is normal patient is still complaining of pain will admit patient for pain control IV hydration and GI consultation Differential Diagnosis Differential Diagnoses: The differential diagnosis associated with the presentation includes Pancreatitis/pancreatic cyst/pancreatic mass Consult Healthcare Provider Management of the patient was discussed with: Hospitalist Lab Data [facility] Lab Attestation statement: I reviewed the patient's lab results. 02/10/23 22:14 02/10/23 22:14 Labs: Lab Results 02/10/23 02/10/23 Range/Units 22:14 22:14 WBC 12.8 H (4.8-10.8) X10*3/uL RBC 5.98 H D (4.60-5.80) X10*6/uL Hgb 19.0 H D (14.0-18.0) g/dl Hct 55.0 H D (42.0-52.0) % MCV 92.0 (80.0-98.0) fL MCH 31.8 (27.0-33.0) pg MCHC 34.5 (31.0-36.0) g/dl RDW 12.3 (11.0-16.0) % Plt Count 421 H D (160-400) X10*3/uL MPV 8.7 L (9.4-12.4) fL Immature Gran % (Auto) 0.5 H (0.0-0.4) % Neut % (Auto) 71.4 (45-73) % Lymph % (Auto) 16.2 L (20-40) % [place] % (Auto) 7.3 (2-11) % Eos % (Auto) 4.3 H (0-4) % Baso % (Auto) 0.3 (0-2) % Lymph # (Auto) 2.1 (1.2-4.9) X10*3/uL [place] # (Auto) 0.9 (0.1-1.2) X10*3/uL Eos # (Auto) 0.6 H (0.0-0.4) X10*3/uL Baso # (Auto) 0.0 (0.0-0.2) X10*3/uL Abs Immat Gran (auto) 0.06 H (0.00-0.03) X10*3/uL Absolute Neuts (auto) 9.1 H (2.0-8.3) x10*3/uL Absolute Nucleated RBC 0.000 (0.0-0.012) X10*3/uL Nucleated RBC % (auto) 0.0 (0.0-0.2) /100WBC Sodium 137 (135-145) mmol/L Potassium 3.5 (3.3-5.1) mmol/L Chloride 100 (96-108) mmol/L Carbon Dioxide 24 (22-29) mmol/L Anion Gap 17 (12-20) BUN 9 (9-16) mg/dL Creatinine 1.07 (0.5-1.4) mg/dL Estim Creat Clear Calc 112.0 Estimated GFR > 60 Random Glucose 98 (60-115) mg/dL Calcium 11.7 H D (8.4-10.2) mg/dL Total Bilirubin 1.1 H (0.0-1.0) mg/dL Direct Bilirubin 0.4 (0.0-0.5) mg/dL AST 85 H (5-37) U/L ALT 189 H (0-40) U/L Alkaline Phosphatase 244 H (39-117) U/L Total Protein 9.5 H (6.5-8.0) g/dL Albumin 5.2 H (3.5-5.0) g/dL Lipase 55 (8-78) U/L Radiology Impression Discussion of test interpretation with radiology: I have reviewed the radiologist's reading. Radiologist Impression: CT/CT abdomen pelvis w IV con IMPRESSION: There is a 3 cm low-density structure within the pancreatic head with vry-ji-jebrkiimwpta Hounsfield unit values likely a pancreatic /pseudocyst. A 1.6 cm similar structure was seen at the pancreatic head on prior. ? Significant interval improvement of the peripancreatic infiltration seen on prior. ? Apparent postprocedural change of the gastroesophageal junction similar to previous ? No other significant abnormality seen. ? Fleischner guidelines were followed Medications Administered Generic Name Dose Route Start Last Admin Trade Name Freq PRN Reason Stop Dose Admin Hydromorphone HCl 0.5 mg 02/11/23 04:49 02/11/23 05:13 Hydromorphone Hcl 0.5 Mg/0.5 Ml Syringe IVPUSH 0.5 mg Q4H PRN Administration Pain, Severe (Pain Scale 7-10) Protocol Lactated Ringer's 1,000 mls @ 150 mls/hr 02/11/23 05:00 02/11/23 05:17 Lr IVCONT 150 mls/hr .Q6H40M GRIFFIN Administration Ondansetron HCl 4 mg 02/11/23 04:49 02/11/23 05:14 Ondansetron Hcl 4 Mg/2 Ml Vial IVPUSH 4 mg Q8H PRN Administration Nausea and Vomiting Discontinued Medications Generic Name Dose Route Start Last Admin Trade Name Freq PRN Reason Stop Dose Admin Hydromorphone HCl 2 mg 02/11/23 00:34 02/11/23 01:23 Hydromorphone Hcl 2 Mg/Ml Vial IVPUSH 02/11/23 00:35 2 mg ONCE ONE Administration Protocol Hydromorphone HCl 1 mg 02/11/23 02:37 02/11/23 02:48 Hydromorphone Hcl 1 Mg/Ml Syringe IVPUSH 02/11/23 02:38 1 mg ONCE ONE Administration Protocol Sodium Chloride 1,000 mls @ 999 mls/hr 02/11/23 00:34 02/11/23 03:50 Ns IV 02/11/23 01:34 Infused .Q1H1M ONE Infusion Iohexol 85 ml 02/11/23 02:04 02/11/23 02:05 Iohexol 350 Mg/Ml 100 Ml Infus..Btl IV 02/11/23 02:05 85 ml ONCE ONE Administration Ondansetron HCl 4 mg 02/11/23 00:34 02/11/23 01:23 Ondansetron Hcl 4 Mg/2 Ml Vial IVPUSH 02/11/23 00:35 4 mg ONCE ONE Administration Discharge Plan Discharge Clinical Impression: Pancreatitis Patient Disposition: Admitted As Inpatient
[2023-02-11 00:54] LABS: Lipase 55 U/L (8-78)
[2023-02-11] MEDS: HYDROmorphone HCl 2 MG/ML VIAL IVPUSH (01:23)
[2023-02-11] MEDS: ondansetron HCL 4 MG/2 ML VIAL IVPUSH ×2 (01:23→05:14)
[2023-02-11] MEDS: 0.9 % Sodium Chloride 1,000 ML 999 ML IV (01:23)
[2023-02-11] MEDS: iohexoL 350 MG/ML 100 ML INFUS..BTL 85 ML IV (02:05)
[2023-02-11] MEDS: HYDROmorphone HCl 1 MG/ML SYRINGE IVPUSH ×3 (02:48→13:58)
--- NOTE | 2023-02-11 03:53 | PC.NURSE ---
Report received from off-going RN at 0300 hours.
--- NOTE | 2023-02-11 03:53 | PC.NURSE ---
Pt is alert and oriented, resting in bed, but reports ongoing pain, rated 6/10. Girlfriend at bedside. Pt reassured and call light within reach. Pt to be admitted. Will continue to monitor.
--- NOTE | 2023-02-11 04:42 | PC.NURSE ---
Pt is easily arousable with verbal stimuli. Pt is resting in bed, and intermittently sleeping. When asked, pt reports ongoing pain. Pt was seen by the hospitalist and is pending admission. Will continue to follow.
--- NOTE | 2023-02-11 04:51 | P.HPHOSP_ITS ---
History of Present Illness Date of Service: 02/11/23 Chief Complaint: Abdominal pain 37-year-old male with history of recurrent acute pancreatitis, history of alcohol abuse last drink was in June, comes into the hospital complaints of abdominal pain. Pain is in the epigastric region, started on Tuesday, associated with nausea vomiting, pain is 10/10, radiating to the back, relieved only with IV medications, worse with movement and eating. Patient also reports decreased oral intake as a result of the pain. Denies any chest pain, shortness of breath, no cough, no urinary symptoms and no lower extremity edema On arrival to the ED patient hemodynamically stable Labs are significant for WBC count of 12.8, hemoglobin of 19, hematocrit 55, calcium of 11.7, ALT of 189, AST of 85, alk-phos of 244, Abdomen pelvic CT shows 3 cm low-density structure within the pancreatic head with low to intermediate Hounsfield unit likely a pancreatic pseudocyst, that has increased from 1.6 on previous imaging, no other abnormality Patient reports significant pain, intractable only responsive to IV analgesics, patient will be admitted for further management. Patient also not tolerating p.o. intake Review of Systems Review of Systems: Yes all other systems are reviewed and are negative [facility] Medical History Alcohol dependence with withdrawal Pancreatitis Social History Household Members: None Housing: House Do you presently have visiting nurse or other home services: No Alcohol intake: former Patient Tobacco Use Status: Current everyday Tobacco user Tobacco use type: Cigarette Cigarette Packs Per Day: 1 Cigarettes Per Day: 20.0 Years Smoked: 20 Second Hand Smoke Exposure: No Substance Use Type: Marijuana Advance Directives: No Advance Directives Information Provided: No service: Yes Current occupational status: employed Meds Allergies Allergy/AdvReac Type Severity Reaction Status Date / Time No Known Allergies Allergy Verified 10/10/22 09:10 [No Known Allergies*] Physical Exam Vital Signs and Narrative: Vital Signs: Last Vital Signs Temp 98.5 F 02/11/23 02:48 Pulse 65 02/11/23 02:48 Resp 18 02/11/23 02:48 BP 105/78 02/11/23 02:48 Pulse Ox 98 02/11/23 02:35 O2 Del Method Room Air 02/11/23 02:35 BMI result Body Mass Index 27.6 Const: General: cooperative and no acute distress Orientation/consciousness: patient oriented x3 Eyes: General: appearance normal, both eyes and all related structures Resp: Effort & Inspection: normal respiratory effort Auscultation: clear to auscultation bilaterally Cardio: Rate: regular rate Rhythm: regular rhythm GI: Other: Epigastric tenderness no rebound or guarding Palpation (GI): Soft to palpation Auscultation: normal bowel sounds Skin: General skin exam: no rashes or lesions noted Neuro: General: patient oriented x3 Cognition (Neuro): normal cognition Extrem: General: Yes no pedal edema Results Labs 02/10/23 22:14 02/10/23 22:14 Labs: Laboratory Results - last 24 hr 02/10/23 02/10/23 22:14 22:14 MCV 92.0 MCH 31.8 MCHC 34.5 RDW 12.3 Plt Count 421 H D MPV 8.7 L Immature Gran % (Auto) 0.5 H Neut % (Auto) 71.4 Lymph % (Auto) 16.2 L [place] % (Auto) 7.3 Eos % (Auto) 4.3 H Baso % (Auto) 0.3 Lymph # (Auto) 2.1 [place] # (Auto) 0.9 Eos # (Auto) 0.6 H Baso # (Auto) 0.0 Abs Immat Gran (auto) 0.06 H Absolute Neuts (auto) 9.1 H Absolute Nucleated RBC 0.000 Nucleated RBC % (auto) 0.0 Anion Gap 17 Estim Creat Clear Calc 112.0 Estimated GFR > 60 Random Glucose 98 Calcium 11.7 H D Total Bilirubin 1.1 H Direct Bilirubin 0.4 AST 85 H ALT 189 H Alkaline Phosphatase 244 H Total Protein 9.5 H Albumin 5.2 H Lipase 55 Imaging Radiologist's Impressions: Impressions Abdomen/Pelvis CT 02/11/23 02:05 IMPRESSION: There is a 3 cm low-density structure within the pancreatic head with mwh-no-yytyvfqpfhir Hounsfield unit values likely a pancreatic /pseudocyst. A 1.6 cm similar structure was seen at the pancreatic head on prior. Significant interval improvement of the peripancreatic infiltration seen on prior. Apparent postprocedural change of the gastroesophageal junction similar to previous No other significant abnormality seen. Fleischner guidelines were followed. Assessment and Plan (1) Pancreatitis: Status: Acute (2) Pancreatic pseudocyst: Status: Acute Plan 37-year-old male with past medical history of alcohol abuse, reports no longer drinking since June comes into the hospital with epigastric abdominal pain # epigastric abdominal pain/acute pancreatitis/pancreatic pseudocyst - normal lipase, - abdominal pelvic CT shows a growing pseudocyst from 1.63 cm, - will treat with IV fluids, NPO, - given the increase in size of the pseudocyst will consult ID, there is no evidence of acute infection, has no leukocytosis, afebrile - resume diet as tolerated DVT prophylaxis: Early ambulation Given patient's intractable abdominal pain secondary to acute pancreatitis patient require minimum 2 nights inpatient hospital stay for further management and monitoring Time Spent With Patient Time: Total time managing care of this patient today ____ minutes. Quality Stroke Does the patient have a stroke diagnosis?: No VTE Prior VTE?: No VTE Risk Level:: Medical - low VTE Device Contraindication: Treatment Not Indicated VTE Drug Contraindication: Treatment Not Indicated
[2023-02-11] MEDS: HYDROmorphone HCl 0.5 MG/0.5 ML SYRINGE IVPUSH (05:13)
[2023-02-11] MEDS: Lactated Ringers 1,000 ML 150 ML IVCONT (05:17)
[2023-02-11 05:48] LABS: MANUAL DIFF FLAG NO
[2023-02-11] MEDS: Enoxaparin Sodium 40 MG/0.4 ML SYRINGE SUBCUT (06:08)
[2023-02-11 06:15] LABS: Anion Gap 13 (12-20); Blood Urea Nitrogen 10 mg/dL (9-16); Calcium 10.5 mg/dL (8.4-10.2); Carbon Dioxide 26 mmol/L (22-29); Chloride 101 mmol/L (96-108); Creatinine Clr Calc Pharmacy 144.4; Estimated Glomerular Filt Rate > 60; Glucose Random 126 mg/dL (60-115); Potassium 3.9 mmol/L (3.3-5.1); Sodium 136 mmol/L (135-145)
[2023-02-11 06:25] LABS: Basophils Percent Auto 0.4 % (0-2); Eosinophils Absolute Auto 0.4 X10*3/uL (0.0-0.4); Eosinophils Percent Auto 3.2 % (0-4); Hematocrit 50.5 % (42.0-52.0); Hemoglobin 17.3 g/dl (14.0-18.0); Imm Gran Abs Auto 0.04 X10*3/uL (0.00-0.03); Imm Gran Pct Auto 0.4 % (0.0-0.4); Lymphocytes Absolute Auto 1.9 X10*3/uL (1.2-4.9); Lymphocytes Percent Auto 17.4 % (20-40); Mean Corpuscular HGB Conc 34.3 g/dl (31.0-36.0); Mean Corpuscular Hemoglobin 31.7 pg (27.0-33.0); Mean Corpuscular Volume 92.5 fL (80.0-98.0); Mean Platelet Volume 9.1 fL (9.4-12.4); Monocytes Absolute Auto 0.9 X10*3/uL (0.1-1.2); Monocytes Percent Auto 8.1 % (2-11); Neutrophils Absolute Auto 7.9 x10*3/uL (2.0-8.3); Neutrophils Percent Auto 70.5 % (45-73); Platelet Count 391 X10*3/uL (160-400); Red Blood Count 5.46 X10*6/uL (4.60-5.80); Red Cell Distribution Width 12.5 % (11.0-16.0); White Blood Count 11.1 X10*3/uL (4.8-10.8)
--- NOTE | 2023-02-11 07:33 | PHA.MEDREC ---
PATIENT STATES HE TAKES NO MEDICATIONS Pharmacy Consult ? Medication Reconciliation Pharmacy has completed the medication reconciliation.
[2023-02-11] MEDS: Morphine Sulfate 4 MG/ML CARTRIDGE IVPUSH (07:35)
[2023-02-11] MEDS: Acetaminophen 325 MG TABLET 650 MG PO (07:38)
--- NOTE | 2023-02-11 07:42 | PC.NURSE ---
patient resting in bed, requested more pain meds. utilized patients prn order of morphine and tylenol. patient respirations equal and unlabored, call ball within reach able to make his needs known
[2023-02-11 09:31] LABS: Alanine Aminotransferase 186 U/L (0-40); Albumin Level 4.5 g/dL (3.5-5.0); Alkaline Phosphatase 239 U/L (39-117); Aspartate Amino Transferase 177 U/L (5-37); Bilirubin Direct 0.5 mg/dL (0.0-0.5); Bilirubin Total 0.9 mg/dL (0.0-1.0); Total Protein 8.1 g/dL (6.5-8.0)
[2023-02-11] MEDS: Lactated Ringers 1,000 ML 200 ML IVCONT ×2 (11:26→16:35)
--- NOTE | 2023-02-11 11:32 | MHC.CM.PN ---
Attempted to meet with patient in regards to discharge planning. Patient is currently sleeping. No family present. Will attempt to meet again. Continue to monitor for d/c needs.
[2023-02-11] MEDS: HYDROmorphone HCl 2 MG TABLET 1 MG PO ×2 (11:36→15:28)
--- NOTE | 2023-02-11 13:43 | PM.EVENT ---
Event Note Date of Service: 02/11/23 Event Note: This patient is seen and examined already by hospitalist team this morning, seen and examined again-clinically similar as per H& P. patient still has abd pain no nausea/vomitin Physical exam and assessment and plan coordinated in H&P note Agree with the plan in addition: epigastric abdominal pain/acute pancreatitis/pancreatic pseudocyst CT shows a growing pseudocyst from 1.63 cm, - will treat with IV fluids, NPO,pain management with dilaudid , Gi eval Time Spent With Patient Time: Total time managing care of this patient today ____ minutes.
[2023-02-11] MEDS: Nicotine Polacrilex 2 MG GUM BUCCAL (14:27)
[2023-02-11] MEDS: Omeprazole 20 MG CAPSULE.DR PO (16:35)
--- NOTE | 2023-02-11 16:50 | PC.NURSE ---
Pt stated he wanted to leave AMA. GF is here to pick him up. MD notified, explained risks of leaving and possible . Told to follow up out patient with PCP and GI. Encouraged patient to stay inpatient. Refused and signed AMA paperwork and left the unit with his GF.
--- NOTE | 2023-02-11 17:26 | PM.GICN ---
History of Present Illness Data of Consult Service Date: 02/11/23 Requesting physician: Azul Clark Primary Care Provider: Unknown Physician HPI Reason for consult: acute on chronic pancreatitis, pancreatic pseudocyst PMFSH Past Medical History Medical History Alcohol dependence with withdrawal Pancreatitis Social History Social History Household Members: Significant Other Housing: Apartment Do you presently have visiting nurse or other home services: No Alcohol intake: former Patient Tobacco Use Status: Current everyday Tobacco user Tobacco use type: Cigarette Cigarette Packs Per Day: 1 Cigarettes Per Day: 20.0 Years Smoked: 20 Second Hand Smoke Exposure: No Substance Use Type: Marijuana service: Yes Current occupational status: employed Meds Allergies Allergy/AdvReac Type Severity Reaction Status Date / Time No Known Allergies Allergy Verified 10/10/22 09:10 [No Known Allergies*] Home Medications Medication Instructions Recorded Confirmed Last Taken Type No Known Home Meds 02/11/23 02/11/23 Unknown History Physical Exam Vital Signs: Vital Signs: Last Vital Signs Temp 97.4 F 02/11/23 15:01 Pulse 47 L 02/11/23 15:01 Resp 18 02/11/23 15:01 BP 121/76 02/11/23 15:01 Pulse Ox 99 02/11/23 15:01 O2 Del Method Room Air 02/11/23 15:01 BMI result Body Mass Index 25.8 Results Labs 02/11/23 05:32 02/11/23 05:32 Labs: Short CBC 02/10/23 02/11/23 Range/Units 22:14 05:32 WBC 12.8 H 11.1 H (4.8-10.8) X10*3/uL Hgb 19.0 H D 17.3 (14.0-18.0) g/dl Hct 55.0 H D 50.5 (42.0-52.0) % Plt Count 421 H D 391 (160-400) X10*3/uL BMP 02/10/23 02/11/23 22:14 05:32 Sodium 137 136 Potassium 3.5 3.9 Chloride 100 101 Carbon Dioxide 24 26 BUN 9 10 Creatinine 1.07 0.83 Calcium 11.7 H D 10.5 H D Liver Function 02/10/23 02/11/23 Range/Units 22:14 05:32 Total Bilirubin 1.1 H 0.9 (0.0-1.0) mg/dL Direct Bilirubin 0.4 0.5 (0.0-0.5) mg/dL AST 85 H 177 H (5-37) U/L ALT 189 H 186 H (0-40) U/L Alkaline Phosphatase 244 H 239 H (39-117) U/L Albumin 5.2 H 4.5 (3.5-5.0) g/dL Assessment and Plan (1) Pancreatic pseudocyst: Status: Acute (2) Pancreatitis: Status: Acute Time Spent With Patient Time: Total time managing care of this patient today ____ minutes. Procedures Date of Service Date of Service: 02/11/23
--- NOTE | 2023-02-11 18:01 | P.DS_ITS ---
DS: Providers Provider Date of Service: 02/11/23 Date of admission: 02/11/23 04:50 Date of discharge: 02/11/23 Primary care physician: Unknown Physician Consults: 02/11/23 04:43 Consult to Infectious Diseases [place]ine Consulting [place] [facility] [place] Reason for consultation: pancreatic cyst - bigger Has provider been notified: No 02/11/23 08:43 Consult to Gastroenterology Routine Consulting Provider: Washington Brito Reason for consultation: abd pain/pancreatic pseudocyst Has provider been notified: No Attending physician on discharge: Azul Clark Discharging clinician: Azul Clark DS: Diagnosis Discharge Diagnosis (1) Pancreatic pseudocyst: Status: Acute (2) Pancreatitis: Status: Acute DS: Summary Hospital Course Hospital Course: 37-year-old male with history of recurrent acute pancreatitis, history of alcohol abuse last drink was in June, comes into the hospital complaints of abdominal pain.? Pain is in the epigastric region, started on Tuesday, associated with nausea vomiting, pain is 10/10, radiating to the back, relieved only with IV medications, worse with movement and eating.? Patient also reports decreased oral intake as a result of the pain.? Denies any chest pain, shortness of breath, no cough, no urinary symptoms and no lower extremity edema On arrival to the ED patient hemodynamically stable Labs are significant for WBC count of 12.8, hemoglobin of 19, hematocrit 55, calcium of 11.7, ALT of 189, AST of 85, alk-phos of 244, Abdomen pelvic CT shows 3 cm low-density structure within the pancreatic head with low to intermediate Hounsfield unit likely a pancreatic pseudocyst, that has increased from 1.6 on previous imaging, no other abnormality Patient reports significant pain, intractable only responsive to IV analgesics, patient will be admitted for further management.? Patient also not tolerating p.o. intake. hospital course: Patient was admitted for epigastric abdominal pain with question of acute pancreatitis/pancreatic pseudocyst- CT of abdomen was done: 3 cm low-density structure within the pancreatic head with [id number] Hounsfield unit values likely a pancreatic /pseudocyst. A 1.6 cm similar structure was seen at the pancreatic head on prior. ?Significant interval improvement of the peripancreatic infiltration seen on prior. Patient was started on IV fluid, pain management and GI was consulted for above 3 cm pancreatic head density/pseudocyst. Patient abdominal pain was somewhat improving, subsequently patient decided to leave against medical advice as soon as his girlfriend came-he did not want wait to talk to me. She staff explained the risk of leaving against medical advice including worsening pancreatitis, dehydration, worsening pseudocyst complications including . In addition patient was also told to go to nearest emergency room for getting evaluated further. And also told to follow up with GI for above mentioned CT abnormality. Patient understands, alert oriented x3 still wanted to leave with his girlfriend. Subsequently patient left against medical advice. Time Spent with Patient Time attestation: Total time managing care of this patient today ____ minutes. Discharge coordination time: Greater than 30 minutes Quality: Safe Use of Opioids Does Pt have an Active Cancer Diagnosis on the Problem List?: No Quality: Stroke Does the patient have a stroke diagnosis?: No Physical Exam Vital Signs: Vital Signs: Last Vital Signs Temp 97.4 F 02/11/23 15:01 Pulse 47 L 02/11/23 15:01 Resp 18 02/11/23 15:01 BP 121/76 02/11/23 15:01 Pulse Ox 99 02/11/23 15:01 O2 Del Method Room Air 02/11/23 15:01 BMI result Body Mass Index 25.8 left ama -did not wait. DS: Data Data Completed and Pending Completed studies during hospitalization [Text1]: Procedures Detoxification Services for Substance Abuse Treatment (06/22/22) Inspection of Upper Intestinal Tract, Via Natural or Artificial Opening Endoscopic (08/09/22) Labs on day of discharge: Laboratory Results - last 24 hr 02/10/23 02/10/23 02/11/23 22:14 22:14 05:32 WBC 12.8 H 11.1 H RBC 5.98 H D 5.46 Hgb 19.0 H D 17.3 Hct 55.0 H D 50.5 MCV 92.0 92.5 MCH 31.8 31.7 MCHC 34.5 34.3 RDW 12.3 12.5 Plt Count 421 H D 391 MPV 8.7 L 9.1 L Immature Gran % (Auto) 0.5 H 0.4 Neut % (Auto) 71.4 70.5 Lymph % (Auto) 16.2 L 17.4 L [place] % (Auto) 7.3 8.1 Eos % (Auto) 4.3 H 3.2 Baso % (Auto) 0.3 0.4 Lymph # (Auto) 2.1 1.9 [place] # (Auto) 0.9 0.9 Eos # (Auto) 0.6 H 0.4 Baso # (Auto) 0.0 0.0 Abs Immat Gran (auto) 0.06 H 0.04 H Absolute Neuts (auto) 9.1 H 7.9 Absolute Nucleated RBC 0.000 0.000 Nucleated RBC % (auto) 0.0 0.0 Sodium 137 Potassium 3.5 Chloride 100 Carbon Dioxide 24 Anion Gap 17 BUN 9 Creatinine 1.07 Estim Creat Clear Calc 112.0 Estimated GFR > 60 Random Glucose 98 Calcium 11.7 H D Total Bilirubin 1.1 H Direct Bilirubin 0.4 AST 85 H ALT 189 H Alkaline Phosphatase 244 H Total Protein 9.5 H Albumin 5.2 H Lipase 55 02/11/23 05:32 WBC RBC Hgb Hct MCV MCH MCHC RDW Plt Count MPV Immature Gran % (Auto) Neut % (Auto) Lymph % (Auto) [place] % (Auto) Eos % (Auto) Baso % (Auto) Lymph # (Auto) [place] # (Auto) Eos # (Auto) Baso # (Auto) Abs Immat Gran (auto) Absolute Neuts (auto) Absolute Nucleated RBC Nucleated RBC % (auto) Sodium 136 Potassium 3.9 Chloride 101 Carbon Dioxide 26 Anion Gap 13 BUN 10 Creatinine 0.83 Estim Creat Clear Calc 144.4 Estimated GFR > 60 Random Glucose 126 H Calcium 10.5 H D Total Bilirubin 0.9 Direct Bilirubin 0.5 AST 177 H ALT 186 H Alkaline Phosphatase 239 H Total Protein 8.1 H Albumin 4.5 Lipase Imaging Chest x-ray: Radiologist's impression: ITS Impressions Abdomen/Pelvis CT 02/11/23 02:05 IMPRESSION: There is a 3 cm low-density structure within the pancreatic head with [id number] Hounsfield unit values likely a pancreatic /pseudocyst. A 1.6 cm similar structure was seen at the pancreatic head on prior. Significant interval improvement of the peripancreatic infiltration seen on prior. Apparent postprocedural change of the gastroesophageal junction similar to previous No other significant abnormality seen. Fleischner guidelines were followed. Discharge Plan Discharge Patient Disposition: Left Against Medical Advice Discharge Diagnosis: Acute pancreatitis, pseudocyst Referrals: Physician,Unknown J [Primary Care Provider] - 1 Week Discharge Medications: No Action No Known Home Meds Discharge Orders: Discharge Order (Routine); Ordered 02/11/23 Ordered By: Azul Clark Care Plan Goals: left ama Health Concerns: left ama Plan of Treatment: left ama Assessment: left ama Discharge Date/Time: 02/11/23 17:17
== END 2023-02-11 17:17 | disposition left against medical advice (07) | DRG 439 ==
LOC: HO.ED 02-11 03:47 → HO.EDOVER 02-11 04:54 → HO.S3 02-11 12:09
PROVIDERS: Admitting Provider Internal Medicine; Emergency Provider Internal Medicine; PCP Internal Medicine; Visit Provider Internal Medicine
DX: K85.90 Acute pancreatitis without necrosis or infection, unspecified (principal); K86.3 Pseudocyst of pancreas; F17.210 Nicotine dependence, cigarettes, uncomplicated; Z71.6 Tobacco abuse counseling; F10.21 Alcohol dependence, in remission
CPT/HCPCS: 36415; 74177; 80048; 80053; 80076; 82248; 83690; 85025; 99284; J1170; J1650; J2270; J2405; Q9967

== ENCOUNTER → 2023-02-11 04:50 | Outpatient (BNV) | payer OTHER, SELFPAY | PROVIDERS: Admitting Provider Internal Medicine; Emergency Provider Internal Medicine; Visit Provider Internal Medicine | DX: K85.90 Acute pancreatitis without necrosis or infection, unspecified (principal); K86.3 Pseudocyst of pancreas; Z53.29 Procedure and treatment not carried out because of patient's decision for other reasons | CPT/HCPCS: 99235; 99499 ==

== ENCOUNTER 2023-09-03 03:14 | Inpatient (IN) | payer OTHER, SELFPAY ==
[2023-09-03] VITALS (10 sets, daily range): BP systolic 118–156; BP diastolic 79–99; PULSE 56–129; RESP 14–20; TEMP 36.4–36.9; O2SAT 93–99; BMI 25.8
--- NOTE | ~2023-09-03 | CT_ITS ---
EXAMINATION: CT ABDOMEN WITH CONTRAST CLINICAL INFORMATION: Worsening abdominal pain, pancreatitis COMPARISON: CT brain 09/03/2023 TECHNIQUE: Contiguous axial thin section helical images of the abdomen were performed following the administration of oral contrast and 85 mL of Omnipaque 350 intravenous contrast. The data set was reformatted in the coronal and sagittal planes and reviewed on an independent workstation. This CT examination was performed using dose optimization techniques as appropriate, variously including the following: *Automated exposure control *Adjustment of mA and/or kV according to patient size (this includes techniques or standardized protocols for targeted exams where dose is matched to indication/reason for exam; i.e. extremities or head) *Use of iterative reconstruction technique DLP: 520 mGy-cm FINDINGS: LUNG BASES: There is a small left pleural effusion with underlying atelectasis. There is minimal right pleural effusion with underlying atelectasis. Heart size is normal. LIVER, GALLBLADDER, AND BILIARY TREE: The liver is normal size, contour and density. No focal lesion or intrahepatic ductal dilatation seen. The gallbladder is out. There are small perihepatic fluid collection. PANCREAS: The pancreas is compared to a hypodense tube previous CT abdomen exam. There is diffuse haziness throughout the peripancreatic soft tissues. The pancreatic SPLEEN: The spleen is unremarkable. ADRENAL GLANDS AND KIDNEYS: Bilateral adrenal glands are unremarkable. There are bilateral renal cysts. No radiopaque renal calculi or hydronephrosis seen. BOWEL LOOPS: There is scattered stool and gas seen throughout the colon without distention. The small bowel loops are normal caliber. LYMPH NODES: Normal. VASCULAR: Unremarkable. BONES: No gross bony abnormality seen CT/CT abdomen w IV con IMPRESSION: 1. Small left pleural effusion and minimal right pleural effusion with underlying atelectasis. 2. The pancreas is diffusely hypodense and has lost is normal density especially body and tail suspicious for acute necrotic pancreatitis. A drastic change from the last CT. There is moderate peripancreatic and abdominal ascites. 3. There is small left and minimal right pleural effusion with bibasilar atelectasis, new finding. 4. Mild constipation. 5. Bilateral renal cysts. Stable. Fleischner guidelines were followed.
--- NOTE | ~2023-09-03 | XR_ITS ---
EXAMINATION: XR CHEST CLINICAL INFORMATION: Hypoxia COMPARISON: None available. TECHNIQUE: Frontal view of the chest was obtained. FINDINGS: There is haziness in left lung base from left pleural effusion and underlying atelectasis. Suspect mild focal atelectasis right lung base. The upper lungs are clear. The heart size is normal. No gross bony abnormality seen. XR/XR chest 1V IMPRESSION: Small left pleural effusion with underlying atelectasis. Suspect minimal atelectasis right lung base.
--- NOTE | ~2023-09-03 | CT_ITS ---
EXAMINATION: CT ABDOMEN AND PELVIS WITH CONTRAST CLINICAL INFORMATION: Pancreatitis COMPARISON: 02/11/2023 TECHNIQUE: Multidetector volumetric images were obtained from the superior aspect of the liver through the pubic symphysis following administration 85 mL of Omnipaque 350 intravenous contrast. Sagittal and coronal reformatted images were obtained on the technologist's workstation. Oral contrast: No This CT examination was performed using dose optimization techniques as appropriate, variously including the following: *Automated exposure control *Adjustment of mA and/or kV according to patient size (this includes techniques or standardized protocols for targeted exams where dose is matched to indication/reason for exam; i.e. extremities or head) *Use of iterative reconstruction technique DLP: 649 mGy-cm FINDINGS: LUNG BASES: The visualized lung bases are unremarkable. LIVER, GALLBLADDER, AND BILIARY TREE: The liver is normal in size, shape, and attenuation. There is mild nonspecific intrahepatic biliary ductal dilatation in the setting of prior cholecystectomy, which may be physiologic and is similar to prior. PANCREAS: There is extensive peripancreatic stranding as well as fluid, consistent with acute pancreatitis. Subtle hypoattenuating focus in the pancreatic head measuring up to 1.3 cm is suspected to reflect residual sequelae of a prior larger fluid collection in this region on 02/11/2023. SPLEEN: Unremarkable. ADRENAL GLANDS: Unremarkable. KIDNEYS AND URETERS: Bilateral nephrograms are symmetric. No hydronephrosis or obstructing calculus identified. There are small multiple scattered hypoattenuating foci within both kidneys measuring up to approximately 1.4 cm, favored to reflect cysts; no follow-up recommended. BLADDER: Unremarkable. GASTROINTESTINAL TRACT: Small hiatal hernia. No evidence of bowel obstruction or significant wall thickening. The appendix is unremarkable. No free air is seen. ABDOMINAL WALL: No significant hernia is appreciated. LYMPH NODES: Normal. VASCULAR: Unremarkable. PELVIC VISCERA: Unremarkable. OSSEOUS STRUCTURES: Unremarkable. CT/CT abdomen pelvis w IV con IMPRESSION: 1. Extensive peripancreatic stranding and fluid, consistent with acute pancreatitis. 2. Subtle hypoattenuating focus in the pancreatic head is suspected to reflect residual sequelae of a prior larger fluid collection in this region on 02/11/2023.
--- NOTE | 2023-09-03 03:39 | ED_ITS ---
HPI - Abdominal Pain General Chief Complaint: Abdominal Pain Stated Complaint: ABD PAIN 1 HOUR/VOMITED X 1,RECENT HX PANC PER EMS Time Seen by Provider: 09/03/23 03:39 Source: patient Mode of arrival: ambulatory Limitations: no limitations History of Present Illness HPI narrative: Patient with alcohol-induced pancreatitis with recurrent ED visits is still drinking last admission was about 10 [facility] stay [facility] for 3 days continue to drink alcohol comes here for similar pain started hour prior to arrival with nausea vomiting pain is localized in mid abdomen radiating to the back patient very dramatic and refusing to answer when initially came Related Data Home Medications Medication Instructions Recorded Confirmed No Known Home Meds 02/11/23 02/11/23 Allergies Allergy/AdvReac Type Severity Reaction Status Date / Time No Known Allergies Allergy Verified 09/03/23 03:35 [No Known Allergies*] Review of Systems Review of Systems Yes all other systems are reviewed and are negative [facility] Past Medical History Medical History Pancreatitis Alcohol dependence with withdrawal Social History Social History Household Members: Significant Other Housing: Apartment Do you presently have visiting nurse or other home services: No Alcohol intake: current Alcohol intake frequency: 3 or more drinks per day Alcohol type: hard liquor Comment: PT refused non skid footwear despite safety teaching and encouragement Patient Tobacco Use Status: Current everyday Tobacco user Tobacco use type: Cigarette Cigarette Packs Per Day: 1 Cigarettes Per Day: 20.0 Years Smoked: 20 Smoked in Last 30 Days: No Second Hand Smoke Exposure: No Use of substances other than those prescribed or required for medical reasons: No Substance Use Type: Marijuana Advance Directives: No Advance Directives Information Provided: Yes service: Yes Current occupational status: employed Physical Exam ED Vital Signs: Vital Signs - 24 hr 09/03/23 03:23 09/03/23 04:41 09/03/23 05:42 Temperature 97.5 F Pulse Rate 73 56 70 Respiratory Rate 20 14 20 Blood Pressure 118/81 124/82 122/79 Pulse Oximetry 98 98 93 Oxygen Delivery Method Room Air Room Air Room Air BMI result Body Mass Index 25.8 Appearance: Alert. Oriented X3. In moderate distress etoh + Eyes: PERRLA, No Nystagmus ENT: Pharynx normal. Oral Mucosa moist Neck: Normal inspection. Neck supple. CVS: Normal heart rate and rhythm. Pulses normal. Respiratory: No respiratory distress. Equal air entry bilateral, no wheezing/rales/rhonchi Abdomen: Soft , tenderness in epigastric area. Bowel sounds are present, no mass palpable, no CVA tenderness Skin: Skin warm and dry. Normal skin color. Normal skin turgor. Extremities: No lower extremity edema. No calf tenderness Neuro: Oriented X 3. No motor deficit. Medical Decision Making Medical Decision Making [facility] Narrative: Patient has frequent pancreatitis secondary to alcohol use comes here for 2nd episode of pancreatitis in last [address] scan showed inflammation of the pancreas with no significant fluid collection patient did have pseudocyst in the past and CT scan showed slight amount of residual fluid will admit patient for pain control and pancreatitis Differential Diagnosis Differential Diagnoses: The differential diagnosis associated with the presentation includes Cholelithiasis/pancreatitis/gastritis Admission/Observation Consideration of admission/observation: Escalation of care including admission/observation considered Consult Healthcare Provider Management of the patient was discussed with: Hospitalist Lab Data [facility] Lab Attestation statement: I reviewed the patient's lab results. 09/03/23 03:44 09/03/23 03:44 Labs: Lab Results 09/03/23 Range/Units 03:44 WBC 9.5 (4.8-10.8) X10*3/uL RBC 5.49 (4.60-5.80) X10*6/uL Hgb 17.7 (14.0-18.0) g/dl Hct 51.3 (42.0-52.0) % MCV 93.4 (80.0-98.0) fL MCH 32.2 (27.0-33.0) pg MCHC 34.5 (31.0-36.0) g/dl RDW 12.7 (11.0-16.0) % Plt Count 317 (160-400) X10*3/uL MPV 8.5 L (9.4-12.4) fL Immature Gran % (Auto) 0.3 (0.0-0.4) % Neut % (Auto) 60.8 (45-73) % Lymph % (Auto) 28.1 (20-40) % [place] % (Auto) 7.0 (2-11) % Eos % (Auto) 3.3 (0-4) % Baso % (Auto) 0.5 (0-2) % Lymph # (Auto) 2.7 (1.2-4.9) X10*3/uL [place] # (Auto) 0.7 (0.1-1.2) X10*3/uL Eos # (Auto) 0.3 (0.0-0.4) X10*3/uL Baso # (Auto) 0.1 (0.0-0.2) X10*3/uL Abs Immat Gran (auto) 0.03 (0.00-0.03) X10*3/uL Absolute Neuts (auto) 5.8 (2.0-8.3) x10*3/uL Absolute Nucleated RBC 0.000 (0.0-0.012) X10*3/uL Nucleated RBC % (auto) 0.0 (0.0-0.2) /100WBC Sodium 145 (135-145) mmol/L Potassium 3.4 (3.3-5.1) mmol/L Chloride 107 (96-108) mmol/L Carbon Dioxide 27 (22-29) mmol/L Anion Gap 14 (12-20) BUN 6 L (9-16) mg/dL Creatinine 0.74 (0.5-1.4) mg/dL Estim Creat Clear Calc 152.9 Estimated GFR > 60 Random Glucose 156 H (60-115) mg/dL Calcium 9.0 D (8.4-10.2) mg/dL Magnesium 2.1 (1.6-2.6) mg/dL Total Bilirubin 0.5 (0.0-1.0) mg/dL AST 35 (5-37) U/L ALT 30 (0-40) U/L Alkaline Phosphatase 110 (39-117) U/L Total Protein 7.5 (6.5-8.0) g/dL Albumin 4.1 (3.5-5.0) g/dL Triglycerides 243 H (<150) mg/dL Lipase 1161 H (8-78) U/L Ethyl Alcohol 173 mg/dL Independent Interpretation I performed an independent interpretation of an: CT Scan Radiology Impression Discussion of test interpretation with radiology: I have reviewed the radiologist's reading. Radiologist Impression: CT/CT abdomen pelvis w IV con IMPRESSION: 1. Extensive peripancreatic stranding and fluid, consistent with acute pancreatitis. 2. Subtle hypoattenuating focus in the pancreatic head is suspected to reflect residual sequelae of a prior larger fluid collection in this region on 02/11/2023. Medications Administered Discontinued Medications Generic Name Dose Route Start Last Admin Trade Name Freq PRN Reason Stop Dose Admin Famotidine 20 mg 09/03/23 04:03 09/03/23 04:07 Famotidine/Pf 20 Mg/2 Ml Vial IVPUSH 09/03/23 04:04 20 mg ONCE ONE Administration Hydromorphone HCl 2 mg 09/03/23 05:05 09/03/23 05:15 Hydromorphone Hcl 2 Mg/Ml Vial IVPUSH 09/03/23 05:06 2 mg ONCE ONE Administration Protocol Sodium Chloride 1,000 mls @ 999 mls/hr 09/03/23 03:40 09/03/23 04:45 Ns IV 09/03/23 04:40 Infused .Q1H1M ONE Infusion Iohexol 85 ml 09/03/23 05:25 09/03/23 05:26 Iohexol 350 Mg/Ml 100 Ml Infus..Btl IV 09/03/23 05:26 85 ml ONCE ONE Administration Ketorolac Tromethamine 30 mg 09/03/23 04:03 09/03/23 04:07 Ketorolac Tromethamine 30 Mg/Ml Vial IVPUSH 09/03/23 04:04 30 mg ONCE ONE Administration Morphine Sulfate 4 mg 09/03/23 03:41 09/03/23 03:46 Morphine Sulfate 4 Mg/Ml Cartridge IVPUSH 09/03/23 03:42 4 mg ONCE ONE Administration Protocol Ondansetron HCl 4 mg 09/03/23 03:41 09/03/23 03:46 Ondansetron Hcl 4 Mg/2 Ml Vial IVPUSH 09/03/23 03:42 4 mg ONCE ONE Administration Discharge Plan Discharge Clinical Impression: Pancreatitis Patient Disposition: Admitted As Inpatient
[2023-09-03] MEDS: ondansetron HCL 4 MG/2 ML VIAL IVPUSH ×2 (03:46→09:55)
[2023-09-03] MEDS: 0.9 % Sodium Chloride 1,000 ML 999 ML IV (03:46)
[2023-09-03] MEDS: Morphine Sulfate 4 MG/ML CARTRIDGE IVPUSH (03:46)
[2023-09-03 03:50] LABS: Basophils Absolute Auto 0.1 X10*3/uL (0.0-0.2); Basophils Percent Auto 0.5 % (0-2); Eosinophils Absolute Auto 0.3 X10*3/uL (0.0-0.4); Eosinophils Percent Auto 3.3 % (0-4); Hematocrit 51.3 % (42.0-52.0); Hemoglobin 17.7 g/dl (14.0-18.0); Imm Gran Abs Auto 0.03 X10*3/uL (0.00-0.03); Imm Gran Pct Auto 0.3 % (0.0-0.4); Lymphocytes Absolute Auto 2.7 X10*3/uL (1.2-4.9); Lymphocytes Percent Auto 28.1 % (20-40); MANUAL DIFF FLAG NO; Mean Corpuscular HGB Conc 34.5 g/dl (31.0-36.0); Mean Corpuscular Hemoglobin 32.2 pg (27.0-33.0); Mean Corpuscular Volume 93.4 fL (80.0-98.0); Mean Platelet Volume 8.5 fL (9.4-12.4); Monocytes Absolute Auto 0.7 X10*3/uL (0.1-1.2); Neutrophils Absolute Auto 5.8 x10*3/uL (2.0-8.3); Neutrophils Percent Auto 60.8 % (45-73); Platelet Count 317 X10*3/uL (160-400); Red Blood Count 5.49 X10*6/uL (4.60-5.80); Red Cell Distribution Width 12.7 % (11.0-16.0); White Blood Count 9.5 X10*3/uL (4.8-10.8)
[2023-09-03 04:01] LABS: Ethanol 173 mg/dL
[2023-09-03 04:05] LABS: Alanine Aminotransferase 30 U/L (0-40); Albumin Level 4.1 g/dL (3.5-5.0); Alkaline Phosphatase 110 U/L (39-117); Anion Gap 14 (12-20); Aspartate Amino Transferase 35 U/L (5-37); Bilirubin Total 0.5 mg/dL (0.0-1.0); Blood Urea Nitrogen 6 mg/dL (9-16); Carbon Dioxide 27 mmol/L (22-29); Chloride 107 mmol/L (96-108); Creatinine Clr Calc Pharmacy 152.9; Estimated Glomerular Filt Rate > 60; Glucose Random 156 mg/dL (60-115); Potassium 3.4 mmol/L (3.3-5.1); Sodium 145 mmol/L (135-145); Total Protein 7.5 g/dL (6.5-8.0)
[2023-09-03] MEDS: Ketorolac Tromethamine 30 MG/ML VIAL IVPUSH (04:07)
[2023-09-03] MEDS: Famotidine/PF 20 MG/2 ML VIAL IVPUSH (04:07)
[2023-09-03 04:16] LABS: Lipase 1161 U/L (8-78)
[2023-09-03] MEDS: HYDROmorphone HCl 2 MG/ML VIAL IVPUSH (05:15)
[2023-09-03] MEDS: iohexoL 350 MG/ML 100 ML INFUS..BTL 85 ML IV (05:26)
[2023-09-03 05:28] LABS: Magnesium 2.1 mg/dL (1.6-2.6)
--- NOTE | 2023-09-03 06:29 | PM.IMHP ---
History of Present Illness Date of Service: 09/03/23 Chief Complaint: Abdominal pain This is a 37-year-old male with pertinent history of alcohol use disorder with history of alcohol induced pancreatitis who presents to the emergency department for evaluation of epigastric discomfort. Patient states he started having epigastric pain 1 day prior to presentation. It has been constant, progressive, radiating to back and without any relieving factors. He also has been having associated nausea and vomiting. Unable to tolerate p.o. intake. States his last alcohol drink was 1 day prior to presentation. He has had alcohol withdrawal a long time ago but does not feel like he is withdrawing this time. No history of alcohol withdrawal seizures. Patient states he was admitted about 10 days ago at [facility] for alcohol induced pancreatitis. No fever, chills, chest discomfort, palpitations, shortness of breath, changes in urinary or bowel habits. In the emergency department, lipase was found to be elevated and imaging concerning for acute pancreatitis Review of Systems Constitutional: Constitutional: Reports no additional constitutional complaints Cardiovascular: Cardiovascular: Reports no additional cardiovascular complaints Respiratory: Respiratory: Reports no additional respiratory complaints Gastrointestinal: Gastrointestinal: Reports abdominal pain, Reports nausea and Reports vomiting Genitourinary: Genitourinary: Reports no additional male genitourinary complaints [facility] Medical History Pancreatitis Alcohol dependence with withdrawal Pertinent family history: No family history of early CAD Social History Household Members: Significant Other Housing: Apartment Do you presently have visiting nurse or other home services: No Alcohol intake: current Alcohol intake frequency: 3 or more drinks per day Alcohol type: hard liquor Comment: PT refused non skid footwear despite safety teaching and encouragement Patient Tobacco Use Status: Current everyday Tobacco user Tobacco use type: Cigarette Cigarette Packs Per Day: 1 Cigarettes Per Day: 20.0 Years Smoked: 20 Smoked in Last 30 Days: No Second Hand Smoke Exposure: No Use of substances other than those prescribed or required for medical reasons: No Substance Use Type: Marijuana Advance Directives: No Advance Directives Information Provided: Yes service: Yes Current occupational status: employed Meds Allergies Allergy/AdvReac Type Severity Reaction Status Date / Time No Known Allergies Allergy Verified 09/03/23 03:35 [No Known Allergies*] Home Medications Medication Instructions Recorded Confirmed Last Taken Type No Known Home Meds 02/11/23 02/11/23 Unknown History Physical Exam Vital Signs and Narrative: Vital Signs: Last Vital Signs Temp 97.5 F 09/03/23 05:42 Pulse 70 09/03/23 05:42 Resp 20 09/03/23 05:42 BP 122/79 09/03/23 05:42 Pulse Ox 93 09/03/23 05:42 O2 Del Method Room Air 09/03/23 05:42 BMI result Body Mass Index 25.8 Middle-aged male lying in bed in mild distress Neck supple, no JVD Regular rate and rhythm, S1-S2 heard Regular breath sounds bilaterally, no wheezing or crackles appreciated Abdomen with epigastric tenderness to mild palpation, no rigidity, no rebound tenderness Patient is awake, alert and oriented to self, place, time and person ; no focal motor deficit Psych: Normal mood No pedal edema Results Labs 09/03/23 03:44 09/03/23 03:44 Labs: Laboratory Results - last 24 hr 09/03/23 03:44 MCV 93.4 MCH 32.2 MCHC 34.5 RDW 12.7 Plt Count 317 MPV 8.5 L Immature Gran % (Auto) 0.3 Neut % (Auto) 60.8 Lymph % (Auto) 28.1 [place] % (Auto) 7.0 Eos % (Auto) 3.3 Baso % (Auto) 0.5 Lymph # (Auto) 2.7 [place] # (Auto) 0.7 Eos # (Auto) 0.3 Baso # (Auto) 0.1 Abs Immat Gran (auto) 0.03 Absolute Neuts (auto) 5.8 Absolute Nucleated RBC 0.000 Nucleated RBC % (auto) 0.0 Anion Gap 14 Estim Creat Clear Calc 152.9 Estimated GFR > 60 Random Glucose 156 H Calcium 9.0 D Magnesium 2.1 Total Bilirubin 0.5 AST 35 ALT 30 Alkaline Phosphatase 110 Total Protein 7.5 Albumin 4.1 Lipase 1161 H Ethyl Alcohol 173 Imaging Radiologist's Impressions: Impressions Abdomen/Pelvis CT 09/03/23 05:46 IMPRESSION: 1. Extensive peripancreatic stranding and fluid, consistent with acute pancreatitis. 2. Subtle hypoattenuating focus in the pancreatic head is suspected to reflect residual sequelae of a prior larger fluid collection in this region on 02/11/2023. Assessment and Plan (1) Pancreatitis: Status: Acute Plan This is a 37-year-old male with pertinent history of alcohol use disorder with history of alcohol induced pancreatitis who presents to the emergency department for evaluation of epigastric discomfort. #. Acute alcoholic pancreatitis: Continue IV crystalloid resuscitation. IV. p.r.n. for analgesia. Will keep NPO for bowel rest, advance diet as tolerated. Obtaining triglyceride level #. Alcohol use disorder: Monitor CIWA. Consulted Addiction Team, appreciate assistance. Initiating thiamine DVT prophylaxis: Lovenox Full code Admit as inpatient and will require two night minimum hospital stay for treatment of acute pancreatitis with IV crystalloids, IV opioids (as above), which is not possible in a lesser acute setting. Quality Stroke Does the patient have a stroke diagnosis?: No VTE Prior VTE?: No VTE Risk Level:: Medical - moderate - high VTE Device Contraindication: Treatment Not Indicated VTE Drug Contraindication: N/A - Med Ordered
[2023-09-03 06:57] LABS: Triglycerides 243 mg/dL (<150)
[2023-09-03] MEDS: Thiamine HCL 100 MG in 0.9 % Sodium Chloride 100 ML 202 MG IV (08:04)
[2023-09-03] MEDS: Lactated Ringers 1,000 ML 150 ML IVCONT ×3 (08:05→21:33)
[2023-09-03] MEDS: Enoxaparin Sodium 40 MG/0.4 ML SYRINGE SUBCUT (08:22)
--- NOTE | 2023-09-03 08:23 | PHA.MEDREC ---
Pharmacy Consult ? Medication Reconciliation Pharmacy has completed the medication reconciliation. patient states he does not take any medications at home. [facility].
[2023-09-03] MEDS: 0.9 % Sodium Chloride Flush 3 ML SYRINGE IVFLUSH (08:32)
[2023-09-03] MEDS: HYDROmorphone HCl 1 MG/ML SYRINGE IVPUSH (08:54)
[2023-09-03] MEDS: HYDROmorphone HCl 1 MG/ML SYRINGE 1.5 MG IVPUSH ×6 (09:53→21:28)
--- NOTE | 2023-09-03 11:06 | MHC.CM.PN ---
PT REPORTS HE LIVES ALONE AND IS INDEPENDENT WITH CARE HE HAS NO DME AND NO HOME SERVICES HE ALSO HAS NO PCP AND NO HCP HE DECLINES TO COMPLETE A HCP TODAY PCP LIST PROVIDED DCP: HOME NO SERVICES VIA PRIVATE TRANSPORT
--- NOTE | 2023-09-03 11:26 | PC.NURSE ---
Pain meds given for 7/10 abd pain. LR running at 150 ml/hr. vss.
--- NOTE | 2023-09-03 11:32 | P.PNIM_ITS ---
Subjective Subjective Date of Service: 09/03/23 Interval History: severe epigastric pain, no appetite Physical Exam 2 Vital Signs: Vital Signs: Last Vital Signs Temp 97.9 F 09/03/23 09:58 Pulse 68 09/03/23 09:58 Resp 16 09/03/23 09:58 BP 131/84 09/03/23 09:58 Pulse Ox 95 09/03/23 09:58 O2 Del Method Room Air 09/03/23 09:58 BMI result Body Mass Index 25.8 General: AO X 3, no acute distress Resp: CTA bilateral, no accessory muscles used CVS: S1,S2,RRR GI: soft, tender, non distended Neuro: motor grossly intact, alert Psych: appropriate affect, appropriate insight Objective Data Active Medications Acetaminophen (Acetaminophen 325 Mg Tablet) 650 mg PO Q6H PRN PRN Reason: Pain, Mild (Pain Scale 1-3) Enoxaparin Sodium (Enoxaparin Sodium 40 Mg/0.4 Ml Syringe) 40 mg SUBCUT Q24H [facility] Last Admin: 09/03/23 08:22 Dose: 40 mg Documented By: SHOAIB Hydromorphone HCl (Hydromorphone Hcl 1 Mg/Ml Syringe) 1.5 mg IVPUSH Q2H PRN; Protocol PRN Reason: Pain, Severe (Pain Scale 7-10) Last Admin: 09/03/23 09:53 Dose: 1.5 mg Documented By: SHOAIB Thiamine HCl 100 mg/ Sodium (Chloride) 101 mls @ 202 mls/hr IV DAILY [facility] Last Infusion: 09/03/23 08:49 Dose: Infused Documented By: SHOAIB Lactated Ringer's (Lr) 1,000 mls @ 150 mls/hr IVCONT .Q6H40M [facility] Last Admin: 09/03/23 08:05 Dose: 150 mls/hr Documented By: SHOAIB Melatonin (Melatonin 3 Mg Tablet) 6 mg PO BEDTIME PRN PRN Reason: Insomnia Ondansetron HCl (Ondansetron Hcl 4 Mg/2 Ml Vial) 4 mg IVPUSH Q8H PRN PRN Reason: Nausea and Vomiting Last Admin: 09/03/23 09:55 Dose: 4 mg Documented By: SHOAIB Sodium Chloride (0.9 % Sodium Chloride Flush 3 Ml Syringe) 3 ml IVFLUSH QSHIFT [facility] Last Admin: 09/03/23 08:32 Dose: 3 ml Documented By: SHOAIB Labs 09/03/23 03:44 09/03/23 03:44 Labs: Laboratory Results - last 24 hr 09/03/23 03:44 MCV 93.4 MCH 32.2 MCHC 34.5 RDW 12.7 Plt Count 317 MPV 8.5 L Immature Gran % (Auto) 0.3 Neut % (Auto) 60.8 Lymph % (Auto) 28.1 [place] % (Auto) 7.0 Eos % (Auto) 3.3 Baso % (Auto) 0.5 Lymph # (Auto) 2.7 [place] # (Auto) 0.7 Eos # (Auto) 0.3 Baso # (Auto) 0.1 Abs Immat Gran (auto) 0.03 Absolute Neuts (auto) 5.8 Absolute Nucleated RBC 0.000 Nucleated RBC % (auto) 0.0 Anion Gap 14 Estim Creat Clear Calc 152.9 Estimated GFR > 60 Random Glucose 156 H Calcium 9.0 D Magnesium 2.1 Total Bilirubin 0.5 AST 35 ALT 30 Alkaline Phosphatase 110 Total Protein 7.5 Albumin 4.1 Triglycerides 243 H Lipase 1161 H Ethyl Alcohol 173 Assessment and Plan (1) Pancreatitis: Status: Acute Plan 37M PMH etoh dependence, pancreatitis, presented with abd pain, found to have recurrent pancreatitis Alcohol dependence with acute pancreatitis NPO, aggressive IV hydration, IV hydromorphone Continue CIWA, no obvious signs of withdrawal at this time DVT prophylaxis with Lovenox Full Code reason for continued hospitalization: Awaiting tolerance of p.o., requiring IV pain meds and IV hydration Quality Stroke Does the patient have a stroke diagnosis?: No VTE Prior VTE?: No VTE Risk Level:: Medical - moderate - high VTE Device Contraindication: Treatment Not Indicated VTE Drug Contraindication: N/A - Med Ordered
--- NOTE | 2023-09-03 14:11 | PC.NURSE ---
Pt transferred from bed 6 in [facility] to [address] Pt given dilaudid 1.5mg at 1245pm, report called to [facility], transport coming for patient with wheelchair.
[2023-09-03] MEDS: Nicotine Polacrilex 2 MG GUM BUCCAL (14:41)
[2023-09-03] MEDS: Simethicone 80 MG TAB.CHEW PO (17:35)
[2023-09-03] MEDS: polyethylene glycoL 3350 17 GM POWD.PACK PO (21:42)
[2023-09-04] VITALS (17 sets, daily range): BP systolic 130–157; BP diastolic 82–99; PULSE 107–141; RESP 16–20; TEMP 35.9–37.1; O2SAT 91–94
[2023-09-04] MEDS: Simethicone 80 MG TAB.CHEW PO ×4 (00:04→22:34)
[2023-09-04] MEDS: ondansetron HCL 4 MG/2 ML VIAL IVPUSH ×2 (00:54→09:02)
[2023-09-04] MEDS: HYDROmorphone HCl 1 MG/ML SYRINGE 1.5 MG IVPUSH ×6 (01:57→10:08)
--- NOTE | 2023-09-04 03:34 | PC.NURSE ---
Patient with pancreatitis requiring frequent IV dilaudid, 1.5mg every two hours. Patient c/o gas and abdominal pain as well as nausea. Patient medicated for all this, but continues to ask for shakir manjit, juice, etc. Patient is not NPO. He is on clear liquids drinking large amounts. Instructed to take smaller sips and avoid shakir manjit due to gas, or to stir bubbles out to see if it will decrease his pain.
[2023-09-04] MEDS: Lactated Ringers 1,000 ML 150 ML IVCONT (04:07)
[2023-09-04 05:48] LABS: Basophils Absolute Auto 0.1 X10*3/uL (0.0-0.2); Basophils Percent Auto 0.2 % (0-2); Eosinophils Percent Auto 0.1 % (0-4); Imm Gran Abs Auto 0.34 X10*3/uL (0.00-0.03); Imm Gran Pct Auto 1.1 % (0.0-0.4); Lymphocytes Absolute Auto 1.4 X10*3/uL (1.2-4.9); Lymphocytes Percent Auto 4.5 % (20-40); MANUAL DIFF FLAG SCAN; Mean Corpuscular HGB Conc 33.7 g/dl (31.0-36.0); Mean Corpuscular Hemoglobin 32.2 pg (27.0-33.0); Mean Corpuscular Volume 95.4 fL (80.0-98.0); Mean Platelet Volume 9.4 fL (9.4-12.4); Monocytes Absolute Auto 1.7 X10*3/uL (0.1-1.2); Monocytes Percent Auto 5.4 % (2-11); Neutrophils Absolute Auto 28.2 x10*3/uL (2.0-8.3); Neutrophils Percent Auto 88.7 % (45-73); Platelet Count 268 X10*3/uL (160-400); Red Blood Count 6.25 X10*6/uL (4.60-5.80); Red Cell Distribution Width 12.9 % (11.0-16.0); SCAN SMEAR FLAG 1
[2023-09-04 05:55] LABS: Hematocrit 59.6 % (42.0-52.0); Hemoglobin 20.1 g/dl (14.0-18.0); White Blood Count 31.8 X10*3/uL (4.8-10.8)
[2023-09-04 05:59] LABS: Alanine Aminotransferase 74 U/L (0-40); Albumin Level 3.3 g/dL (3.5-5.0); Alkaline Phosphatase 122 U/L (39-117); Anion Gap 14 (12-20); Aspartate Amino Transferase 83 U/L (5-37); Bilirubin Direct 0.8 mg/dL (0.0-0.5); Bilirubin Total 1.6 mg/dL (0.0-1.0); Blood Urea Nitrogen 12 mg/dL (9-16); Calcium 9.2 mg/dL (8.4-10.2); Carbon Dioxide 22 mmol/L (22-29); Chloride 102 mmol/L (96-108); Creatinine Clr Calc Pharmacy 173.2; Estimated Glomerular Filt Rate > 60; Glucose Fasting 127 mg/dL (60-99); Potassium 4.1 mmol/L (3.3-5.1); Sodium 134 mmol/L (135-145); Total Protein 6.2 g/dL (6.5-8.0)
[2023-09-04 06:07] LABS: SLIDE REVIEW VERIFIED
[2023-09-04 06:18] LABS: Lipase 496 U/L (8-78)
--- NOTE | 2023-09-04 06:39 | PC.NURSE ---
DR Guillaume contacted via [employer] this morning for this patient with Pacreatitis as I received a critical WBC count from the lab, and also to notify patient is not on antibiotics, he replied that he will review. Also notified this patient is not NPO.
[2023-09-04] MEDS: Pantoprazole Sodium 40 MG/10 ML VIAL IVPUSH ×2 (07:48→16:15)
[2023-09-04] MEDS: Thiamine HCL 100 MG in 0.9 % Sodium Chloride 100 ML 202 MG IV (07:48)
--- NOTE | 2023-09-04 08:48 | HO.PM.IMPN ---
Subjective Subjective Date of Service: 09/04/23 Interval History: coffee ground emesis Physical Exam Vital Signs: Vital Signs: Last Vital Signs Temp 98 F 09/04/23 06:40 Pulse 120 H 09/04/23 06:40 Resp 18 09/04/23 06:40 BP 148/99 H 09/04/23 06:40 Pulse Ox 93 09/04/23 06:40 O2 Del Method Room Air 09/04/23 06:40 BMI result Body Mass Index 30.0 General: AO X 3, in acute distress Resp: CTA bilateral, no accessory muscles used CVS: S1,S2,RRR GI: soft, tender, non distended Neuro: motor grossly intact, alert Psych: appropriate affect, appropriate insight Objective Data Active Medications Acetaminophen (Acetaminophen 325 Mg Tablet) 650 mg PO Q6H PRN PRN Reason: Pain, Mild (Pain Scale 1-3) Enoxaparin Sodium (Enoxaparin Sodium 40 Mg/0.4 Ml Syringe) 40 mg SUBCUT Q24H [facility] Last Admin: 09/04/23 07:32 Dose: Not Given Documented By: FLORY Non-Admin Reason: Physician Held Med Hydromorphone HCl (Hydromorphone Hcl 1 Mg/Ml Syringe) 1.5 mg IVPUSH Q2H PRN; Protocol PRN Reason: Pain, Severe (Pain Scale 7-10) Last Admin: 09/04/23 08:11 Dose: 1.5 mg Documented By: FLORY Thiamine HCl 100 mg/ Sodium (Chloride) 101 mls @ 202 mls/hr IV DAILY [facility] Last Infusion: 09/04/23 08:22 Dose: Infused Documented By: FLORY Lactated Ringer's (Lr) 1,000 mls @ 150 mls/hr IVCONT .Q6H40M [facility] Last Admin: 09/04/23 04:07 Dose: 150 mls/hr Documented By: TORIE Melatonin (Melatonin 3 Mg Tablet) 6 mg PO BEDTIME PRN PRN Reason: Insomnia Nicotine Polacrilex (Nicotine Polacrilex 2 Mg Gum) 2 mg BUCCAL Q1H PRN PRN Reason: cravings Last Admin: 09/03/23 14:41 Dose: 2 mg Documented By: FLORY Ondansetron HCl (Ondansetron Hcl 4 Mg/2 Ml Vial) 4 mg IVPUSH Q8H PRN PRN Reason: Nausea and Vomiting Last Admin: 09/04/23 00:54 Dose: 4 mg Documented By: TORIE Pantoprazole Sodium (Pantoprazole Sodium 40 Mg/10 Ml Vial) 40 mg IVPUSH BID@0630,1630 [facility] Last Admin: 09/04/23 07:48 Dose: 40 mg Documented By: FLORY Simethicone (Simethicone 80 Mg Tab.Chew) 80 mg PO Q6H PRN PRN Reason: Gas Last Admin: 09/04/23 08:10 Dose: 80 mg Documented By: FLORY Sodium Chloride (0.9 % Sodium Chloride Flush 3 Ml Syringe) 3 ml IVFLUSH QSHIFT [facility] Last Admin: 09/04/23 07:41 Dose: Not Given Documented By: FLORY Non-Admin Reason: IV Running Labs 09/04/23 05:25 09/04/23 05:25 Labs: Laboratory Results - last 24 hr 09/04/23 09/04/23 09/04/23 05:25 05:25 05:25 MCV 95.4 MCH 32.2 MCHC 33.7 RDW 12.9 Plt Count 268 MPV 9.4 Immature Gran % (Auto) 1.1 H Neut % (Auto) 88.7 H Lymph % (Auto) 4.5 L [place] % (Auto) 5.4 Eos % (Auto) 0.1 Baso % (Auto) 0.2 Lymph # (Auto) 1.4 [place] # (Auto) 1.7 H Eos # (Auto) 0.0 Baso # (Auto) 0.1 Abs Immat Gran (auto) 0.34 H Absolute Neuts (auto) 28.2 H Absolute Nucleated RBC 0.000 Nucleated RBC % (auto) 0.0 Smear Tech's Comments VERIFIED Anion Gap 14 Cancelled Estim Creat Clear Calc 173.2 Cancelled Estimated GFR > 60 Random Glucose Fasting Glucose Calcium Total Bilirubin Direct Bilirubin AST ALT Alkaline Phosphatase Total Protein Albumin Lipase 09/04/23 09/04/23 05:25 05:25 MCV MCH MCHC RDW Plt Count MPV Immature Gran % (Auto) Neut % (Auto) Lymph % (Auto) [place] % (Auto) Eos % (Auto) Baso % (Auto) Lymph # (Auto) [place] # (Auto) Eos # (Auto) Baso # (Auto) Abs Immat Gran (auto) Absolute Neuts (auto) Absolute Nucleated RBC Nucleated RBC % (auto) Smear Tech's Comments Anion Gap Estim Creat Clear Calc Estimated GFR Cancelled Random Glucose Cancelled Fasting Glucose 127 H Calcium 9.2 Cancelled Total Bilirubin 1.6 H Direct Bilirubin 0.8 H AST 83 H ALT 74 H Alkaline Phosphatase 122 H Total Protein 6.2 L Albumin 3.3 L Lipase 496 H Assessment and Plan (1) Pancreatitis: Status: Acute Plan 37M PMH etoh dependence, pancreatitis, presented with abd pain, found to have recurrent pancreatitis, now reporting coffee ground emesis Alcohol dependence with acute pancreatitis, complicated by coffee ground emesis and leukocytosis NPO, aggressive IV hydration - increase to 200cc/hr, IV hydromorphone Continue CIWA, no obvious signs of withdrawal at this time will add empiric zosyn due to leukocytosis transfer to [facility] iv protonix for coffee ground emesis, monitor cbc gi eval DVT prophylaxis - mechanical due to coffee ground emesis Full Code reason for continued hospitalization: Awaiting tolerance of p.o., requiring IV pain meds and IV hydration Quality Stroke Does the patient have a stroke diagnosis?: No VTE Prior VTE?: No VTE Risk Level:: Medical - moderate - high VTE Device Contraindication: Treatment Not Indicated VTE Drug Contraindication: N/A - Med Ordered
[2023-09-04 09:44] LABS: Basophils Absolute Auto 0.2 X10*3/uL (0.0-0.2); Basophils Percent Auto 0.5 % (0-2); Hemoglobin 19.5 g/dl (14.0-18.0); Lymphocytes Absolute Auto 1.3 X10*3/uL (1.2-4.9); Lymphocytes Percent Auto 4.1 % (20-40); MANUAL DIFF FLAG SCAN; Mean Corpuscular Hemoglobin 32.7 pg (27.0-33.0); Mean Corpuscular Volume 96.3 fL (80.0-98.0); Mean Platelet Volume 9.5 fL (9.4-12.4); Monocytes Absolute Auto 1.7 X10*3/uL (0.1-1.2); Monocytes Percent Auto 5.5 % (2-11); Neutrophils Percent Auto 88.9 % (45-73); Platelet Count 244 X10*3/uL (160-400); Red Blood Count 5.96 X10*6/uL (4.60-5.80); Red Cell Distribution Width 13.2 % (11.0-16.0); SCAN SMEAR FLAG 1
[2023-09-04 10:02] LABS: Hematocrit 57.4 % (42.0-52.0)
[2023-09-04 10:03] LABS: Alanine Aminotransferase 61 U/L (0-40); Albumin Level 3.2 g/dL (3.5-5.0); Alkaline Phosphatase 110 U/L (39-117); Anion Gap 15 (12-20); Aspartate Amino Transferase 67 U/L (5-37); Bilirubin Total 1.5 mg/dL (0.0-1.0); Blood Urea Nitrogen 15 mg/dL (9-16); Carbon Dioxide 22 mmol/L (22-29); Chloride 103 mmol/L (96-108); Creatinine Clr Calc Pharmacy 170.9; Estimated Glomerular Filt Rate > 60; Glucose Random 125 mg/dL (60-115); Potassium 4.4 mmol/L (3.3-5.1); Sodium 136 mmol/L (135-145); Total Protein 5.9 g/dL (6.5-8.0)
[2023-09-04 10:04] LABS: White Blood Count 31.4 X10*3/uL (4.8-10.8)
[2023-09-04] MEDS: Piperacillin Sodium/Tazobactam 3.375 GM in 0.9 % Sodium Chloride 50 ML IV ×3 (10:43→22:00)
[2023-09-04] MEDS: Lactated Ringers 1,000 ML 200 ML IVCONT ×3 (11:09→22:01)
--- NOTE | 2023-09-04 11:16 | P.CNGI_ITS ---
History of Present Illness Data of Consult Service Date: 09/04/23 Requesting physician: Delfino Rincon Primary Care Provider: Unknown Physician HPI Reason for consult: Acute recurrent pancreatitis, coffee-ground emesis 37 YM with ongoing alcohol abuse and multiple past admission for alcohol induced pancreatitis seen at [facility] on 09/02/23 with abdominal pain, nausea and vomiting and unable to tolerate p.o. intake. Patient stated he started having epigastric pain 1 day prior to presentation. The patient described the pain as constant, progressive, radiating to back and without any relieving factors. He stated his last alcohol drink was 1 day prior to presentation and had alcohol withdrawal a long time ago and denied any withdrawl symptoms or a history of alcohol withdrawal seizures. Patient stated he was admitted about 10 days ago at [facility] for alcohol induced pancreatitis. Pt denied fever, chills, chest discomfort, palpitations, shortness of breath, changes in urinary or bowel habits. Pt states no change in abdominal pain since admission. Patient complains of hiccups and feels bloated and denies having any bowel movements today. Patient reports he quit drinking for a year and resumed drinking a few weeks ago - taking 8 drinks of hard liquor every night. Pt is status post Suma fundoplication in 2012 years ago. He had repeat Laparoscopic fundoplication at the [facility] in Aug, 2022. Pt has baseline chronic abdominal pain with intermittent worsening. 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 09/03/[address] SCAN SHOWED: 1. Extensive peripancreatic stranding and fluid, consistent with acute pancreatitis. 2. Subtle hypoattenuating focus in the pancreatic head is suspected to reflect residual sequelae of a prior larger fluid collection in this region on 02/11/2023. PAST MEDICAL HISTORY BY REVIEW OF MEDICAL RECORDS: 08/09/22 EGD WAS PERFORMED BY DR. BROWNING DUE TO ABNORMAL CT SCAN: Thoracic stomach with inability to reach the pylorus due to looping of the scope in the herniated portion of the stomach. Mild changes of reflux. PLAN: The patient will have a consultation with thoracic surgery. I have also ordered a barium swallow and upper GI for the morning to further assess the situation. I would keep him on clear liquids for now. He will be kept on his IV PPI for now as well. I do think it would be important to fully assess this before he is discharged and see what Dr. Tony from Thoracic Surgery recommends. He may very well need surgery before he is discharged. This has been discussed with the patient. Review of Systems 2 Constitutional: Constitutional: Reports no additional constitutional complaints Cardiovascular: Cardiovascular: Reports no additional cardiovascular complaints Respiratory: Respiratory: Reports no additional respiratory complaints Gastrointestinal: Gastrointestinal: Reports abdominal pain, Reports nausea and Reports vomiting Genitourinary: Genitourinary: Reports no additional male genitourinary complaints [facility] Past Medical History Medical History (Updated 09/06/23 @ 14:24 by Jacqueline South PA-C) Pancreatitis Alcohol dependence with withdrawal Surgical History Surgical History (Updated 09/06/23 @ 14:45 by Jacqueline South PA-C) History of Suma fundoplication Social History Social History Household Members: None Housing: Apartment Do you presently have visiting nurse or other home services: No Alcohol intake: current Alcohol intake frequency: 3 or more drinks per day Alcohol type: hard liquor Comment: PT refused non skid footwear despite safety teaching and encouragement Patient Tobacco Use Status: Current everyday Tobacco user Tobacco use type: Cigarette Cigarette Packs Per Day: 1 Cigarettes Per Day: 20.0 Years Smoked: 20 Second Hand Smoke Exposure: No Substance Use Type: Marijuana service: No Current occupational status: employed Meds Allergies Allergy/AdvReac Type Severity Reaction Status Date / Time No Known Allergies Allergy Verified 09/03/23 03:35 [No Known Allergies*] Active Medications: Current Medications Acetaminophen (Acetaminophen 325 Mg Tablet) 650 mg PO Q6H PRN PRN Reason: Pain, Mild (Pain Scale 1-3) Hydromorphone HCl (Hydromorphone Hcl 1 Mg/Ml Syringe) 1.5 mg IVPUSH Q2H PRN; Protocol PRN Reason: Pain, Severe (Pain Scale 7-10) Last Admin: 03/03/24 10:08 Dose: 1.5 mg Thiamine HCl 100 mg/ Sodium (Chloride) 101 mls @ 202 mls/hr IV DAILY [facility] Last Infusion: 09/04/23 08:22 Dose: Infused Lactated Ringer's (Lr) 1,000 mls @ 200 mls/hr IVCONT .Q5H [facility] Last Admin: 09/04/23 11:09 Dose: 200 mls/hr Piperacillin Sod/Tazobactam (Sod 3.375 gm/ Sodium Chloride) 50 mls @ 100 mls/hr IV Q6H [facility] Last Infusion: 09/04/23 11:14 Dose: Infused Melatonin (Melatonin 3 Mg Tablet) 6 mg PO BEDTIME PRN PRN Reason: Insomnia Nicotine Polacrilex (Nicotine Polacrilex 2 Mg Gum) 2 mg BUCCAL Q1H PRN PRN Reason: cravings Last Admin: 09/03/23 14:41 Dose: 2 mg Ondansetron HCl (Ondansetron Hcl 4 Mg/2 Ml Vial) 4 mg IVPUSH Q8H PRN PRN Reason: Nausea and Vomiting Last Admin: 09/04/23 09:02 Dose: 4 mg Pantoprazole Sodium (Pantoprazole Sodium 40 Mg/10 Ml Vial) 40 mg IVPUSH BID@0630,1630 [facility] Last Admin: 09/04/23 07:48 Dose: 40 mg Simethicone (Simethicone 80 Mg Tab.Chew) 80 mg PO Q6H PRN PRN Reason: Gas Last Admin: 09/04/23 08:10 Dose: 80 mg Sodium Chloride (0.9 % Sodium Chloride Flush 3 Ml Syringe) 3 ml IVFLUSH QSHIFT [facility] Last Admin: 09/04/23 07:41 Dose: Not Given Physical Exam 2 Vital Signs: Vital Signs: Last Vital Signs Temp 98.7 F 09/04/23 10:39 Pulse 130 H 09/04/23 10:39 Resp 18 09/04/23 10:39 BP 132/90 H 09/04/23 10:39 Pulse Ox 93 09/04/23 10:39 O2 Del Method Room Air 09/04/23 10:39 BMI result Body Mass Index 30.0 General: AO X 3, in acute distress Resp: CTA bilateral, no accessory muscles used CVS: S1,S2,RRR GI: soft, tender, non distended Neuro: motor grossly intact, alert Psych: appropriate affect, appropriate insight Results Labs 09/09/23 05:50 09/09/23 11:06 Labs: Short CBC 09/04/23 09/04/23 Range/Units 05:25 09:33 WBC 31.8 H* 31.4 H* (4.8-10.8) X10*3/uL Hgb 20.1 H 19.5 H (14.0-18.0) g/dl Hct 59.6 H 57.4 H (42.0-52.0) % Plt Count 268 244 (160-400) X10*3/uL BMP 09/04/23 09/04/23 09/04/23 05:25 05:25 05:25 Sodium 134 L Cancelled Potassium 4.1 D Cancelled Chloride 102 Carbon Dioxide BUN Creatinine Calcium 09/04/23 09/04/23 09/04/23 05:25 05:25 05:25 Sodium Potassium Chloride Cancelled Carbon Dioxide 22 Cancelled BUN 12 Cancelled Creatinine 0.73 Calcium 09/04/23 09/04/23 09/04/23 05:25 05:25 09:33 Sodium 136 Potassium 4.4 Chloride 103 Carbon Dioxide 22 BUN 15 Creatinine Cancelled 0.74 Calcium 9.2 Cancelled 9.0 Liver Function 09/04/23 09/04/23 Range/Units 05:25 09:33 Total Bilirubin 1.6 H 1.5 H (0.0-1.0) mg/dL Direct Bilirubin 0.8 H (0.0-0.5) mg/dL AST 83 H 67 H (5-37) U/L ALT 74 H 61 H (0-40) U/L Alkaline Phosphatase 122 H 110 (39-117) U/L Albumin 3.3 L 3.2 L (3.5-5.0) g/dL Assessment and Plan (1) Pancreatitis: Status: Acute (2) Alcohol dependence with withdrawal: Status: Acute (3) Necrotizing pancreatitis: Status: Acute Plan 37 YM with ongoing alcohol abuse and multiple past admission for alcohol induced pancreatitis seen at [facility] on 09/02/23 with abdominal pain, nausea and vomiting and unable to tolerate p.o. intake. Pt has baseline chronic abdominal pain with intermittent worsening. Pt states he quitted drinking for a year after going through rehab and resumed drinking a few weeks ago. GI consulted for elevated WBC count, increase in LFTs and an episode of coffee ground emesis without significant change in H&H - likely due to MW tear Increase in LFTs likely partial biliary obstruction due to pancreatic edema. Lipase decreased to 496 from 1161 yesterday. RECOMMENDATIONS: 1. Agree with IV pain medications and antiemetics and IV antibiotics. 2. Agressive resuscitation with IVF and follow CBC, chem panel. 3. Repeat Abd CT scan with IV contrast tomorrow am. ADDENDUM: Hospital course: 37M PMH etoh dependence, pancreatitis, presented with abd pain, found to have recurrent pancreatitis, admitted to hospital treated with IV analgesics, IV fluids, bowel rest , how ever patient continued to have severe pain and developed coffee-ground emesis therefore repeat CT scan was performed that showed diffusely hypodense pancreas suspicious for acute necrotic pancreatitis with persistent extensive peripancreatic stranding, therefore general surgery consult was obtained, and he was placed on IV Zosyn, his WBC showed improvement, LFTs are downtrending , diet gradually advanced patient is currently tolerating regular diet, ambulating with steady gait, with no lightheadedness or dizziness noted to have no fevers, admits to have less pain and is eager to be discharged home, therefore will discharge him on 10 days of by mouth Augmentin and oxycodone, he was evaluated by care team and has been strongly advised to abstain from alcohol, patient noted to have no alcohol withdrawal symptoms. No recurrent bleed H&H remained stable and he was treated with PPI. He is recommended to return to ED with worsening abdominal pain, fevers, Procedures Date of Service Date of Service: 09/21/23
[2023-09-04] MEDS: HYDROmorphone HCl 1 MG/ML SYRINGE 2 MG IVPUSH ×6 (11:55→22:34)
[2023-09-04] MEDS: polyethylene glycoL 3350 17 GM POWD.PACK PO (13:06)
--- NOTE | 2023-09-04 16:04 | MHC.RECOVRN ---
Met with pt in 460 after consult placed to Addiction Medicine for alcohol use. Pt had presented to the ED reporting abdominal pain and alcohol use. Upon evaluation, pt admitted for pancreatitis. Pt laying in bed, awake, alert, engages in conversation, reporting abdominal pain. Pt reports numerous hospitalizations for pancreatitis, states I get it even if I'm not drinking. Pt reports recent recurrence with alcohol, has been drinking 8 nips daily x 2 weeks. Pt reports prior to that had been in recovery x 1 year. Pt reports he had been admitted to [facility] for [facility] and after discharge did not return to use. Pt reports he attended therapy for a short time but it out pretty quickly. Pt reports he did not attend meetings or utilize other recovery supports during that time. Pt reports he has naltrexone at home but has not taken it consistently. In regards to aftercare, pt states I don't think it's going to be that hard because it's only been 2 weeks. Discussed supports, pt declines referrals at this time. Pt provided with written resources as well as t/w contact information if needed. Pt denies questions or concerns for t/w.
--- NOTE | 2023-09-04 18:19 | PC.NURSE ---
Pt states not nauseous at this time. Asking for water stating how thirsty he is. Pt tolerating ice chips as allowed per his diet order. notified for request for water, states water is ok. Educated pt on small sips and to notifiy the nurse of any increased pain or nausea.
[2023-09-04] MEDS: bisacodyL 10 MG SUPP.RECT PR (20:20)
--- NOTE | 2023-09-04 21:26 | ECG_ITS ---
Test Reason : cp Blood Pressure : / mmHG Vent. Rate : 132 BPM Atrial Rate : 132 BPM P-R Int : 142 ms QRS Dur : 080 ms QT Int : 276 ms P-R-T Axes : 037 034 018 degrees QTc Int : 408 ms Sinus tachycardia Otherwise normal ECG When compared with ECG of 22-JUN-2022 18:44, Vent. rate has increased BY 49 BPM Criteria for Septal infarct are no longer Present T wave amplitude has decreased in Anterolateral leads Referred By: Delfino Rincon Electronically Signed By:Axel Cerda
[2023-09-05] MEDS: HYDROmorphone HCl 1 MG/ML SYRINGE 2 MG IVPUSH ×10 (00:52→23:51)
[2023-09-05] MEDS: Lactated Ringers 1,000 ML 200 ML IVCONT (02:47)
[2023-09-05 03:11] VITALS: BP 158/96; PULSE 120; RESP 20; TEMP 36.7; O2SAT 87
[2023-09-05] MEDS: Piperacillin Sodium/Tazobactam 3.375 GM in 0.9 % Sodium Chloride 50 ML IV ×4 (03:37→20:47)
[2023-09-05] MEDS: Pantoprazole Sodium 40 MG/10 ML VIAL IVPUSH ×2 (05:36→15:42)
[2023-09-05] MEDS: Simethicone 80 MG TAB.CHEW PO ×3 (05:43→20:47)
[2023-09-05 06:13] VITALS: O2SAT 92
[2023-09-05 07:12] LABS: Hematocrit 48.2 % (42.0-52.0); Hemoglobin 16.1 g/dl (14.0-18.0); Mean Corpuscular HGB Conc 33.4 g/dl (31.0-36.0); Mean Corpuscular Hemoglobin 32.4 pg (27.0-33.0); Mean Platelet Volume 10.3 fL (9.4-12.4); Platelet Count 179 X10*3/uL (160-400); Red Blood Count 4.97 X10*6/uL (4.60-5.80); Red Cell Distribution Width 13.1 % (11.0-16.0); White Blood Count 21.3 X10*3/uL (4.8-10.8)
[2023-09-05 07:13] LABS: INTERNATIONAL NORM RATIO 1.4 (0.9-1.1); Prothrombin Time 16.6 SEC (11.1-13.3)
[2023-09-05 07:44] LABS: Alanine Aminotransferase 42 U/L (0-40); Albumin Level 2.7 g/dL (3.5-5.0); Alkaline Phosphatase 100 U/L (39-117); Anion Gap 12 (12-20); Aspartate Amino Transferase 50 U/L (5-37); Bilirubin Total 2.7 mg/dL (0.0-1.0); Blood Urea Nitrogen 14 mg/dL (9-16); Calcium 8.8 mg/dL (8.4-10.2); Carbon Dioxide 29 mmol/L (22-29); Chloride 94 mmol/L (96-108); Creatinine Clr Calc Pharmacy 197.6; Estimated Glomerular Filt Rate > 60; Glucose Fasting 115 mg/dL (60-99); Magnesium 1.2 mg/dL (1.6-2.6); Sodium 131 mmol/L (135-145); Total Protein 5.3 g/dL (6.5-8.0)
[2023-09-05 08:00] VITALS: BP 126/87; PULSE 122; RESP 20; TEMP 36.6; O2SAT 91
[2023-09-05] MEDS: Magnesium Sulfate/H2O 2 GM/50 ML PIGGYBACK IV (08:05)
[2023-09-05] MEDS: Magnesium Oxide 400 MG TABLET PO ×2 (08:13→15:48)
[2023-09-05] MEDS: 0.9 % Sodium Chloride Flush 3 ML SYRINGE IVFLUSH ×2 (08:14→15:42)
[2023-09-05] MEDS: Thiamine HCL 100 MG in 0.9 % Sodium Chloride 100 ML 202 MG IV (08:19)
--- NOTE | 2023-09-05 09:02 | P.PNIM_ITS ---
Subjective Subjective Date of Service: 09/05/23 Interval History: wrosening abd pain Physical Exam 2 Vital Signs: Vital Signs: Last Vital Signs Temp 97.9 F 09/05/23 08:00 Pulse 122 H 09/05/23 08:00 Resp 20 09/05/23 08:00 BP 126/87 09/05/23 08:00 Pulse Ox 91 L 09/05/23 08:00 O2 Del Method Room Air 09/05/23 08:00 BMI result Body Mass Index 30.0 General: AO X 3, in acute distress Resp: CTA bilateral, no accessory muscles used CVS: S1,S2,RRR GI: soft, tender, non distended Neuro: motor grossly intact, alert Psych: appropriate affect, appropriate insight Objective Data Active Medications Acetaminophen (Acetaminophen 325 Mg Tablet) 650 mg PO Q6H PRN PRN Reason: Pain, Mild (Pain Scale 1-3) Bisacodyl (Bisacodyl 10 Mg Supp.Rect) 10 mg LA DAILY PRN PRN Reason: Constipation Last Admin: 09/04/23 20:20 Dose: 10 mg Documented By: SIM Hydromorphone HCl (Hydromorphone Hcl 1 Mg/Ml Syringe) 2 mg IVPUSH Q2H PRN; Protocol PRN Reason: Pain, Severe (Pain Scale 7-10) Last Admin: 09/05/23 08:09 Dose: 2 mg Documented By: SO Thiamine HCl 100 mg/ Sodium (Chloride) 101 mls @ 202 mls/hr IV DAILY [facility] Last Admin: 09/05/23 08:19 Dose: 202 mls/hr Documented By: SO Piperacillin Sod/Tazobactam (Sod 3.375 gm/ Sodium Chloride) 50 mls @ 100 mls/hr IV Q6H [facility] Last Infusion: 09/05/23 04:37 Dose: Infused Documented By: SIM Magnesium Sulfate (Magnesium Sulfate/H2o) 2 gm in 50 mls @ 25 mls/hr IV ONCE ONE Stop: 09/05/23 09:45 Last Admin: 09/05/23 08:05 Dose: 25 mls/hr Documented By: SO Magnesium Oxide (Magnesium Oxide 400 Mg Tablet) 400 mg PO BIDPC [facility] Last Admin: 09/05/23 08:13 Dose: 400 mg Documented By: SO Melatonin (Melatonin 3 Mg Tablet) 6 mg PO BEDTIME PRN PRN Reason: Insomnia Nicotine Polacrilex (Nicotine Polacrilex 2 Mg Gum) 2 mg BUCCAL Q1H PRN PRN Reason: cravings Last Admin: 09/03/23 14:41 Dose: 2 mg Documented By: FLORY Ondansetron HCl (Ondansetron Hcl 4 Mg/2 Ml Vial) 4 mg IVPUSH Q8H PRN PRN Reason: Nausea and Vomiting Last Admin: 09/04/23 09:02 Dose: 4 mg Documented By: FLORY Pantoprazole Sodium (Pantoprazole Sodium 40 Mg/10 Ml Vial) 40 mg IVPUSH BID@0630,1630 [facility] Last Admin: 09/05/23 05:36 Dose: 40 mg Documented By: SIM Simethicone (Simethicone 80 Mg Tab.Chew) 80 mg PO Q6H PRN PRN Reason: Gas Last Admin: 09/05/23 05:43 Dose: 80 mg Documented By: SIM Sodium Chloride (0.9 % Sodium Chloride Flush 3 Ml Syringe) 3 ml IVFLUSH QSHIFT [facility] Last Admin: 09/05/23 08:14 Dose: 3 ml Documented By: SO Labs 09/05/23 06:32 09/05/23 06:32 Labs: Laboratory Results - last 24 hr 09/04/23 09/05/23 09:33 06:32 MCV 96.3 97.0 MCH 32.7 32.4 MCHC 34.0 33.4 RDW 13.2 13.1 Plt Count 244 179 D MPV 9.5 10.3 Immature Gran % (Auto) 1.0 H Neut % (Auto) 88.9 H Lymph % (Auto) 4.[address] [place] % (Auto) 5.5 Eos % (Auto) 0.0 Baso % (Auto) 0.5 Lymph # (Auto) 1.3 [facility] [facility] # (Auto) 1.7 H Eos # (Auto) 0.0 Baso # (Auto) 0.2 Abs Immat Gran (auto) 0.30 H Absolute Neuts (auto) 28.0 H Absolute Nucleated RBC 0.000 0.000 Nucleated RBC % (auto) 0.0 0.0 PT 16.6 H INR 1.4 H Anion Gap 15 12 Estim Creat Clear Calc 170.9 197.6 Estimated GFR > 60 > 60 Random Glucose 125 H Fasting Glucose 115 H Calcium 9.0 8.8 Magnesium 1.2 L* Total Bilirubin 1.5 H 2.7 H Direct Bilirubin 1.0 H AST 67 H 50 H ALT 61 H 42 H Alkaline Phosphatase 110 100 Total Protein 5.9 L 5.3 L Albumin 3.2 L 2.7 L Assessment and Plan (1) Pancreatitis: Status: Acute Plan 37M PMH etoh dependence, pancreatitis, presented with abd pain, found to have recurrent pancreatitis, now reporting coffee ground emesis Alcohol dependence with acute pancreatitis, complicated by coffee ground emesis and leukocytosis still no appetite, reporting worsening abd pain conitnue NPO, aggressive IV hydration, IV hydromorphone will repeat CT abd Continue CIWA, no obvious signs of withdrawal at this time cotninue empiric zosyn due to leukocytosis iv protonix for coffee ground emesis, monitor cbc gi eval acute hypomagnesemia replace and monitor DVT prophylaxis - mechanical due to coffee ground emesis Full Code reason for continued hospitalization: Awaiting tolerance of p.o., requiring IV pain meds and IV hydration Quality Stroke Does the patient have a stroke diagnosis?: No VTE Prior VTE?: No VTE Risk Level:: Medical - moderate - high VTE Device Contraindication: Treatment Not Indicated VTE Drug Contraindication: N/A - Med Ordered
[2023-09-05] MEDS: iohexoL 350 MG/ML 100 ML INFUS..BTL IV (10:24)
[2023-09-05 11:46] VITALS: BP 129/75; PULSE 121; RESP 20; TEMP 36.4; O2SAT 92
[2023-09-05] MEDS: Acetaminophen 325 MG TABLET 650 MG PO (12:17)
[2023-09-05 15:11] VITALS: BP 131/71; PULSE 104; RESP 20; TEMP 35.9; O2SAT 94
--- NOTE | 2023-09-05 15:18 | MHC.CM.PN ---
EMR reviewed and per MD rounds, pt is not medically cleared for D/C due to awaiting PO tolerance, and is requiring IV pain meds and IV hydration. CM will continue to follow.
[2023-09-05 20:00] VITALS: BP 121/80; PULSE 109; RESP 18; TEMP 36.4; O2SAT 90
[2023-09-06] VITALS (7 sets, daily range): BP systolic 128–147; BP diastolic 79–87; PULSE 83–108; RESP 16–120; TEMP 36.4–36.9; O2SAT 89–94
[2023-09-06] MEDS: HYDROmorphone HCl 1 MG/ML SYRINGE 2 MG IVPUSH ×8 (02:11→22:17)
[2023-09-06] MEDS: Simethicone 80 MG TAB.CHEW PO ×4 (02:12→22:29)
[2023-09-06] MEDS: Piperacillin Sodium/Tazobactam 3.375 GM in 0.9 % Sodium Chloride 50 ML IV ×4 (04:51→22:23)
[2023-09-06] MEDS: Pantoprazole Sodium 40 MG/10 ML VIAL IVPUSH ×2 (05:32→15:39)
[2023-09-06 06:30] LABS: Hematocrit 42.7 % (42.0-52.0); Hemoglobin 14.4 g/dl (14.0-18.0); Mean Corpuscular HGB Conc 33.7 g/dl (31.0-36.0); Mean Corpuscular Hemoglobin 32.1 pg (27.0-33.0); Mean Corpuscular Volume 95.1 fL (80.0-98.0); Mean Platelet Volume 9.9 fL (9.4-12.4); Platelet Count 140 X10*3/uL (160-400); Red Blood Count 4.49 X10*6/uL (4.60-5.80); Red Cell Distribution Width 12.8 % (11.0-16.0); White Blood Count 15.5 X10*3/uL (4.8-10.8)
[2023-09-06 06:43] LABS: Alanine Aminotransferase 27 U/L (0-40); Albumin Level 2.7 g/dL (3.5-5.0); Alkaline Phosphatase 102 U/L (39-117); Anion Gap 12 (12-20); Aspartate Amino Transferase 35 U/L (5-37); Bilirubin Direct 1.1 mg/dL (0.0-0.5); Bilirubin Total 2.3 mg/dL (0.0-1.0); Blood Urea Nitrogen 11 mg/dL (9-16); Calcium 8.5 mg/dL (8.4-10.2); Carbon Dioxide 29 mmol/L (22-29); Chloride 93 mmol/L (96-108); Creatinine Clr Calc Pharmacy 221.8; Estimated Glomerular Filt Rate > 60; Glucose Fasting 99 mg/dL (60-99); Magnesium 1.8 mg/dL (1.6-2.6); Potassium 3.4 mmol/L (3.3-5.1); Sodium 131 mmol/L (135-145); Total Protein 5.7 g/dL (6.5-8.0)
[2023-09-06] MEDS: Magnesium Oxide 400 MG TABLET PO ×2 (08:32→15:39)
[2023-09-06] MEDS: 0.9 % Sodium Chloride Flush 3 ML SYRINGE IVFLUSH ×2 (08:33→15:40)
[2023-09-06] MEDS: Thiamine HCL 100 MG in 0.9 % Sodium Chloride 100 ML 202 MG IV (08:38)
--- NOTE | 2023-09-06 09:40 | P.PNIM_ITS ---
Subjective Subjective Date of Service: 09/06/23 Interval History: still with pain, but wants clears Physical Exam 2 Vital Signs: Vital Signs: Last Vital Signs Temp 98.1 F 09/06/23 08:00 Pulse 100 09/06/23 08:00 Resp 16 09/06/23 08:00 BP 147/87 H 09/06/23 08:00 Pulse Ox 92 09/06/23 08:00 O2 Del Method Room Air 09/06/23 08:00 BMI result Body Mass Index 30.0 General: AO X 3, in acute distress Resp: CTA bilateral, no accessory muscles used CVS: S1,S2,RRR GI: soft, tender, non distended Neuro: motor grossly intact, alert Psych: appropriate affect, appropriate insight Objective Data Active Medications Acetaminophen (Acetaminophen 325 Mg Tablet) 650 mg PO Q6H PRN PRN Reason: Pain, Mild (Pain Scale 1-3) Last Admin: 09/05/23 12:17 Dose: 650 mg Documented By: SO Bisacodyl (Bisacodyl 10 Mg Supp.Rect) 10 mg MD DAILY PRN PRN Reason: Constipation Last Admin: 09/04/23 20:20 Dose: 10 mg Documented By: SIM Hydromorphone HCl (Hydromorphone Hcl 1 Mg/Ml Syringe) 2 mg IVPUSH Q2H PRN; Protocol PRN Reason: Pain, Severe (Pain Scale 7-10) Last Admin: 09/06/23 08:34 Dose: 2 mg Documented By: SO Thiamine HCl 100 mg/ Sodium (Chloride) 101 mls @ 202 mls/hr IV DAILY [facility] Last Admin: 09/06/23 08:38 Dose: 202 mls/hr Documented By: SO Piperacillin Sod/Tazobactam (Sod 3.375 gm/ Sodium Chloride) 50 mls @ 100 mls/hr IV Q6H [facility] Last Admin: 09/06/23 08:32 Dose: 100 mls/hr Documented By: SO Magnesium Oxide (Magnesium Oxide 400 Mg Tablet) 400 mg PO BIDPC [facility] Last Admin: 09/06/23 08:32 Dose: 400 mg Documented By: SO Melatonin (Melatonin 3 Mg Tablet) 6 mg PO BEDTIME PRN PRN Reason: Insomnia Nicotine Polacrilex (Nicotine Polacrilex 2 Mg Gum) 2 mg BUCCAL Q1H PRN PRN Reason: cravings Last Admin: 09/03/23 14:41 Dose: 2 mg Documented By: FLORY Ondansetron HCl (Ondansetron Hcl 4 Mg/2 Ml Vial) 4 mg IVPUSH Q8H PRN PRN Reason: Nausea and Vomiting Last Admin: 09/04/23 09:02 Dose: 4 mg Documented By: FLORY Pantoprazole Sodium (Pantoprazole Sodium 40 Mg/10 Ml Vial) 40 mg IVPUSH BID@0630,1630 [facility] Last Admin: 09/06/23 05:32 Dose: 40 mg Documented By: SIM Simethicone (Simethicone 80 Mg Tab.Chew) 80 mg PO Q6H PRN PRN Reason: Gas Last Admin: 09/06/23 08:30 Dose: 80 mg Documented By: SO Sodium Chloride (0.9 % Sodium Chloride Flush 3 Ml Syringe) 3 ml IVFLUSH QSHIFT [facility] Last Admin: 09/06/23 08:33 Dose: 3 ml Documented By: SO Labs 09/06/23 05:58 09/06/23 05:58 Labs: Laboratory Results - last 24 hr 09/06/23 05:58 MCV 95.1 MCH 32.1 MCHC 33.7 RDW 12.8 Plt Count 140 L MPV 9.9 Absolute Nucleated RBC 0.000 Nucleated RBC % (auto) 0.0 Anion Gap 12 Estim Creat Clear Calc 221.8 Estimated GFR > 60 Fasting Glucose 99 Calcium 8.5 Magnesium 1.8 Total Bilirubin 2.3 H Direct Bilirubin 1.1 H AST 35 ALT 27 Alkaline Phosphatase 102 Total Protein 5.7 L Albumin 2.7 L Assessment and Plan (1) Pancreatitis: Status: Acute Plan 37M PMH etoh dependence, pancreatitis, presented with abd pain, found to have recurrent pancreatitis, now reporting coffee ground emesis Alcohol dependence with acute pancreatitis, complicated by coffee ground emesis and leukocytosis still with severe pain, wants to start clears continue IV hydration - 100cc/hr, IV hydromorphone follow up ct abd Continue CIWA, no obvious signs of withdrawal at this time continue empiric zosyn due to leukocytosis iv protonix for coffee ground emesis, monitor cbc gi following acute hypomagnesemia replaced DVT prophylaxis - mechanical due to coffee ground emesis Full Code reason for continued hospitalization: Awaiting tolerance of p.o., requiring IV pain meds and IV hydration Quality Stroke Does the patient have a stroke diagnosis?: No VTE Prior VTE?: No VTE Risk Level:: Medical - moderate - high VTE Device Contraindication: Treatment Not Indicated VTE Drug Contraindication: N/A - Med Ordered
[2023-09-06] MEDS: Lactated Ringers 1,000 ML 100 ML IVCONT ×2 (10:00→22:18)
--- NOTE | 2023-09-06 14:13 | P.CONGS_ITS ---
History of Present Illness Consult details Consult date: 09/06/23 Requesting physician: Delfino Rincon Narrative: This is a 37-year-old male with pertinent history of alcohol use disorder with history of alcohol induced pancreatitis who presented to the emergency department for evaluation of abdominal pain. He developed epigastric pain the day prior to presentation. It was constant in nature and radiated to the back. It gradually worsened in severity and was associated nausea and vomiting. He was unable to tolerate any PO intake. His last alcoholic drink was the day the pain began. He was admitted about 10 days ago at a [facility] for alcohol induced pancreatitis as well. Work up in the ED included lipase of [address] abd/pelvis showing extensive peripancreatic stranding and fluid, consistent with acute pancreatitis. He was admitted to the hospitalist service for further treatment of the alcohol dependence with acute pancreatitis. He however has had continued severe pain and developed coffee ground emesis therefore repeat CT scan was performed which showed a diffusely hypodense suspicious for acute necrotic pancreatitis with persistent extensive peripancreatic stranding. General surgery was therefore consulted. He reports no significant improvement in the abdominal pain and now reports its now in his right and left abdomen. He denies nausea or vomiting and is tolerating clear liquids. He feels constipated. Nursing reports he is receiving dilaudid 2mg IV q2h and the patient is still in pain. Review of Systems 2 Constitutional: Constitutional: Denies chills and Denies fever(s) ENT: Denies dizziness Cardiovascular: Cardiovascular: Denies chest pain and Denies dyspnea Respiratory: Respiratory: Denies dyspnea Gastrointestinal: Gastrointestinal: Reports as per HPI Integumentary/Breasts: Skin/Breast: Denies rash and Denies jaundice Neurologic: Denies dizziness PMFSH Past Medical History Medical History (Updated 09/06/23 @ 14:24 by Jacqueline South PA-C) Pancreatitis Alcohol dependence with withdrawal Surgical History Surgical History (Updated 09/06/23 @ 14:45 by Jacqueline South PA-C) History of Suma fundoplication Social History Social History Household Members: None Housing: Apartment Do you presently have visiting nurse or other home services: No Alcohol intake: current Alcohol intake frequency: 3 or more drinks per day Alcohol type: hard liquor Comment: PT refused non skid footwear despite safety teaching and encouragement Patient Tobacco Use Status: Current everyday Tobacco user Tobacco use type: Cigarette Cigarette Packs Per Day: 1 Cigarettes Per Day: 20.0 Years Smoked: 20 Second Hand Smoke Exposure: No Substance Use Type: Marijuana service: No Current occupational status: employed Meds Allergies Allergy/AdvReac Type Severity Reaction Status Date / Time No Known Allergies Allergy Verified 09/03/23 03:35 [No Known Allergies*] Active Medications: Current Medications Acetaminophen (Acetaminophen 325 Mg Tablet) 650 mg PO Q6H PRN PRN Reason: Pain, Mild (Pain Scale 1-3) Last Admin: 09/05/23 12:17 Dose: 650 mg Bisacodyl (Bisacodyl 10 Mg Supp.Rect) 10 mg HI DAILY PRN PRN Reason: Constipation Last Admin: 09/04/23 20:20 Dose: 10 mg Hydromorphone HCl (Hydromorphone Hcl 1 Mg/Ml Syringe) 2 mg IVPUSH Q2H PRN; Protocol PRN Reason: Pain, Severe (Pain Scale 7-10) Last Admin: 09/06/23 12:04 Dose: 2 mg Thiamine HCl 100 mg/ Sodium (Chloride) 101 mls @ 202 mls/hr IV DAILY [facility] Last Infusion: 09/06/23 09:49 Dose: Infused Piperacillin Sod/Tazobactam (Sod 3.375 gm/ Sodium Chloride) 50 mls @ 100 mls/hr IV Q6H [facility] Last Infusion: 09/06/23 09:47 Dose: Infused Lactated Ringer's (Lr) 1,000 mls @ 100 mls/hr IVCONT .Q10H [facility] Last Admin: 09/06/23 10:00 Dose: 100 mls/hr Magnesium Oxide (Magnesium Oxide 400 Mg Tablet) 400 mg PO BIDPC [facility] Last Admin: 09/06/23 08:32 Dose: 400 mg Melatonin (Melatonin 3 Mg Tablet) 6 mg PO BEDTIME PRN PRN Reason: Insomnia Nicotine Polacrilex (Nicotine Polacrilex 2 Mg Gum) 2 mg BUCCAL Q1H PRN PRN Reason: cravings Last Admin: 09/03/23 14:41 Dose: 2 mg Ondansetron HCl (Ondansetron Hcl 4 Mg/2 Ml Vial) 4 mg IVPUSH Q8H PRN PRN Reason: Nausea and Vomiting Last Admin: 09/04/23 09:02 Dose: 4 mg Pantoprazole Sodium (Pantoprazole Sodium 40 Mg/10 Ml Vial) 40 mg IVPUSH BID@0630,1630 [facility] Last Admin: 09/06/23 05:32 Dose: 40 mg Simethicone (Simethicone 80 Mg Tab.Chew) 80 mg PO Q6H PRN PRN Reason: Gas Last Admin: 09/06/23 08:30 Dose: 80 mg Sodium Chloride (0.9 % Sodium Chloride Flush 3 Ml Syringe) 3 ml IVFLUSH QSHIFT [facility] Last Admin: 09/06/23 08:33 Dose: 3 ml Home Medications Medication Instructions Recorded Confirmed Last Taken Type No Known Home Meds 02/11/23 09/03/23 Unknown History Physical Exam 2 Vital Signs: Vital Signs: Last Vital Signs Temp 98.1 F 09/06/23 08:00 Pulse 100 09/06/23 08:00 Resp 16 09/06/23 08:00 BP 147/87 H 09/06/23 08:00 Pulse Ox 92 09/06/23 08:00 O2 Del Method Room Air 09/06/23 08:00 BMI result Body Mass Index 30.0 Const: Other: uncomfortable appearing General: no acute distress and alert Orientation/consciousness: patient oriented x3 Neck: Neck: Yes no JVD Resp: Effort & Inspection: normal respiratory effort and no respiratory distress GI: Inspection: No distended Palpation (GI): Soft to palpation, Tenderness to palpation present (GI) in the epigastrum (marked ), in the LUQ (moderate ) and in the RUQ (moderate ); with no rebound tenderness, no guarding and not rigid Percussion: Yes normal to percussion Skin: General skin exam: no rashes or lesions noted and no jaundice Neuro: General: patient oriented x3 and moves all extremities Results Labs 09/06/23 05:58 09/06/23 05:58 Labs: Abnormal lab results 09/06/23 Range/Units 05:58 WBC 15.5 H (4.8-10.8) X10*3/uL RBC 4.49 L (4.60-5.80) X10*6/uL Plt Count 140 L (160-400) X10*3/uL Sodium 131 L (135-145) mmol/L Chloride 93 L (96-108) mmol/L Total Bilirubin 2.3 H (0.0-1.0) mg/dL Direct Bilirubin 1.1 H (0.0-0.5) mg/dL Total Protein 5.7 L (6.5-8.0) g/dL Albumin 2.7 L (3.5-5.0) g/dL Short CBC 09/06/23 Range/Units 05:58 WBC 15.5 H (4.8-10.8) X10*3/uL Hgb 14.4 (14.0-18.0) g/dl Hct 42.7 (42.0-52.0) % Plt Count 140 L (160-400) X10*3/uL BMP 09/06/23 05:58 Sodium 131 L Potassium 3.4 Chloride 93 L Carbon Dioxide 29 BUN 11 Creatinine 0.57 Calcium 8.5 Liver Function 09/06/23 Range/Units 05:58 Total Bilirubin 2.3 H (0.0-1.0) mg/dL Direct Bilirubin 1.1 H (0.0-0.5) mg/dL AST 35 (5-37) U/L ALT 27 (0-40) U/L Alkaline Phosphatase 102 (39-117) U/L Albumin 2.7 L (3.5-5.0) g/dL All other labs normal. Imaging Abdomen CT scan report/results: report reviewed and image reviewed Assessment and Plan (1) Necrotizing pancreatitis: Status: Acute Plan 37 year old male with hx of alcohol abuse, multiple episodes of alcohol induced pancreatitis with continued severe epigastric pain now with necrotizing pancreatitis on repeat CT scan. His labs however seem to be improving as his WBC and LFTs are downtrending. He is afebrile and currently tolerating clear liquids. He is on empiric IV zosyn. Recommend continuing supportive measures. If no further improvement in the next day or so or clinically worsens, would need transfer to tertiary center for possible endoscopic/surgical debridement. Discussed with patient. Encouraged OOB to recliner at least to promote GI function, IS use for atelectasis on CXR. Will continue to follow. Procedures Date of Service Date of Service: 09/06/23
[2023-09-06] MEDS: Lactulose 20 GM/30 ML SOLUTION 30 GM PO (14:52)
[2023-09-06] MEDS: bisacodyL 10 MG SUPP.RECT PR (17:23)
[2023-09-07] MEDS: HYDROmorphone HCl 1 MG/ML SYRINGE 2 MG IVPUSH ×9 (01:54→22:17)
[2023-09-07] MEDS: 0.9 % Sodium Chloride Flush 3 ML SYRINGE IVFLUSH ×4 (01:55→22:17)
[2023-09-07 04:00] VITALS: BP 118/58; PULSE 94; RESP 16; TEMP 37; O2SAT 94
[2023-09-07] MEDS: Simethicone 80 MG TAB.CHEW PO (04:33)
[2023-09-07] MEDS: Piperacillin Sodium/Tazobactam 3.375 GM in 0.9 % Sodium Chloride 50 ML IV ×4 (04:35→22:17)
[2023-09-07 06:27] LABS: Hematocrit 41.7 % (42.0-52.0); Hemoglobin 14.1 g/dl (14.0-18.0); Mean Corpuscular HGB Conc 33.8 g/dl (31.0-36.0); Mean Corpuscular Hemoglobin 32.1 pg (27.0-33.0); Mean Platelet Volume 9.8 fL (9.4-12.4); Platelet Count 137 X10*3/uL (160-400); Red Blood Count 4.39 X10*6/uL (4.60-5.80); Red Cell Distribution Width 12.9 % (11.0-16.0); White Blood Count 11.3 X10*3/uL (4.8-10.8)
[2023-09-07 06:50] LABS: Alanine Aminotransferase 22 U/L (0-40); Albumin Level 2.8 g/dL (3.5-5.0); Alkaline Phosphatase 110 U/L (39-117); Anion Gap 9 (12-20); Aspartate Amino Transferase 26 U/L (5-37); Bilirubin Direct 0.9 mg/dL (0.0-0.5); Blood Urea Nitrogen 8 mg/dL (9-16); Calcium 8.4 mg/dL (8.4-10.2); Carbon Dioxide 28 mmol/L (22-29); Chloride 99 mmol/L (96-108); Estimated Glomerular Filt Rate > 60; Glucose Fasting 123 mg/dL (60-99); Potassium 2.8 mmol/L (3.3-5.1); Sodium 133 mmol/L (135-145); Total Protein 6.1 g/dL (6.5-8.0)
[2023-09-07 07:25] VITALS: BP 130/84; PULSE 88; RESP 18; TEMP 36.4
[2023-09-07 07:30] VITALS: O2SAT 92
[2023-09-07] MEDS: Pantoprazole Sodium 40 MG/10 ML VIAL IVPUSH ×2 (07:47→16:56)
[2023-09-07] MEDS: Lactated Ringers 1,000 ML 100 ML IVCONT ×2 (07:56→16:57)
[2023-09-07] MEDS: Potassium Chloride ER 20 MEQ TAB.ER.PRT 40 MEQ PO (07:57)
--- NOTE | 2023-09-07 09:17 | HO.PM.IMPN ---
Subjective Subjective Date of Service: 09/07/23 Interval History: abd pain a bit better, tolerated clears, but not interested in advancing further had bowel movement Review of Systems Review of Systems: Yes all other systems are reviewed and are negative Physical Exam Vital Signs: Vital Signs: Last Vital Signs Temp 97.6 F 09/07/23 07:25 Pulse 88 09/07/23 07:25 Resp 18 09/07/23 07:25 BP 130/84 09/07/23 07:25 Pulse Ox 92 09/07/23 07:30 O2 Del Method Room Air 09/07/23 07:30 BMI result Body Mass Index 30.0 General: AO X 3, in some pain Resp: CTA bilateral, no accessory muscles used CVS: S1,S2,RRR GI: soft, tender, non distended Neuro: motor grossly intact, alert Psych: appropriate affect, appropriate insight Objective Data Active Medications Acetaminophen (Acetaminophen 325 Mg Tablet) 650 mg PO Q6H PRN PRN Reason: Pain, Mild (Pain Scale 1-3) Last Admin: 09/05/23 12:17 Dose: 650 mg Documented By: SO Bisacodyl (Bisacodyl 10 Mg Supp.Rect) 10 mg [place] DAILY PRN PRN Reason: Constipation Last Admin: 09/06/23 17:23 Dose: 10 mg Documented By: SO Hydromorphone HCl (Hydromorphone Hcl 1 Mg/Ml Syringe) 2 mg IVPUSH Q2H PRN; Protocol PRN Reason: Pain, Severe (Pain Scale 7-10) Last Admin: 09/07/23 07:57 Dose: 2 mg Documented By: MAGGIE Thiamine HCl 100 mg/ Sodium (Chloride) 101 mls @ 202 mls/hr IV DAILY [facility] Last Infusion: 09/06/23 09:49 Dose: Infused Documented By: SO Piperacillin Sod/Tazobactam (Sod 3.375 gm/ Sodium Chloride) 50 mls @ 100 mls/hr IV Q6H [facility] Last Infusion: 09/07/23 05:05 Dose: Infused Documented By: MAGGIE Lactated Ringer's (Lr) 1,000 mls @ 100 mls/hr IVCONT .Q10H [facility] Last Admin: 09/07/23 07:56 Dose: 100 mls/hr Documented By: MAGGIE Magnesium Oxide (Magnesium Oxide 400 Mg Tablet) 400 mg PO BIDPC [facility] Last Admin: 09/06/23 15:39 Dose: 400 mg Documented By: VICTORINA Melatonin (Melatonin 3 Mg Tablet) 6 mg PO BEDTIME PRN PRN Reason: Insomnia Nicotine Polacrilex (Nicotine Polacrilex 2 Mg Gum) 2 mg BUCCAL Q1H PRN PRN Reason: cravings Last Admin: 09/03/23 14:41 Dose: 2 mg Documented By: FLORY Ondansetron HCl (Ondansetron Hcl 4 Mg/2 Ml Vial) 4 mg IVPUSH Q8H PRN PRN Reason: Nausea and Vomiting Last Admin: 09/04/23 09:02 Dose: 4 mg Documented By: FLORY Pantoprazole Sodium (Pantoprazole Sodium 40 Mg/10 Ml Vial) 40 mg IVPUSH BID@0630,1630 [facility] Last Admin: 09/07/23 07:47 Dose: 40 mg Documented By: MAGGIE Simethicone (Simethicone 80 Mg Tab.Chew) 160 mg PO Q6H PRN PRN Reason: Gas Sodium Chloride (0.9 % Sodium Chloride Flush 3 Ml Syringe) 3 ml IVFLUSH QSHIFT [facility] Last Admin: 09/07/23 09:13 Dose: 3 ml Documented By: URSZULA Labs 09/07/23 05:55 09/07/23 05:55 Labs: Laboratory Results - last 24 hr 09/07/23 05:55 MCV 95.0 MCH 32.1 MCHC 33.8 RDW 12.9 Plt Count 137 L MPV 9.8 Absolute Nucleated RBC 0.000 Nucleated RBC % (auto) 0.0 Anion Gap 9 L Estim Creat Clear Calc 218.0 Estimated GFR > 60 Fasting Glucose 123 H Calcium 8.4 Magnesium 2.0 Total Bilirubin 2.0 H Direct Bilirubin 0.9 H AST 26 ALT 22 Alkaline Phosphatase 110 Total Protein 6.1 L Albumin 2.8 L Assessment and Plan (1) Pancreatitis: Status: Acute Plan 37M PMH etoh dependence, pancreatitis, presented with abd pain, found to have recurrent pancreatitis, now reporting coffee ground emesis Alcohol dependence with acute necrotic pancreatitis, complicated by coffee ground emesis started clears 09/06/23 and tolerated, but not interested in advancing further improved leukocytosis on empiric zosyn no sepsis surgery following - ? need for debridement continue IV hydration - on 100cc/hr, IV hydromorphone no obvious signs of withdrawal at this time iv protonix for coffee ground emesis, hgb stable (drop due to previous hemoconcentration) monitor cbc gi appreciated - continue managment of pancreatitis, no plan for scope for now acute hyopkalemia replace, monitor acute hypomagnesemia replaced, monitor DVT prophylaxis - mechanical due to coffee ground emesis Full Code reason for continued hospitalization: Awaiting tolerance of p.o., requiring IV pain meds and IV hydration Quality Stroke Does the patient have a stroke diagnosis?: No VTE Prior VTE?: No VTE Risk Level:: Medical - moderate - high VTE Device Contraindication: Treatment Not Indicated VTE Drug Contraindication: N/A - Med Ordered
[2023-09-07] MEDS: Magnesium Oxide 400 MG TABLET PO ×2 (09:18→16:56)
[2023-09-07] MEDS: Thiamine HCL 100 MG in 0.9 % Sodium Chloride 100 ML 202 MG IV (09:18)
[2023-09-07] MEDS: Simethicone 80 MG TAB.CHEW 160 MG PO ×3 (10:02→22:17)
--- NOTE | 2023-09-07 10:20 | MHC.CM.PN ---
Per ROUNDS discussion, Patient is not yet medically cleared for dc (advancing PO, IV Pain meds, IV hydration); home is the goal and CM will continue to follow.
[2023-09-07 11:39] VITALS: BP 136/85; PULSE 92; RESP 18; TEMP 36.6; O2SAT 93
--- NOTE | 2023-09-07 13:57 | P.PNGS_ITS ---
Subjective Subjective Date of Service: 09/07/23 Interval history: Patient continues to report abdominal pain extending into the lower abdomen and back. He is tolerating liquids but does not wish to advance. Reports passing flatus and a small bowel movement. Physical Exam 2 Vital Signs: Vital Signs: Last Vital Signs Temp 97.9 F 09/07/23 11:39 Pulse 92 09/07/23 11:39 Resp 18 09/07/23 11:39 BP 136/85 09/07/23 11:39 Pulse Ox 93 09/07/23 11:39 O2 Del Method Room Air 09/07/23 11:39 BMI result Body Mass Index 30.0 Const: General: ill appearing Nutritional Appearance: well nourished O rientation/consciousness: patient oriented x3 Resp: Effort & Inspection: normal respiratory effort, no audible wheezes, no cough and no respiratory distress GI: Inspection: Yes distended Palpation (GI): Soft to palpation, Tenderness to palpation present (GI) in the epigastrum, in the LLQ and in the RLQ, Guarding due to palpation present (GI), not rigid and no masses Percussion: Yes dullness to percussion Rectal Exam - Male: Yes deferred Skin: General skin exam: no rashes or lesions noted Neuro: General: patient oriented x3 Objective Data Active Medications Acetaminophen (Acetaminophen 325 Mg Tablet) 650 mg PO Q6H PRN PRN Reason: Pain, Mild (Pain Scale 1-3) Last Admin: 09/05/23 12:17 Dose: 650 mg Documented By: SO Bisacodyl (Bisacodyl 10 Mg Supp.Rect) 10 mg HI DAILY PRN PRN Reason: Constipation Last Admin: 09/06/23 17:23 Dose: 10 mg Documented By: SO Hydromorphone HCl (Hydromorphone Hcl 1 Mg/Ml Syringe) 2 mg IVPUSH Q2H PRN; Protocol PRN Reason: Pain, Severe (Pain Scale 7-10) Last Admin: 09/07/23 12:14 Dose: 2 mg Documented By: URSZULA Thiamine HCl 100 mg/ Sodium (Chloride) 101 mls @ 202 mls/hr IV DAILY [facility] Last Infusion: 09/07/23 09:56 Dose: Infused Documented By: URSZULA Piperacillin Sod/Tazobactam (Sod 3.375 gm/ Sodium Chloride) 50 mls @ 100 mls/hr IV Q6H [facility] Last Infusion: 09/07/23 09:50 Dose: Infused Documented By: URSZULA Lactated Ringer's (Lr) 1,000 mls @ 100 mls/hr IVCONT .Q10H [facility] Last Admin: 09/07/23 07:56 Dose: 100 mls/hr Documented By: MAGGIE Magnesium Oxide (Magnesium Oxide 400 Mg Tablet) 400 mg PO BIDPC [facility] Last Admin: 09/07/23 09:18 Dose: 400 mg Documented By: URSZULA Melatonin (Melatonin 3 Mg Tablet) 6 mg PO BEDTIME PRN PRN Reason: Insomnia Nicotine Polacrilex (Nicotine Polacrilex 2 Mg Gum) 2 mg BUCCAL Q1H PRN PRN Reason: cravings Last Admin: 09/03/23 14:41 Dose: 2 mg Documented By: FLORY Ondansetron HCl (Ondansetron Hcl 4 Mg/2 Ml Vial) 4 mg IVPUSH Q8H PRN PRN Reason: Nausea and Vomiting Last Admin: 09/04/23 09:02 Dose: 4 mg Documented By: FLORY Pantoprazole Sodium (Pantoprazole Sodium 40 Mg/10 Ml Vial) 40 mg IVPUSH BID@0630,1630 [facility] Last Admin: 09/07/23 07:47 Dose: 40 mg Documented By: MAGGIE Simethicone (Simethicone 80 Mg Tab.Chew) 160 mg PO Q6H PRN PRN Reason: Gas Last Admin: 09/07/23 10:02 Dose: 160 mg Documented By: URSZULA Sodium Chloride (0.9 % Sodium Chloride Flush 3 Ml Syringe) 3 ml IVFLUSH QSHIFT [facility] Last Admin: 09/07/23 09:13 Dose: 3 ml Documented By: URSZULA Labs 09/07/23 05:55 09/07/23 05:55 Labs: Laboratory Results - last 24 hr 09/07/23 05:55 MCV 95.0 MCH 32.1 MCHC 33.8 RDW 12.9 Plt Count 137 L MPV 9.8 Absolute Nucleated RBC 0.000 Nucleated RBC % (auto) 0.0 Anion Gap 9 L Estim Creat Clear Calc 218.0 Estimated GFR > 60 Fasting Glucose 123 H Calcium 8.4 Magnesium 2.0 Total Bilirubin 2.0 H Direct Bilirubin 0.9 H AST 26 ALT 22 Alkaline Phosphatase 110 Total Protein 6.1 L Albumin 2.8 L Procedures Date of Service Date of Service: 09/07/23 Progress Note: A&P Assessment and plan (1) Necrotizing pancreatitis: Status: Acute Plan 37-year-old male patient with alcohol associated pancreatitis now with evidence of necrotizing pancreatitis. No current evidence of sepsis/abscess. Would defer debridement unless evidence of abscess in which case patient should be transferred to tertiary care center. Continue supportive care, clear liquids. Time Spent With Patient Time: Total time managing care of this patient today ____ minutes. Quality Stroke Does the patient have a stroke diagnosis?: No VTE Prior VTE?: No VTE Risk Level:: Medical - moderate - high VTE Device Contraindication: Treatment Not Indicated VTE Drug Contraindication: N/A - Med Ordered
[2023-09-07 15:34] VITALS: BP 145/88; PULSE 86; RESP 18; TEMP 36.8; O2SAT 94
[2023-09-07] MEDS: Potassium Chloride ER 20 MEQ TAB.ER.PRT PO (19:55)
[2023-09-07 20:00] VITALS: BP 160/90; PULSE 88; RESP 16; TEMP 36.6; O2SAT 94
[2023-09-08] VITALS (7 sets, daily range): BP systolic 133–143; BP diastolic 74–90; PULSE 81–95; RESP 18–20; TEMP 36–37.2; O2SAT 94–97
[2023-09-08] MEDS: HYDROmorphone HCl 1 MG/ML SYRINGE 2 MG IVPUSH ×6 (00:19→23:09)
[2023-09-08] MEDS: Lactated Ringers 1,000 ML 100 ML IVCONT (02:16)
[2023-09-08] MEDS: Piperacillin Sodium/Tazobactam 3.375 GM in 0.9 % Sodium Chloride 50 ML IV ×4 (04:25→22:43)
[2023-09-08] MEDS: Simethicone 80 MG TAB.CHEW 160 MG PO (04:25)
[2023-09-08] MEDS: Pantoprazole Sodium 40 MG/10 ML VIAL IVPUSH ×2 (06:25→16:51)
[2023-09-08 06:35] LABS: Hematocrit 41.3 % (42.0-52.0); Mean Corpuscular HGB Conc 33.9 g/dl (31.0-36.0); Mean Corpuscular Hemoglobin 32.2 pg (27.0-33.0); Mean Corpuscular Volume 94.9 fL (80.0-98.0); Mean Platelet Volume 9.3 fL (9.4-12.4); Platelet Count 135 X10*3/uL (160-400); Red Blood Count 4.35 X10*6/uL (4.60-5.80); Red Cell Distribution Width 13.1 % (11.0-16.0)
[2023-09-08 06:41] LABS: Alanine Aminotransferase 19 U/L (0-40); Albumin Level 2.9 g/dL (3.5-5.0); Alkaline Phosphatase 120 U/L (39-117); Anion Gap 11 (12-20); Aspartate Amino Transferase 21 U/L (5-37); Bilirubin Direct 0.6 mg/dL (0.0-0.5); Bilirubin Total 1.5 mg/dL (0.0-1.0); Blood Urea Nitrogen 5 mg/dL (9-16); Calcium 8.2 mg/dL (8.4-10.2); Carbon Dioxide 25 mmol/L (22-29); Chloride 100 mmol/L (96-108); Creatinine Clr Calc Pharmacy 238.6; Estimated Glomerular Filt Rate > 60; Glucose Fasting 136 mg/dL (60-99); Magnesium 2.1 mg/dL (1.6-2.6); Potassium 2.9 mmol/L (3.3-5.1); Sodium 133 mmol/L (135-145); Total Protein 6.1 g/dL (6.5-8.0)
[2023-09-08] MEDS: 0.9 % Sodium Chloride Flush 3 ML SYRINGE IVFLUSH ×3 (08:54→22:43)
[2023-09-08] MEDS: KCl 20 mEq in 5 % Dex/Lact Rin 20 MEQ/1,000 ML IV.SOLN 100 MEQ IVCONT (08:54)
[2023-09-08] MEDS: Potassium Chloride/H20 10 MEQ/100 ML PIGGYBACK 100 MEQ IV ×2 (08:54→11:01)
[2023-09-08] MEDS: Magnesium Oxide 400 MG TABLET PO ×2 (08:55→16:52)
[2023-09-08] MEDS: Thiamine HCL 100 MG in 0.9 % Sodium Chloride 100 ML 202 MG IV (09:01)
--- NOTE | 2023-09-08 09:30 | PM.PNGS ---
Subjective Subjective Date of Service: 09/08/23 Interval history: States he feels better with less abd pain however is still receiving dilaudid 2mg q2h. He states he wants to go home and go back to work. He has only been OOB to go to the bathroom. Physical Exam Vital Signs: Vital Signs: Last Vital Signs Temp 97.6 F 09/08/23 07:14 Pulse 82 09/08/23 07:14 Resp 20 09/08/23 07:14 BP 135/89 09/08/23 07:14 Pulse Ox 95 09/08/23 07:14 O2 Del Method Room Air 09/08/23 07:14 BMI result Body Mass Index 30.0 Const: General: well developed and alert Orientation/consciousness: patient oriented x3 Resp: Effort & Inspection: normal respiratory effort GI: Inspection: No distended Palpation (GI): Soft to palpation and Tenderness to palpation present (GI) (moderate upper abdominal tenderness ) Skin: General skin exam: no rashes or lesions noted Neuro: General: patient oriented x3 Objective Data Active Medications Acetaminophen (Acetaminophen 325 Mg Tablet) 650 mg PO Q6H PRN PRN Reason: Pain, Mild (Pain Scale 1-3) Last Admin: 09/05/23 12:17 Dose: 650 mg Documented By: SO Bisacodyl (Bisacodyl 10 Mg Supp.Rect) 10 mg [place] DAILY PRN PRN Reason: Constipation Last Admin: 09/06/23 17:23 Dose: 10 mg Documented By: SO Hydromorphone HCl (Hydromorphone Hcl 1 Mg/Ml Syringe) 2 mg IVPUSH Q2H PRN; Protocol PRN Reason: Pain, Severe (Pain Scale 7-10) Last Admin: 09/08/23 08:55 Dose: 2 mg Documented By: YANNA Thiamine HCl 100 mg/ Sodium (Chloride) 101 mls @ 202 mls/hr IV DAILY [facility] Last Admin: 09/08/23 09:01 Dose: 202 mls/hr Documented By: YANNA Piperacillin Sod/Tazobactam (Sod 3.375 gm/ Sodium Chloride) 50 mls @ 100 mls/hr IV Q6H [facility] Last Infusion: 09/08/23 05:03 Dose: Infused Documented By: REINALDO Potassium Chloride (Potassium Chloride/H20) 10 meq in 100 mls @ 100 mls/hr IV Q1H [facility] Stop: 09/08/23 10:44 Last Infusion: 09/08/23 09:19 Dose: 0 mls/hr Documented By: YANNA Potassium Cl/Dextrose/Lact Ringer's (Kcl 20 Meq In 5 % Dex/Lact Rin) 20 meq in 1,000 mls @ 100 mls/hr IVCONT .Q10H [facility] Last Infusion: 09/08/23 09:19 Dose: 0 mls/hr Documented By: YANNA Magnesium Oxide (Magnesium Oxide 400 Mg Tablet) 400 mg PO BIDPC [facility] Last Admin: 09/08/23 08:55 Dose: 400 mg Documented By: YANNA Melatonin (Melatonin 3 Mg Tablet) 6 mg PO BEDTIME PRN PRN Reason: Insomnia Nicotine Polacrilex (Nicotine Polacrilex 2 Mg Gum) 2 mg BUCCAL Q1H PRN PRN Reason: cravings Last Admin: 09/03/23 14:41 Dose: 2 mg Documented By: FLORY Ondansetron HCl (Ondansetron Hcl 4 Mg/2 Ml Vial) 4 mg IVPUSH Q8H PRN PRN Reason: Nausea and Vomiting Last Admin: 09/04/23 09:02 Dose: 4 mg Documented By: FLORY Pantoprazole Sodium (Pantoprazole Sodium 40 Mg/10 Ml Vial) 40 mg IVPUSH BID@0630,1630 [facility] Last Admin: 09/08/23 06:25 Dose: 40 mg Documented By: REINALDO Potassium Chloride (Potassium Chloride Packet 20 Meq Packet) 40 meq PO BEDTIME ONE Stop: 09/08/23 21:01 Simethicone (Simethicone 80 Mg Tab.Chew) 160 mg PO Q6H PRN PRN Reason: Gas Last Admin: 09/08/23 04:25 Dose: 160 mg Documented By: REINALDO Sodium Chloride (0.9 % Sodium Chloride Flush 3 Ml Syringe) 3 ml IVFLUSH QSHIFT [facility] Last Admin: 09/08/23 08:54 Dose: 3 ml Documented By: YANNA Labs 09/08/23 05:43 09/08/23 05:43 Labs: Laboratory Results - last 24 hr 09/08/23 05:43 MCV 94.9 MCH 32.2 MCHC 33.9 RDW 13.1 Plt Count 135 L MPV 9.3 L Absolute Nucleated RBC 0.000 Nucleated RBC % (auto) 0.0 Anion Gap 11 L Estim Creat Clear Calc 238.6 Estimated GFR > 60 Fasting Glucose 136 H Calcium 8.2 L Magnesium 2.1 Total Bilirubin 1.5 H Direct Bilirubin 0.6 H AST 21 ALT 19 Alkaline Phosphatase 120 H Total Protein 6.1 L Albumin 2.9 L Procedures Date of Service Date of Service: 09/08/23 Progress Note: A&P Assessment and plan (1) Necrotizing pancreatitis: Status: Acute Plan He is somewhat improved this morning with less abdominal tenderness although still remains moderately tender on exam. Afebrile, WBC stable. Will advance to solid diet. Discussed at least attempting oral analgesics for pain control and weaning off IV. He is in agreement. Cont supportive measures, electrolyte replacement, increasing activity. Time Spent With Patient Time: Total time managing care of this patient today ____ minutes. Quality Stroke Does the patient have a stroke diagnosis?: No VTE Prior VTE?: No VTE Risk Level:: Medical - moderate - high VTE Device Contraindication: Treatment Not Indicated VTE Drug Contraindication: N/A - Med Ordered
[2023-09-08] MEDS: Nicotine Polacrilex 2 MG GUM BUCCAL (09:41)
[2023-09-08] MEDS: HYDROmorphone HCl 1 MG/ML SYRINGE IVPUSH ×3 (11:01→20:32)
--- NOTE | 2023-09-08 11:54 | P.PNIM_ITS ---
Subjective Subjective Date of Service: 09/08/23 Interval History: Feels abdominal pain is improved but c/o left lower abdominal discomfort, denies nausea vomiting tolerating clear liquid diet, no fevers, no chills, no other acute issues walking to the bathroom denies lightheadedness or dizziness. Review of Systems All other system reviewed and negative. Physical Exam 2 Vital Signs: Vital Signs: Last Vital Signs Temp 98 F 09/08/23 11:19 Pulse 85 09/08/23 11:19 Resp 20 09/08/23 11:19 BP 139/90 H 09/08/23 11:19 Pulse Ox 97 09/08/23 11:19 O2 Del Method Room Air 09/08/23 11:19 BMI result Body Mass Index 30.0 Const: Other: General: Awake alert x3 no acute distress Anicteric sclera Neck no JVD Resp: CTA bilateral, no accessory muscles used CVS: S1,S2,RRR GI: soft, non distended, bowel sounds audible, tenderness to palpation left mid to lower abdomen Skin no rash Neuro: motor grossly intact, alert Psych: appropriate affect, appropriate insight Objective Data Active Medications Acetaminophen (Acetaminophen 325 Mg Tablet) 650 mg PO Q6H PRN PRN Reason: Pain, Mild (Pain Scale 1-3) Last Admin: 09/05/23 12:17 Dose: 650 mg Documented By: SO Bisacodyl (Bisacodyl 10 Mg Supp.Rect) 10 mg MT DAILY PRN PRN Reason: Constipation Last Admin: 09/06/23 17:23 Dose: 10 mg Documented By: SO Hydromorphone HCl (Hydromorphone Hcl 1 Mg/Ml Syringe) 1 mg IVPUSH Q3H PRN; Protocol PRN Reason: Pain, Severe (Pain Scale 7-10) Last Admin: 09/08/23 11:01 Dose: 1 mg Documented By: YANNA Thiamine HCl 100 mg/ Sodium (Chloride) 101 mls @ 202 mls/hr IV DAILY [facility] Last Infusion: 09/08/23 09:38 Dose: Infused Documented By: YANNA Piperacillin Sod/Tazobactam (Sod 3.375 gm/ Sodium Chloride) 50 mls @ 100 mls/hr IV Q6H [facility] Last Infusion: 09/08/23 10:16 Dose: Infused Documented By: YANNA Potassium Cl/Dextrose/Lact Ringer's (Kcl 20 Meq In 5 % Dex/Lact Rin) 20 meq in 1,000 mls @ 100 mls/hr IVCONT .Q10H [facility] Last Infusion: 09/08/23 09:59 Dose: 100 mls/hr Documented By: YANNA Magnesium Oxide (Magnesium Oxide 400 Mg Tablet) 400 mg PO BIDPC [facility] Last Admin: 09/08/23 08:55 Dose: 400 mg Documented By: YANNA Melatonin (Melatonin 3 Mg Tablet) 6 mg PO BEDTIME PRN PRN Reason: Insomnia Nicotine Polacrilex (Nicotine Polacrilex 2 Mg Gum) 2 mg BUCCAL Q1H PRN PRN Reason: cravings Last Admin: 09/08/23 09:41 Dose: 2 mg Documented By: YANNA Ondansetron HCl (Ondansetron Hcl 4 Mg/2 Ml Vial) 4 mg IVPUSH Q8H PRN PRN Reason: Nausea and Vomiting Last Admin: 09/04/23 09:02 Dose: 4 mg Documented By: FLORY Oxycodone HCl (Oxycodone Hcl Immed Release 5 Mg Tablet) 10 mg PO Q4H PRN PRN Reason: Pain, Moderate(Pain Scale 4-6) Pantoprazole Sodium (Pantoprazole Sodium 40 Mg/10 Ml Vial) 40 mg IVPUSH BID@0630,1630 [facility] Last Admin: 09/08/23 06:25 Dose: 40 mg Documented By: REINALDO Potassium Chloride (Potassium Chloride Packet 20 Meq Packet) 40 meq PO BEDTIME ONE Stop: 09/08/23 21:01 Simethicone (Simethicone 80 Mg Tab.Chew) 160 mg PO Q6H PRN PRN Reason: Gas Last Admin: 09/08/23 04:25 Dose: 160 mg Documented By: REINALDO Sodium Chloride (0.9 % Sodium Chloride Flush 3 Ml Syringe) 3 ml IVFLUSH QSHIFT [facility] Last Admin: 09/08/23 08:54 Dose: 3 ml Documented By: YANNA Labs 09/08/23 05:43 09/08/23 05:43 Labs: Laboratory Results - last 24 hr 09/08/23 05:43 MCV 94.9 MCH 32.2 MCHC 33.9 RDW 13.1 Plt Count 135 L MPV 9.3 L Absolute Nucleated RBC 0.000 Nucleated RBC % (auto) 0.0 Anion Gap 11 L Estim Creat Clear Calc 238.6 Estimated GFR > 60 Fasting Glucose 136 H Calcium 8.2 L Magnesium 2.1 Total Bilirubin 1.5 H Direct Bilirubin 0.6 H AST 21 ALT 19 Alkaline Phosphatase 120 H Total Protein 6.1 L Albumin 2.9 L Assessment and Plan (1) Pancreatitis: Status: Acute Plan 37M PMH etoh dependence, pancreatitis, presented with abd pain, found to have recurrent pancreatitis, now reporting coffee ground emesis Alcohol dependence with acute necrotic pancreatitis, complicated by coffee ground emesis No recurrent episodes of vomiting, tolerating clear liquid diet improved leukocytosis on empiric zosyn,no sepsis Pain is improving will minimize narcotic medication decreased Dilaudid from 2 mg to 1 mg Q 3 hours as needed, oxycodone added by General surgery Diet advanced to regular, continue IV fluids Continue iv protonix for coffee ground emesis, hgb stable Being followed by General surgery they agree with above treatment plan Seen by GI, an episode of coffee-ground emesis likely due to MW tear, since no recurrent bleed, no further intervention planned acute hyopkalemia replace, monitor BMP closely acute hypomagnesemia repleted and normalized DVT prophylaxis - mechanical due to coffee ground emesis Full Code reason for continued hospitalization: Awaiting tolerance of p.o., requiring IV pain meds and IV hydration Quality Stroke Does the patient have a stroke diagnosis?: No VTE Prior VTE?: No VTE Risk Level:: Medical - moderate - high VTE Device Contraindication: Treatment Not Indicated VTE Drug Contraindication: N/A - Med Ordered
[2023-09-08 12:33] LABS: Potassium 3.5 mmol/L (3.3-5.1)
[2023-09-08] MEDS: oxyCODONE HCl Immed Release 5 MG TABLET 10 MG PO ×2 (13:50→19:03)
[2023-09-08] MEDS: hydrOXYzine HCL 25 MG TABLET PO (13:50)
[2023-09-08] MEDS: Potassium Chloride ER 20 MEQ TAB.ER.PRT PO (22:43)
[2023-09-09] MEDS: HYDROmorphone HCl 1 MG/ML SYRINGE 2 MG IVPUSH ×4 (01:59→11:07)
[2023-09-09 03:14] VITALS: BP 142/85; PULSE 88; RESP 18; TEMP 36; O2SAT 97
[2023-09-09] MEDS: oxyCODONE HCl Immed Release 5 MG TABLET 10 MG PO (03:59)
[2023-09-09] MEDS: Piperacillin Sodium/Tazobactam 3.375 GM in 0.9 % Sodium Chloride 50 ML IV ×2 (03:59→08:50)
[2023-09-09] MEDS: Nicotine Polacrilex 2 MG GUM BUCCAL (04:02)
[2023-09-09] MEDS: Simethicone 80 MG TAB.CHEW 160 MG PO (04:02)
[2023-09-09] MEDS: Pantoprazole Sodium 40 MG/10 ML VIAL IVPUSH (04:59)
[2023-09-09 05:36] VITALS: RESP 17
[2023-09-09 06:32] LABS: Hematocrit 44.5 % (42.0-52.0); Hemoglobin 14.8 g/dl (14.0-18.0); Mean Corpuscular HGB Conc 33.3 g/dl (31.0-36.0); Mean Corpuscular Hemoglobin 31.8 pg (27.0-33.0); Mean Corpuscular Volume 95.5 fL (80.0-98.0); Mean Platelet Volume 9.8 fL (9.4-12.4); Platelet Count 156 X10*3/uL (160-400); Red Blood Count 4.66 X10*6/uL (4.60-5.80); Red Cell Distribution Width 13.2 % (11.0-16.0); White Blood Count 13.6 X10*3/uL (4.8-10.8)
[2023-09-09 06:46] LABS: Anion Gap 11 (12-20); Blood Urea Nitrogen 5 mg/dL (9-16); Calcium 8.4 mg/dL (8.4-10.2); Carbon Dioxide 26 mmol/L (22-29); Chloride 100 mmol/L (96-108); Creatinine Clr Calc Pharmacy 207.3; Estimated Glomerular Filt Rate > 60; Glucose Random 128 mg/dL (60-115); Sodium 134 mmol/L (135-145)
[2023-09-09 07:52] VITALS: BP 135/80; PULSE 91; RESP 16; TEMP 36.4; O2SAT 96
[2023-09-09] MEDS: Thiamine HCL 100 MG in 0.9 % Sodium Chloride 100 ML 202 MG IV (08:06)
[2023-09-09] MEDS: 0.9 % Sodium Chloride Flush 3 ML SYRINGE IVFLUSH (08:06)
[2023-09-09] MEDS: Magnesium Oxide 400 MG TABLET PO (08:06)
[2023-09-09] MEDS: Potassium Chloride ER 20 MEQ TAB.ER.PRT 40 MEQ PO (08:06)
[2023-09-09 11:19] LABS: Potassium 3.4 mmol/L (3.3-5.1)
--- NOTE | 2023-09-09 11:20 | MHC.CM.PN ---
Pt is medically cleared for D/C home self-care, pt states he has his own ride.
[2023-09-09 11:35] VITALS: BP 133/88; PULSE 88; RESP 18; TEMP 36.6; O2SAT 96
--- NOTE | 2023-09-09 12:02 | PM.DS ---
DS: Providers Provider Date of Service: 09/09/23 Date of admission: 09/03/23 06:27 Primary care physician: None Physician Consults: 09/03/23 06:27 Addiction Medicine Routine Consulting Provider: Addiction Covering Reason for consultation: alcohol use disorder 09/03/23 14:23 Addiction Medicine Routine Consulting Provider: Addiction Covering Reason for consultation: Etoh 09/04/23 07:26 Consult to Gastroenterology Routine Consulting Provider: Pati Thorne Reason for consultation: coffee ground emesis, pancreatitis 09/06/23 13:31 Consult to General Surgery Routine Consulting Provider: [facility] General Surgeons Reason for consultation: necrotic pancreatitis DS: Diagnosis Discharge Diagnosis (1) Pancreatitis: Status: Acute DS: Summary Hospital Course Hospital Course: History of presenting illness: Date of Service: 09/03/23 Chief Complaint: Abdominal pain This is a 37-year-old male with pertinent history of alcohol use disorder with history of alcohol induced pancreatitis who presents to the emergency department for evaluation of epigastric discomfort. Patient states he started having epigastric pain 1 day prior to presentation. It has been constant, progressive, radiating to back and without any relieving factors. He also has been having associated nausea and vomiting. Unable to tolerate p.o. intake. States his last alcohol drink was 1 day prior to presentation. He has had alcohol withdrawal a long time ago but does not feel like he is withdrawing this time. No history of alcohol withdrawal seizures. Patient states he was admitted about 10 days ago at [facility] for alcohol induced pancreatitis. No fever, chills, chest discomfort, palpitations, shortness of breath, changes in urinary or bowel habits. In the emergency department, lipase was found to be elevated and imaging concerning for acute pancreatitis. Hospital course: 37M PMH etoh dependence, pancreatitis, presented with abd pain, found to have recurrent pancreatitis, admitted to hospital treated with IV analgesics, IV fluids, bowel rest , how ever patient continued to have severe pain and developed coffee-ground emesis therefore repeat CT scan was performed that showed diffusely hypodense pancreas suspicious for acute necrotic pancreatitis with persistent extensive peripancreatic stranding, therefore general surgery consult was obtained, and he was placed on IV Zosyn, his WBC showed improvement, LFTs are downtrending , diet gradually advanced patient is currently tolerating regular diet, ambulating with steady gait, with no lightheadedness or dizziness noted to have no fevers, admits to have less pain and is eager to be discharged home, therefore will discharge him on 10 days of by mouth Augmentin and oxycodone, he was evaluated by care team and has been strongly advised to abstain from alcohol, patient noted to have no alcohol withdrawal symptoms, patient was also evaluated by electronics technician apprentice due to an episode of coffee-ground emesis and it was felt likely due to Parul-Brito tear, patient had no recurrent bleed H&H remained stable and he was treated with PPI. He is recommended to return to ED with worsening abdominal pain, fevers, acute hyopkalemia repleted and normalized acute hypomagnesemia repleted and normalized Time Attestation Discharge Coordination Time (in mins): 36 Quality: Safe Use of Opioids Does Pt have an Active Cancer Diagnosis on the Problem List?: No Quality: Stroke Does the patient have a stroke diagnosis?: No Physical Exam Vital Signs: Vital Signs: Last Vital Signs Temp 97.5 F 09/09/23 07:52 Pulse 91 09/09/23 07:52 Resp 16 09/09/23 07:52 BP 135/80 09/09/23 07:52 Pulse Ox 96 09/09/23 07:52 O2 Del Method Room Air 09/09/23 07:52 BMI result Body Mass Index 30.0 Const: Other: General: Awake alert x3 no acute distress Anicteric sclera Neck no JVD Resp: CTA bilateral, no accessory muscles used CVS: S1,S2,RRR GI: soft, non distended, bowel sounds audible, mild discomfort to palpation left mid to lower abdomen , no guarding, no rigidity. Skin no rash Neuro: Non focal Psych: appropriate affect, appropriate insight DS: Data Data Completed and Pending Completed studies during hospitalization [Text1]: Procedures Detoxification Services for Substance Abuse Treatment (06/22/22) Inspection of Upper Intestinal Tract, Via Natural or Artificial Opening Endoscopic (08/09/22) Labs on day of discharge: Laboratory Results - last 24 hr 09/08/23 09/09/23 09/09/23 12:15 05:50 11:06 WBC 13.6 H RBC 4.66 Hgb 14.8 Hct 44.5 MCV 95.5 MCH 31.8 MCHC 33.3 RDW 13.2 Plt Count 156 L MPV 9.8 Absolute Nucleated RBC 0.000 Nucleated RBC % (auto) 0.0 Sodium 134 L Potassium 3.5 D 3.0 L 3.4 Chloride 100 Carbon Dioxide 26 Anion Gap 11 L BUN 5 L Creatinine 0.61 Estim Creat Clear Calc 207.3 Estimated GFR > 60 Random Glucose 128 H Calcium 8.4 Discharge Plan Discharge Anticipated Discharge Date/Time: 09/09/23 11:16 Patient Disposition: Home, Self-Care Discharge Diagnosis: Acute necrotizing pancreatitis Alcohol use disorder Hypokalemia Referrals: Physician,None [Primary Care Provider] - 1 Week Discharge Medications: New nicotine (polacrilex) 2 mg Gum 2 mg buccal Q1H PRN (Reason: cravings) Qty: 50 0RF acetaminophen 325 mg Tablet 650 mg PO Q6H PRN (Reason: Pain, Mild (Pain Scale 1-3)) Qty: 90 0RF magnesium oxide 400 mg (241.3 mg magnesium) Tablet 400 mg PO BIDPC Qty: 60 0RF oxycodone 5 mg Tablet 10 mg PO Q4H PRN (Reason: Pain, Moderate(Pain Scale 4-6)) Qty: 30 0RF Rx Instructions: Partial Fill upon patient request. amoxicillin-pot clavulanate 875-125 mg tablet 1 tab PO BID Qty: 20 0RF Discharge Orders: Discharge Order (Routine); Ordered 09/09/23 Ordered By: Viral Martínez Diet: Take Activity on Discharge: As tolerated Stand Alone Forms: Patient Portal Discharge page Other Ambulatory Orders: Basic Metabolic Panel (Routine) Timeframe: 1 Week Facility: [facility] - Location: Laboratory Ordered By: Viral Martínez Complete Blood Count no Diff (Routine) Timeframe: 1 Week Facility: [facility] - Location: Laboratory Ordered By: Viral Martínez Care Plan Goals: necrotizing pancreatitis due to alcohol. Take Augmentin 1 tablet twice daily for 10 days Returned to ED with worsening abdominal pain, fevers, dizziness Take oxycodone 5 mg 1 to 2 tablets q.4 to 6 hours as needed for severe abdominal pain, take Tylenol 1-2 tablets 500 mg for [id number] pain NO ALCOHOL THAT WILL CAUSE RECURRENCE OF PANCREATITIS Take protein shakes, rest, no strenuous activity, drink plenty of fluids Health Concerns: Tobacco use disorder Alcohol use disorder Plan of Treatment: Outpatient follow-up with primary care physician and General surgery Dr. Mazzucco call for appointment in 1-2 weeks Assessment: As above Discharge Date/Time: 09/09/23 12:02
--- NOTE | 2023-09-09 12:20 | P.PNGS_ITS ---
Subjective Subjective Date of Service: 09/09/23 Interval history: Feels significantly improved today with less abdominal pain. Tolerating solid diet without worsening pain or nausea. Wants to go home. Physical Exam 2 Vital Signs: Vital Signs: Last Vital Signs Temp 97.9 F 09/09/23 11:35 Pulse 88 09/09/23 11:35 Resp 18 09/09/23 11:35 BP 133/88 09/09/23 11:35 Pulse Ox 96 09/09/23 11:35 O2 Del Method Room Air 09/09/23 11:35 BMI result Body Mass Index 30.0 Const: General: comfortable, no acute distress and alert O rientation/consciousness: patient oriented x3 Resp: Effort & Inspection: normal respiratory effort GI: Inspection: No distended Palpation (GI): Soft to palpation, Tenderness to palpation present (GI) (mild epigastric ), no guarding and not rigid Skin: General skin exam: no rashes or lesions noted and no jaundice Neuro: General: patient oriented x3 and moves all extremities Objective Data Labs 09/09/23 05:50 09/09/23 11:06 Labs: Laboratory Results - last 24 hr 09/09/23 05:50 MCV 95.5 MCH 31.8 MCHC 33.3 RDW 13.2 Plt Count 156 L MPV 9.8 Absolute Nucleated RBC 0.000 Nucleated RBC % (auto) 0.0 Anion Gap 11 L Estim Creat Clear Calc 207.3 Estimated GFR > 60 Random Glucose 128 H Calcium 8.4 Procedures Date of Service Date of Service: 09/09/23 Progress Note: A&P Assessment and plan (1) Necrotizing pancreatitis: Status: Acute Plan Clinically improving with less abdominal pain and tenderness on examination, no peritoneal signs and no signs of sepsis. Tolerating solid diet. Wants to go home today. Would recommend repeat CBC in 1 week to ensure resolution of leukocytosis. He is going home on PO course of augmentin. Can f/u with PCP upon discharge and general surgery as needed. Time Spent With Patient Time: Total time managing care of this patient today ____ minutes. Quality Stroke Does the patient have a stroke diagnosis?: No VTE Prior VTE?: No VTE Risk Level:: Medical - moderate - high VTE Device Contraindication: Treatment Not Indicated VTE Drug Contraindication: N/A - Med Ordered
== END 2023-09-09 12:02 | disposition home or self-care (01) | DRG 438 ==
LOC: HO.ED 06:30 → HO.EDOVER 06:31 → HO.S3 13:37 → HO.IMC 09-04 09:55
PROVIDERS: Internal Medicine; Admitting Provider Student in an Organized Health Care Education/Training Program; Emergency Provider Internal Medicine; Visit Provider Hospitalist
DX: K85.21 Alcohol induced acute pancreatitis with uninfected necrosis (principal); K22.6 Gastro-esophageal laceration-hemorrhage syndrome; E87.6 Hypokalemia; Y90.6 Blood alcohol level of 120-199 mg/100 ml; F10.20 Alcohol dependence, uncomplicated; F17.210 Nicotine dependence, cigarettes, uncomplicated; E83.42 Hypomagnesemia; Z71.6 Tobacco abuse counseling
CPT/HCPCS: 36415; 71045; 74160; 74177; 80048; 80053; 80076; 80307; 83690; 83735; 84132; 84478; 85025; 85027; 85610; 93005; 99285; C9113; J1170; J1650; J1885; J2270; J2405; J2543; J3411; J3475; J3480; J7120; Q9967

== ENCOUNTER 2023-09-03 06:27 | Outpatient (BNV) | payer OTHER, SELFPAY | END 2023-09-04 21:26 | PROVIDERS: Admitting Provider Student in an Organized Health Care Education/Training Program; Emergency Provider Internal Medicine; Visit Provider Internal Medicine Cardiovascular Disease | DX: R00.0 Tachycardia, unspecified (principal); R07.9 Chest pain, unspecified | CPT/HCPCS: 93010 ==

== ENCOUNTER → 2023-09-03 06:27 | Outpatient (BNV) | payer OTHER, SELFPAY | PROVIDERS: Admitting Provider Student in an Organized Health Care Education/Training Program; Emergency Provider Internal Medicine; Visit Provider Physician Assistant Surgical | DX: K85.91 Acute pancreatitis with uninfected necrosis, unspecified (principal) | CPT/HCPCS: 99223; 99232 ==

== ENCOUNTER → 2023-09-03 06:27 | Outpatient (BNV) | payer OTHER, SELFPAY | PROVIDERS: Admitting Provider Student in an Organized Health Care Education/Training Program; Emergency Provider Internal Medicine; Visit Provider Internal Medicine Gastroenterology | DX: K85.91 Acute pancreatitis with uninfected necrosis, unspecified (principal); F10.239 Alcohol dependence with withdrawal, unspecified | CPT/HCPCS: 99222 ==

== ENCOUNTER → 2023-09-03 06:27 | Outpatient (BNV) | payer OTHER, SELFPAY | PROVIDERS: Admitting Provider Student in an Organized Health Care Education/Training Program; Emergency Provider Internal Medicine; Visit Provider Student in an Organized Health Care Education/Training Program | DX: K85.90 Acute pancreatitis without necrosis or infection, unspecified (principal) | CPT/HCPCS: 99222; 99233; 99239; 99499 ==

== ENCOUNTER 2023-10-18 14:00 | Emergency (ER) | payer OTHER, SELFPAY ==
[2023-10-18 14:07] VITALS: BP 130/92; PULSE 89; O2SAT 99
--- NOTE | 2023-10-18 14:08 | ED.GENADULT ---
HPI - General Adult General Stated complaint: abd pain for 1 day Related Data Previous Rx's ?Medication ?Instructions ?Recorded acetaminophen 325 mg tablet 650 mg (2 x 325 mg) PO Q6H PRN 09/09/23 Pain, Mild (Pain Scale 1-3) #90 tabs amoxicillin 875 mg-potassium 1 tab PO BID #20 tabs 09/09/23 clavulanate 125 mg tablet magnesium oxide 400 mg (241.3 mg 400 mg PO BIDPC #60 tabs 09/09/23 magnesium) tablet nicotine (polacrilex) 2 mg gum 2 mg buccal Q1H PRN cravings #50 ea 09/09/23 oxycodone 5 mg tablet 10 mg (2 x 5 mg) PO Q4H PRN Pain, 09/09/23 Moderate(Pain Scale 4-6) #30 tabs Allergies Allergy/AdvReac Type Severity Reaction Status Date / Time No Known Allergies Allergy Verified 09/03/23 03:35 [No Known Allergies*] [facility] Past Medical History Medical History (Updated 09/06/23 @ 14:24 by Jacqueline South PA-C) Pancreatitis Alcohol dependence with withdrawal Surgical History (Updated 09/06/23 @ 14:45 by Jacqueline South PA-C) History of Suma fundoplication Social History Social History Household Members: None Housing: Apartment Do you presently have visiting nurse or other home services: No Alcohol intake: current Alcohol intake frequency: 3 or more drinks per day Alcohol type: hard liquor Comment: PT refused non skid footwear despite safety teaching and encouragement Patient Tobacco Use Status: Current everyday Tobacco user Tobacco use type: Cigarette Cigarette Packs Per Day: 1 Cigarettes Per Day: 20.0 Years Smoked: 20 Second Hand Smoke Exposure: No Substance Use Type: Marijuana service: No Current occupational status: employed Course Course Course Narrative: RME- 37-year-old male presents for evaluation of upper abdominal pain. He has a history of pancreatitis and feels this is similar. Plan for labs including lipase. Will defer any potential imaging to primary ER provider Discharge Plan Discharge Prescriptions: No Action nicotine (polacrilex) 2 mg Gum 2 mg buccal Q1H PRN (Reason: cravings) Qty: 50 0RF acetaminophen 325 mg Tablet 650 mg PO Q6H PRN (Reason: Pain, Mild (Pain Scale 1-3)) Qty: 90 0RF magnesium oxide 400 mg (241.3 mg magnesium) Tablet 400 mg PO BIDPC Qty: 60 0RF oxycodone 5 mg Tablet 10 mg PO Q4H PRN (Reason: Pain, Moderate(Pain Scale 4-6)) Qty: 30 0RF Rx Instructions: Partial Fill upon patient request. amoxicillin-pot clavulanate 875-125 mg tablet 1 tab PO BID Qty: 20 0RF Print Language: Citizen Of [place]
[2023-10-18 14:37] VITALS: BP 115/77; PULSE 84; RESP 16; TEMP 37; O2SAT 96; BMI 25.0
[2023-10-18 14:52] LABS: MANUAL DIFF FLAG NO
[2023-10-18 14:55] LABS: Basophils Percent Auto 0.3 % (0-2); Eosinophils Absolute Auto 0.2 X10*3/uL (0.0-0.4); Eosinophils Percent Auto 1.5 % (0-4); Hemoglobin 14.9 g/dl (14.0-18.0); Imm Gran Abs Auto 0.04 X10*3/uL (0.00-0.03); Imm Gran Pct Auto 0.3 % (0.0-0.4); Lymphocytes Absolute Auto 2.7 X10*3/uL (1.2-4.9); Lymphocytes Percent Auto 20.5 % (20-40); Mean Corpuscular HGB Conc 33.1 g/dl (31.0-36.0); Mean Corpuscular Hemoglobin 29.4 pg (27.0-33.0); Mean Corpuscular Volume 88.9 fL (80.0-98.0); Mean Platelet Volume 8.3 fL (9.4-12.4); Monocytes Absolute Auto 0.7 X10*3/uL (0.1-1.2); Monocytes Percent Auto 5.5 % (2-11); Neutrophils Absolute Auto 9.5 x10*3/uL (2.0-8.3); Neutrophils Percent Auto 71.9 % (45-73); Platelet Count 496 X10*3/uL (160-400); Red Blood Count 5.06 X10*6/uL (4.60-5.80); White Blood Count 13.2 X10*3/uL (4.8-10.8)
[2023-10-18 15:10] LABS: Alanine Aminotransferase 32 U/L (0-40); Albumin Level 3.5 g/dL (3.5-5.0); Alkaline Phosphatase 422 U/L (39-117); Anion Gap 14 (12-20); Aspartate Amino Transferase 40 U/L (5-37); Bilirubin Total 0.6 mg/dL (0.0-1.0); Blood Urea Nitrogen 5 mg/dL (9-16); Calcium 9.8 mg/dL (8.4-10.2); Carbon Dioxide 27 mmol/L (22-29); Chloride 99 mmol/L (96-108); Creatinine Clr Calc Pharmacy 181.6; Estimated Glomerular Filt Rate > 60; Glucose Random 112 mg/dL (60-115); Lipase 85 U/L (8-78); Potassium 3.6 mmol/L (3.3-5.1); Sodium 136 mmol/L (135-145); Total Protein 8.2 g/dL (6.5-8.0)
== END 2023-10-18 19:58 | disposition left against medical advice (07) ==
LOC: HO.ED 19:42
PROVIDERS: Physician Assistant; Emergency Provider Emergency Medicine
DX: R10.9 Unspecified abdominal pain (principal)
CPT/HCPCS: 36415; 80053; 83690; 85025; 99281; 99283